=== PATIENT | female | born 1950 | race Caucasian/White ===

== ENCOUNTER 2023-01-12 14:41 | Outpatient (OUT) | payer MEDICARE, OTHER, SELFPAY ==
--- NOTE | 2023-01-12 | MM_ITS ---
Patient Name: LOBITO MERAZ MR#: [id number] : 1950 Exam Date: 01/12/2023 Ordering Doctor: Non-Staff Physician RADIOLOGY REPORT PROCEDURE: MM TOMOSYNTHESIS SCREENING BI COMPARISON: MG MAMM SCREEN 3D JENNA CAD, 12/11/2020. MG MAMM SCREEN 3D JENNA CAD, 01/06/2022. INDICATIONS: Screening for malignant neoplasm Calculator Name NCI Breast Cancer Risk Assessment Tool 5 Year Breast Cancer Risk 6.50% Lifetime Breast Cancer Risk 15.30% Personal Breast Cancer No Personal Ovarian Cancer No Treatments None Family Cancers Mother with breast cancer at age 40; Sister with breast cancer at age 59. LOCATION: [facility] BREAST COMPOSITION: Scattered areas fibroglandular density. FINDINGS: DIAGNOSTIC CATEGORY 2--BENIGN FINDING. NO CHANGE FROM COMPARISON. Scattered benign-appearing nodules are present. Scattered benign-appearing calcifications are present. Scattered benign-appearing lymph nodes are present. RIGHT BREAST: No significant suspicious finding. LEFT BREAST: No significant suspicious finding. RECOMMENDATIONS: ROUTINE MAMMOGRAM AND CLINICAL EVALUATION IN 12 MONTHS. PLEASE NOTE: A NORMAL MAMMOGRAM DOES NOT EXCLUDE THE POSSIBILITY OF BREAST CANCER. A CLINICALLY SUSPICIOUS PALPABLE LUMP SHOULD BE BIOPSIED. Dictated by: Gerry Lay MD on 01/13/2023 at 08:36 Approved by: Gerry Lay MD on 01/13/2023 at 08:38
--- NOTE | 2023-01-12 | XR_ITS ---
The [address] [address] Patient Name: LOBITO MERAZ MRN: [id number] date: 1950 Sex: F Assigned Patient Location: [facility] Current Patient Location: [facility] Accession/Order Number: [id number] Exam Date: 01/12/2023 15:09 Report Date: 01/12/2023 15:59 At the request of: NON-STAFF PHYSICIAN Procedure: XR DEXA axial skeleton EXAMINATION: XR DEXA axial skeleton, 01/12/2023 3:09 PM EST HISTORY: Screening COMPARISON: 2020, 2018, 2015, 2012. TECHNIQUE: Dual-energy X-ray absorptiometry (DEXA) bone density study performed for the axial skeleton. FINDINGS: Bone mineral density AP spine L2-L4 measures 1.511 g/sq cm. This is artifactually elevated secondary to proliferative osteophyte formation Lowest bone mineral density is in the left femoral neck measuring 0.867 g/sq cm. T score -1.2. WHO classification: Osteopenia XR/XR DEXA axial skeleton IMPRESSION: Osteopenia. Moderate fracture risk Electronically authenticated by: BENJY SOLIS Date: 01/12/2023 15:59
[2023-01-12 15:52] LABS: Calcium 9.2 mg/dL (8.5-10.1); Estimated GFR (African America >60 (>=60); Estimated GFR (Non-African Ame 59 (>=60)
== END 2023-01-12 14:42 | disposition home or self-care (01) ==
PROVIDERS: PCP Family Medicine
DX: M85.89 Other specified disorders of bone density and structure, multiple sites (principal); Z12.31 Encounter for screening mammogram for malignant neoplasm of breast; Z80.3 Family history of malignant neoplasm of breast; M85.80 Other specified disorders of bone density and structure, unspecified site
CPT/HCPCS: 36415; 77063; 77067; 77080; 82306; 82310; 82565

== ENCOUNTER 2023-02-09 12:10 | Outpatient (OUT) | payer MEDICARE, OTHER, SELFPAY ==
--- NOTE | 2023-02-09 12:25 | XR_ITS ---
The [place] [id number] Patient Name: LOBITO MERAZ MRN: [id number] date: 1950 Sex: F Assigned Patient Location: [facility] Current Patient Location: [facility] Accession/Order Number: [id number] Exam Date: 02/09/2023 12:20 Report Date: 02/09/2023 12:39 At the request of: KAYLEIGH HOLBROOK Procedure: XR chest 2V EXAM: XR chest 2V HISTORY: Cough for 2 months COMPARISON: None. TECHNIQUE: Upright PA and lateral chest x-ray FINDINGS: The heart is not enlarged and the vasculature is not distended. No acute infiltrate, effusion or pneumothorax is identified. Calcification of the costochondral cartilage is noted. Mild degenerative changes are seen in the spine. XR/XR chest 2V IMPRESSION: No acute infiltrate or evidence of cardiac decompensation. Direct comparison with a previous study would be helpful in confirming the chronicity of these findings. Electronically authenticated by: SUPA LEYVA Date: 02/09/2023 12:39
== END 2023-02-09 12:11 | disposition home or self-care (01) ==
LOC: RAD 12:10
PROVIDERS: PCP Family Medicine; Visit Provider Nurse Practitioner
DX: R05.9 Cough, unspecified (principal)
CPT/HCPCS: 71046

== ENCOUNTER 2023-04-20 08:53 | Outpatient (OUT) | payer MEDICARE, OTHER, SELFPAY ==
--- OUTSIDE RECORDS SUMMARY | 2023-04-20 08:58 | XMS_ITS | CCD ---
Author Name Unknown Address [address] [place] [address] Organization [facility] Care Team Providers Care Tour Leader Name Role Phone WEST, DR BENJY Yun Consulting Unavailable YOAV, DR HIGGINS Admitting Unavailable YOAV, DR HIGGINS Attending Unavailable BULL ., DR KATIUSKA Da Silva Primary Care Unavailable YOAV, DR HIGGINS Consulting Unavailable BULL ., DR KATIUSKA Da Silva Attending Unavailable BULL ., DR KATIUSKA Da Silva Admitting Unavailable BULL ., DR KATIUSKA Da Silva Primary Care Unavailable BULL ., DR KATIUSKA Da Silva Consulting Unavailable ARMEN YUEN Admitting Unavailable ARMEN YUEN Attending Unavailable BULL ., DR KATIUSKA Da Silva Primary Care Unavailable ARMEN YUEN Admitting Unavailable WILFRIDARMEN Attending Unavailable ZIEBER, DR EJ Davis Consulting Unavailable BULL ., DR KATIUSKA Da Silva Primary Care Unavailable ARMEN YUEN Consulting Unavailable Mitzi, [employer]IE[employer] Radha L Attending Unavailable Mitzi, [employer] CHIEF Radha L Attending Unavailable Mitzi, [employer]IEF Radha L Attending Unavailable Allergies Allergy Classification Reported Allergen(s) Allergy Type Date of Onset Reaction(s) Facility (3 sources) Meperidine; Translations: [Demerol] Drug Allergy 03-06-2016 [facility] Repository Problems Active Problems Problem Classification Problem Date Documented Da te Episodic/Chronic Other connective tissue disease (4 sources) Pain in left foot; Translations: [PAIN IN LEFT FOOT] Onset: 06-14-2022 Episodic Past or Other Problems Problem Classification Problem Date Documented Da te Episodic/Chronic Other screening for suspected conditions (not mental disorders or infectious disease) (4 sources) Encounter for screening mammogram for malignant neoplasm of breast; Translations: [ENC SCR MAMMO MALIG NEOPLASM BREAST] Onset: 01-06-2022 Episodic Residual codes; unclassified (1 source) Family history of malignant neoplasm of breast; Translations: [FAMILY HX MALIG NEOPLASM OF BREAST] Onset: 01-10-2022 Episodic Results Test Name Value Interpretation Reference Range Jose hogan Physician Referralon 023 Physician Referral [id number]# 1.00TIFF [facility] Physician Orderon 02-09-2023 Physician Order [id number] #1.00TIFF [facility] Ambulatory Visit Summaryon 1 04-11-2022 Ambulatory Visit Summary REYNA MERAZ :1950 Visit Date:02/08/2023 Ambulatory Visit Instructions Your Care Team Attending Physician - Radha Quinteros Primary Care Physician - Radha Quinteros This Is Your Medications List alendronate (Fosamax 70 mg Tab) Procedures Performed Appendectomy, Biopsy of breast, Carpal tunnel. Discharge Vitals Heart Rate (Peripheral) 87 Blood Pressure 142/80 Height 167 cm Height 66 in Weight 76.5 kg Weight 168.3 lb BMI 27.43 Medications What How Much When Why Instructions Unchanged alendronate (Fosamax 70 mg Tab) 1 Tablets By Mouth Every 7 days Osteoma Allergies Demerol (Rash) Problems Ongoing - Any problem that you are currently receiving treatment for. Congestion of nasal sinus Cough Osteoma Patient Survey You may receive a survey via text or e-mail asking about your office visit. Please share your experience with us by completing your survey. We appreciate your feedback and thank you for choosing us for your care. Normal [facility] Family Medicine Office/Clini c Noteon 02-08-2023 Family Medicine Office/Clinic Note HPI Staff Reyna is a 72 year old female presenting for acute visit Acute: cough _Respiratory C/O: Duration: _ Body aches: no Chest congestion: no Chills: no Cough: no Ear complaints: no Eye itching/watering: no Fever: no Headache: no Nasal congestion: no Nasal discharge: no Poor appetite: no Reduced activity: no Sinus pain/pressure: no Sneezing: no Sputum production: no Wheezing: no Ill contacts: no Remedies tried: _ _ _ questions/concerns: History of Present Illness pt presents today for continued cough. she was here the end of November and was given kenalog shot. pt states she felt better for a little bit. but is now back to coughing all the time Review of Systems ROS - Provider Constitutional: no fever, no chills, no sweats, no fatigue Respiratory: no shortness of breath, no cough, no orthopnea, no wheezing. Cardiovascular: no chest pain, no palpitations, no edema. Neurologic: no headache, no dizziness, no numbness, no weakness. Physical Exam Vitals & Measurements HR: 87(Peripheral) BP: 142/80 SpO2: 97% HT: 66 in HT: 167 cm WT: 76.5 kg WT: 168.3 lb BMI: 27.43 General: alert, no acute distress ENMT: oral mucosa moist, no pharyngeal erythema or exudate Cardiovascular: regular rate and rhythm, normal peripheral perfusion Respiratory: Lungs CTA, respirations non labored Extremities: no deformity, no trauma Neurological: oriented x 4, LOC appropriate for age, CN II-XII intact, motor strength equal & normal bilaterally, speech normal Assessment/Plan 1. Cough (R05.9: Cough, unspecified) pt presents today c/o cough since last visit in November. after kenalog injection she states she stopped coughing for a little bit. but is back to coughing all the time again. chest x ray order given for [facility]. medrol dose pack and inhaler sent to pharmacy. as well as cheratussin at bedtime because she can not sleep due to coughing. all questions answered. If cough isn't better in a few weeks and xray is negative may consider referral to Dr. Fitzpatrick. RTC as needed Ordered: fluticasone, = 2 puff(s), Inhalation, BID, # 12 gram, Refills(s) 1, Pharmacy: [facility]/pharmacy #[id number], 167, cm, 02/08/23 15:30:00 EST, Height/Length Dosing, 76.5, kg, 02/08/23 15:30:00 EST, Weight Dosing methylPREDNISolone, = 1 packet(s), Oral, As Directed, as directed on package labeling, X 6 day(s), # 21 tab(s), Refills(s) 0, Pharmacy: [facility]/pharmacy #[id number], 167, cm, 02/08/23 15:30:00 EST, Height/Length Dosing, 76.5, kg, 02/08/23 15:30:00 EST, Weight Dosing 2. Adult BMI 27.0-27.9 kg/sq m (Z68.27: Body mass index [BMI] 27.0-27.9, adult) BMI education complete Ordered: fluticasone, = 2 puff(s), Inhalation, BID, # 12 gram, Refills(s) 1, [id number] 167, cm, 02/08/23 15:30:00 EST, Height/Length Dosing, 76.5, kg, 02/08/23 15:30:00 EST, Weight Dosing methylPREDNISolone, = 1 packet(s), Oral, As Directed, as directed on package labeling, X 6 day(s), # 21 tab(s), Refills(s) 0, [id number], 167, cm, 02/08/23 15:30:00 EST, Height/Length Dosing, 76.5, kg, 02/08/23 15:30:00 EST, Weight Dosing Orders: codeine-guaifenesin, 5 mL, Oral, Bedtime for cough, 60 mL, Refill(s) 0[id number], cm, 02/08/23 15:30:00 EST, Height/Length Dosing, 76.5, kg, 02/08/23 15:30:00 EST, Weight Dosing Follow-up No qualifying data available Problem List/Past Medical History Ongoing Adult BMI 27.0-27.9 kg/sq m Congestion of nasal sinus Cough Osteoma Historical No qualifying data Procedure/Surgical History Appendectomy, Biopsy of breast, Carpal tunnel. Medications Cheratussin AC oral syrup, 5 mL, Oral, Bedtime, PRN Flovent HFA 110 Aerosol, 2 puff(s), Inhalation, BID, 1 refills Fosamax 70 mg Tab, 70 mg= 1 tab(s), Oral, q7day, Not taking Medrol 4 mg Tab, 1 packet(s), Oral, As Directed Allergies Demerol (Rash) Social History Tobacco Never (less than 100 in lifetime) Tobacco Use:. Never Smokeless Tobacco Use:. Household tobacco concerns: No., 02/08/2023 Family History Acute myocardial infarction: Father. Primary malignant neoplasm of female breast: Mother. Immunizations Vaccine Date Status Comments influenza virus vaccine, inactivated 01/07/2022 Recorded SARS-CoV-2 (COVID-19) mRNA BNT-162b2 vax 02/23/2021 Recorded 2022-05-16: TPV70 influenza virus vaccine, inactivated 01/18/2021 Recorded SARS-CoV-2 (COVID-19) mRNA BNT-162b2 vax 05/01/2020 Recorded SARS-CoV-2 (COVID-19) mRNA BNT-162b2 vax 04/10/2020 Recorded pneumococcal 23-valent vaccine 12/18/2019 Recorded influenza virus vaccine, inactivated 12/18/2019 Recorded influenza virus vaccine, inactivated 12/25/2018 Recorded influenza virus vaccine, inactivated 01/09/2018 Recorded influenza virus vaccine, inactivated 12/26/2016 Recorded influenza virus vaccine, inactivated 12/22/2015 Recorded influenza virus vaccine, inactivated 12/24/2014 Recorded influenza virus vaccine, inactivated 12/27/2013 Recorded influenza virus vaccine, inact (more content not included)... [facility] Comment on above: Result Comment: Elec tronically Signed By: Radha Quinteros\.br\Date and Time Signed: 02/08/23 16:34 EST Outside Mammographyon 2022 Outside Mammography [id number]# 1.00TIFF [facility] RAD - MISCon 01-17-2023 RAD - MISC [id number]# 1.00TIFF [facility] Family Medicine Office/Clini c Noteon 12-23-2022 Family Medicine Office/Clinic Note HPI Staff Reyna is a 72 year old female presenting for acute visit Questions/Concerns: Onset: 2.5 weeks Pt had been working outside a lot and cough started with clear productive cough, no other symptoms, has tested herself covid on 12/17/22 was negative. Has been taking Claritin, Tussin DM, Nasonex History of Present Illness pt presents today with cough and congestion. covid test negative Review of Systems PHQ Score Initial Depression Screen Score: 0 ROS - Provider Constitutional: no fever, no chills, no sweats, no fatigue Respiratory: no shortness of breath, yes cough, no orthopnea, no wheezing. Cardiovascular: no chest pain, no palpitations, no edema. Neurologic: no headache, no dizziness, no numbness, no weakness. Physical Exam Vitals & Measurements T: 37.1 ?C(Tympanic) HR: 72(Peripheral) RR: 18 BP: 136/78 SpO2: 98% HT: 66 in HT: 167.5 cm WT: 77.8 kg WT: 171.16 lb BMI: 27.73 General: alert, no acute distress ENMT: oral mucosa moist, no pharyngeal erythema or exudate Cardiovascular: regular rate and rhythm, normal peripheral perfusion Respiratory: Lungs CTA, respirations non labored Extremities: no deformity, no trauma Neurological: oriented x 4, LOC appropriate for age, CN II-XII intact, motor strength equal & normal bilaterally, speech normal Assessment/Plan 1. Cough (R05.9: Cough, unspecified) pt presents for cough for about 1.5 weeks. it is not improving. will send z chaparro and medrol dose pack. all questions answered. RTC as needed 2. Congestion of nasal sinus (R09.81: Nasal congestion) see above 3. BMI 27.0-27.9,adult (Z68.27: Body mass index [BMI] 27.0-27.9, adult) BMI eduction complete 4. Non-smoker (Z78.9: Other specified health status) continue not smoking Follow-up No qualifying data available Problem List/Past Medical History Ongoing Congestion of nasal sinus Cough Historical No qualifying data Procedure/Surgical History Appendectomy, Biopsy of breast, Carpal tunnel. Medications azithromycin 250 mg Tab, 1 packet(s), Oral, As Directed benzonatate 200 mg oral capsule, 200 mg= 1 cap(s), Oral, TID Allergies Demerol (Rash) Social History Tobacco Never (less than 100 in lifetime) Tobacco Use:. Never Smokeless Tobacco Use:. Household tobacco concerns: No., 12/19/2022 Family History Acute myocardial infarction: Father. Primary malignant neoplasm of female breast: Mother. Immunizations Vaccine Date Status Comments influenza virus vaccine, inactivated 01/07/2022 Recorded SARS-CoV-2 (COVID-19) mRNA BNT-162b2 vax 02/23/2021 Recorded 2022-05-16: TPV70 influenza virus vaccine, inactivated 01/18/2021 Recorded SARS-CoV-2 (COVID-19) mRNA BNT-162b2 vax 05/01/2020 Recorded SARS-CoV-2 (COVID-19) mRNA BNT-162b2 vax 04/10/2020 Recorded pneumococcal 23-valent vaccine 12/18/2019 Recorded influenza virus vaccine, inactivated 12/18/2019 Recorded influenza virus vaccine, inactivated 12/25/2018 Recorded influenza virus vaccine, inactivated 01/09/2018 Recorded influenza virus vaccine, inactivated 12/26/2016 Recorded influenza virus vaccine, inactivated 12/22/2015 Recorded influenza virus vaccine, inactivated 12/24/2014 Recorded influenza virus vaccine, inactivated 12/27/2013 Recorded influenza virus vaccine, inactivated 12/28/2012 Recorded [facility] Comment on above: Result Comment: Elec tronically Signed By: Radha Quinteros\.br\Date and Time Signed: 12/23/22 11:35 EDT [facility] 12-20-2022 Consent [id number] #1.00TIFF [facility] Ambulatory Visit Summaryon 1 Ambulatory Visit Summary REYNA MERAZ :1950 MRN:[id number] Visit Date:12/19/2022 Ambulatory Visit Instructions Your Diagnosis BMI 27.0-27.9,adult Non-smoker Your Care Team Attending Physician - Radha Quinteros Primary Care Physician - Radha Quinteros Procedures Performed Appendectomy, Biopsy of breast, Carpal tunnel. Discharge Vitals Temperature (Tympanic) 37.1 ?C Heart Rate (Peripheral) 72 Respiratory Rate 18 Blood Pressure 136/78 Height 167.5 cm Height 66 in Weight 77.8 kg Weight 171.16 lb BMI 27.73 Allergies Demerol (Rash) [facility] Consultation Noteon 07-07-19 Consultation Note [id number] #1.00CD:127 [facility] Physician Referralon 023 Physician Referral [id number]#1.00CD:127 [facility] Lab Reportson 05-17-2022 Lab Reports [id number]# 1.00CD:127 Normal [facility] Ambulatory Visit Summaryon 0 05-16-2022 Ambulatory Visit Summary REYNA MERAZ :1950 Visit Date:05/16/2022 Ambulatory Visit Instructions Your Diagnosis BMI 27.0-27.9,adult Infection of toe Your Care Team Attending Physician - Mitzi REYNOLDS, Radha Ochoa Primary Care Physician - SAIMA SPRING, KATIUSKA Da Silva This Is Your Medications List cephalexin (cephalexin 500 mg Cap) Procedures Performed Appendectomy, Biopsy of breast, Carpal tunnel. Discharge Vitals Heart Rate (Peripheral) 80 Respiratory Rate 16 Blood Pressure 148/82 Height 66 in Height 167.64 cm Weight 167.838 lb Weight 76.29 kg BMI 27.15 Medications What How Much When Why Instructions New cephalexin (cephalexin 500 mg Cap) 1 Capsules By Mouth Every 8 hours Infection of toe Pickup at [facility] Pharmacy Information [facility]: [address], [place] [id number] [phone] Allergies Demerol (Rash) Normal [facility] Family Medicine Office/Clini c Noteon 05-16-2022 Family Medicine Office/Clinic Note Chief Complaint ? infected toe, hurt it in [place] and maybe fractured it happened a month ago HPI Staff infected second toe left foot ? fractured it in [place] Any diagnosis: Any specialist: dermatology Last OV: [address]: Dr Bull any labs: [facility] April 2022 Colonoscopy: due Mammogram: 2021 UTD Pap: told too old ( Dr Peña) Flu/covd: UTD History of Present Illness pt presents today with redness and swelling of left 2nd toe. she stepped in a hole in [place] about a month ago and it has been red and swollen ever since. she has been taping the toe when she walks 3+ miles per day. Review of Systems PHQ Score Initial Depression Screen Score: 0 ROS - Provider Constitutional: no fever, no chills, no sweats, no fatigue Respiratory: no shortness of breath, no cough, no orthopnea, no wheezing. Cardiovascular: no chest pain, no palpitations, no edema. Neurologic: no headache, no dizziness, no numbness, no weakness. extremeties: 2nd toe on right foot red and swollen Physical Exam Vitals & Measurements HR: 80(Peripheral) RR: 16 BP: 148/82 SpO2: 96% HT: 66 in HT: 167.64 cm WT: 76.29 kg WT: 167.838 lb BMI: 27.15 General: alert, no acute distress ENMT: oral mucosa moist, no pharyngeal erythema or exudate Cardiovascular: regular rate and rhythm, normal peripheral perfusion Respiratory: Lungs CTA, respirations non labored Extremities: no deformity, no trauma 2nd toe right foot red and swollen Neurological: oriented x 4, LOC appropriate for age, CN II-XII intact, motor strength equal & normal bilaterally, speech normal Assessment/Plan 1. Infection of toe (L08.9: Local infection of the skin and subcutaneous tissue, unspecified) pt had injury to toe about 1 month ago while on vacation. she thought it was just a fracture and taped it to middle toe while walking. she walks 3 miles per day. the toe continues to be very red and swollen. but it not warm to touch. will order antibiotics. does not appear to be gout. if it does not improved may consider referral to [facility] Ordered: cephalexin, 500 mg = 1 cap(s), Oral, q8hr, # 30 cap(s), Refills(s) 0, Pharmacy: [facility], 167.6, cm, 05/16/22 10:47:00 EDT, Height/Length Dosing, 76.3, kg, 05/16/22 10:47:00 EDT, Weight Dosing 2. BMI 27.0-27.9,adult (Z68.27: Body mass index [BMI] 27.0-27.9, adult) bmi education complete Ordered: Body Mass Index (BMI) documented 3008F Current tobacco non-user 1036F Depression Screening Negative 3352F Influenza immunization administered or previously received 4274F Most recent diastolic blood pressure 80-89 mm Hg 3079F Most recent systolic blood pressure >= 140 mm Hg 3077F Patient screen for fall risk: no falls in last year or 1 fall with no injury in last year 1101F Follow-up No qualifying data available Problem List/Past Medical History Ongoing No qualifying data Historical No qualifying data Procedure/Surgical History Appendectomy, Biopsy of breast, Carpal tunnel. Medications cephalexin 500 mg Cap, 500 mg= 1 cap(s), Oral, q8hr Allergies Demerol (Rash) Social History Tobacco Never (less than 100 in lifetime) Tobacco Use:. Never Smokeless Tobacco Use:., 05/16/2022 Family History Acute myocardial infarction: Father. Primary malignant neoplasm of female breast: Mother. Immunizations Vaccine Date Status Comments influenza virus vaccine, inactivated 01/07/2022 Recorded SARS-CoV-2 (COVID-19) mRNA BNT-162b2 vax 02/23/2021 Recorded 2022-05-16: TPV70 influenza virus vaccine, inactivated 01/18/2021 Recorded SARS-CoV-2 (COVID-19) mRNA BNT-162b2 vax 05/01/2020 Recorded SARS-CoV-2 (COVID-19) mRNA BNT-162b2 vax 04/10/2020 Recorded pneumococcal 23-valent vaccine 12/18/2019 Recorded influenza virus vaccine, inactivated 12/18/2019 Recorded influenza virus vaccine, inactivated 12/25/2018 Recorded influenza virus vaccine, inactivated 01/09/2018 Recorded influenza virus vaccine, inactivated 12/26/2016 Recorded influenza virus vaccine, inactivated 12/22/2015 Recorded influenza virus vaccine, inactivated 12/24/2014 Recorded influenza virus vaccine, inactivated 12/27/2013 Recorded influenza virus vaccine, inactivated 12/28/2012 Recorded [facility] Comment on above: Result Comment: Elec tronically Signed By: Radha Quinteros\.br\Date and Time Signed: 05/16/22 12:51 EDT [facility] CBC AUTO DIFFon 05-03-2022 BASO # 0.0 103/ul Normal 0.0-0.1 [facility] Comment on above: Performed By: #### H FPFCBC #### [facility] [address] [place] [address] Dr. Jean-Claude Norris Basophils/100 WBC (Bld) 0.7 % Normal 0.2-2.0 [facility] Comment on above: Performed By: #### H FPFCBC #### [facility] [address] [place] [address] Dr. Jean-Claude Norris EO # 0.2 103/ul Normal 0.0-0.7 [facility] Comment on above: Performed By: #### H FPFCBC #### [facility] [address] [place] [address] Dr. JeanC-laude Norris Eosinophils/100 WBC (Bld) 3.7 % Normal 0.9-7.0 [facility] Comment on above: Performed By: #### H FPFCBC #### [facility] [address] [place] [address] Dr. Jean-Claude Norris Erythrocyte distribution width (RBC) [Ratio] 14.8 % Normal 11.0-15.0 [facility] Comment on above: Performed By: #### H FPFCBC #### [facility] [address] [place] [address] Dr. Jean-Claude Norris Hematocrit (Bld) [Volume fraction] 36.5 % Normal 36.0-48.0 [facility] Comment on above: Performed By: #### H FPFCBC #### [facility] [address] [place] [address] Dr. Jea-nClaude Norris Hemoglobin (Bld) [Mass/Vol] 11.6 g/dL Critically low 12.0-16.0 [facility] Comment on above: Performed By: #### H FPFCBC #### [facility] [address] [place] [address] Dr. Jean-Claude Norris IG # 0.01 10e3/ul Normal 0.00-0.03 [facility] Comment on above: Performed By: #### H FPFCBC #### [facility] [address] [place] [address] Dr. Jean-Claude Norris IG % 0.2 % Normal 0.0-0.5 [facility] Comment on above: Performed By: #### H FPFCBC #### [facility] [address] [place] [address] Dr. Jean-Claude Norris LYMPH # 0.8 103/ul Critically low 1.2-3.8 [facility] Comment on above: Performed By: #### H FPFCBC #### [facility] [address] [place] [address] Dr. Jean-Claude Norris Lymphocytes/100 WBC (Bld) 18.9 % Critically low 20.5-60.0 [facility] Comment on above: Performed By: #### H FPFCBC #### [facility] [address] [place] [address] Dr. Jean-Claude Norris MCH (RBC) [Entitic mass] 25.1 pg Critically low 26.7-34.0 [facility] Comment on above: Performed By: #### H FPFCBC #### [facility] [address] [place] [address] Dr. Jean-Claude Norris MCHC (RBC) [Mass/Vol] 31.8 g/dL Normal 29.9-35.2 [facility] Comment on above: Performed By: #### H FPFCBC #### [facility] [address] [place] [address] Dr. Jean-Claude Norris MCV (RBC) [Entitic vol] 78.8 fL Critically low 81.0-99.0 [facility] Comment on above: Performed By: #### H FPFCBC #### [facility] [address] [place] [address] Dr. Jean-Claude Norris MONO # 0.5 103/ul Normal 0.3-0.8 [facility] Comment on above: Performed By: #### H FPFCBC #### [facility] [address] [place] [address] Dr. Jean-Claude Norris Monocytes/100 WBC (Bld) 12.4 % Critically high 1.7-12.0 [facility] Comment on above: Performed By: #### H FPFCBC #### [facility] [address] [place] [address] Dr. Jean-Claude Norris NEUT # 2.7 103/ul Normal 1.4-6.5 [facility] Comment on above: Performed By: #### H FPFCBC #### [facility] [address] [place] [address] Dr. Jean-Claude Norris Neutrophils/100 WBC (Bld) 64.1 % Normal 43.0-75.0 [facility] Comment on above: Performed By: #### H FPFCBC #### [facility] [address] [address] [address] Jean-Claude Norris Platelet mean volume (Bld) [Entitic vol] 11.4 fL Normal 9.5-13.5 [facility] Comment on above: Performed By: #### H FPFCBC #### [facility] [address] [address] [address] Jean-Claude Norris PLT 209 103/ul Normal 150-450 [facility] Comment on above: Performed By: #### H FPFCBC #### [facility] [address] [address] [address] Jean-Claude Norris RBC 4.63 106/ul Normal 4.20-5.40 [facility] Comment on above: Performed By: #### H FPFCBC #### [facility] [address] [place] [address] Dr. Jean-Claude Norris WBC 4.3 103/ul Normal 4.0-11.0 [facility] Comment on above: Performed By: #### H FPFCBC #### [facility] Laboratory [address] [address] [address] Jean-Claude CAMACHO COUNT INCLUDES THE [facility] GLYCOHEMOGLOBIN A1Con 05-03-2022 Glucose [Mass/Vol] 117 mg/dL Normal [facility] Comment on above: Performed By: #### H FPFA1C #### [facility] [address] [place] [address] Dr. Jean-Claude Norris HbA1c (Bld) [Mass fraction] 5.7 % Normal 4.5-6.2 [facility] Comment on above: Performed By: #### H FPFA1C #### [facility] [address] [address] [address] Jean-Claude CAMACHOIR PROFILEon 023 Albumin [Mass/Vol] 3.9 g/dL Normal 3.4-5.0 [facility] Comment on above: Performed By: #### H FPF #### [facility] [address] [place] [address] Dr. Jean-Claude Norris Albumin/Globulin [Mass ratio] 1.3 {ratio} Normal [facility] Comment on above: Performed By: #### H FPF #### [facility] [address] [address] [address] Jean-Claude Norris ALP [Catalytic activity/Vol] 69 U/L Normal 46-116 [facility] Comment on above: Performed By: #### H FPF #### [facility] [address] [address] [address] Jean-Claude Norris ALT [Catalytic activity/Vol] 23 U/L Normal 14-59 [facility] Comment on above: Performed By: #### H FPF #### [facility] [address] [address] [address] Jean-Claude Norris AST [Catalytic activity/Vol] 19 U/L Normal 15-37 [facility] Comment on above: Performed By: #### H FPF #### [facility] [address] [place] [address] Dr. Jean-Claude Norris Bilirubin [Mass/Vol] 1.0 mg/dL Normal 0.2-1.0 [facility] Comment on above: Performed By: #### H FPF #### [facility] [address] [address] [address] Jean-Claude Norris Calcium [Mass/Vol] 9.3 mg/dL Normal 8.5-10.1 [facility] Comment on above: Performed By: #### H FPF #### [facility] [address] [address] [address] Jean-Claude Norris Chloride [Moles/Vol] 106 mmol/L Normal 98-107 [facility] Comment on above: Performed By: #### H FPF #### [facility] [address] [address] [address] Jean-Claude Norris CHOL-HDL RATIO NORM SEE BELOW Normal [facility] Comment on above: Result Comment: 3.3 - 4.4 LOW RISK 4.4 - 7.1 AVERAGE RISK 7.1 - 11.0 MODERATE RISK >11.0 HIGH RISK Performed By: #### H FPF #### [facility] [address] [place] [address] Dr. Jean-Claude Norris Cholesterol [Mass/Vol] 183 mg/dL Normal <=200 [facility] Comment on above: Performed By: #### H FPF #### [facility] [address] [address] [address] Jean-Claude Norris Cholesterol in HDL [Mass/Vol] 46 mg/dL Normal 40-60 [facility] Comment on above: Performed By: #### H FPF #### [facility] [address] [address] [address] Jean-Claude Norris Cholesterol in LDL [Mass/Vol] 107.2 mg/dL Normal [facility] Comment on above: Performed By: #### H FPF #### [facility] [address] [place] [address] Dr. Jean-Claude Norris Cholesterol.total/Cho lesterol in HDL [Mass ratio] 4.0 {ratio} Normal [facility] Comment on above: Performed By: #### H FPF #### [facility] [address] [place] [address] Dr. Jean-Claude Norris CO2 [Moles/Vol] 27.7 mmol/L Normal 21.0-32.0 [facility] Comment on above: Performed By: #### H FPF #### [facility] [address] [place] [address] Dr. Jean-Claude Norris Creatinine [Mass/Vol] 0.69 mg/dL Normal 0.55-1.02 [facility] Comment on above: Performed By: #### H FPF #### [facility] [address] [address] [address] Jean-Claude Norris Globulin (S) [Mass/Vol] 3.1 g/dL Normal [facility] Comment on above: Performed By: #### H FPF #### [facility] [address] [address] [address] Jean-Claude Norris Glucose [Mass/Vol] 125 mg/dL Critically high 74-106 [facility] Comment on above: Performed By: #### H FPF #### [facility] [address] [address] [address] Jean-Claude Norris HDL NORMAL > or = 60 mg/dl - LOW CARDIOVASCULAR RISK <40 mg/dl - HIGH CARDIOVASCULAR RISK Normal [facility] Comment on above: Performed By: #### H FPF #### [facility] [address] [address] [address] Jean-Claude Norris LDL CALC NORMAL SEE BELOW Normal [facility] Comment on above: Result Comment: <100 mg/dl OPTIMAL 100 - 129 mg/dl NEAR OR ABOVE OPTIMAL 130 - 159 mg/dl BORDERLINE HIGH 160 - 189 mg/dl HIGH >190 mg/dl VERY HIGH Performed By: #### H FPF #### [facility] [address] [address] [address] Jean-Claude Norris Potassium [Moles/Vol] 4.3 mmol/L Normal 3.5-5.1 [facility] Comment on above: Performed By: #### H FPF #### [facility] [address] [place] [address] Dr. Jean-Claude Norris Protein [Mass/Vol] 7.0 g/dL Normal 6.4-8.2 [facility] Comment on above: Performed By: #### H FPF #### [facility] [address] [place] [address] Dr. Jean-Claude Norris Sodium [Moles/Vol] 142 mmol/L Normal 136-145 [facility] Comment on above: Performed By: #### H FPF #### [facility] [address] [place] [address] Dr. Jean-Claude Norris Triglyceride [Mass/Vol] 149 mg/dL Normal <=150 [facility] Comment on above: Performed By: #### H FPF #### [facility] [address] [address] [address] Jean-Claude Norris TSH 2.552 uIU/mL Normal 0.358-3.740 [facility] Comment on above: Performed By: #### H FPF #### [facility] [address] [place] [address] Dr. Jean-Claude Norris Urea nitrogen [Mass/Vol] 15.0 mg/dL Normal 7.0-18.0 [facility] Comment on above: Performed By: #### H FPF #### [facility] [address] [address] [address] Jean-Claude Norris Urea nitrogen/Creatinine [Mass ratio] 21.7 mg/mg Normal [facility] Comment on above: Performed By: #### H FPF #### [facility] [address] [address] [address] Jean-Claude Norris VLDL CALC 29.8 mg/dL Normal [facility] Comment on above: Performed By: #### H FPF #### [facility] [address] [address] [address] Jean-Claude Norris MG MAMM SCREEN 3D JENNA CADon 01-06-2022 MG MAMM SCREEN 3D JENNA CAD Patient: REYNA MERAZ Exam Date: 01/06/2022 : 1950 Gender:F Ordering : DR GISELA CASON [facility] Admission #: [id number] Family : Order #: [id number] CLICK HERE TO VIEW EXAM RADIOLOGY REPORT PROCEDURE: MAMMOGRAM SCREENING 3D BILATERAL CAD COMPARISON: MG MAMM SCREEN JENNA W CAD, 09/09/2019. MG MAMM SCREEN 3D JENNA CAD, 12/11/2020. INDICATIONS: Screening mammography Calculator Name NCI Breast Cancer Risk Assessment Tool 5 Year Breast Cancer Risk 6.50% Lifetime Breast Cancer Risk 16.10% Personal Breast Cancer No Personal Ovarian Cancer No Treatments None Family Cancers Mother with breast cancer at age 40; Sister with breast cancer at age 59. LOCATION: [facility] BREAST COMPOSITION: Scattered areas fibroglandular density. FINDINGS: DIAGNOSTIC CATEGORY 1--NEGATIVE. NO CHANGE FROM COMPARISON ASSESSMENT. Scattered benign-appearing nodules are present. Scattered benign-appearing calcifications are present. Scattered benign-appearing lymph nodes are present. RIGHT BREAST: No significant suspicious finding. Linear scar marker upper inner quadrant anterior breast LEFT BREAST: No significant suspicious finding. RECOMMENDATIONS: ROUTINE MAMMOGRAM AND CLINICAL EVALUATION IN 12 MONTHS. PLEASE NOTE: A NORMAL MAMMOGRAM DOES NOT EXCLUDE THE POSSIBILITY OF BREAST CANCER. A CLINICALLY SUSPICIOUS PALPABLE LUMP SHOULD BE BIOPSIED. Dictated by: Benjy Solis MD on 01/06/2022 at 14:43 Approved by: Benjy Solis MD on 01/06/2022 at 14:45 Normal [facility] Encounters Encounter Date Encounter Type Care Provider Facility Start: 02-08-2023 End: 02-09-2023 ambulatory PORTABLE [employer] CHIEF Radha L Mitzi Facility:[facility] [place] Start: 12-19-2022 ambulatory PORTABLE [employer] CHIEF Radha L Mitzi Facil ity:[facility] [place] Start: 07-12-2022 ambulatory ARMEN YUEN Facilit y:[facility] Start: 06-14-2022 End: 06-15-2022 ambulatory ARMEN YUEN Facility:[facility] Start: 05-16-2022 End: 05-17-2022 ambulatory PORTABLE [employer] CHIEF Radha L Mitzi Facility:[facility] Start: 05-14-2022 ambulatory [employer] CHIEF Radha Mitzi Facilit y:[facility] Start: 05-03-2022 End: 05-04-[address] KATIUSKA BULL . Facility:[facility] Start: 01-06-2022 End: 01-07-[address] BENJY SOLIS Facility:[facility] Payers Date Payer Category Payer Medicare [id number] 1960 Self-pay [id number] 1960 Unknown [id number] 1960 Unknown [id number] 1950 Unknown [id number] 2.16.84 [id number] 1950 Unknown [id number] 2.16.84 [id number] 1950 Unknown [id number] 2.16.84 [id number] 1950 Unknown [id number] 2.16.8 [id number] 1950 Unknown [id number] 2.16.8 [id number] 1950 Unknown [id number] 2.16.8 [id number] 1950 Unknown [id number] 2.16.8 [id number] Unknown [id number] 2.16.84 [id number] Clinical Note 06-14-2022 Note Date & Type Note Facility 06-14-2022 Note PROCEDURE: XR FOOT L T MIN 3 VIEWS HISTORY: Pain in left foot ; left second toe redness and swelling since injury 2 months ago COMPARISON: None. FINDINGS: BONES:Nondisplaced and minimally angulated fracture through neck of second proximal phalanx. Joint space narrowing and small periarticular osteophytes involving the first metatarsophalangeal joint. SOFT TISSUES:No visible soft tissue swelling. EFFUSION:None visible. OTHER: Negative. IMPRESSION: 1. Subacute fracture of the second toe proximal phalanx. 2. Moderate degenerative changes of the first metatarsophalangeal joint. Electronically authenticated by: EJ DAVIS Date: 2022-06-14 15:56 [facility] Summary Purpose Family History No Family History Records FoundNo Family History Records Found Advance Directives No Advanced Directives Records FoundNo Advanced Directives Records Found Additional Source Comments INFORMATION SOURCE (unrecogn ized section and content) DATE CREATED AUTHOR 06/27/2022 [facility] DATE CREATED AUTHOR AUTHOR'S ORGANIZ ATION 02/13/2023 [facility] FOR RECORDS PERTAINING TO PATIENTS WHO ARE OR HAVE BEEN ENROLLED IN A CHEMICAL DEPENDENCY/SUBSTANCEABUSE PROGRAM, SOME INFORMATION MAY BE OMITTED. This clinical summary was aggregated from multiple sources. Caution should be exercised in using it in the provision of clinical care. This summary normalizes information from multiple sources, and as a consequence, information in this document may materially change the coding, format and clinical context of patient data. In addition, data may be omitted in some cases. CLINICAL DECISIONS SHOULD BE BASED ON THE PRIMARY CLINICAL RECORDS. The [facility]. provides no warranty or guarantee of the accuracy or completeness of information in this document.
--- NOTE | 2023-04-20 09:00 | RT_ITS ---
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 Findings were considered accurate and reproducible. No bronchodilator was administered due to normal spirometric values. Spirometry: -FEV1/FVC: Normal @ 78% -FEV1: Normal @ 118% -FVC: Normal @ 113% Lung volumes by plethysmography: -RV: Normal @ 112% -TLC: Normal @ 112% Diffusion capacity: -DLCO: Moderate reduction @ 59% when corrected for Hb 12.9g/dL Flow-volume loop: -Normal shape Impressions: -Normal spirometry and lung volumes with isolated moderate diffusion impairment. Differential includes interstitial lung disease and cardiopulmonary vascular disorders. Clinical correlation required. Electronically Signed On 04-25-2023 10:54:02 EST by Vitor Fitzpatrick
[2023-04-20 09:11] LABS: Hemoglobin 12.9 g/dL (12.0-16.0)
== END 2023-04-20 08:54 | disposition home or self-care (01) ==
LOC: CARD 08:54
PROVIDERS: PCP Family Medicine; Visit Provider Internal Medicine
DX: R05.3 Chronic cough (principal)
CPT/HCPCS: 36415; 85018; 94010; 94729

== ENCOUNTER 2023-04-27 08:59 | Outpatient (OUT) | payer MEDICARE, OTHER, SELFPAY ==
--- NOTE | 2023-04-27 09:07 | CT_ITS ---
[address] [address] Patient Name: LOBITO MERAZ MRN: [id number] date: 1950 Sex: F Assigned Patient Location: CT Current Patient Location: CT Accession/Order Number: [id number] Exam Date: 04/27/2023 09:10 Report Date: 04/27/2023 12:54 At the request of: MARÍA ELENA ARMENDARIZ Procedure: CT chest high res EXAMINATION: CT chest high res HISTORY: Chronic Chough R05.3, Abnormal Diffusion Capacity R94.2 COMPARISON: No relevant comparison available. TECHNIQUE: Axial images were obtained at 10 mm intervals during inspiration and expiration in the supine and prone positions. No IV contrast given. Dose reduction techniques were achieved by using automated exposure control and/or adjustment of mA and/or kV according to patient size and/or use of iterative reconstruction technique. FINDINGS: LUNGS: Spiculated semisolid nodule/density is noted in the left upper lobe measuring 1.6 x 1.8 cm, axial image 34. Additional punctate scattered nodules are noted, nonspecific the largest measuring 4 x 3 mm right upper lobe axial image 33. No centrilobular or paraseptal emphysema. No peripheral intralobular septal thickening or honeycombing. No bronchiectasis PLEURA: No mass, effusion, or pneumothorax. ELIAS: No mass or adenopathy. MEDIASTINUM: No mass or adenopathy. CHEST WALL: No mass or axillary adenopathy heterogeneous thyroid gland LIMITED ABDOMEN: Small hiatal hernia. 1.5 cm hypodensity partially visualized adjacent to the left aorta axial image 93 OTHER: Negative. CT/CT chest high res IMPRESSION: No evidence of interstitial lung disease 1.6 x 1.8 cm semisolid spiculated left upper lobe nodule. Consider PET scan to evaluate metabolic status Electronically authenticated by: BENJY SOLIS Date: 04/27/2023 12:54
--- OUTSIDE RECORDS SUMMARY | 2023-04-27 09:20 | XMS_ITS | CCD ---
Author Name Unknown Address [address] [place] [address] Organization [facility] Care Team Providers Care Engineering Consultant Name Role Phone WEST, DR BENJY Yun [...] Care Unavailable ARMEN YUEN Consulting Unavailable Mitzi, INDUSTRIAL MECHANIC Radha L Attending Unavailable Mitzi, INDUSTRIAL MECHANIC Radha L Attending Unavailable Mitzi, INDUSTRIAL MECHANIC Radha L Attending Unavailable Allergies Allergy Classification Reported Allergen(s) Allergy Type Date of Onset Reaction(s) Facility (3 sources) Meperidine; Translations: [Demerol] Drug Allergy 03-06-2016 [facility] Repository Problems Active Problems Problem Classification [...] Jose hogan Physician Referralon 023 Physician Referral [id number]# 1.00TIFF [facility] Physician Orderon 02-09-2023 Physician Order [id number] #1.00TIFF [facility] Ambulatory Visit Summaryon 1 04-11-2022 Ambulatory Visit [...] for choosing us for your care. Normal [facility] Family Medicine Office/Clini c Noteon 02-08-2023 Family [...] BID, # 12 gram, Refills(s) 1, Pharmacy: [facility]/pharmacy #[id number], 167, cm, 02/08/23 15:30:00 EST, Height/Length Dosing, 76.5, kg, 02/08/23 15:30:00 EST, Weight Dosing methylPREDNISolone, = 1 packet(s), Oral, As Directed, as directed on package labeling, X 6 day(s), # 21 tab(s), Refills(s) 0, Pharmacy: [facility]/pharmacy #[id number], 167, cm, 02/08/23 15:30:00 EST, Height/Length Dosing, 76.5, kg, 02/08/23 15:30:00 EST, Weight Dosing 2. Adult BMI 27.0-27.9 kg/sq m (Z68.27: Body mass index [BMI] 27.0-27.9, adult) BMI education complete Ordered: fluticasone, = 2 puff(s), Inhalation, BID, # 12 gram, Refills(s) 1, [id number], cm, 02/08/23 15:30:00 EST, Height/Length Dosing, 76.5, kg, 02/08/23 15:30:00 EST, Weight Dosing methylPREDNISolone, = 1 packet(s), Oral, As Directed, as directed on package labeling, X 6 day(s), # 21 tab(s), Refills(s) 0, [id number] 167, cm, 02/08/23 15:30:00 EST, Height/Length Dosing, 76.5, kg, 02/08/23 15:30:00 EST, Weight Dosing Orders: codeine-guaifenesin, 5 mL, Oral, Bedtime for cough, 60 mL, Refill(s) 0[id number], cm, 02/08/23 15:30:00 EST, Height/Length [...] virus vaccine, inact (more content not included)... [facility] Comment on above: Result Comment: Elec tronically Signed By: Radha Quinteros\.br\Date and Time Signed: 02/08/23 16:34 EST Outside Mammographyon 2022 Outside Mammography [id number]# 1.00TIFF [facility] RAD - MISCon 01-17-2023 RAD - MISC [id number]# 1.00TIFF [facility] Family Medicine Office/Clini c Noteon 12-23-2022 Family [...] Recorded influenza virus vaccine, inactivated 12/28/2012 Recorded [facility] Comment on above: Result Comment: Elec tronically Signed By: Radha Quinteros\.br\Date and Time Signed: 12/23/22 11:35 EDT Consenton 12-20-2022 Consent [id number] #1.00TIFF [facility] Ambulatory Visit Summaryon 1 Ambulatory Visit Summary [...] 171.16 lb BMI 27.73 Allergies Demerol (Rash) [facility] Consultation Noteon 07-07-19 Consultation Note [id number] #1.00CD:127 [facility] Physician Referralon 023 Physician Referral [id number]#1.00CD:127 [facility] Lab Reportson 05-17-2022 Lab Reports [id number]# 1.00CD:127 Normal [facility] Ambulatory Visit Summaryon 0 05-16-2022 Ambulatory Visit [...] Pharmacy Information [facility]: [address], [place] [id number] [phone] Allergies Demerol (Rash) Normal [facility] Family Medicine Office/Clini c Noteon 05-16-2022 Family [...] does not improved may consider referral to federal agent Ordered: cephalexin, 500 mg = 1 cap(s), [...] influenza virus vaccine, inactivated 12/28/2012 Recorded Normal [facility] Comment on above: Result Comment: Elec tronically Signed By: Radha Quinteros\.br\Date and Time Signed: 05/16/22 12:51 EDT [facility] CBC AUTO DIFFon 05-03-2022 BASO # 0.0 103/ul Normal 0.0-0.1 [facility] Comment on above: Performed By: #### H FPFCBC #### [facility] [address] [place] [address] Dr. Jean-Claude Norris Basophils/100 WBC (Bld) 0.7 % Normal 0.2-2.0 [facility] Comment on above: Performed By: #### H FPFCBC #### [facility] [address] [place] [address] Dr. Jean-Claude Norris EO # 0.2 103/ul Normal 0.0-0.7 [facility] Comment on above: Performed By: #### H FPFCBC #### [facility] [address] [place] [address] Dr. Jean-Claude Norris Eosinophils/100 WBC (Bld) 3.7 % Normal 0.9-7.0 [facility] Comment on above: Performed By: #### H FPFCBC #### [facility] [address] [place] [address] Dr. Jean-Claude Norris Erythrocyte distribution width (RBC) [Ratio] 14.8 % Normal 11.0-15.0 [facility] Comment on above: Performed By: #### H FPFCBC #### [facility] [address] [place] [address] Dr. Jean-Claude Norris Hematocrit (Bld) [Volume fraction] 36.5 % Normal 36.0-48.0 [facility] Comment on above: Performed By: #### H FPFCBC #### [facility] [address] [place] [address] Dr. Jean-Claude Norris Hemoglobin (Bld) [Mass/Vol] 11.6 g/dL Critically low 12.0-16.0 [facility] Comment on above: Performed By: #### H FPFCBC #### [facility] [address] [place] [address] Dr. Jean-Claude Norris IG # 0.01 10e3/ul Normal 0.00-0.03 [facility] Comment on above: Performed By: #### H FPFCBC #### [facility] [address] [place] [address] Dr. Jean-Claude Norris IG % 0.2 % Normal 0.0-0.5 [facility] Comment on above: Performed By: #### H FPFCBC #### [facility] [address] [place] [address] Dr. Jean-Claude Norris LYMPH # 0.8 103/ul Critically low 1.2-3.[address] [facility] Comment on above: Performed By: #### H FPFCBC #### [facility] [address] [place] [address] Dr. Jean-Claude Norris Lymphocytes/100 WBC (Bld) 18.9 % Critically low 20.5-60.0 [facility] Comment on above: Performed By: #### H FPFCBC #### [facility] [address] [place] [address] Dr. Jean-Claude Norris MCH (RBC) [Entitic mass] 25.1 pg Critically low 26.7-34.0 [facility] Comment on above: Performed By: #### H FPFCBC #### [facility] [address] [place] [address] Dr. Jean-Claude Norris MCHC (RBC) [Mass/Vol] 31.8 g/dL Normal 29.9-35.2 [facility] Comment on above: Performed By: #### H FPFCBC #### [facility] [address] [place] [address] Dr. Jean-Claude Norris MCV (RBC) [Entitic vol] 78.8 fL Critically low 81.0-99.0 [facility] Comment on above: Performed By: #### H FPFCBC #### [facility] [address] [place] [address] Dr. Jean-Claude Norris MONO # 0.5 103/ul Normal 0.3-0.8 [facility] Comment on above: Performed By: #### H FPFCBC #### [facility] [address] [place] [address] Dr. Jean-Claude Norris Monocytes/100 WBC (Bld) 12.4 % Critically high 1.7-12.0 [facility] Comment on above: Performed By: #### H FPFCBC #### [facility] [address] [place] [address] Dr. Jean-Claude Norris NEUT # 2.7 103/ul Normal 1.4-6.5 [facility] Comment on above: Performed By: #### H FPFCBC #### [facility] [address] [place] [address] Dr. Jean-Claude Norris Neutrophils/100 WBC (Bld) 64.1 % Normal 43.0-75.0 [facility] Comment on above: Performed By: #### H FPFCBC #### [facility] [address] [address] [address] Jean-Claude Norris Platelet mean volume (Bld) [Entitic vol] 11.4 fL Normal 9.5-13.5 [facility] Comment on above: Performed By: #### H FPFCBC #### [facility] [address] [address] [address] Jean-Claude Norris PLT 209 103/ul Normal 150-450 [facility] Comment on above: Performed By: #### H FPFCBC #### [facility] [address] [address] [address] Jean-Claude Norris RBC 4.63 106/ul Normal 4.20-5.40 [facility] Comment on above: Performed By: #### H FPFCBC #### [facility] [address] [place] [address] Dr. Jean-Claude Norris WBC 4.3 103/ul Normal 4.0-11.0 [facility] Comment on above: Performed By: #### H FPFCBC #### [facility] [address] [address] [address] Jean-Claude CAMACHO [facility] GLYCOHEMOGLOBIN A1Con 05-03-2022 Glucose [Mass/Vol] 117 mg/dL Normal [facility] Comment on above: Performed By: #### H FPFA1C #### [facility] [address] [place] [address] Dr. Jean-Claude Norris HbA1c (Bld) [Mass fraction] 5.7 % Normal 4.5-6.2 [facility] Comment on above: Performed By: #### H FPFA1C #### [facility] [address] [address] [address] Jean-Claude CAMACHOIR PROFILEon 023 Albumin [Mass/Vol] 3.9 g/dL Normal 3.4-5.0 [facility] Comment on above: Performed By: #### H FPF #### [facility] [address] [place] [address] Dr. Jean-Claude Norris Albumin/Globulin [Mass ratio] 1.3 {ratio} Normal [facility] Comment on above: Performed By: #### H FPF #### [facility] [address] [address] [address] Jean-Claude Norris ALP [Catalytic activity/Vol] 69 U/L Normal 46-116 [facility] Comment on above: Performed By: #### H FPF #### [facility] [address] [address] [address] Jean-Claude Norris ALT [Catalytic activity/Vol] 23 U/L Normal 14-59 [facility] Comment on above: Performed By: #### H FPF #### [facility] [address] [address] [address] Jean-Claude Norris AST [Catalytic activity/Vol] 19 U/L Normal 15-37 [facility] Comment on above: Performed By: #### H FPF #### [facility] [address] [place] [address] Dr. Jean-Claude Norris Bilirubin [Mass/Vol] 1.0 mg/dL Normal 0.2-1.0 [facility] Comment on above: Performed By: #### H FPF #### [facility] [address] [address] [address] Jean-Claude Norris Calcium [Mass/Vol] 9.3 mg/dL Normal 8.5-10.1 [facility] Comment on above: Performed By: #### H FPF #### [facility] [address] [address] [address] Jean-Claude Norris Chloride [Moles/Vol] 106 mmol/L Normal 98-107 [facility] Comment on above: Performed By: #### H FPF #### [facility] [address] [address] [address] Jean-Claude Norris CHOL-HDL RATIO NORM SEE BELOW Normal [facility] Comment on above: Result Comment: 3.3 - 4.4 LOW RISK 4.4 - 7.1 AVERAGE RISK 7.1 - 11.0 MODERATE RISK >11.0 HIGH RISK Performed By: #### H FPF #### [facility] [address] [place] [address] Dr. Jean-Claude Norris Cholesterol [Mass/Vol] 183 mg/dL Normal <=200 [facility] Comment on above: Performed By: #### H FPF #### [facility] [address] [address] [address] Jean-Claude Norris Cholesterol in HDL [Mass/Vol] 46 mg/dL Normal 40-60 [facility] Comment on above: Performed By: #### H FPF #### [facility] [address] [address] [address] eJan-Claude Norris Cholesterol in LDL [Mass/Vol] 107.2 mg/dL Normal [facility] Comment on above: Performed By: #### H FPF #### [facility] [address] [place] [address] Dr. Jean-Claude Norris Cholesterol.total/Cho lesterol in HDL [Mass ratio] 4.0 {ratio} Normal [facility] Comment on above: Performed By: #### H FPF #### [facility] [address] [place] [address] Dr. Jean-Claude Norris CO2 [Moles/Vol] 27.7 mmol/L Normal 21.0-32.0 [facility] Comment on above: Performed By: #### H FPF #### [facility] [address] [place] [address] Dr. Jean-Claude Norris Creatinine [Mass/Vol] 0.69 mg/dL Normal 0.55-1.02 [facility] Comment on above: Performed By: #### H FPF #### [facility] [address] [address] [address] Jean-Claude Norris Globulin (S) [Mass/Vol] 3.1 g/dL Normal [facility] Comment on above: Performed By: #### H FPF #### [facility] [address] [address] [address] Jean-Claude Norris Glucose [Mass/Vol] 125 mg/dL Critically high 74-106 [facility] Comment on above: Performed By: #### H FPF #### [facility] [address] [address] [address] Jean-Claude Norris HDL NORMAL > or = 60 mg/dl - LOW CARDIOVASCULAR RISK <40 mg/dl - HIGH CARDIOVASCULAR RISK Normal [facility] Comment on above: Performed By: #### H FPF #### [facility] [address] [address] [address] Jean-Claude Norris LDL CALC NORMAL SEE BELOW Normal [facility] Comment on above: Result Comment: <100 mg/dl OPTIMAL 100 - 129 mg/dl NEAR OR ABOVE OPTIMAL 130 - 159 mg/dl BORDERLINE HIGH 160 - 189 mg/dl HIGH >190 mg/dl VERY HIGH Performed By: #### H FPF #### [facility] [address] [address] [address] Jean-Claude Norris Potassium [Moles/Vol] 4.3 mmol/L Normal 3.5-5.1 [facility] Comment on above: Performed By: #### H FPF #### [facility] [address] [place] [address] Dr. Jean-Claude Norris Protein [Mass/Vol] 7.0 g/dL Normal 6.4-8.2 [facility] Comment on above: Performed By: #### H FPF #### [facility] [address] [place] [address] Dr. Jean-Claude Norris Sodium [Moles/Vol] 142 mmol/L Normal 136-145 [facility] Comment on above: Performed By: #### H FPF #### [facility] [address] [place] [address] Dr. Jean-Claude Norris Triglyceride [Mass/Vol] 149 mg/dL Normal <=150 [facility] Comment on above: Performed By: #### H FPF #### [facility] [address] [address] [address] Jean-Claude Norris TSH 2.552 uIU/mL Normal 0.358-3.740 [facility] Comment on above: Performed By: #### H FPF #### [facility] [address] [place] [address] Dr. Jean-Claude Norris Urea nitrogen [Mass/Vol] 15.0 mg/dL Normal 7.0-18.0 [facility] Comment on above: Performed By: #### H FPF #### [facility] [address] [address] [address] Jean-Claude Norris Urea nitrogen/Creatinine [Mass ratio] 21.7 mg/mg Normal [facility] Comment on above: Performed By: #### H FPF #### [facility] [address] [address] [address] Jean-Claude Norris VLDL CALC 29.8 mg/dL Normal [facility] Comment on above: Performed By: #### H FPF #### [facility] [address] [address] [address] Jean-Claude Norris MG MAMM SCREEN 3D JENNA CADon 01-06-2022 MG MAMM SCREEN 3D JENNA CAD Patient: REYNA MERAZ Exam Date: 01/06/2022 : 1950 Gender:F Ordering : DR GISELA CASON [facility] Admission #: [id number] Family : Order #: [id number] CLICK HERE TO VIEW EXAM RADIOLOGY REPORT PROCEDURE: MAMMOGRAM SCREENING 3D BILATERAL CAD COMPARISON: MG MAMM SCREEN EJNNA W CAD, 09/09/2019. MG MAMM SCREEN 3D JENNA CAD, 12/11/2020. INDICATIONS: Screening mammography Calculator Name NCI Breast Cancer Risk Assessment Tool 5 Year Breast Cancer Risk 6.50% Lifetime Breast Cancer Risk 16.10% Personal Breast Cancer No Personal Ovarian Cancer No Treatments None Family Cancers Mother with breast cancer at age 40; Sister with breast cancer at age 59. LOCATION: [facility] BREAST COMPOSITION: Scattered areas fibroglandular density. [...] Solis MD on 01/06/2022 at 14:45 Normal [facility] Encounters Encounter Date Encounter Type Care Provider Facility Start: 02-08-2023 End: 02-09-2023 ambulatory INDUSTRIAL MECHANIC Radha L Mitzi Facility:[facility] [place] [facility] Start: 12-19-2022 ambulatory INDUSTRIAL MECHANIC Radha L Mitzi Facil ity:[facility] Start: 07-12-2022 ambulatory ARMEN YUEN Facilit y:[facility] Start: 06-14-2022 End: 06-15-2022 ambulatory ARMEN YUEN Facility:[facility] Start: 05-16-2022 End: 05-17-2022 ambulatory INDUSTRIAL MECHANIC Radha L Mitzi Facility:[facility] Start: 05-14-2022 ambulatory INDUSTRIAL MECHANIC Radha Mitzi Facilit y:[facility] Start: 05-03-2022 End: 05-04-[address] KATIUSKA BULL . Facility:[facility] Start: 01-06-2022 End: 01-07-[address] BENJY SOLIS Facility:[facility] Payers Date Payer Category Payer Medicare [id number] 1960 Self-pay [id number] 1960 Unknown [id number] 1960 Unknown [id number] 1950 Unknown [id number] 2.16.84 [id number] 1950 Unknown [id number] 2.16.84 [id number] 1950 Unknown [id number] 2.16.84 [id number] 1950 Unknown [id number] 2.16.8 [id number] 1950 Unknown [id number] 2.16.8 [id number] 1950 Unknown [id number] 2.16.8 [id number] 1950 Unknown [id number] 2.16.8 [id number] Unknown [id number] 2.16.84 [id number] Clinical Note 06-14-2022 Note Date & Type [...] authenticated by: EJ DAVIS Date: 2022-06-14 15:56 [facility] Summary Purpose Family History No Family History Records FoundNo Family History Records Found Advance Directives No Advanced Directives Records FoundNo Advanced Directives Records Found Additional Source Comments INFORMATION SOURCE (unrecogn ized section and content) DATE CREATED AUTHOR 06/27/2022 [facility] DATE CREATED AUTHOR AUTHOR'S ORGANIZ ATION 02/13/2023 [facility] FOR RECORDS PERTAINING TO PATIENTS WHO ARE [...] BE BASED ON THE PRIMARY CLINICAL RECORDS. [employer] [facility]. provides no warranty or guarantee of the accuracy or completeness of information in this document.
== END 2023-04-27 09:00 | disposition home or self-care (01) ==
LOC: CT 08:59
PROVIDERS: PCP Family Medicine; Visit Provider Internal Medicine
DX: R06.3 Periodic breathing (principal); R94.2 Abnormal results of pulmonary function studies; R91.1 Solitary pulmonary nodule
CPT/HCPCS: 71250

== ENCOUNTER 2023-05-03 15:31 | Outpatient (OUT) | payer MEDICARE, OTHER, SELFPAY ==
[2023-05-03 16:42] LABS: C Reactive Protein <0.50 mg/dL (<=0.50)
[2023-05-03 17:25] LABS: Erythrocyte Sedimentation Rate 4 mm/hr (<=30)
[2023-05-05 06:09] LABS: Rheumatoid Factor (RF) 12.8 IU/mL (<14.0)
[2023-05-05 13:11] LABS: ANA Direct Negative (Negative); Anti-CCP Ab, IgG/IgA 3 units (0-19); Antiscleroderma-70 Antibodies <0.2 AI (0.0-0.9)
[2023-05-05 15:08] LABS: Angiotensin-Converting Enzyme 97 U/L (14-82)
[2023-05-05 21:09] LABS: Anti-MPO Antibodies <0.2 units (0.0-0.9); Anti-PR3 Antibodies <0.2 units (0.0-0.9); Cytoplasmic (C-ANCA) <1:20 titer (Neg:<1:20); Perinuclear (P-ANCA) <1:20 titer (Neg:<1:20)
[2023-05-06 07:09] LABS: QuantiFERON-TB Gold Plus Negative (Negative)
[2023-05-09 16:14] LABS: Aspergillus flavus Negative (Neg:<1:1); Aspergillus fumigatus Negative (Neg:<1:1); Aspergillus niger Negative (Neg:<1:1); Blastomyces Abs, Qn, DID Negative (Neg:<1:1)
[2023-05-11 16:10] LABS: Histoplasma Gal'mannan Ag Ur Negative (<0.5 ng/mL)
== END 2023-05-03 15:32 | disposition home or self-care (01) ==
LOC: LAB 15:33
PROVIDERS: PCP Family Medicine; Visit Provider Internal Medicine
DX: R91.1 Solitary pulmonary nodule (principal)
CPT/HCPCS: 36415; 82164; 83516; 85652; 86037; 86038; 86140; 86200; 86235; 86431; 86480; 86606; 86612; 86698; 87385

== ENCOUNTER 2023-05-08 14:41 | Outpatient (OUT) | payer MEDICARE, OTHER, SELFPAY ==
--- OUTSIDE RECORDS SUMMARY | 2023-05-08 15:02 | XMS_ITS | CCD ---
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 Farmer Name Role Phone WEST, DR BENJY Yun Consulting Unavailable YOAV, DR HIGGINS Admitting Unavailable YOAV, DR HIGGINS Attending Unavailable BULL ., DR KATIUSKA Da Silva Primary Care Unavailable YOAV, DR HIGGINS Consulting Unavailable BULL ., DR KATIUSKA Da Silva Attending Unavailable BULL ., DR KATIUSAK Da Silva Admitting Unavailable BULL ., DR KATIUSKA Da Silva Primary Care Unavailable BULL ., DR KATIUSKA Da Silva Consulting Unavailable ARMEN YUEN Admitting Unavailable ARMEN YUEN Attending Unavailable BULL ., DR KATIUSKA Da Silva Primary Care Unavailable ARMEN YUEN Admitting Unavailable WILFRIDARMEN Attending Unavailable ZIEBER, DR EJ Davis Consulting Unavailable BULL ., DR KATIUSKA Da Silva Primary Care Unavailable AMREN YUEN Consulting Unavailable Mitzi, REFRIGERATOR ASSEMBLER Radha L Attending Unavailable Mitzi, REFRIGERATOR ASSEMBLER Radha L Attending Unavailable Mitzi, REFRIGERATOR ASSEMBLER Radha L Attending Unavailable Allergies Allergy Classification Reported Allergen(s) Allergy Type Date of Onset Reaction(s) Facility (3 sources) Meperidine; Translations: [Demerol] Drug Allergy 03-06-2016 [facility] Repository Problems Active Problems Problem Classification Problem [...] Jose hogan Physician Referralon 023 Physician Referral [id number]# 1.00TIFF [facility] Physician Orderon 02-09-2023 Physician Order [id number] #1.00TIFF [facility] Ambulatory Visit Summaryon 1 04-11-2022 Ambulatory Visit [...] for choosing us for your care. Normal [facility] Family Medicine Office/Clini c Noteon 02-08-2023 [...] BID, # 12 gram, Refills(s) 1, Pharmacy: [facility]/pharmacy #[id number], 167, cm, 02/08/23 15:30:00 EST, Height/Length Dosing, 76.5, kg, 02/08/23 15:30:00 EST, Weight Dosing methylPREDNISolone, = 1 packet(s), Oral, As Directed, as directed on package labeling, X 6 day(s), # 21 tab(s), Refills(s) 0, Pharmacy: [facility]/pharmacy #[id number], 167, cm, 02/08/23 15:30:00 EST, Height/Length Dosing, 76.5, kg, 02/08/23 15:30:00 EST, Weight Dosing 2. Adult BMI 27.0-27.9 kg/sq m (Z68.27: Body mass index [BMI] 27.0-27.9, adult) BMI education complete Ordered: fluticasone, = 2 puff(s), Inhalation, BID, # 12 gram, Refills(s) 1, [id number], cm, 02/08/23 15:30:00 EST, Height/Length Dosing, 76.5, kg, 02/08/23 15:30:00 EST, Weight Dosing methylPREDNISolone, = 1 packet(s), Oral, As Directed, as directed on package labeling, X 6 day(s), # 21 tab(s), Refills(s) 0, [id number], 167, cm, 02/08/23 15:30:00 EST, Height/Length Dosing, 76.5, kg, 02/08/23 15:30:00 EST, Weight Dosing Orders: codeine-guaifenesin, 5 mL, Oral, Bedtime for cough, 60 mL, Refill(s) 0[id number], cm, 02/08/23 15:30:00 EST, [...] virus vaccine, inact (more content not included)... [facility] Comment on above: Result Comment: Elec tronically Signed By: Radha Quinteros\.br\Date and Time Signed: 02/08/23 16:34 EST Outside Mammographyon 2022 Outside Mammography [id number]# 1.00TIFF [facility] RAD - MISCon 01-17-2023 RAD - MISC [id number]# 1.00TIFF [facility] Family Medicine Office/Clini c Noteon 12-23-2022 Family [...] Recorded influenza virus vaccine, inactivated 12/28/2012 Recorded [facility] Comment on above: Result Comment: Elec tronically Signed By: Radha Quinteros\.br\Date and Time Signed: 12/23/22 11:35 EDT [place] 12-20-2022 Consent [id number] #1.00TIFF [facility] Ambulatory Visit Summaryon 1 Ambulatory Visit Summary [...] 171.16 lb BMI 27.73 Allergies Demerol (Rash) [facility] Consultation Noteon 07-07-19 Consultation Note [id number] #1.00CD:127 [facility] Physician Referralon 023 Physician Referral [id number]#1.00CD:127 [facility] Lab Reportson 05-17-2022 Lab Reports [id number]# 1.00CD:127 Normal [facility] Ambulatory Visit Summaryon 0 05-16-2022 Ambulatory [...] Pharmacy [facility]: [address], [place] [id number] [phone] Allergies Demerol (Rash) Normal [facility] Family Medicine Office/Clini c Noteon 05-16-2022 [...] does not improved may consider referral to sales enablement specialist Ordered: cephalexin, 500 mg = 1 cap(s), [...] influenza virus vaccine, inactivated 12/28/2012 Recorded Normal [facility] Comment on above: Result Comment: Elec tronically Signed By: Radha Quinteros\.br\Date and Time Signed: 05/16/22 12:51 EDT [facility] CBC AUTO DIFFon 05-03-2022 BASO # 0.0 103/ul Normal 0.0-0.1 [facility] Comment on above: Performed By: #### H FPFCBC #### [facility] [address] [place] [address] Dr. Jean-Claude Norris Basophils/100 WBC (Bld) 0.7 % Normal 0.2-2.0 [facility] Comment on above: Performed By: #### H FPFCBC #### [facility] [address] [place] [address] Dr. Jean-Claude Norris EO # 0.2 103/ul Normal 0.0-0.7 [facility] Comment on above: Performed By: #### H FPFCBC #### [facility] [address] [place] [address] Dr. Jean-Claude Norris Eosinophils/100 WBC (Bld) 3.7 % Normal 0.9-7.0 [facility] Comment on above: Performed By: #### H FPFCBC #### [facility] [address] [place] [address] Dr. Jean-Claude Norris Erythrocyte distribution width (RBC) [Ratio] 14.8 % Normal 11.0-15.0 [facility] Comment on above: Performed By: #### H FPFCBC #### [facility] [address] [place] [address] Dr. Jean-Claude Norris Hematocrit (Bld) [Volume fraction] 36.5 % Normal 36.0-48.0 [facility] Comment on above: Performed By: #### H FPFCBC #### [facility] [address] [place] [address] Dr. Jean-Claude Norris Hemoglobin (Bld) [Mass/Vol] 11.6 g/dL Critically low 12.0-16.0 [facility] Comment on above: Performed By: #### H FPFCBC #### [facility] [address] [place] [address] Dr. Jean-Claude Norris IG # 0.01 10e3/ul Normal 0.00-0.03 [facility] Comment on above: Performed By: #### H FPFCBC #### [facility] [address] [place] [address] Dr. Jean-Claude Norris IG % 0.2 % Normal 0.0-0.5 [facility] Comment on above: Performed By: #### H FPFCBC #### [facility] [address] [place] [address] Dr. Jean-Claude Norris LYMPH # 0.8 103/ul Critically low 1.2-3.8 [facility] Comment on above: Performed By: #### H FPFCBC #### [facility] [address] [place] [address] Dr. Jean-Claude Norris Lymphocytes/100 WBC (Bld) 18.9 % Critically low 20.5-60.0 [facility] Comment on above: Performed By: #### H FPFCBC #### [facility] [address] [place] [address] Dr. Jean-Claude Norris MCH (RBC) [Entitic mass] 25.1 pg Critically low 26.7-34.0 [facility] Comment on above: Performed By: #### H FPFCBC #### [facility] [address] [place] [address] Dr. Jean-Claude Norris MCHC (RBC) [Mass/Vol] 31.8 g/dL Normal 29.9-35.2 [facility] Comment on above: Performed By: #### H FPFCBC #### [facility] [address] [place] [address] Dr. Jean-Claude Norris MCV (RBC) [Entitic vol] 78.8 fL Critically low 81.0-99.0 [facility] Comment on above: Performed By: #### H FPFCBC #### [facility] [address] [place] [address] Dr. Jean-Claude Norris MONO # 0.5 103/ul Normal 0.3-0.8 [facility] Comment on above: Performed By: #### H FPFCBC #### [facility] [address] [place] [address] Dr. Jean-Claude Norris Monocytes/100 WBC (Bld) 12.4 % Critically high 1.7-12.0 [facility] Comment on above: Performed By: #### H FPFCBC #### [facility] [address] [place] [address] Dr. Jean-Claude Norris NEUT # 2.7 103/ul Normal 1.4-6.5 [facility] Comment on above: Performed By: #### H FPFCBC #### [facility] [address] [place] [address] Dr. Jean-Claude Norris Neutrophils/100 WBC (Bld) 64.1 % Normal 43.0-75.0 [facility] Comment on above: Performed By: #### H FPFCBC #### [facility] [address] [address] [address] Jean-Claude Norris Platelet mean volume (Bld) [Entitic vol] 11.4 fL Normal 9.5-13.5 [facility] Comment on above: Performed By: #### H FPFCBC #### [facility] [address] [address] [address] Jean-Claude Norris PLT 209 103/ul Normal 150-450 [facility] Comment on above: Performed By: #### H FPFCBC #### [facility] [address] [address] [address] Jean-Claude Norris RBC 4.63 106/ul Normal 4.20-5.40 [facility] Comment on above: Performed By: #### H FPFCBC #### [facility] [address] [place] [address] Dr. Jean-Claude Norris WBC 4.3 103/ul Normal 4.0-11.0 [facility] Comment on above: Performed By: #### H FPFCBC #### [facility] [address] [address] [address] Jean-Claude CAMACHO [facility] GLYCOHEMOGLOBIN A1Con 05-03-2022 Glucose [Mass/Vol] 117 mg/dL Normal [facility] Comment on above: Performed By: #### H FPFA1C #### [facility] [address] [place] [address] Dr. Jean-Claude Norris HbA1c (Bld) [Mass fraction] 5.7 % Normal 4.5-6.2 [facility] Comment on above: Performed By: #### H FPFA1C #### [facility] [address] [address] [address] Jean-Claude CAMACHOIR PROFILEon 023 Albumin [Mass/Vol] 3.9 g/dL Normal 3.4-5.0 [facility] Comment on above: Performed By: #### H FPF #### [facility] [address] [place] [address] Dr. Jean-Claude Norris Albumin/Globulin [Mass ratio] 1.3 {ratio} Normal [facility] Comment on above: Performed By: #### H FPF #### [facility] [address] [address] [address] Jean-Claude Norris ALP [Catalytic activity/Vol] 69 U/L Normal 46-116 [facility] Comment on above: Performed By: #### H FPF #### [facility] [address] [address] [address] Jean-Claude Norris ALT [Catalytic activity/Vol] 23 U/L Normal 14-59 [facility] Comment on above: Performed By: #### H FPF #### [facility] [address] [address] [address] Jean-Claude Norris AST [Catalytic activity/Vol] 19 U/L Normal 15-37 [facility] Comment on above: Performed By: #### H FPF #### [facility] [address] [place] [address] Dr. Jean-Claude Norris Bilirubin [Mass/Vol] 1.0 mg/dL Normal 0.2-1.0 [facility] Comment on above: Performed By: #### H FPF #### [facility] [address] [address] [address] Jean-Claude Norris Calcium [Mass/Vol] 9.3 mg/dL Normal 8.5-10.1 [facility] Comment on above: Performed By: #### H FPF #### [facility] [address] [address] [address] Jean-Claude Norris Chloride [Moles/Vol] 106 mmol/L Normal 98-107 [facility] Comment on above: Performed By: #### H FPF #### [facility] [address] [address] [address] Jean-Claude Norris CHOL-HDL RATIO NORM SEE BELOW Normal [facility] Comment on above: Result Comment: 3.3 - 4.4 LOW RISK 4.4 - 7.1 AVERAGE RISK 7.1 - 11.0 MODERATE RISK >11.0 HIGH RISK Performed By: #### H FPF #### [facility] [address] [place] [address] Dr. Jean-Claude Norris Cholesterol [Mass/Vol] 183 mg/dL Normal <=200 [facility] Comment on above: Performed By: #### H FPF #### [facility] [address] [address] [address] Jean-Claude Norris Cholesterol in HDL [Mass/Vol] 46 mg/dL Normal 40-60 [facility] Comment on above: Performed By: #### H FPF #### [facility] [address] [address] [address] Jean-Claude Norris Cholesterol in LDL [Mass/Vol] 107.2 mg/dL Normal [facility] Comment on above: Performed By: #### H FPF #### [facility] [address] [place] [address] Dr. Jean-Claude Norris Cholesterol.total/Cho lesterol in HDL [Mass ratio] 4.0 {ratio} Normal [facility] Comment on above: Performed By: #### H FPF #### [facility] [address] [place] [address] Dr. Jean-Claude Norris CO2 [Moles/Vol] 27.7 mmol/L Normal 21.0-32.0 [facility] Comment on above: Performed By: #### H FPF #### [facility] [address] [place] [address] Dr. Jean-Claude Norris Creatinine [Mass/Vol] 0.69 mg/dL Normal 0.55-1.02 [facility] Comment on above: Performed By: #### H FPF #### [facility] [address] [address] [address] Jean-Claude Norris Globulin (S) [Mass/Vol] 3.1 g/dL Normal [facility] Comment on above: Performed By: #### H FPF #### [facility] [address] [address] [address] Jean-Claude Norris Glucose [Mass/Vol] 125 mg/dL Critically high 74-106 [facility] Comment on above: Performed By: #### H FPF #### [facility] [address] [address] [address] Jean-Claude Norris HDL NORMAL > or = 60 mg/dl - LOW CARDIOVASCULAR RISK <40 mg/dl - HIGH CARDIOVASCULAR RISK Normal [facility] Comment on above: Performed By: #### H FPF #### [facility] [address] [address] [address] Jean-Claude Norris LDL CALC NORMAL SEE BELOW Normal [facility] Comment on above: Result Comment: <100 mg/dl OPTIMAL 100 - 129 mg/dl NEAR OR ABOVE OPTIMAL 130 - 159 mg/dl BORDERLINE HIGH 160 - 189 mg/dl HIGH >190 mg/dl VERY HIGH Performed By: #### H FPF #### [facility] [address] [address] [address] Jean-Claude Norris Potassium [Moles/Vol] 4.3 mmol/L Normal 3.5-5.1 [facility] Comment on above: Performed By: #### H FPF #### [facility] [address] [place] [address] Dr. Jean-Claude Norris Protein [Mass/Vol] 7.0 g/dL Normal 6.4-8.2 [facility] Comment on above: Performed By: #### H FPF #### [facility] [address] [place] [address] Dr. Jean-Claude Norris Sodium [Moles/Vol] 142 mmol/L Normal 136-145 [facility] Comment on above: Performed By: #### H FPF #### [facility] [address] [place] [address] Dr. Jean-Claude Norris Triglyceride [Mass/Vol] 149 mg/dL Normal <=150 [facility] Comment on above: Performed By: #### H FPF #### [facility] [address] [address] [address] Jean-Claude Norris TSH 2.552 uIU/mL Normal 0.358-3.740 [facility] Comment on above: Performed By: #### H FPF #### [facility] [address] [place] [address] Dr. Jean-Claude Norris Urea nitrogen [Mass/Vol] 15.0 mg/dL Normal 7.0-18.0 [facility] Comment on above: Performed By: #### H FPF #### [facility] [address] [address] [address] Jean-Claude Norris Urea nitrogen/Creatinine [Mass ratio] 21.7 mg/mg Normal [facility] Comment on above: Performed By: #### H FPF #### [facility] [address] [address] [address] Jean-Claude Norris VLDL CALC 29.8 mg/dL Normal [facility] Comment on above: Performed By: #### H FPF #### [facility] [address] [address] [address] Jean-Claude Norris MG MAMM SCREEN 3D JENNA CADon 01-06-2022 MG MAMM SCREEN 3D JENNA CAD Patient: REYNA MERAZ Exam Date: 01/06/2022 : 1950 Gender:F Ordering : DR GISELA CASON [facility] Admission #: [id number] Family : Order #: [id number] CLICK HERE TO VIEW EXAM RADIOLOGY REPORT [...] breast cancer at age 58. LOCATION: [facility] BREAST COMPOSITION: Scattered areas fibroglandular density. FINDINGS: [...] Solis MD on 01/06/2022 at 14:45 Normal [facility] Encounters Encounter Date Encounter Type Care Provider Facility Start: 02-08-2023 End: 02-09-2023 ambulatory REFRIGERATOR ASSEMBLER Radha L Mitzi Facility:[facility] Start: 12-19-2022 ambulatory REFRIGERATOR ASSEMBLER Radha L Mitzi Facil ity:[facility] [place] Start: 07-12-2022 ambulatory ARMEN YUEN Facilit y:[facility] Start: 06-14-2022 End: 06-15-2022 ambulatory ARMEN YUEN Facility:[facility] Start: 05-16-2022 End: 05-17-2022 ambulatory REFRIGERATOR ASSEMBLER Radha L Mitzi Facility:[facility] Start: 05-14-2022 ambulatory REFRIGERATOR ASSEMBLER Radha Mitzi Facilit y:[facility] Start: 05-03-2022 End: 05-04-[address] KATIUSKA BULL . Facility:[facility] Start: 01-06-2022 End: 01-07-[address] BENJY SOLIS Facility:[facility] Payers Date Payer Category Payer Medicare [id number] 1960 Self-pay [id number] 1960 Unknown [id number] 1960 Unknown [id number] 1950 Unknown [id number] 2.16.84 [id number] 1950 Unknown [id number] 2.16.84 [id number] 1950 Unknown [id number] 2.16.84 [id number] 1950 Unknown [id number] 2.16.8 [id number] 1950 Unknown [id number] 2.16.8 [id number] 1950 Unknown [id number] 2.16.8 [id number] 1950 Unknown [id number] 2.16.8 [id number] Unknown [id number] 2.16.84 [id number] Clinical Note 06-14-2022 Note Date & Type [...] authenticated by: EJ DAVIS Date: 2022-06-14 15:56 [facility] Summary Purpose Family History No Family History Records FoundNo Family History Records Found Advance Directives No Advanced Directives Records FoundNo Advanced Directives Records Found Additional Source Comments INFORMATION SOURCE (unrecogn ized section and content) DATE CREATED AUTHOR 06/27/2022 [facility] DATE CREATED AUTHOR AUTHOR'S ORGANIZ ATION 02/13/2023 [facility] FOR RECORDS PERTAINING TO PATIENTS WHO [...] BE BASED ON THE PRIMARY CLINICAL RECORDS. [employer] [facility]. provides no warranty or guarantee of the accuracy or completeness of information in this document.
--- NOTE | 2023-05-08 15:58 | PE_ITS ---
The [address] [address] Patient Name: LOBITO MERAZ MRN: [id number] date: 1950 Sex: F Assigned Patient Location: PETCT Current Patient Location: PETCT Accession/Order Number: [id number] Exam Date: 05/08/2023 14:56 Report Date: 05/08/2023 21:53 At the request of: MARÍA ELENA ARMENDARIZ Procedure: PET skull to mid thigh PET/CT: HISTORY: Solitary pulmonary nodule. COMPARISON: High-resolution chest CT 04/27/2023. CT abdomen and pelvis 09/12/2016. TECHNIQUE: The patient was injected with 14.8 mCi of F-18 fluorodeoxyglucose (FDG), and an emission scan was performed from the base of the skull to the mid thigh. Noncontrast CT was performed for attenuation correction and anatomic localization. The blood glucose level was 78 mg/dl. The uptake time was 54 minutes. FINDINGS: HEAD AND NECK: There is a focus of activity in the left thyroid lobe on image 57 with SUV max 3.6 with a probable nodule in this region measuring 12 mm. There is also a right thyroid nodule measuring 14 mm which is non-FDG avid. CHEST: The SUV max of the mediastinum = 2.6 using the patient's body weight as the normalization method. There are a few small hypermetabolic bilateral hilar lymph nodes including on the left, image 88, SUV max 4.3, not clearly visualized on noncontrast CT. The previously noted left upper lobe nodular density shows only minimal activity with an SUV max of 1.5. This appears mostly groundglass in nature. ABDOMEN AND PELVIS: There is a physiologic distribution of activity within the liver, spleen, adrenal glands, urinary tract and bowel, with no hypermetabolic foci. MUSCULOSKELETAL SYSTEM: There is a physiologic distribution of activity within the bone marrow, with no hypermetabolic foci. ADDITIONAL CT FINDINGS: There is diffuse atherosclerotic calcification of the aorta. There is a 1.4 cm cystic lesion in the left periaortic region of the retroperitoneum which is indeterminate but non-FDG avid and stable since the study from 09/12/2016. There is a small hiatal hernia. There are multiple diverticula in the colon with no acute diverticulitis. There is a calcified uterine fibroid in the fundus measuring 2.5 cm. There are moderate to severe multilevel degenerative changes of the spine. PET/PET skull to mid thigh IMPRESSION: 1. The previously noted subsolid opacity in the left upper lobe shows only minimal FDG uptake; however, PET is relatively insensitive for these types of lesions and an adenocarcinoma spectrum lesion cannot be excluded. Recommend follow-up CT in 3 to 6 months and if persistent, recommend follow CT every 2 years for 5 years per Fleischner Society guidelines. 2. Small hypermetabolic bilateral hilar lymph nodes which are likely reactive in nature but recommend attention on follow-up chest CT, preferably with IV contrast. 3. Hypermetabolic left thyroid nodule which indicates an approximately 20%-30% risk of malignancy. There is also a non-FDG avid right thyroid nodule. Recommend ultrasound. 4. Additional CT findings as described above. Fleischner Society guidelines for follow-up and management of solitary part solid pulmonary nodules incidentally discovered in patients 35 years old or older: Nodule size < 6 mm: No routine follow-up. Nodule size > 6 mm: CT at 3-6 months to confirm persistence. If unchanged and solid component remains < 6 mm, annual CT should be performed for 5 years. Comments: In practice, part solid nodules cannot be defined as such until > 6 mm. Nodules less than 6 mm do not usually require follow-up. Persistent part solid nodules with solid components > 6 mm should be considered highly suspicious. Dimensions are an average of the long and short axes, rounded to the nearest mm. Radiology 2017. Feb 23:581132. DOI: 10.1148/[id number]. Electronically authenticated by: EJ SRIVASTAVA Date: 05/08/2023 21:53
== END 2023-05-08 14:42 | disposition home or self-care (01) ==
LOC: PETCT 14:42
PROVIDERS: PCP Family Medicine; Visit Provider Internal Medicine
DX: R91.1 Solitary pulmonary nodule (principal)
CPT/HCPCS: 78815; A9552

== ENCOUNTER 2023-05-25 10:36 | Outpatient (OUT) | payer MEDICARE, OTHER, SELFPAY ==
--- NOTE | 2023-05-25 10:41 | US_ITS ---
[address] [address] Patient Name: LOBITO MERAZ MRN: [id number] date: 1950 Sex: F Assigned Patient Location: US Current Patient Location: US Accession/Order Number: [id number] Exam Date: 05/25/2023 10:42 Report Date: 05/25/2023 12:14 At the request of: MARÍA ELENA ARMENDARIZ Procedure: US thyroid EXAMINATION: US thyroid HISTORY: Multiple Thyroid Nodules C04.2 COMPARISON: No relevant comparison available. TECHNIQUE: Sonographic images of the thyroid gland were obtained. FINDINGS: The right thyroid lobe measures 3.4 x 2.3 x 1.7 cm. Lobular contour with heterogeneous echotexture with multiple nodules. The thyroid isthmus measures 4 mm, heterogeneous. The left thyroid lobe measures 4.7 x 1.8 x 2.1 cm. Lobular contour with heterogeneous echotexture with multiple nodules. The 2 most suspicious nodules: Nodule 1: Right thyroid lobe. 1.1 x 1.5 x 1.2 cm. Solid, hypoechoic, tall, smooth margins, no calcifications. TR 5 Nodule 2: Left lower lobe. 2.1 x 1.5 x 1.9 cm. Primarily solid, hypoechoic, wide, smooth margins, punctate calcifications. TR 5 US/US thyroid IMPRESSION: Bilateral TR5 nodules. Consider fine-needle aspiration TI-RADS: The [employer] TI-RADS committee's white paper recommendations for thyroid lesions classified as TR5 (highly suspicious) are listed below: > 0.5 cm. Annual ultrasound follow-up for up to 5 years. > 1.0 cm. FNA. J. Am Scar Radiol 2017;14:587-595. Electronically authenticated by: BENJY SOLIS Date: 05/25/2023 12:14
== END 2023-05-25 10:37 | disposition home or self-care (01) ==
LOC: US 10:37
PROVIDERS: PCP Family Medicine; Visit Provider Internal Medicine
DX: E04.2 Nontoxic multinodular goiter (principal)
CPT/HCPCS: 76536

== ENCOUNTER 2023-06-08 10:19 | Day surgery (SDC) | payer MEDICARE, OTHER, SELFPAY ==
[2023-06-08] MEDS: LIDOCAINE HCL 10 ML, SODIUM BICARBONATE 1 MEQ INJ (10:20)
--- NOTE | 2023-06-08 10:23 | US_ITS ---
[address] [address] Patient Name: LOBITO MERAZ MRN: [id number] date: 1950 Sex: F Assigned Patient Location: US Current Patient Location: US Accession/Order Number: [id number] Exam Date: 06/08/2023 10:24 Report Date: 06/08/2023 12:18 At the request of: JENNIFER QUINTERO Procedure: US biopsy thyroid EXAMINATION: US biopsy thyroid, US biopsy FNA add lesion HISTORY: thyroid nodule COMPARISON: Ultrasound thyroid 05/25/2023 TECHNIQUE: After obtaining informed consent, ultrasound-guided fine needle aspiration was performed in the usual sterile manner. FINDINGS: IMAGING: Ultrasound. BIOPSY NEEDLE: 25-gauge; 3 separate passes within each nodule. LOCATION: Right lobe 1.5 cm heterogeneous nodule. Left lobe 2.0 cm heterogeneous nodule. SPECIMEN TYPE: Cellular tissue. LOCAL ANESTHETIC: Buffered Xylocaine. COMPLICATIONS: None. LABORATORY: Prepared slide smears and washings for cell block evaluation. OTHER: Negative. PATHOLOGY: Pending. An addendum will be added when results are available. US/US biopsy thyroid IMPRESSION: 1. Uneventful ultrasound guided fine needle aspiration (FNA). 2. Pathology results are pending. Electronically authenticated by: EJ DAVIS Date: 06/08/2023 12:18
--- OUTSIDE RECORDS SUMMARY | 2023-06-08 10:38 | XMS_ITS | CCD ---
Author Organization [facility] Care Team Providers Care Tobacco Classer Name Role Phone WEST, DR BENJY Yun Consulting Unavailable YOAV, DR HIGGINS Admitting Unavailable YOAV, DR HIGGINS Attending Unavailable LANDAVERDE ., DR KATIUSKA Da Silva Primary Care Unavailable YOAV, DR HIGGINS Consulting Unavailable LANDAVERDE ., DR KATIUSKA Da Silva Attending Unavailable LANDAVERDE ., DR KATIUSKA Da Silva Admitting Unavailable LANDAVERDE ., DR KATIUSKA Da Silva Primary Care Unavailable LANDAVERDE ., DR KATIUSKA Da Silva Consulting Unavailable ARMEN YUEN Admitting Unavailable ARMEN YUEN Attending Unavailable LANDAVERDE ., DR KATIUSKA Da Silva Primary Care Unavailable ARMEN YUEN Admitting Unavailable ARMEN YUEN Attending Unavailable ZIEBJUAN PABLO, DR EJ Davis Consulting Unavailable LANADVERDE ., DR KATIUSKA Da Silva Primary Care Unavailable ARMEN YUEN Consulting Unavailable JENNIFER QUINTERO Attending Unavailable MitziRadha Attending Unavailable MitziRadha Attending Unavailable MitziRadha almonte Attending Unavailable Allergies Allergy Classification Reported Allergen(s) Allergy Type Date of Onset Reaction(s) Facility (3 sources) Meperidine; Translations: [Demerol] Drug Allergy 03-06-2016 [facility] Repository Problems Active Problems Problem Classification [...] Results Test Name Value Interpretation Reference Range Facility Consultation Noteon 05-30-19 Consultation Note [id number]#1.00T IFF Normal [facility] Lab Reportson 05-23-2023 Lab Reports [id number]#1.00T IFF Normal [facility] Consultation Noteon 05-18-19 Consultation Note [id number]#1.00T IFF Normal [facility] Consultation Noteon 05-17-19 Consultation Note [id number]#1.00T IFF Normal [facility] Consultation Noteon 05-10-19 Consultation Note [id number]#1.00T IFF Normal [facility] Consultation Note [id number]#1.00T IFF Normal [facility] RAD - CT Reporton 05-10-2023 RAD - CT Report [id number]#1.00 TIFF Normal [facility] RAD - Pet Scan Reporton 04-27 RAD - Pet Scan Report [id number]#1.00T IFF Normal [facility] RAD - Pet Scan Report [id number]#1.00T IFF Normal [facility] Consultation Noteon 04-26-19 Consultation Note [id number]#1.00T IFF Normal [facility] Family Medicine Office/Clini c Noteon 03-28-2023 Family Medicine Office/Clinic Note HPI Staff Reyna is a 72 year old female presenting for acute visit Respiratory C/O: SHERRI 02/08/23 cough given fluticasone and methylprednisolone , 12/23/22 cough given z-chaparro and medrol dose pack Cough: patient states continues to have ongoing persistent productive cough with clear sputum. Pt states some days the cough is hardly there other days she feels like its a very deep harsh cough. During the day has been taking TUssin-DM and states sometimes it works and sometimes it makes it feel worse. cough at night is having some intermittent shortness of breath. 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 History of Present Illness pt presents today wit continued cough Review of Systems ROS - Provider Constitutional: no fever, no chills, no sweats, no fatigue Respiratory: no shortness of breath, no cough, no orthopnea, no wheezing. Cardiovascular: no chest pain, no palpitations, no edema. Neurologic: no headache, no dizziness, no numbness, no weakness. Physical Exam General: alert, no acute distress ENMT: oral mucosa moist, no pharyngeal erythema or exudate Cardiovascular: regular rate and rhythm, normal peripheral perfusion Respiratory: Lungs CTA, respirations non labored Extremities: no deformity, no trauma Neurological: oriented x 4, LOC appropriate for age, CN II-XII intact, motor strength equal & normal bilaterally, speech normal Assessment/Plan 1. Chronic cough, (R05.3: Chronic cough)Chronic cough pt presents today for continued cough. has had this cough since November. she has had kenalog injection, medrol dose pack, z pakc, tessalon pearls, cherratussin, I also ordered a steroid inhaler but she could not afford it. she is going on a vacation first week of March and she is terrified to get on the plane with a cough. today she does have some sinus congestion and feeling pressure in her ears. small amount of clear fluid is noted JENNA TM. lungs are clear in office today. will send another referral for Dr. Fitzpatrick. will also send albuterol inhaler for her to have if she has a coughing attack on the plane. she has some tessalon pearls she can use as well. RTC 4 weeks. Ordered: amoxicillin-clavulanate , = 1 tab(s), Oral, q12hr, X 7 day(s), # 14 tab(s), Refills(s) 0, Pharmacy: [facility]/pharmacy #[id number], 167, cm, 02/08/23 15:30:00 EST, Height/Length Dosing, 76.5, kg, 02/08/23 15:30:00 EST, Weight Dosing 2. Sinusitis (J32.9: Chronic sinusitis, unspecified) sill order augmentin Ordered: amoxicillin-clavulanate , = 1 tab(s), Oral, q12hr, X 7 day(s), # 14 tab(s), Refills(s) 0, [id number], 167, cm, 02/08/23 15:30:00 EST, Height/Length Dosing, 76.5, kg, 02/08/23 15:30:00 EST, Weight Dosing 3. Acid reflux (K21.9: Gastro-esophageal reflux disease without esophagitis) pt used to take Prilosec but stopped a few years ago. will start omeprazole today. 4. Adult BMI 27.0-27.9 kg/sq m (Z68.27: Body mass index [BMI] 27.0-27.9, adult) BMI education complete Ordered: amoxicillin-clavulanate , = 1 tab(s), Oral, q12hr, X 7 day(s), # 14 tab(s), Refills(s) 0, [id number], 167, cm, 02/08/23 15:30:00 EST, Height/Length Dosing, 76.5, kg, 02/08/23 15:30:00 EST, Weight Dosing 5. Non-smoker (Z78.9: Other specified health status) continue not smoking Ordered: amoxicillin-clavulanate , = 1 tab(s), Oral, q12hr, X 7 day(s), # 14 tab(s), Refills(s) 0, [id number], 167, cm, 02/08/23 15:30:00 EST, Height/Length Dosing, 76.5, kg, 02/08/23 15:30:00 EST, Weight Dosing Follow-up No qualifying data available Problem List/Past Medical History Ongoing Acid reflux Adult BMI 27.0-27.9 kg/sq m Chronic cough Congestion of nasal sinus Cough Osteoma Sinusitis Historical No qualifying data Procedure/Surgical History Appendectomy, Biopsy of breast, Carpal tunnel. Medications Albuterol (Eqv-ProAir HFA) 90 mcg/inh inhalation aerosol, 2 puff(s), Inhalation, q6hr codeine-guaifenesin 10 mg-100 mg/5 mL oral syrup, 5 mL, Oral, Once methylPREDNISolone 4 mg tab dosepak, 1 packet(s), Oral, Once omeprazole 40 mg Cap-DR, 40 mg= 1 cap(s), Oral, Daily, 1 refills Allergies Demerol (Rash) Social History Tobacco Never [...] pneumococcal 23-valent vaccine 12/18/2019 Recorded influenza virus vacc (more content not included)... [facility] Comment on above: Result Comment: Elec tronically Signed By: Radha Quinteros\.br\Date and Time Signed: 03/28/23 12:44 EST Physician Referralon 024 Physician Referral [id number]#1.00TI FF [facility] Ambulatory Visit Summaryon 0 03-20-2023 Ambulatory Visit Summary REYNA MERAZ :1950 Visit Date:03/20/2023 Ambulatory Visit Instructions Your Diagnosis Cough Adult BMI 27.0-27.9 kg/sq m Non-smoker Chronic cough Your Care Team Attending Physician - Radha Quinteros Primary Care Physician - Radha Quinteros This Is Your Medications List codeine-guaifenesin (codeine-guaifenesin 10 mg-100 mg/5 mL oral syrup) Procedures Performed Appendectomy, Biopsy of breast, Carpal tunnel. What to do next Someone Will Contact You Regarding These Appointments [facility] [place] Ref[place], Patient choice/referral by family/friend, Pulmonology, Dr. Amari Azul, 03/20/23 14:18:00 EST, Chronic cough Medications What How Much When Instructions Unchanged codeine-guaifenesin (codeine-guaifenesin 10 mg-100 mg/ 5 mL oral syrup) 5 Milliliter By Mouth Once TAKE 5ML BY MOUTH ONCE EVERYDAY AT BEDTIME NEEDED FOR COUGH Allergies Demerol (Rash) Problems Ongoing - Any problem that you are currently receiving treatment for. Adult BMI 27.0-27.9 kg/sq m Congestion of nasal sinus Cough Osteoma Patient Survey You may receive a survey via text or e-mail asking about your office visit. Please share your experience with us by completing your survey. We appreciate your feedback and thank you for choosing us for your care. [facility] Physician Referralon 023 Physician Referral [id number]#1.00TI FF [facility] Physician Orderon 02-09-2023 Physician Order [id number]#1.00T IFF [facility] Ambulatory Visit Summaryon 1 04-11-2022 Ambulatory Visit [...] you for choosing us for your care. Thad Cronin [facility] Medicine Office/Clini c Noteon 02-08-2023 Family Medicine [...] BID, # 12 gram, Refills(s) 1, [id number], cm, 02/08/23 15:30:00 EST, Height/Length Dosing, 76.5, kg, 02/08/23 15:30:00 EST, Weight Dosing methylPREDNISolone, = 1 packet(s), Oral, As Directed, as directed on package labeling, X 6 day(s), # 21 tab(s), Refills(s) 0, [id number], 167, cm, 02/08/23 15:30:00 EST, Height/Length Dosing, 76.5, kg, 02/08/23 15:30:00 EST, Weight Dosing 2. Adult BMI 27.0-27.9 kg/sq m (Z68.27: Body mass index [BMI] 27.0-27.9, adult) BMI education complete Ordered: fluticasone, = 2 puff(s), Inhalation, BID, # 12 gram, Refills(s) 1, [id number], 167, cm, 02/08/23 15:30:00 EST, Height/Length Dosing, 76.5, kg, 02/08/23 15:30:00 EST, Weight Dosing methylPREDNISolone, = 1 packet(s), Oral, As Directed, as directed on package labeling, X 6 day(s), # 21 tab(s), Refills(s) 0, [id number], 167, cm, 02/08/23 15:30:00 EST, Height/Length Dosing, 76.5, kg, 02/08/23 15:30:00 EST, Weight Dosing Orders: codeine-guaifenesin, 5 mL, Oral, Bedtime for cough, 60 mL, Refill(s) 0, [facility]/pharmacy #[id number], 167, cm, 02/08/23 15:30:00 EST, Height/Length Dosing, 76.5, kg, 12/13/23 15:30:00 EST, Weight Dosing Follow-up No qualifying [...] virus vaccine, inact (more content not included)... [facility] Comment on above: Result Comment: Elec tronically Signed By: Radha Quinteros\.br\Date and Time Signed: 02/08/23 16:34 EST Outside Mammographyon 2022 Outside Mammography [id number]#1.00TI FF Normal [facility] RAD - MISCon 01-17-2023 RAD - MIS [id number]#1.00TI FF Normal [facility] Family Medicine Office/Clini c Noteon 12-23-2022 [...] influenza virus vaccine, inactivated 12/28/2012 Recorded Normal [facility] Comment on above: Result Comment: Elec tronically Signed By: Radha Quinteros\.br\Date and Time Signed: 12/23/22 11:35 EDT [place] 12-20-2022 Consent [id number]#1.00T IFF Normal [facility] Ambulatory Visit Summaryon 1 Ambulatory Visit Summary MARIYA REYNA :1950 Visit Date:12/19/2022 Ambulatory Visit Instructions Your Diagnosis [...] 171.16 lb BMI 27.73 Allergies Demerol (Rash) Normal [facility] Consultation Noteon 07-07-19 23 Consultation Note [id number]#1.00C D:127 Normal [facility] Physician Referralon 023 Physician Referral [id number]#1.00 CD:127 Normal [facility] CBC AUTO DIFFon 05-03-2022 BASO # 0.0 103/ul Normal 0.0-0.1 [facility] Comment on above: Performed By: #### H FPFCBC #### [facility] [address] [address] [address] Jean-Claude Norris Basophils/100 WBC (Bld) 0.7 % Normal 0.2-2.0 [facility] Comment on above: Performed By: #### H FPFCBC #### [facility] [address] [address] [address] Jean-Claude Norris EO # 0.2 103/ul Normal 0.0-0.7 [facility] Comment on above: Performed By: #### H FPFCBC #### [facility] [address] [address] [address] Jean-Claude Norris Eosinophils/100 WBC (Bld) 3.7 % Normal 0.9-7.0 [facility] Comment on above: Performed By: #### H FPFCBC #### [facility] [address] [address] [address] Jean-Claude Norris Erythrocyte distribution width (RBC) [Ratio] 14.8 % Normal 11.0-15.0 [facility] Comment on above: Performed By: #### H FPFCBC #### [facility] [address] [place] [address] Dr. Jean-Claude Nroris Hematocrit (Bld) [Volume fraction] 36.5 % Normal 36.0-48.0 [facility] Comment on above: Performed By: #### H FPFCBC #### [facility] [address] [place] [address] Dr. Jean-Claude Norris Hemoglobin (Bld) [Mass/Vol] 11.6 g/dL Critically low 12.0-16.0 [facility] Comment on above: Performed By: #### H FPFCBC #### [facility] [address] [place] [address] Dr. Jean-Claude Norris IG # 0.01 10e3/ul Normal 0.00-0.03 [facility] Comment on above: Performed By: #### H FPFCBC #### [facility] [address] [place] [address] Dr. Jean-Claude Norris IG % 0.2 % Normal 0.0-0.5 [facility] Comment on above: Performed By: #### H FPFCBC #### [facility] [address] [place] [address] Dr. Jean-Claude Norris LYMPH # 0.8 103/ul Critically low 1.2-3.8 [facility] Comment on above: Performed By: #### H FPFCBC #### [facility] [address] [place] [address] Dr. Jean-Claude Norris Lymphocytes/100 WBC (Bld) 18.9 % Critically low 20.5-60.0 [facility] Comment on above: Performed By: #### H FPFCBC #### [facility] [address] [place] [address] Dr. Jean-Claude Norris MCH (RBC) [Entitic mass] 25.1 pg Critically low 26.7-34.0 [facility] Comment on above: Performed By: #### H FPFCBC #### [facility] [address] [place] [address] Dr. Jean-Claude Norris MCHC (RBC) [Mass/Vol] 31.8 g/dL Normal 29.9-35.2 [facility] Comment on above: Performed By: #### H FPFCBC #### [facility] [address] [address] [address] Jean-Claude Norris MCV (RBC) [Entitic vol] 78.8 fL Critically low 81.0-99.0 [facility] Comment on above: Performed By: #### H FPFCBC #### [facility] [address] [place] [address] Dr. Jean-Claude Norris MONO # 0.5 103/ul Normal 0.3-0.8 [facility] Comment on above: Performed By: #### H FPFCBC #### [facility] [address] [place] [address] Dr. Jean-Claude Norris Monocytes/100 WBC (Bld) 12.4 % Critically high 1.7-12.0 [facility] Comment on above: Performed By: #### H FPFCBC #### [facility] [address] [place] [address] Dr. Jean-Claude Norris NEUT # 2.7 103/ul Normal 1.4-6.5 [facility] Comment on above: Performed By: #### H FPFCBC #### [facility] [address] [place] [address] Dr. Jean-Claude Norris Neutrophils/100 WBC (Bld) 64.1 % Normal 43.0-75.0 [facility] Comment on above: Performed By: #### H FPFCBC #### [facility] [address] [place] [address] Dr. Jean-Claude Norris Platelet mean volume (Bld) [Entitic vol] 11.4 fL Normal 9.5-13.5 [facility] Comment on above: Performed By: #### H FPFCBC #### [facility] [address] [place] [address] Dr. Jean-Claude Norris PLT 209 103/ul Normal 150-450 [facility] Comment on above: Performed By: #### H FPFCBC #### [facility] [address] [address] [address] Jean-Claude Norris RBC 4.63 106/ul Normal 4.20-5.40 [facility] Comment on above: Performed By: #### H FPFCBC #### [facility] [address] [place] [address] Dr. Jean-Claude Norris WBC 4.3 103/ul Normal 4.0-11.0 [facility] Comment on above: Performed By: #### H FPFCBC #### [facility] [address] [address] [address] Jean-Claude Norris [facility] GLYCOHEMOGLOBIN A1Con 05-03-2022 Glucose [Mass/Vol] 117 mg/dL Normal [facility] Comment on above: Performed By: #### H FPFA1C #### [facility] [address] [place] [address] Dr. Jean-Claude Norris HbA1c (Bld) [Mass fraction] 5.7 % Normal 4.5-6.2 [facility] Comment on above: Performed By: #### H FPFA1C #### [facility] [address] [place] [address] Dr. Jean-Claude Norris [facility] Albumin [Mass/Vol] 3.9 g/dL Normal 3.4-5.0 [facility] Comment on above: Performed By: #### H FPF #### [facility] [address] [place] [address] Dr. Jean-Claude Norris Albumin/Globulin [Mass ratio] 1.3 {ratio} Normal [facility] Comment on above: Performed By: #### H FPF #### [facility] [address] [place] [address] Dr. Jean-Claude Norris ALP [Catalytic activity/Vol] 69 U/L Normal 46-116 [facility] Comment on above: Performed By: #### H FPF #### [facility] [address] [place] [address] Dr. Jean-Claude Norris ALT [Catalytic activity/Vol] 23 U/L Normal 14-59 [facility] Comment on above: Performed By: #### H FPF #### [facility] [address] [address] [address] Jean-Claude Norris AST [Catalytic activity/Vol] 19 U/L Normal 15-37 [facility] Comment on above: Performed By: #### H FPF #### [facility] [address] [address] [address] Jean-Claude Norris Bilirubin [Mass/Vol] 1.0 mg/dL Normal 0.2-1.0 [facility] Comment on above: Performed By: #### H FPF #### [facility] [address] [address] [address] Jean-Claude Norris Calcium [Mass/Vol] 9.3 mg/dL Normal 8.5-10.1 [facility] Comment on above: Performed By: #### H FPF #### [facility] [address] [place] [address] Dr. Jean-Claude Norris Chloride [Moles/Vol] 106 mmol/L Normal 98-107 [facility] Comment on above: Performed By: #### H FPF #### [facility] [address] [place] [address] Dr. Jean-Claude Norris CHOL-HDL RATIO NORM SEE BELOW Normal [facility] Comment on above: Result Comment: 3.3 - 4.4 LOW RISK 4.4 - 7.1 AVERAGE RISK 7.1 - 11.0 MODERATE RISK >11.0 HIGH RISK Performed By: #### H FPF #### [facility] [address] [address] [address] Jean-Claude Norris Cholesterol [Mass/Vol] 183 mg/dL Normal <=200 [facility] Comment on above: Performed By: #### H FPF #### [facility] [address] [address] [address] Jean-Claude Norris Cholesterol in HDL [Mass/Vol] 46 mg/dL Normal 40-60 [facility] Comment on above: Performed By: #### H FPF #### [facility] [address] [address] [address] Jean-Claude Norris Cholesterol in LDL [Mass/Vol] 107.2 mg/dL Normal [facility] Comment on above: Performed By: #### H FPF #### [facility] [address] [address] [address] Jean-Claude Norris Cholesterol.total/Ch olesterol in HDL [Mass ratio] 4.0 {ratio} Normal [facility] Comment on above: Performed By: #### H FPF #### [facility] [address] [address] [address] Jean-Claude Norris CO2 [Moles/Vol] 27.7 mmol/L Normal 21.0-32.0 [facility] Comment on above: Performed By: #### H FPF #### [facility] [address] [address] [address] Jean-Claude Norris Creatinine [Mass/Vol] 0.69 mg/dL Normal 0.55-1.02 [facility] Comment on above: Performed By: #### H FPF #### [facility] [address] [address] [address] Jean-Claude Norris Globulin (S) [Mass/Vol] 3.1 g/dL Normal [facility] Comment on above: Performed By: #### H FPF #### [facility] [address] [address] [address] Jean-Claude Norris Glucose [Mass/Vol] 125 mg/dL Critically high 74-106 [facility] Comment on above: Performed By: #### H FPF #### [facility] [address] [address] [address] Jean-Claude Norris HDL NORMAL > or = 60 mg/dl - LO W CARDIOVASCULAR RISK <40 mg/dl - HIGH CARDIOVASCULAR RISK Normal [facility] Comment on above: Performed By: #### H FPF #### [facility] [address] [address] [address] Jean-Claude Norris LDL CALC NORMAL SEE BELOW Normal [facility] Comment on above: Result Comment: <100 mg/dl OPTIMAL 100 - 129 mg/dl NEAR OR ABOVE OPTIMAL 130 - 159 mg/dl BORDERLINE HIGH 160 - 189 mg/dl HIGH >190 mg/dl VERY HIGH Performed By: #### H FPF #### [facility] [address] [address] [address] Jean-Claude Norris Potassium [Moles/Vol] 4.3 mmol/L Normal 3.5-5.1 [facility] Comment on above: Performed By: #### H FPF #### [facility] [address] [place] [address] Dr. Jean-Claude Norris Protein [Mass/Vol] 7.0 g/dL Normal 6.4-8.2 [facility] Comment on above: Performed By: #### H FPF #### [facility] [address] [address] [address] Jean-Claude Norris Sodium [Moles/Vol] 142 mmol/L Normal 136-145 [facility] Comment on above: Performed By: #### H FPF #### [facility] [address] [place] [address] Dr. Jean-Claude Norris Triglyceride [Mass/Vol] 149 mg/dL Normal <=150 [facility] Comment on above: Performed By: #### H FPF #### [facility] [address] [place] [address] Dr. Jean-Claude Norris TSH 2.552 uIU/mL Normal 0.358-3.740 [facility] Comment on above: Performed By: #### H FPF #### [facility] [address] [place] [address] Dr. Jean-Claude Norris Urea nitrogen [Mass/Vol] 15.0 mg/dL Normal 7.0-18.0 [facility] Comment on above: Performed By: #### H FPF #### [facility] [address] [place] [address] Dr. Jean-Claude Norris Urea nitrogen/Creatinine [Mass ratio] 21.7 mg/mg Normal [facility] Comment on above: Performed By: #### H FPF #### [facility] [address] [address] [address] Jean-Claude Norris VLDL CALC 29.8 mg/dL Normal [facility] Comment on above: Performed By: #### H FPF #### [facility] [address] [place] [address] Dr. Jean-Claude Norris MG MAMM SCREEN 3D JENNA CADon 01-06-2022 MG MAMM SCREEN 3D JENNA CAD Patient: REYNA MERAZ Exam Date: 01/06/2022 : 1950 Gender:F Ordering : DR GISELA CASON [facility] Admission #: [id number] Family : Order #: [id number] CLICK HERE TO VIEW EXAM RADIOLOGY REPORT [...] breast cancer at age 58. LOCATION: [facility] BREAST COMPOSITION: Scattered areas fibroglandular density. [...] Solis MD on 01/06/2022 at 14:45 Normal [facility] Encounters Encounter Date Encounter Type Care Provider Facility Start: 05-30-2023 End: 05-30-2023 ambulatory JENNIFER Serafin INGRID Not Available Start: 03-20-2023 End: 03-21-2023 ambulatory [facility] Start: 02-08-2023 End: 02-09-2023 ambulatory Radha L Mitzi Facility:[facility] Aide ken Start: 12-19-2022 ambulatory [facility] Start: 07-12-2022 ambulatory ARMEN YUEN Facilit y:[facility] Start: 06-14-2022 End: 06-15-2022 ambulatory ARMEN YUEN Facility:[facility] Start: 05-03-2022 End: 05-04-[address] KATIUSKA LANDAVERDE . Facility:[facility] Start: 01-06-2022 End: 01-07-[address] BENJY SOLIS Facility:[facility] Payers Date Payer Category Payer Medicare [id number] 1960 Self-pay [id number] 1960 Unknown [id number] 1960 Unknown [id number] 1950 Unknown [id number] 2.16.84 [id number] 1950 Unknown [id number] 2.16.84 [id number] 1950 Unknown [id number] 2.16.84 [id number] 1950 Unknown [id number] 2.16.84 [id number] 1950 Unknown [id number] 2.16.8 [id number] 1950 Unknown [id number] 2.16.8 [id number] 1950 Unknown [id number] 2.16.8 [id number] Unknown [id number] 2.16.84 [id number] Clinical Note 06-14-2022 Note Date & Type [...] authenticated by: EJ DAVIS Date: 2022-06-14 15:56 [facility] Summary Purpose Family History No Family History Records FoundNo Family History Records FoundNo Family History Records Found Advance Directives No Advanced Directives Records FoundNo Advanced Directives Records FoundNo Advanced Directives Records Found Additional Source Comments INFORMATION SOURCE (unrecogn ized section and content) DATE CREATED AUTHOR 06/27/2022 [facility] DATE CREATED AUTHOR AUTHOR'S ORGANIZ ATION 05/31/2023 [facility] EPIC DATE CREATED AUTHOR AUTHOR'S ORGANIZ ATION 05/31/2023 [facility] FOR RECORDS PERTAINING [...] BE BASED ON THE PRIMARY CLINICAL RECORDS. [facility] [employer]. provides no warranty or guarantee of the accuracy or completeness of information in this document.
[2023-06-08 10:40] VITALS: BP 162/81; PULSE 70; O2SAT 100
--- NOTE | 2023-06-08 11:16 | US_ITS ---
[address] [address] Patient Name: LOBITO MERAZ MRN: [id number] date: 1950 Sex: F Assigned Patient Location: US Current Patient Location: US Accession/Order Number: [id number] Exam Date: 06/08/2023 10:24 Report Date: 06/08/2023 12:18 At the request of: JENNIFER QUINTERO Procedure: US biopsy FNA add lesion EXAMINATION: US biopsy thyroid, US biopsy FNA add lesion HISTORY: thyroid nodule COMPARISON: Ultrasound thyroid 05/25/2023 TECHNIQUE: After obtaining informed consent, ultrasound-guided fine needle aspiration was performed in the usual sterile manner. FINDINGS: IMAGING: Ultrasound. BIOPSY NEEDLE: 25-gauge; 3 separate passes within each nodule. LOCATION: Right lobe 1.5 cm heterogeneous nodule. Left lobe 2.0 cm heterogeneous nodule. SPECIMEN TYPE: Cellular tissue. LOCAL ANESTHETIC: Buffered Xylocaine. COMPLICATIONS: None. LABORATORY: Prepared slide smears and washings for cell block evaluation. OTHER: Negative. PATHOLOGY: Pending. An addendum will be added when results are available. US/US biopsy FNA add lesion IMPRESSION: 1. Uneventful ultrasound guided fine needle aspiration (FNA). 2. Pathology results are pending. Electronically authenticated by: EJ DAVIS Date: 06/08/2023 12:18
--- NOTE | 2023-06-08 13:00 | SUR.PREOP ---
06/01/23 Pt instrcuted on procedrue, date, time, and prep.
== END 2023-06-08 11:50 | disposition home or self-care (01) ==
LOC: US 10:19
PROVIDERS: Radiology Diagnostic Radiology; PCP Family Medicine; Visit Provider Otolaryngology
DX: E04.2 Nontoxic multinodular goiter (principal)
CPT/HCPCS: 10005; 10006; 88173; 99999

== ENCOUNTER 2023-08-08 08:57 | Outpatient (OUT) | payer MEDICARE, OTHER, SELFPAY ==
--- NOTE | 2023-08-08 09:05 | CT_ITS ---
[address] [address] Patient Name: LOBITO MERAZ MRN: [id number] date: 1950 Sex: F Assigned Patient Location: LAB Current Patient Location: LAB Accession/Order Number: [id number] Exam Date: 08/08/2023 09:55 Report Date: 08/08/2023 12:08 At the request of: MARÍA ELENA ARMENDARIZ Procedure: CT chest w con EXAMINATION: CT chest w con HISTORY: Solitary Pulmonary Nodule R91.1, Hilar Lymphadenopathy R59.0 COMPARISON: 04/27/2023 TECHNIQUE: Multi-planar CT images were created with IV contrast. Axial, Coronal, and Sagittal images. Dose reduction techniques were achieved by using automated exposure control and/or adjustment of mA and/or kV according to patient size and/or use of iterative reconstruction technique. FINDINGS: LUNGS: Again demonstrated is a semisolid and solid spiculated left upper lobe opacity measuring 1.8 x 1.4 cm on axial image #41, grossly stable from the prior exam accounting for differences in slice selection. Additional subcentimeter pulmonary nodules are noted, stable. PLEURA: No mass, effusion, or pneumothorax. VASCULATURE: Normal postcontrast opacification. No filling defect to suggest a pulmonary embolus ELIAS: No mass or adenopathy. MEDIASTINUM: No mass or adenopathy. CARDIAC: No enlargement or effusion Coronary arteries: Absent calcifications AORTA: No aneurysm or dissection. CHEST WALL: Left thyroid nodule BONES: No bone lesion or fracture. Mild to moderate degenerative spondylosis LIMITED ABDOMEN: No suspicious findings. Limited images of the upper abdomen. OTHER: Negative. CT/CT chest w con IMPRESSION: Stable 1.8 cm solid and semisolid left upper lobe nodule. This remains indeterminate. Malignancy is not excluded Electronically authenticated by: BENJY SOLIS Date: 08/08/2023 12:08
[2023-08-08 09:16] LABS: Estimated GFR (African America >60 (>=60); Estimated GFR (Non-African Ame >60 (>=60)
--- OUTSIDE RECORDS SUMMARY | 2023-08-08 09:17 | XMS_ITS | CCD ---
Author Organization [facility] Care Team Providers Care Deck Builder Name Role Phone WEST, DR BENJY Yun [...] ARMEN YUEN Attending Unavailable ZIEBJUAN PABLO, DR LOPEZ Davis Consulting Unavailable LANDAVERDE ., DR KATIUSKA Da Silva Primary Care Unavailable ARMEN UYEN Consulting Unavailable MD Lopez Wilson Attending Provider Lopez Wilson Attending Unavailable Lopez Wilson Admitting Unavailable Mitzi, RODOLFO Ochoa Attending Unavailable Mitzi, FARM TRACTOR OPERATOR Radha Ochoa Attending Unavailable Mitzi, FARM TRACTOR OPERATOR Radha Ochoa Attending Unavailable JENNIFER QUINTERO Attending Unavailable JENNIFER QUINTERO Attending Unavailable JENN GERMAIN Referring Unavailable Allergies Allergy Classification Reported Allergen(s) Allergy Type Date of Onset Reaction(s) Facility (3 sources) Meperidine; Translations: [Demerol] Drug Allergy 03-06-2016 [facility] Repository (1 source) Meperidine Drug Allergy 03-16-2020 [facility] Repository Problems Active Problems Problem [...] Test Name Value Interpretation Reference Range Facility RAD - Ultrasound Reporton RAD - Ultrasound Report [id number]#1.00T IFF Normal [facility] Walter 06-08-2023 L Specimen: [id number] Received: 06/12/23 Status: HÉCTOR Hernandez Num: [id number] Spec Type: Cytology Subm Dr: Lopez Wilson MD Tissues: A FNA SLIDES NOPATH (LEFT THYROID NODULE SUPERIOR) B FNA SLIDES NOPATH (RIGHT THYROID NODULE INFERIO) Procedures: Cyto Int and Re/2, PAPSTN/12 Age/ Patient Sex Location Account Attending Physician Reyna Benavides 72/F [facility] [id number] Lopez Wilson MD SPEC NUM: [id number] RECD: 06/12/23 STATUS: HÉCTOR HERNANDEZ NUM: [id number] MJ: 06/08/[address]: Lopez Wilson MD ENTERED: 06/12/231 [facility] DR: Abdiaziz Azul HILARY H MD SPEC TYPE: Cytology DEPT: ZOIE NDKIRSTEN ENTERED BY: [id number] RECV BY: [id number] ORDERED: Cyto Int and Re/2, PAPSTN/12 ORDERED: Cyto Int and Re/2, PAPSTN/12 Pathological Diagnosis A, left thyroid nodule superior, FNA cytology: -Appropriate for assessment -The [place] system is category 2: Benign -Fibrin trapping of small dense groups are present in at least 1 aspirate smear -A few small dense follicular groups are also present in the ThinPrep smear -The follicular cells are mostly small benign looking -2 small loose clusters of small lymphocytes are also noted in ThinPrep smear covering occasional follicular cells B right thyroid nodule inferior, FNA cytology: -Appropriate for assessment -The [place] system is category 2: Benign -A few adequate number of small follicular groups are present in the ThinPrep smear and 2 other aspirate smears -The follicular cells are all small and bland looking Specimen: [id number] Received: 06/12/23 Status: HÉCTOR Hernandez Num: [id number] Spec Type: Cytology Subm Dr: Lopez Wilson MD Tissues: A FNA SLIDES NOPATH (LEFT THYROID NODULE SUPERIOR) B FNA SLIDES NOPATH (RIGHT THYROID NODULE INFERIO) Procedures: Cyto Int and Re/2, PAPSTN/12 Patient: Reyna Benavides [id number] (Continued) Specimen: [id number] Received: 06/12/23 (Continued) Signed (signature on file) Katya Norris MD 06/13/23 1716 Specimen: [id number] Received: 06/12/23 Status: HÉCTOR Hernandez Num: [id number] Spec Type: Cytology Subm Dr: Lopez Wilson MD Tissues: A FNA SLIDES NOPATH (LEFT THYROID NODULE SUPERIOR) B FNA SLIDES NOPATH (RIGHT THYROID NODULE INFERIO) Procedures: Cyto Int and Re/2, PAPSTN/12 Patient: MakaylaReyna K [id number] (Continued) Specimen: [id number] Received: 06/12/23 (Continued) Clinical Information Thyroid nodules History of basal cell carcinoma (skin of the face) Gross Description A. Received in Cytolyt labeled with the patient's name, date of and left thyroid nodule superior per requisition is 30 ml pink slightly cloudy fixed fluid. 1 Thin Prep slides are prepared. 4 alcohol fixed smears for pap are additionally received. (CC/nh) B. Received in Cytolyt labeled with the patient's name, date of and right thyroid nodule inferior per requisition is 30 ml very pale pink clear fixed fluid. 1 Thin Prep slides are prepared. 4 alcohol fixed smears for pap are additionally received. (CC/nh) CPT Codes 73318 x 2 Specimen: [id number] Received: 06/12/23-1249 Status: HÉCTOR Hernandez Num: [id number] Spec Type: Cytology Subm Dr: Lopez Wilson MD Tissues: A FNA SLIDES NOPATH (LEFT THYROID NODULE SUPERIOR) B FNA SLIDES NOPATH (RIGHT THYROID NODULE INFERIO) Procedures: Cyto Int and Re/2, PAPSTN/12 Patient: Reyna Benavides [id number] (Continued) Signed (signature on file) Katya Norris MD 06/13/23 1992 Normal [facility] RAD - Ultrasound Reporton RAD - Ultrasound Report [id number]#1.00T IFF Normal [facility] RAD - Ultrasound Report [id number]#1.00T IFF Normal [facility] Consultation Noteon 05-30-19 Consultation Note [id number]#1.00T IFF Normal [facility] Lab Reportson 05-23-2023 Lab Reports [id number]#1.00T IFF Normal [facility] Consultation Noteon 05-18-19 Consultation Note [id number]#1.00T IFF Normal [facility] Consultation Noteon 05-17-19 Consultation Note [id number]#1.00T IFF Normal [facility] Consultation Noteon 05-10-19 Consultation Note [id number]#1.00T IFF Normal [facility] Consultation Note [id number]#1.00T IFF Normal [facility] RAD - CT Reporton 05-10-2023 RAD - CT Report [id number]#1.00 TIFF Normal [facility] RAD - Pet Scan Reporton 04-27 RAD - Pet Scan Report [id number]#1.00T IFF Normal [facility] RAD - Pet Scan Report [id number]#1.00T IFF Normal [facility] Consultation Noteon 04-26-19 Consultation Note [id number]#1.00T IFF Normal [facility] Family Medicine Office/Clini c Noteon 03-28-2023 Family [...] intermittent shortness of breath. 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 Sinusitis (J32.9: Chronic sinusitis, unspecified) sill order augmentin Ordered: amoxicillin-clavulanate , = 1 tab(s), Oral, q12hr, X 7 day(s), # 14 tab(s), Refills(s) 0, Pharmacy: [facility]/pharmacy #[id number], 167, cm, 02/08/23 [...] day(s), # 14 tab(s), Refills(s) 0, Pharmacy: [facility]/pharmacy #[id number], 167, cm, 02/08/23 15:30:00 EST, Height/Length Dosing, 76.5, kg, 02/08/23 15:30:00 EST, Weight Dosing 5. Non-smoker (Z78.9: Other specified health status) continue not smoking Ordered: amoxicillin-clavulanate , = 1 tab(s), Oral, q12hr, X 7 day(s), # 14 tab(s), Refills(s) 0, Pharmacy: [facility]/pharmacy #[id number], 167, cm, 02/08/23 [...] influenza virus vacc (more content not included)... Normal [facility] Comment on above: Result Comment: Elec tronically Signed By: Radha Quinteros\.br\Date and Time Signed: 03/28/23 12:44 EST Physician Referralon 024 Physician Referral [id number]#1.00TI FF [facility] Ambulatory Visit Summaryon 0 03-20-2023 Ambulatory Visit Summary REYNA BENAVIDES :1950 Visit Date:03/20/2023 Ambulatory Visit Instructions Your Diagnosis Cough Adult BMI 27.0-27.9 kg/sq m Non-smoker Chronic cough Your Care Team Attending Physician - Radha Quinteros Primary Care Physician - Radha Quinteros This Is Your Medications List codeine-guaifenesin (codeine-guaifenesin 10 mg-100 mg/5 mL oral syrup) Procedures Performed Appendectomy, Biopsy of breast, Carpal tunnel. What to do next Someone Will Contact You Regarding These Appointments [facility] External Ambulatory Referral, Patient choice/referral by family/friend, [...] you for choosing us for your care. [facility] Physician Referralon 023 Physician Referral [id number]#1.00TI FF [facility] Physician Orderon 02-09-2023 Physician Order [id number]#1.00T IFF [facility] Ambulatory Visit Summaryon 04-11-2022 Ambulatory Visit Summary REYNA BENAVIDES :1950 Visit Date:02/08/2023 Ambulatory Visit Instructions Your [...] for choosing us for your care. Normal [place] [facility] Family Medicine Office/Clini c Noteon 02-08-2023 Family [...] BID, # 12 gram, Refills(s) 1, Pharmacy: [facility] #[id number], 167, cm, 02/08/23 15:30:00 EST, Height/Length Dosing, 76.5, kg, 02/08/23 15:30:00 EST, Weight Dosing methylPREDNISolone, = 1 packet(s), Oral, As Directed, as directed on package labeling, X 6 day(s), # 21 tab(s), Refills(s) 0, [id number] 167, cm, 02/08/23 15:30:00 EST, Height/Length Dosing, 76.5, kg, 02/08/23 15:30:00 EST, Weight Dosing 2. Adult BMI 27.0-27.9 kg/sq m (Z68.27: Body mass index [BMI] 27.0-27.9, adult) BMI education complete Ordered: fluticasone, = 2 puff(s), Inhalation, BID, # 12 gram, Refills(s) 1, [id number], 167, cm, 02/08/23 15:30:00 EST, Height/Length Dosing, 76.5, kg, 02/08/23 15:30:00 EST, Weight Dosing methylPREDNISolone, = 1 packet(s), Oral, As Directed, as directed on package labeling, X 6 day(s), # 21 tab(s), Refills(s) 0, [id number], 167, cm, 02/08/23 15:30:00 EST, Height/Length Dosing, 76.5, kg, 02/08/23 15:30:00 EST, Weight Dosing Orders: codeine-guaifenesin, 5 mL, Oral, Bedtime for cough, 60 mL, Refill(s) 0, [facility]/pharmacy #[id number], 167, cm, 02/08/23 [...] vaccine, inact (more content not included)... Normal [facility] Comment on above: Result Comment: Elec tronically Signed By: Radha Quinteros\.galilea\Date and Time Signed: 02/08/23 16:34 EST Outside Mammographyon 2022 Outside Mammography [id number]#1.00TI FF Normal [facility] RAD - MISCon 01-17-2023 RAD - MISC [id number]#1.00TI FF Normal [facility] Family Medicine Office/Clini c Noteon 12-23-2022 [...] influenza virus vaccine, inactivated 12/28/2012 Recorded Normal [facility] Comment on above: Result Comment: Elec tronically Signed By: Mitzi REYNOLDS, Radha Ochoa\.br\Date and Time Signed: 12/23/22 11:35 EDT [place] 12-20-2022 Consent [id number]#1.00T IFF Normal [facility] Ambulatory Visit Summaryon 1 Ambulatory Visit Summary REYNA BENAVIDES :1950 Visit Date:12/19/2022 Ambulatory Visit Instructions Your [...] lb BMI 27.73 Allergies Demerol (Rash) Normal [facility] CBC AUTO DIFFon 05-03-2022 BASO # 0.0 103/ul Normal 0.0-0.1 [facility] Comment on above: Performed By: #### H FPFCBC #### [facility] [address] [address] [address] Jean-Claude Norris Basophils/100 WBC (Bld) 0.7 % Normal 0.2-2.0 [facility] Comment on above: Performed By: #### H FPFCBC #### [facility] [address] [address] [address] Jean-Claude Norris EO # 0.2 103/ul Normal 0.0-0.7 [facility] Comment on above: Performed By: #### H FPFCBC #### [facility] [address] [address] [address] Jean-Claude Norris Eosinophils/100 WBC (Bld) 3.7 % Normal 0.9-7.0 [facility] Comment on above: Performed By: #### H FPFCBC #### [facility] [address] [address] [address] Jean-Claude Norris Erythrocyte distribution width (RBC) [Ratio] 14.8 % Normal 11.0-15.0 [facility] Comment on above: Performed By: #### H FPFCBC #### [facility] [address] [place] [address] Dr. Jean-Claude Norris Hematocrit (Bld) [Volume fraction] 36.5 % Normal 36.0-48.0 [facility] Comment on above: Performed By: #### H FPFCBC #### [facility] [address] [place] [address] Dr. Jean-Claude Norris Hemoglobin (Bld) [Mass/Vol] 11.6 g/dL Critically low 12.0-16.0 [facility] Comment on above: Performed By: #### H FPFCBC #### [facility] [address] [place] [address] Dr. Jean-Claude Norris IG # 0.01 10e3/ul Normal 0.00-0.03 [facility] Comment on above: Performed By: #### H FPFCBC #### [facility] [address] [place] [address] Dr. Jean-Claude Norris IG % 0.2 % Normal 0.0-0.5 [facility] Comment on above: Performed By: #### H FPFCBC #### [facility] [address] [place] [address] Dr. Jean-Claude Norris LYMPH # 0.8 103/ul Critically low 1.2-3.8 [facility] Comment on above: Performed By: #### H FPFCBC #### [facility] [address] [place] [address] Dr. Jean-Claude Norris Lymphocytes/100 WBC (Bld) 18.9 % Critically low 20.5-60.0 [facility] Comment on above: Performed By: #### H FPFCBC #### [facility] [address] [place] [address] Dr. Jean-Claude Norris MCH (RBC) [Entitic mass] 25.1 pg Critically low 26.7-34.0 [facility] Comment on above: Performed By: #### H FPFCBC #### [facility] [address] [place] [address] Dr. Jean-Claude Norris MCHC (RBC) [Mass/Vol] 31.8 g/dL Normal 29.9-35.2 [facility] Comment on above: Performed By: #### H FPFCBC #### [facility] [address] [place] [address] Dr. Jean-Claude Norris MCV (RBC) [Entitic vol] 78.8 fL Critically low 81.0-99.0 [facility] Comment on above: Performed By: #### H FPFCBC #### [facility] [address] [place] [address] Dr. Jean-Claude Norris MONO # 0.5 103/ul Normal 0.3-0.8 [facility] Comment on above: Performed By: #### H FPFCBC #### [facility] [address] [place] [address] Dr. Jean-Claude Norris Monocytes/100 WBC (Bld) 12.4 % Critically high 1.7-12.0 [facility] Comment on above: Performed By: #### H FPFCBC #### [facility] [address] [place] [address] Dr. Jean-Claude Norris NEUT # 2.7 103/ul Normal 1.4-6.5 [facility] Comment on above: Performed By: #### H FPFCBC #### [facility] [address] [place] [address] Dr. Jean-Claude Norris Neutrophils/100 WBC (Bld) 64.1 % Normal 43.0-75.0 [facility] Comment on above: Performed By: #### H FPFCBC #### [facility] [address] [place] [address] Dr. Jean-Claude Norris Platelet mean volume (Bld) [Entitic vol] 11.4 fL Normal 9.5-13.5 [facility] Comment on above: Performed By: #### H FPFCBC #### [facility] [address] [place] [address] Dr. Jean-Claude Norris PLT 209 103/ul Normal 150-450 [facility] Comment on above: Performed By: #### H FPFCBC #### [facility] [address] [place] [address] Dr. Jean-Claude Norris RBC 4.63 106/ul Normal 4.20-5.40 [facility] Comment on above: Performed By: #### H FPFCBC #### [facility] [address] [place] [address] Dr. Jean-Claude Norris WBC 4.3 103/ul Normal 4.0-11.0 [facility] Comment on above: Performed By: #### H FPFCBC #### [facility] [address] [place] [address] Dr. Jean-Claude Norris [facility] GLYCOHEMOGLOBIN A1Con 05-03-2022 Glucose [Mass/Vol] 117 mg/dL Normal [facility] Comment on above: Performed By: #### H FPFA1C #### [facility] [address] [place] [address] Dr. Jean-Claude Norris HbA1c (Bld) [Mass fraction] 5.7 % Normal 4.5-6.2 [facility] Comment on above: Performed By: #### H FPFA1C #### [facility] [address] [place] [address] Dr. Jean-Claude Norris [facility] Albumin [Mass/Vol] 3.9 g/dL Normal 3.4-5.0 [facility] Comment on above: Performed By: #### H FPF #### [facility] [address] [place] [address] Dr. Jean-Claude Norris Albumin/Globulin [Mass ratio] 1.3 {ratio} Normal [facility] Comment on above: Performed By: #### H FPF #### [facility] [address] [place] [address] Dr. Jean-Claude Norris ALP [Catalytic activity/Vol] 69 U/L Normal 46-116 [facility] Comment on above: Performed By: #### H FPF #### [facility] [address] [place] [address] Dr. Jean-Claude Norris ALT [Catalytic activity/Vol] 23 U/L Normal 14-59 [facility] Comment on above: Performed By: #### H FPF #### [facility] [address] [address] [address] Jean-Claude Norris AST [Catalytic activity/Vol] 19 U/L Normal 15-37 [facility] Comment on above: Performed By: #### H FPF #### [facility] [address] [address] [address] Jean-Claude Norris Bilirubin [Mass/Vol] 1.0 mg/dL Normal 0.2-1.0 [facility] Comment on above: Performed By: #### H FPF #### [facility] [address] [place] [address] Dr. Jean-Claude Norris Calcium [Mass/Vol] 9.3 mg/dL Normal 8.5-10.1 [facility] Comment on above: Performed By: #### H FPF #### [facility] [address] [place] [address] Dr. Jean-Claude Norris Chloride [Moles/Vol] 106 mmol/L Normal 98-107 [facility] Comment on above: Performed By: #### H FPF #### [facility] [address] [place] [address] Dr. Jean-Claude Norris CHOL-HDL RATIO NORM SEE BELOW Normal [facility] Comment on above: Result Comment: 3.3 - 4.4 LOW RISK 4.4 - 7.1 AVERAGE RISK 7.1 - 11.0 MODERATE RISK >11.0 HIGH RISK Performed By: #### H FPF #### [facility] [address] [place] [address] Dr. Jean-Claude Norris Cholesterol [Mass/Vol] 183 mg/dL Normal <=200 [facility] Comment on above: Performed By: #### H FPF #### [facility] [address] [address] [address] Jean-Claude Norris Cholesterol in HDL [Mass/Vol] 46 mg/dL Normal 40-60 [facility] Comment on above: Performed By: #### H FPF #### [facility] [address] [address] [address] Jean-Claude Norris Cholesterol in LDL [Mass/Vol] 107.2 mg/dL Normal [facility] Comment on above: Performed By: #### H FPF #### [facility] [address] [address] [address] Jean-Claude Norris Cholesterol.total/Ch olesterol in HDL [Mass ratio] 4.0 {ratio} Normal [facility] Comment on above: Performed By: #### H FPF #### [facility] [address] [address] [address] Jean-Claude Norris CO2 [Moles/Vol] 27.7 mmol/L Normal 21.0-32.0 [facility] Comment on above: Performed By: #### H FPF #### [facility] [address] [address] [address] Jean-Claude Norris Creatinine [Mass/Vol] 0.69 mg/dL Normal 0.55-1.02 [facility] Comment on above: Performed By: #### H FPF #### [facility] [address] [address] [address] Jean-Claude Norris Globulin (S) [Mass/Vol] 3.1 g/dL Normal [facility] Comment on above: Performed By: #### H FPF #### [facility] [address] [address] [address] Jean-Claude Norris Glucose [Mass/Vol] 125 mg/dL Critically high 74-106 T [facility] Comment on above: Performed By: #### H FPF #### [facility] [address] [address] [address] Jean-Claude Norris HDL NORMAL > or = 60 mg/dl - LO W CARDIOVASCULAR RISK <40 mg/dl - HIGH CARDIOVASCULAR RISK Normal [facility] Comment on above: Performed By: #### H FPF #### [facility] [address] [address] [address] Jean-Claude Norris LDL CALC NORMAL SEE BELOW Normal [facility] Comment on above: Result Comment: <100 mg/dl OPTIMAL 100 - 129 mg/dl NEAR OR ABOVE OPTIMAL 130 - 159 mg/dl BORDERLINE HIGH 160 - 189 mg/dl HIGH >190 mg/dl VERY HIGH Performed By: #### H FPF #### [facility] [address] [address] [address] Jean-Claude Norris Potassium [Moles/Vol] 4.3 mmol/L Normal 3.5-5.1 [facility] Comment on above: Performed By: #### H FPF #### [facility] [address] [address] [address] Jean-Claude Norris Protein [Mass/Vol] 7.0 g/dL Normal 6.4-8.2 [facility] Comment on above: Performed By: #### H FPF #### [facility] [address] [address] [address] Jean-Claude Norris Sodium [Moles/Vol] 142 mmol/L Normal 136-145 [facility] Comment on above: Performed By: #### H FPF #### [facility] [address] [place] [address] Dr. Jean-Claude Norris Triglyceride [Mass/Vol] 149 mg/dL Normal <=150 [facility] Comment on above: Performed By: #### H FPF #### [facility] [address] [address] [address] Jean-Claude Norris TSH 2.552 uIU/mL Normal 0.358-3.740 [facility] Comment on above: Performed By: #### H FPF #### [facility] [address] [place] [address] Dr. Jean-Claude Norris Urea nitrogen [Mass/Vol] 15.0 mg/dL Normal 7.0-18.0 [facility] Comment on above: Performed By: #### H FPF #### [facility] [address] [place] [address] Dr. Jean-Claude Norris Urea nitrogen/Creatinine [Mass ratio] 21.7 mg/mg Normal [facility] Comment on above: Performed By: #### H FPF #### [facility] [address] [address] [address] Jean-Claude Norris VLDL CALC 29.8 mg/dL Normal [facility] Comment on above: Performed By: #### H FPF #### [facility] [address] [place] [address] Dr. Jean-Claude Norris MG MAMM SCREEN 3D JENNA CADon 01-06-2022 MG MAMM SCREEN 3D JENNA CAD Patient: REYNA BENAVIDES Exam Date: 01/06/2022 : 1950 Gender:F Ordering : DR GISELA CASON [facility] Admission #: [id number] Family : Order #: [id number] CLICK HERE TO VIEW EXAM RADIOLOGY REPORT [...] breast cancer at age 58. LOCATION: [facility] BREAST COMPOSITION: Scattered areas fibroglandular density. FINDINGS: [...] MD on 01/06/2022 at 14:45 Normal [facility] Encounters Encounter Date Encounter Type Care Provider Facility Start: 06-28-2023 End: 06-28-2023 ambulatory JENNIFER Serafin INGRID Not Available Start: 06-08-2023 End: 06-08-2023 ambulatory Lopez Wilson Facility:[facility] Start: 06-08-2023 End: 06-08-2023 ambulatory MD Lopez Wilson Work Phone: [facility] Work Phone: Start: 06-08-2023 End: 06-08-2023 Departed Referred MD Lopez Wilson Work Phone: [facility] Start: 05-30-2023 End: 05-30-2023 ambulatory JENNIFER QUINTERO Not Available Start: 03-20-2023 End: 03-21-2023 ambulatory FARM TRACTOR OPERATOR Radha L Mitzi Facility:[facility] Aide ken Start: 02-08-2023 End: 02-09-2023 ambulatory FARM TRACTOR OPERATOR Radha L Mitzi Facility:[facility] Aide ken Start: 12-19-2022 ambulatory FARM TRACTOR OPERATOR Radha L Mitzi Facil ity:[facility] [place] Start: 07-12-2022 ambulatory ARMEN EVERETTEN Facilit y:[facility] Start: 06-14-2022 End: 06-15-2022 ambulatory ARMEN YUEN Facility:[facility] Start: 05-03-2022 End: 05-04-[address] KATIUSKA LANDAVERDE . Facility:[facility] Start: 01-06-2022 End: 01-07-[address] BENJY SOLIS Facility:[facility] Payers Date Payer Category Payer Self-pay 1960 Medicare [id number] 1960 Self-pay [id number] Unknown [id number] 1959 Unknown [id number] 1950 Unknown [id number] 2.16.84 [id number] 1950 Unknown [id number] 2.16.84 [id number] 1949 Unknown [id number] .16.84 [id number] 1949 Unknown [id number] 2.16.8 [id number] 1949 Unknown [id number] 2.16.8 [id number] 1949 Unknown [id number] 2.16.8 40.1.560662.3.579.2.727 1949 Unknown [id number] 2.16.84 0.1.808085.3.579.2.1259 1949 Unknown [id number] 2.16.84 [id number] Unknown [id number] 2.16.84 [id number] Social History Date Type Detail Facility Tobacco smoking stat [facility] Unknown if ever smoked [facility] Work Phone: Start: 1950 Sex Assigned At Female [facility] Clinical Note 06-14-2022 Note Date & Type [...] the first metatarsophalangeal joint. Electronically authenticated by: LOPEZ WILSON Date: 2022-06-14 15:56 [facility] Evaluation note Note Date & Type Note Facility Evaluation note No assessment information availa ble [facility] Work Phone: Summary Purpose Family History No Family History Records Found Relationship Condition Age at Onset Recorded Date/T martha father Unknown Not Specified Unknown Malignant neoplasm of breast Unknown Malignant neoplasm Unknown Advance Directives No Advanced Directives Records FoundNo Advanced Directives Records FoundNo Advanced Directives Records FoundNo Advanced Directives Records Found Additional Source Comments INFORMATION SOURCE (unrecogn ized section and content) DATE CREATED AUTHOR 06/27/[address] [facility] p[facility] DATE CREATED AUTHOR AUTHOR'S ORGANIZ ATION 06/15/2023 [facility] DATE CREATED AUTHOR AUTHOR'S ORGANIZ ATION 06/26/2023 [facility] DATE CREATED AUTHOR AUTHOR'S ORGANIZ ATION 06/29/2023 [facility] [employer] Care Teams (unrecognized sec tion and content) Team Status: Inactive Member Role Status Dates Lopez Wilson MD Attending Provider Active Start: June 08, 2023 End: June 08, 2023 Goals (unrecognized section and content) Goals may be documented in a n alternate section FOR RECORDS PERTAINING TO PATIENTS WHO ARE [...] BE BASED ON THE PRIMARY CLINICAL RECORDS. [facility] [facility]. provides no warranty or guarantee of the accuracy or completeness of information in this document.
== END 2023-08-08 08:58 | disposition home or self-care (01) ==
LOC: LAB 08:57
PROVIDERS: PCP Family Medicine; Visit Provider Internal Medicine
DX: R91.1 Solitary pulmonary nodule (principal); R59.0 Localized enlarged lymph nodes
CPT/HCPCS: 36415; 71260; 82565; Q9967

== ENCOUNTER 2023-12-18 09:56 | Outpatient (OUT) | payer MEDICARE, OTHER, SELFPAY ==
--- NOTE | 2023-12-18 09:58 | US_ITS ---
The [address] [address] Patient Name: LOBITO MERAZ MRN: [id number] date: 1950 Sex: F Assigned Patient Location: US Current Patient Location: Accession/Order Number: [id number] Exam Date: 12/18/2023 10:00 Report Date: 12/19/2023 10:40 At the request of: JENNIFER QUINTERO Procedure: US thyroid EXAMINATION: US thyroid HISTORY: Multiple thyroid nodules COMPARISON: No relevant comparison available. TECHNIQUE: Sonographic images of the thyroid gland were obtained. FINDINGS: The right thyroid lobe is normal in size and contour, heterogeneous in echotexture measuring 3.6 x 1.8 x 2.3 cm. 2 focal nodules The thyroid isthmus measures 2.3 mm, heterogeneous. No focal nodule. Left thyroid lobe measures 4.4 x 2.5 x 2.0 cm. Heterogeneous echotexture with 4 focal nodules The 2 most suspicious nodules: Nodule 1. Right thyroid lobe. 1.3 x 0.9 x 1.3 cm. Solid, hyperechoic, tall, smooth margins, no calcifications. TR 4 Nodule 2: Left thyroid lobe. 2.4 x 1.8 x 1.4 cm. Mixed solid and cystic, hypoechoic, wide, smooth margins, punctate calcifications. TR 4 US/US thyroid IMPRESSION: Bilateral thyroid nodules. The left thyroid 2.4 cm nodule is slightly increased compared to the prior exam TI-RADS: The [employer] TI-RADS committee's white paper recommendations for thyroid lesions classified as TR4 (moderately suspicious) are listed below: > 1.0 cm. Follow-up ultrasound in 1, 2, 3, and 5 years. > 1.5 cm. FNA. J. Am Scar Radiol 2017;14:587-595. Electronically authenticated by: BENJY SOLIS Date: 12/19/2023 10:40
--- OUTSIDE RECORDS SUMMARY | 2023-12-18 10:17 | XMS_ITS | CCD ---
Author Organization [facility] Care Team Providers Care Larry Operator Name Role Phone WEST, DR BENJY Yun [...] DR KATIUSKA Da Silva Primary Care Unavailable KATIUSKA YUENBERLY Consulting Unavailable MD Lopez Wilson Attending Provider [phone] Lopez Wilson Attending Unavailable Lopez Wilson Admitting Unavailable JENNIFER QUINTERO Attending Unavailable JENNIFER QUINTERO Attending Unavailable JENN GERMAIN Referring Unavailable Mitzi, RODOLFO Ochoa Attending Unavailable Mitzi, RODOLFO Garcia L Attending Unavailable Mitzi, EMPLOYEE DEVELOPMENT MANAGERZaira Lyondi L Attending Unavailable Mitzi, EMPLOYEE DEVELOPMENT MANAGER Radha L Attending Unavailable Allergies Allergy Classification Reported Allergen(s) Allergy Type Date of Onset Reaction(s) Facility (3 sources) Meperidine; Translations: [Demerol] Drug Allergy 03-06-2016 [facility] Repository (1 source) Meperidine Drug Allergy 03-16-2020 [facility] Repository Problems Active Problems Problem Classification [...] Value Interpretation Reference Range Facility Consultation Noteon 08-17-19 Consultation Note [id number]#1.00T IFF Normal [facility] [place] 08-15-2023 Consent [id number]#1.00T IFF Normal [facility] Nurse Consultation Noteon Nurse Consultation Note Reason for Visit Here for kenalog injection Medications Albuterol (Eqv-ProAir HFA) 90 mcg/inh inhalation aerosol, 2 puff(s), Inhalation, q6hr codeine-guaifenesin 10 mg-100 mg/5 mL oral syrup, 5 mL, Oral, Once methylPREDNISolone 4 mg tab dosepak, 1 packet(s), Oral, Once omeprazole 40 mg Cap-DR, 40 mg= 1 cap(s), Oral, Daily, 1 refills Allergies Demerol (Rash) Immunizations Vaccine Date Status Comments influenza virus [...] influenza virus vaccine, inactivated 12/28/2012 Recorded Normal [facility] RAD - CT Reporton 08-09-2023 RAD - CT Report [id number]#1.00T IFF Normal [facility] RAD - Ultrasound Reporton RAD - Ultrasound Report [id number]#1.00T IFF Normal [facility] Walter 06-08-2023 L Specimen: [id number] Received: 06/12/23 Status: SOUT Req Num: [id number] Spec Type: Cytology Subm Dr: Lopez Wilson MD Tissues: A FNA SLIDES NOPATH (LEFT THYROID NODULE SUPERIOR) B FNA SLIDES NOPATH (RIGHT THYROID NODULE INFERIO) Procedures: Cyto Int and Re/2, PAPSTN/12 Age/ Patient Sex Location Account Attending Physician Reyna Benavides 72/F [place]E[facility] [id number] Lopez Wilson MD SPEC NUM: [id number] RECD: 06/12/23 STATUS: SOUJana REQ NUM: [id number] MJ: 06/08/[address]: Lopez Wilson MD ENTERED: 06/12/23-[address] [facility] [address]: Abdiaziz Azul HILARY H MD SPEC TYPE: Cytology DEPT: ZOIE IDKIRSTEN ENTERED BY: [id number] RECV BY: [id number] ORDERED: Cyto Int and Re/2, PAPSTN/12 ORDERED: Cyto Int and Re/2, PAPSTN/12 Pathological Diagnosis A, left thyroid nodule superior, FNA cytology: -Appropriate for assessment -The [place] system is category 2: Benign -Fibrin trapping [...] inferior, FNA cytology: -Appropriate for assessment -The [place] system is category 2: Benign -A few adequate number of small follicular groups are present in the ThinPrep smear and 2 other aspirate smears -The follicular cells are all small and bland looking Specimen: [id number] Received: 06/12/23 Status: HÉCTOR Hernandez Num: [id number] Spec Type: Cytology Subm Dr: Lopez Wilson MD Tissues: A FNA SLIDES NOPATH (LEFT THYROID NODULE SUPERIOR) B FNA SLIDES NOPATH (RIGHT THYROID NODULE INFERIO) Procedures: Cyto Int and Re/2, PAPSTN/12 Patient: Reyna Benavides [id number] (Continued) Specimen: [id number] Received: 06/12/23 (Continued) Signed (signature on file) Katya Norris MD 06/13/23 1716 Specimen: [id number] Received: 06/12/23 Status: HÉCTOR Hernandez Num: [id number] Spec Type: Cytology Subm Dr: Lopez Wilson MD Tissues: A FNA SLIDES NOPATH (LEFT THYROID NODULE SUPERIOR) B FNA SLIDES NOPATH (RIGHT THYROID NODULE INFERIO) Procedures: Cyto Int and Re/2, PAPSTN/12 Patient: Reyna Benavides [id number] (Continued) Specimen: [id number] Received: 06/12/23 (Continued) Clinical Information Thyroid nodules [...] pap are additionally received. (CC/nh) CPT Codes 02345 x 2 Specimen: [id number] Received: 06/12/23 Status: HÉCTOR Mary Num: [id number] Spec Type: Cytology Subm Dr: Lopez Wilson MD Tissues: A FNA SLIDES NOPATH (LEFT THYROID NODULE SUPERIOR) B FNA SLIDES NOPATH (RIGHT THYROID NODULE INFERIO) Procedures: Cyto Int and Re/2, PAPSTN/12 Patient: Reyna Benavides [id number] (Continued) Signed (signature on file) Katya Norris MD 06/13/23 7587 Normal [facility] RAD - Ultrasound Reporton RAD - Ultrasound Report [id number]#1.00T IFF Normal [facility] RAD - Ultrasound Report [id number]#1.00T IFF Normal [facility] Consultation Noteon 05-30-19 Consultation Note [id number]#1.00T IFF Normal [facility] Lab Reportson 05-23-2023 Lab Reports [id number]#1.00T IFF Normal [facility] Consultation Noteon 05-18-19 Consultation Note [id number]#1.00T IFF Normal [facility] Consultation Noteon 05-17-19 Consultation Note [id number]#1.00T IFF Normal [facility] Consultation Noteon 05-10-19 Consultation Note [id number]#1.00T IFF Normal [facility] Consultation Note [id number]#1.00T IFF Normal [facility] RAD - CT Reporton 05-10-2023 RAD - CT Report [id number] [facility] [id number]#1.00 TIFF Normal [facility] RAD - Pet Scan Reporton 04-27 RAD - Pet Scan Report [id number]#1.00T IFF Normal [facility] RAD - Pet Scan Report [id number]#1.00T IFF Normal [facility] Consultation Noteon 04-26-19 Consultation Note [id number]#1.00T IFF Normal [facility] Family Medicine Office/Clini c Noteon 03-28-2023 [...] shortness of breath. Pt states did picker the flovent INH due to cost of [...] kenalog injection, medrol dose pack, z pakc, tessumi soto, zayda, I also ordered a steroid [...] day(s), # 14 tab(s), Refills(s) 0, Pharmacy: [facility]/pharmacy #[id number], 167, cm, 02/08/23 15:30:00 EST, Height/Length Dosing, 76.5, kg, 02/08/23 15:30:00 EST, Weight Dosing 2. Sinusitis (J32.9: Chronic sinusitis, unspecified) sill order augmentin Ordered: amoxicillin-clavulanate , = 1 tab(s), Oral, q12hr, X 7 day(s), # 14 tab(s), Refills(s) 0, Pharmacy: [facility]/pharmacy #[id number], 167, cm, 02/08/23 15:30:00 EST, [...] day(s), # 14 tab(s), Refills(s) 0, Pharmacy: [facility]/pharmacy #[id number], 167, cm, 02/08/23 15:30:00 EST, Height/Length Dosing, 76.5, kg, 02/08/23 15:30:00 EST, Weight Dosing 5. Non-smoker (Z78.9: Other specified health status) continue not smoking Ordered: amoxicillin-clavulanate , = 1 tab(s), Oral, q12hr, X 7 day(s), # 14 tab(s), Refills(s) 0, Pharmacy: [facility]/pharmacy #[id number], 167, cm, 02/08/23 15:30:00 EST, [...] virus vacc (more content not included)... Normal [facility] Comment on above: Result Comment: Elec tronically Signed By: Radha Quinteros\.galilea\Date and Time Signed: 03/28/23 12:44 EST Physician Referralon 024 Physician Referral [id number]#1.00TI FF [facility] Ambulatory Visit Summaryon 0 03-20-2023 Ambulatory Visit [...] Someone Will Contact You Regarding These Appointments [facility] [place] Ref[place], Patient choice/referral by family/friend, [...] you for choosing us for your care. [facility] Physician Referralon 023 Physician Referral [id number]#1.00TI FF [facility] Physician Orderon 02-09-2023 Physician Order [id number]#1.00T IFF [facility] Ambulatory Visit Summaryon 1 04-11-2022 Ambulatory Visit Summary REYNA BENAVIDES :1950 [...] choosing us for your care. Normal [facility] Family Medicine Office/Clini c Noteon 02-08-2023 [...] BID, # 12 gram, Refills(s) 1, [id number], cm, 02/08/23 15:30:00 EST, Height/Length Dosing, 76.5, kg, 02/08/23 15:30:00 EST, Weight Dosing methylPREDNISolone, = 1 packet(s), Oral, As Directed, as directed on package labeling, X 6 day(s), # 21 tab(s), Refills(s) 0, [id number] 167, cm, 02/08/23 15:30:00 EST, Height/Length Dosing, 76.5, kg, 02/08/23 15:30:00 EST, Weight Dosing 2. Adult BMI 27.0-27.9 kg/sq m (Z68.27: Body mass index [BMI] 27.0-27.9, adult) BMI education complete Ordered: fluticasone, = 2 puff(s), Inhalation, BID, # 12 gram, Refills(s) 1, [id number] 167, cm, 02/08/23 15:30:00 EST, Height/Length Dosing, 76.5, kg, 02/08/23 15:30:00 EST, Weight Dosing methylPREDNISolone, = 1 packet(s), Oral, As Directed, as directed on package labeling, X 6 day(s), # 21 tab(s), Refills(s) 0, Pharmacy: [facility]/pharmacy #[id number], 167, cm, 02/08/23 15:30:00 EST, Height/Length Dosing, 76.5, kg, 12/13/23 15:30:00 EST, Weight Dosing Orders: codeine-guaifenesin, 5 mL, Oral, Bedtime for cough, 60 mL, Refill(s) 0, [facility]/pharmacy #[id number], 167, cm, 02/08/23 15:30:00 EST, [...] vaccine, inact (more content not included)... Normal [facility] Comment on above: Result Comment: Elec tronically Signed By: Radha Quinteros\.galilea\Date and Time Signed: 02/08/23 16:34 EST Outside Mammographyon 2022 Outside Mammography [id number]#1.00TI FF Normal [facility] RAD - MISCon 01-17-2023 RAD - MISC [id number] [id number]#1.00TI FF Normal [facility] Family Medicine Office/Clini c Noteon 12-23-2022 [...] virus vaccine, inactivated 12/28/2012 Recorded Normal [facility] Comment on above: Result Comment: Elec tronically Signed By: Mitzi REYNOLDS, Radha Ochoa\.br\Date and Time Signed: 12/23/22 11:35 EDT [place] 12-20-2022 Consent [id number]#1.00T IFF Normal [facility] Ambulatory Visit Summaryon 1 Ambulatory Visit [...] lb BMI 27.73 Allergies Demerol (Rash) Normal [facility] CBC AUTO DIFFon 05-03-2022 BASO # 0.0 103/ul Normal 0.0-0.1 [facility] Comment on above: Performed By: #### H FPFCBC #### [facility] [address] [address] [address] Jean-Claude Norris Basophils/100 WBC (Bld) 0.7 % Normal 0.2-2.0 [facility] Comment on above: Performed By: #### H FPFCBC #### [facility] [address] [address] [address] Jean-Claude Norris EO # 0.2 103/ul Normal 0.0-0.7 [facility] Comment on above: Performed By: #### H FPFCBC #### [facility] [address] [address] [address] Jean-Claude Norris Eosinophils/100 WBC (Bld) 3.7 % Normal 0.9-7.0 [facility] Comment on above: Performed By: #### H FPFCBC #### [facility] [address] [address] [address] Jean-Claude Norris Erythrocyte distribution width (RBC) [Ratio] 14.8 % Normal 11.0-15.0 [facility] Comment on above: Performed By: #### H FPFCBC #### [facility] [address] [address] [address] Jean-Claude Norris Hematocrit (Bld) [Volume fraction] 36.5 % Normal 36.0-48.0 [facility] Comment on above: Performed By: #### H FPFCBC #### [facility] [address] [address] [address] Jean-Claude Norris Hemoglobin (Bld) [Mass/Vol] 11.6 g/dL Critically low 12.0-16.0 [facility] Comment on above: Performed By: #### H FPFCBC #### [facility] [address] [place] [address] Dr. Jean-Claude Norris IG # 0.01 10e3/ul Normal 0.00-0.03 [facility] Comment on above: Performed By: #### H FPFCBC #### [facility] [address] [place] [address] Dr. Jean-Claude Norris IG % 0.2 % Normal 0.0-0.5 [facility] Comment on above: Performed By: #### H FPFCBC #### [facility] [address] [address] [address] Jean-Claude Norris LYMPH # 0.8 103/ul Critically low 1.2-3.8 [facility] Comment on above: Performed By: #### H FPFCBC #### [facility] [address] [place] [address] Dr. Jean-Claude Norris Lymphocytes/100 WBC (Bld) 18.9 % Critically low 20.5-60.0 [facility] Comment on above: Performed By: #### H FPFCBC #### [facility] [address] [place] [address] Dr. Jean-Claude Norris MCH (RBC) [Entitic mass] 25.1 pg Critically low 26.7-34.0 [facility] Comment on above: Performed By: #### H FPFCBC #### [facility] [address] [place] [address] Dr. Jean-Claude Norris MCHC (RBC) [Mass/Vol] 31.8 g/dL Normal 29.9-35.2 [facility] Comment on above: Performed By: #### H FPFCBC #### [facility] [address] [place] [address] Dr. Jean-Claude Norris MCV (RBC) [Entitic vol] 78.8 fL Critically low 81.0-99.0 [facility] Comment on above: Performed By: #### H FPFCBC #### [facility] [address] [place] [address] Dr. Jean-Claude Norris MONO # 0.5 103/ul Normal 0.3-0.8 [facility] Comment on above: Performed By: #### H FPFCBC #### [facility] [address] [place] [address] Dr. Jean-Claude Norris Monocytes/100 WBC (Bld) 12.4 % Critically high 1.7-12.0 [facility] Comment on above: Performed By: #### H FPFCBC #### [facility] [address] [place] [address] Dr. Jean-Claude Norris NEUT # 2.7 103/ul Normal 1.4-6.5 [facility] Comment on above: Performed By: #### H FPFCBC #### [facility] [address] [place] [address] Dr. Jean-Claude Norris Neutrophils/100 WBC (Bld) 64.1 % Normal 43.0-75.0 [facility] Comment on above: Performed By: #### H FPFCBC #### [facility] [address] [place] [address] Dr. Jean-Claude Norris Platelet mean volume (Bld) [Entitic vol] 11.4 fL Normal 9.5-13.5 [facility] Comment on above: Performed By: #### H FPFCBC #### [facility] [address] [place] [address] Dr. Jean-Claude Nroris PLT 209 103/ul Normal 150-450 [facility] Comment on above: Performed By: #### H FPFCBC #### [facility] [address] [place] [address] Dr. Jean-Claude Norris RBC 4.63 106/ul Normal 4.20-5.40 [facility] Comment on above: Performed By: #### H FPFCBC #### [facility] [address] [place] [address] Dr. Jean-Claude Norris WBC 4.3 103/ul Normal 4.0-11.0 [facility] Comment on above: Performed By: #### H FPFCBC #### [facility] [address] [place] [address] Dr. Jean-Claude Norris [facility] GLYCOHEMOGLOBIN A1Con 05-03-2022 Glucose [Mass/Vol] 117 mg/dL Normal [facility] Comment on above: Performed By: #### H FPFA1C #### [facility] [address] [place] [address] Dr. Jean-Claude Norris HbA1c (Bld) [Mass fraction] 5.7 % Normal 4.5-6.2 [facility] Comment on above: Performed By: #### H FPFA1C #### [facility] [address] [place] [address] Dr. Jean-Claude Norris [facility] Albumin [Mass/Vol] 3.9 g/dL Normal 3.4-5.0 [facility] Comment on above: Performed By: #### H FPF #### [facility] [address] [place] [address] Dr. Jean-Claude Norris Albumin/Globulin [Mass ratio] 1.3 {ratio} Normal [facility] Comment on above: Performed By: #### H FPF #### [facility] [address] [place] [address] Dr. Jean-Claude Norris ALP [Catalytic activity/Vol] 69 U/L Normal 46-116 [facility] Comment on above: Performed By: #### H FPF #### [facility] [address] [place] [address] Dr. Jean-Claude Norris ALT [Catalytic activity/Vol] 23 U/L Normal 14-59 [facility] Comment on above: Performed By: #### H FPF #### [facility] [address] [address] [address] Jean-Claude Norris AST [Catalytic activity/Vol] 19 U/L Normal 15-37 [facility] Comment on above: Performed By: #### H FPF #### [facility] [address] [address] [address] Jean-Claude Norris Bilirubin [Mass/Vol] 1.0 mg/dL Normal 0.2-1.0 [facility] Comment on above: Performed By: #### H FPF #### [facility] [address] [address] [address] Jean-Claude Norris Calcium [Mass/Vol] 9.3 mg/dL Normal 8.5-10.1 [facility] Comment on above: Performed By: #### H FPF #### [facility] [address] [place] [address] Dr. Jean-Claude Norris Chloride [Moles/Vol] 106 mmol/L Normal 98-107 [facility] Comment on above: Performed By: #### H FPF #### [facility] [address] [place] [address] Dr. Jean-Claude Norris CHOL-HDL RATIO NORM SEE BELOW Normal [facility] Comment on above: Result Comment: 3.3 - 4.4 LOW RISK 4.4 - 7.1 AVERAGE RISK 7.1 - 11.0 MODERATE RISK >11.0 HIGH RISK Performed By: #### H FPF #### [facility] [address] [place] [address] Dr. Jean-Claude Norris Cholesterol [Mass/Vol] 183 mg/dL Normal <=200 [facility] Comment on above: Performed By: #### H FPF #### [facility] [address] [place] [address] Dr. Jean-Claude Norris Cholesterol in HDL [Mass/Vol] 46 mg/dL Normal 40-60 [facility] Comment on above: Performed By: #### H FPF #### [facility] [address] [address] [address] Jean-Claude Norris Cholesterol in LDL [Mass/Vol] 107.2 mg/dL Normal [facility] Comment on above: Performed By: #### H FPF #### [facility] [address] [address] [address] Jean-Claude Norris Cholesterol.total/Ch olesterol in HDL [Mass ratio] 4.0 {ratio} Normal [facility] Comment on above: Performed By: #### H FPF #### [facility] [address] [address] [address] Jean-Claude Norris CO2 [Moles/Vol] 27.7 mmol/L Normal 21.0-32.0 [facility] Comment on above: Performed By: #### H FPF #### [facility] [address] [address] [address] Jean-Claude Norris Creatinine [Mass/Vol] 0.69 mg/dL Normal 0.55-1.02 [facility] Comment on above: Performed By: #### H FPF #### [facility] [address] [place] [address] Dr. Jean-Claude Norris Globulin (S) [Mass/Vol] 3.1 g/dL Normal [facility] Comment on above: Performed By: #### H FPF #### [facility] [address] [address] [address] Jean-Claude Norris Glucose [Mass/Vol] 125 mg/dL Critically high 74-106 [facility] Comment on above: Performed By: #### H FPF #### [facility] [address] [place] [address] Dr. Jean-Claude Norris HDL NORMAL > or = 60 mg/dl - LO W CARDIOVASCULAR RISK <40 mg/dl - HIGH CARDIOVASCULAR RISK Normal [facility] Comment on above: Performed By: #### H FPF #### [facility] [address] [address] [address] Jean-Claude Norris LDL CALC NORMAL SEE BELOW Normal [facility] Comment on above: Result Comment: <100 mg/dl OPTIMAL 100 - 129 mg/dl NEAR OR ABOVE OPTIMAL 130 - 159 mg/dl BORDERLINE HIGH 160 - 189 mg/dl HIGH >190 mg/dl VERY HIGH Performed By: #### H FPF #### [facility] [address] [place] [address] Dr. Jean-Claude Norris Potassium [Moles/Vol] 4.3 mmol/L Normal 3.5-5.1 [facility] Comment on above: Performed By: #### H FPF #### [facility] [address] [address] [address] Jean-Claude Norris Protein [Mass/Vol] 7.0 g/dL Normal 6.4-8.2 [facility] Comment on above: Performed By: #### H FPF #### [facility] [address] [address] [address] Jean-Claude Norris Sodium [Moles/Vol] 142 mmol/L Normal 136-145 [facility] Comment on above: Performed By: #### H FPF #### [facility] [address] [address] [address] Jean-Claude Norris Triglyceride [Mass/Vol] 149 mg/dL Normal <=150 [facility] Comment on above: Performed By: #### H FPF #### [facility] [address] [address] [address] Jean-Claude Norris TSH 2.552 uIU/mL Normal 0.358-3.740 [facility] Comment on above: Performed By: #### H FPF #### [facility] [address] [address] [address] Jean-Claude Norris Urea nitrogen [Mass/Vol] 15.0 mg/dL Normal 7.0-18.0 [facility] Comment on above: Performed By: #### H FPF #### [facility] [address] [address] [address] Jean-Claude Norris Urea nitrogen/Creatinine [Mass ratio] 21.7 mg/mg Normal [facility] Comment on above: Performed By: #### H FPF #### [facility] [address] [place] [address] Dr. Jean-Claude Norris VLDL CALC 29.8 mg/dL Normal [facility] Comment on above: Performed By: #### H FPF #### [facility] [address] [address] [address] Jean-Claude Norris MG MAMM SCREEN 3D JENNA CADon 01-06-2022 MG MAMM SCREEN 3D JENNA CAD Patient: REYNA BENAVIDES Exam Date: 01/06/2022 : 1950 Gender:F Ordering : DR GISELA CASON [facility] Admission #: [id number] Family : Order #: [id number] CLICK HERE TO VIEW EXAM RADIOLOGY REPORT [...] breast cancer at age 58. LOCATION: [facility] BREAST COMPOSITION: Scattered areas fibroglandular density. [...] MD on 01/06/2022 at 14:45 Normal [facility] Encounters Encounter Date Encounter Type Care Provider Facility Start: 08-15-2023 End: 08-15-2023 ambulatory EMPLOYEE DEVELOPMENT MANAGER Radha Cartagena Facility:[facility] trujilloe Start: 06-28-2023 End: 06-28-2023 ambulatory JENNIFER QUINTERO Not Available Start: 06-08-2023 End: 06-08-2023 ambulatory Lopez Wilson Facility:[facility] Start: 06-08-2023 End: 06-08-2023 ambulatory MD Lopez Wilson Work Phone: [facility] Work Phone: Start: 06-08-2023 End: 06-08-2023 Departed Referred MD Lopez Wilson Work Phone: [facility] Start: 05-30-2023 End: 05-30-2023 ambulatory JENNIFER QUINTERO Not Available Start: 03-20-2023 End: 03-20-2023 ambulatory EMPLOYEE DEVELOPMENT MANAGER Radha L Mitzi Facility:[facility] Start: 02-08-2023 End: 02-08-2023 ambulatory EMPLOYEE DEVELOPMENT MANAGER Radha L Mitzi Facility:[facility] Start: 12-19-2022 ambulatory EMPLOYEE DEVELOPMENT MANAGER Radha L Mitzi Facil ity:[facility] Start: 07-12-2022 ambulatory ARMEN YUEN Facilit y:[facility] Start: 06-14-2022 End: 06-15-2022 ambulatory ARMEN YUEN Facility:[facility] Start: 05-03-2022 End: 05-04-[address] KATIUSKA LANDAVERDE . Facility:[facility] Start: 01-06-2022 End: 01-07-[address] BENJY SOLIS Facility:[facility] Payers Date Payer Category Payer Self-pay 1960 Medicare [id number] 1960 Self-pay [id number] Unknown [id number] 1960 Unknown [id number] 1950 Unknown [id number] 1950 Unknown [id number] 1950 Unknown [id number] 1950 Unknown [id number] .16.84 [id number] 1950 Unknown [id number] .16.84 [id number] 1950 Unknown [id number] 2.16.8 [id number] 1950 Unknown [id number] 2.16.8 [id number] 1950 Unknown [id number] 2.16.8 [id number] 1950 Unknown [id number] 2.16.8 [id number] Unknown [id number] 2.16.84 [id number] Social History Date Type [facility]ail [facility] Work Phone: Start: 1950 Sex Assigned At Female F [facility] Clinical Note 06-14-2022 Note Date & Type [...] by: LOPEZ WILSON Date: 2022-06-14 15:56 [facility] Evaluation note Note Date & Type Note Facility Evaluation note No assessment information availa ble [facility] Work Phone: Summary Purpose Family History [...] and content) DATE CREATED AUTHOR 06/27/2022 [facility] DATE CREATED AUTHOR AUTHOR'S ORGANIZ ATION 06/15/2023 [facility] DATE CREATED AUTHOR AUTHOR'S ORGANIZ ATION 06/29/2023 [facility] EPIC DATE CREATED AUTHOR AUTHOR'S SUZAN ATION 08/18/2023 Mehrdad Lee [facility] Care Teams (unrecognized sec tion and content) [...] BE BASED ON THE PRIMARY CLINICAL RECORDS. [facility]. provides no warranty or guarantee of the accuracy or completeness of information in this document.
== END 2023-12-18 09:57 | disposition home or self-care (01) ==
LOC: US 09:56
PROVIDERS: PCP Family Medicine; Visit Provider Otolaryngology
DX: E04.2 Nontoxic multinodular goiter (principal)
CPT/HCPCS: 76536

== ENCOUNTER 2024-02-15 14:32 | Outpatient (OUT) | payer MEDICARE, OTHER, SELFPAY ==
--- NOTE | 2024-02-15 14:37 | MM_ITS ---
Patient Name: LOBITO MERAZ MR#: [id number] : 1950 Exam Date: 02/15/2024 Ordering Doctor: Kaleigh Vieyra RADIOLOGY REPORT PROCEDURE: MM TOMOSYNTHESIS SCREENING BI COMPARISON: MM TOMOSYNTHESIS SCREENING BI, 01/12/2023. MG MAMM SCREEN 3D JENNA CAD, 01/06/2022. INDICATIONS: Screening Calculator Name NCI Breast Cancer Risk Assessment Tool 5 Year Breast Cancer Risk 6.60% Lifetime Breast Cancer Risk 14.50% Personal Breast Cancer No Personal Ovarian Cancer No Treatments None Family Cancers Mother with breast cancer at age 40; Sister with breast cancer at age 59. LOCATION: [facility] BREAST COMPOSITION: There are scattered areas of fibroglandular density. FINDINGS: DIAGNOSTIC CATEGORY 1--NEGATIVE. NO CHANGE FROM COMPARISON ASSESSMENT. Scattered benign-appearing nodules are present. Scattered benign-appearing calcifications are present. Scattered benign-appearing lymph nodes are present. RIGHT BREAST: No significant suspicious finding. LEFT BREAST: No significant suspicious finding. RECOMMENDATIONS: ROUTINE MAMMOGRAM AND CLINICAL EVALUATION IN 12 MONTHS. PLEASE NOTE: A NORMAL MAMMOGRAM DOES NOT EXCLUDE THE POSSIBILITY OF BREAST CANCER. A CLINICALLY SUSPICIOUS PALPABLE LUMP SHOULD BE BIOPSIED. Dictated by: Gerry Lay MD on 02/15/2024 at 15:38 Approved by: Gerry Lay MD on 02/15/2024 at 15:39
--- OUTSIDE RECORDS SUMMARY | 2024-02-15 14:56 | XMS_ITS | CCD ---
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 Name Role Phone WEST, DR BENJY [...] YUEN Admitting Unavailable ARMEN YUEN Attending Unavailable ZIRO, DR LOPEZ Davis Consulting Unavailable LANDAVERDE ., DR KATIUSKA Da Silva Primary Care Unavailable ARMEN YUEN Consulting Unavailable MD Lopez Wilson Attending Provider [phone] Lopez Wilson Attending Unavailable Lopez Wilson Admitting Unavailable Mitzi, RODOLFO Radha L Attending Unavailable Mitzi, SALES AND LEASING CONSULTANT Radha L Attending Unavailable Mitzi, SALES AND LEASING CONSULTANT Radha L Attending Unavailable Mitzi, SALES AND LEASING CONSULTANT Radha Ochoa Attending Unavailable Jenn Germain MD Primary Care Provider STEFFANIE QUINTERO Attending Unavailable STEFFANIE QUINTERO Attending Unavailable JENN GERMAIN Referring Unavailable STEFFANIE QUINTERO Attending Unavailable Allergies Allergy Classification Reported Allergen(s) Allergy Type Date of Onset Reaction(s) Facility (3 sources) Meperidine; Translations: [Demerol] Drug Allergy 03-06-[address] [facility] Repository (1 source) Meperidine Drug Allergy 03-16-2020 [facility] Repository (3 sources) Meperidine Drug Allergy 05-18-2023 Rash [facility] Work Phone: Medications Current Medications Medication Drug Class(es) Dates Sig (Normalized) Sig (Original) [id number] 200 actuat albuterol 0.09 mg/actuat metered dose inhaler (3 sources) beta2-Adrenergic Agonist take 2 puff(s) by inhalation every six hours for wheezing albuterol HFA 90 mcg/act inhaler Inhale 2 puffs every 6 (six) hours if needed for wheezing Active cholecalciferol 0.05 mg oral tablet (3 sources) Vitamin D take 1 tablet by mouth once daily cholecalciferol (Vitamin D-3) 50 MCG (1999 UT) tablet Take 1 tablet by mouth 1 (one) time each day at the same time Active melatonin 3 mg oral capsule (3 sources) take 2 capsules by mouth at bedtime Melatonin 3 MG capsule Take 6 mg by mouth at bedtime Active Multiple Vitamins-Minerals (multivitamin with minerals) tablet (3 sources) take 1 tablet by mouth once daily Multiple Vitamins-Minerals (multivitamin with minerals) tablet Take 1 tablet by mouth Daily Active Multiple Vitamins-Minerals (PRESERVISION AREDS 2 PO) (3 sources) Multiple Vitamins-Minerals (PRESERVISION AREDS 2 PO) Take by mouth Active omeprazole 20 mg delayed release oral tablet (3 sources) Proton Pump Inhibitor omeprazole OTC (PriLOSEC OTC) 20 MG EC tablet Take 40 mg by mouth in the morning. Take before meals. Active vitamin k 0.1 mg oral tablet (3 sources) take 10 mg by mouth once daily phytonadione (Vitamin K) 100 MCG tablet Take 10 mg by mouth Daily Active Problems Active Problems Problem Classification Problem Date Documented Date Episodic/Chronic Esophageal disorders (3 sources) Gastroesophageal reflux disease; Translations: [Gastro-esophageal reflux disease without esophagitis] Onset: 05-18-2023 05-18-2023 Chronic Nonmalignant breast conditions (3 sources) Fibrocystic disease of breast; Translations: [Diffuse cystic mastopathy of unspecified breast] Onset: 05-18-2023 05-18-2023 Chronic Other connective tissue disease (4 sources) Pain in left foot; Translations: [PAIN IN LEFT FOOT] Onset: 06-14-2022 Episodic Thyroid disorders (8 sources) Multinodular goiter; Translations: [Nontoxic multinodular goiter] Onset: 05-18-2023 05-18-2023 Chronic Past or Other Problems Problem Classification Problem Date Documented Date Episodic/Chronic Lymphadenitis (3 sources) Hilar lymphadenopathy ; Translations: [Localized enlarged lymph nodes] Onset: 05-18-2023 05-18-2023 Episodic Other bone disease and musculoskeletal deformities (3 sources) Osteopenia; Translations: [Other specified disorders of bone density and structure, unspecified site] Onset: 05-18-2023 05-18-2023 Episodic Other lower respiratory disease (3 sources) Nodule of lung; Translations: [Solitary pulmonary nodule] Onset: 05-18-2023 05-18-2023 Episodic Other screening for suspected conditions (not mental [...] Range Facility Consultation Noteon 08-17-19 Consultation Note [id number]#1.00T IFF Normal [facility] [place] 08-15-2023 Consent [id number]#1.00T IFF Normal [facility] Nurse Consultation Noteon Nurse Consultation Note Reason [...] influenza virus vaccine, inactivated 12/28/2012 Recorded Normal [facility] RAD - CT Reporton 08-09-2023 RAD - CT Report [id number]#1.00T IFF Normal [facility] RAD - Ultrasound Reporton RAD - Ultrasound Report [id number]#1.00T IFF Normal [facility] Walter 06-08-2023 L Specimen: [id number] Received: 06/12/23 Status: SOUT Req Num: [id number] Spec Type: Cytology Subm Dr: Lopez Wilson MD Tissues: A FNA SLIDES NOPATH (LEFT THYROID NODULE SUPERIOR) B FNA SLIDES NOPATH (RIGHT THYROID NODULE INFERIO) Procedures: Cyto Int and Re/2, PAPSTN/12 Age/ Patient Sex Location Account Attending Physician Reyna Benavides 72/F LABEL [id number] Lopez Wilson MD SPEC NUM: [id number] RECD: 06/12/23 STATUS: SOUT REQ NUM: [id number] MJ: 06/08/23-[address]: Lopez Wilson MD ENTERED: 06/12/23-[address]: Abdiaziz Azul HILARY H MD SPEC TYPE: Cytology DEPT: [facility] ENTERED BY: [id number] RECV BY: [id number] ORDERED: Cyto Int and Re/2, PAPSTN/12 ORDERED: Cyto Int and Re/2, PAPSTN/12 Pathological Diagnosis A, left thyroid nodule superior, FNA cytology: -Appropriate for assessment -The [place] system is category 2: Benign -Fibrin trapping [...] inferior, FNA cytology: -Appropriate for assessment -The [place] system is category 2: Benign -A few adequate number of small follicular groups are present in the ThinPrep smear and 2 other aspirate smears -The follicular cells are all small and bland looking Specimen: [id number] Received: 06/12/23 Status: HÉCTOR Hernandez Num: [id number] Spec Type: Cytology Subm Dr: Lopez Wilson MD Tissues: A FNA SLIDES NOPATH (LEFT THYROID NODULE SUPERIOR) B FNA SLIDES NOPATH (RIGHT THYROID NODULE INFERIO) Procedures: Cyto Int and Re/2, PAPSTN/12 Patient: Reyna Benavides [id number] (Continued) Specimen: [id number] Received: 06/12/23 (Continued) Signed (signature on file) Katya Norris MD 06/13/23 1716 Specimen: [id number] Received: 06/12/23 Status: NNEKAJana Hernandez Num: [id number] Spec Type: Cytology Subm Dr: Lopez Wilson MD Tissues: A FNA SLIDES NOPATH (LEFT THYROID NODULE SUPERIOR) B FNA SLIDES NOPATH (RIGHT THYROID NODULE INFERIO) Procedures: Cyto Int and Re/2, PAPSTN/12 Patient: Reyna Benavides [id number] (Continued) Specimen: [id number] Received: 06/12/23 (Continued) Clinical Information Thyroid nodules History of basal cell carcinoma (skin of the face) Gross Description A. Received in Cytolyt labeled with the patient's name, date of and left thyroid nodule superior per requisition is 30 ml pink slightly cloudy fixed fluid. 1 Thin Prep slides are prepared. 4 alcohol fixed smears for pap are additionally received. (CC/ct) B. Received in Cytolyt labeled with the patient's name, date of and right thyroid nodule inferior per requisition is 30 ml very pale pink clear fixed fluid. 1 Thin Prep slides are prepared. 4 alcohol fixed smears for pap are additionally received. (CC/ct) CPT Codes 60185 x 2 Specimen: [id number] Received: 06/12/23 Status: HÉCTOR Hernandez Num: [id number] Spec Type: Cytology Subm Dr: Lopez Wilson MD Tissues: A FNA SLIDES NOPATH (LEFT THYROID NODULE SUPERIOR) B FNA SLIDES NOPATH (RIGHT THYROID NODULE INFERIO) Procedures: Cyto Int and Re/2, PAPSTN/12 Patient: Reyna Benavides [id number] (Continued) Signed (signature on file) Katya Norris MD 06/13/23 1716 Normal [facility] RAD - Ultrasound Reporton RAD - Ultrasound Report [id number]#1.00T IFF Normal [facility] RAD - Ultrasound Report [id number]#1.00T IFF Normal [facility] Consultation Noteon 05-30-19 Consultation Note [id number]#1.00T IFF Normal [facility] Lab Reportson 05-23-2023 Lab Reports [id number]#1.00T IFF Normal [facility] Consultation Noteon 05-18-19 Consultation Note [id number]#1.00T IFF Normal [facility] Consultation Noteon 05-17-19 Consultation Note [id number]#1.00T IFF Normal [facility] Consultation Noteon 05-10-19 Consultation Note [id number]#1.00T IFF Normal [facility] Consultation Note [id number]#1.00T IFF Normal [facility] RAD - CT Reporton 05-10-2023 RAD - CT Report [id number]#1.00 TIFF Normal [facility] RAD - Pet Scan Reporton 04-27 RAD - Pet Scan Report [id number]#1.00T IFF Normal [facility] RAD - Pet Scan Report [id number]#1.00T IFF Normal [facility] Consultation Noteon 04-26-19 Consultation Note [id number]#1.00T IFF Normal [facility] Family Medicine Office/Clini c Noteon 03-28-2023 Family [...] intermittent shortness of breath. 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 Sinusitis (J32.9: Chronic sinusitis, unspecified) sill order augmentin Ordered: amoxicillin-clavulanate , = 1 tab(s), Oral, q12hr, X 7 day(s), # 14 tab(s), Refills(s) 0, Pharmacy: [id number], 167, cm, 02/08/23 15:30:00 EST, Height/Length [...] day(s), # 14 tab(s), Refills(s) 0, Pharmacy: [facility] #[id number], 167, cm, 02/08/23 15:30:00 EST, Height/Length Dosing, 76.5, kg, 02/08/23 15:30:00 EST, Weight Dosing 5. Non-smoker (Z78.9: Other specified health status) continue not smoking Ordered: amoxicillin-clavulanate , = 1 tab(s), Oral, q12hr, X 7 day(s), # 14 tab(s), Refills(s) 0, Pharmacy: [facility]/pharmacy #[id number], 167, cm, 02/08/23 15:30:00 EST, [...] virus vacc (more content not included)... Normal [facility] Comment on above: Result Comment: Elec tronically Signed By: Radha Quinteros\.br\Date and Time Signed: 03/28/23 12:44 EST Physician Referralon 024 Physician Referral [id number]#1.00TI FF [facility] Ambulatory Visit Summaryon 0 03-20-2023 Ambulatory Visit [...] Someone Will Contact You Regarding These Appointments [facility] External Ambulatory Referral, Patient choice/referral by family/friend, [...] you for choosing us for your care. [facility] Physician Referralon 023 Physician Referral [id number]#1.00TI FF [facility] Physician Orderon 02-09-2023 Physician Order [id number]#1.00T IFF [facility] Ambulatory Visit Summaryon 1 04-11-2022 Ambulatory Visit [...] you for choosing us for your care. [facility] Family Medicine Office/Clini c Noteon 02-08-2023 Family [...] BID, # 12 gram, Refills(s) 1, Pharmacy: [facility]/pharmacy #[id number], 167, cm, 02/08/23 15:30:00 EST, Height/Length Dosing, 76.5, kg, 02/08/23 15:30:00 EST, Weight Dosing methylPREDNISolone, = 1 packet(s), Oral, As Directed, as directed on package labeling, X 6 day(s), # 21 tab(s), Refills(s) 0, Pharmacy: [facility]/pharmacy #[id number], 167, cm, 02/08/23 15:30:00 EST, Height/Length Dosing, 76.5, kg, 02/08/23 15:30:00 EST, Weight Dosing 2. Adult BMI 27.0-27.9 kg/sq m (Z68.27: Body mass index [BMI] 27.0-27.9, adult) BMI education complete Ordered: fluticasone, = 2 puff(s), Inhalation, BID, # 12 gram, Refills(s) 1, Pharmacy: [facility]/pharmacy #[id number], 167, cm, 02/08/23 15:30:00 EST, Height/Length Dosing, 76.5, kg, 02/08/23 15:30:00 EST, Weight Dosing methylPREDNISolone, = 1 packet(s), Oral, As Directed, as directed on package labeling, X 6 day(s), # 21 tab(s), Refills(s) 0, [id number], 167, cm, 02/08/23 15:30:00 EST, Height/Length Dosing, 76.5, kg, 02/08/23 15:30:00 EST, Weight Dosing Orders: codeine-guaifenesin, 5 mL, Oral, Bedtime for cough, 60 mL, Refill(s) 0, [id number], cm, 02/08/23 15:30:00 EST, [...] vaccine, inact (more content not included)... Normal [facility] Comment on above: Result Comment: Elec tronically Signed By: Mitzi REYNOLDS, Radha Ochoa\.br\Date and Time Signed: 02/08/23 16:34 EST Outside Mammographyon 2022 Outside Mammography [id number]#1.00TI FF [facility] RAD - MISCon 01-17-2023 RAD - MISC [id number]#1.00TI FF [facility] Family Medicine Office/Clini c Noteon 12-23-2022 Family [...] influenza virus vaccine, inactivated 12/28/2012 Recorded Normal [facility] Comment on above: Result Comment: Elec tronically Signed By: Radha Quinteros\.br\Date and Time Signed: 12/23/22 11:35 EDT [place] 12-20-2022 Consent [id number]#1.00T IFF Normal [facility] Ambulatory Visit Summaryon 1 Ambulatory Visit Summary [...] lb BMI 27.73 Allergies Demerol (Rash) Normal [facility] CBC AUTO DIFFon 05-03-2022 BASO # 0.0 103/ul Normal 0.0-0.1 [facility] Comment on above: Performed By: #### H FPFCBC #### [facility] [address] [place] [address] Dr. Jean-Claude Norris Basophils/100 WBC (Bld) 0.7 % Normal 0.2-2.0 [facility] Comment on above: Performed By: #### H FPFCBC #### [facility] [address] [address] [address] Jean-Claude Norris EO # 0.2 103/ul Normal 0.0-0.7 [facility] Comment on above: Performed By: #### H FPFCBC #### [facility] [address] [place] [address] Dr. Jean-Claude Norris Eosinophils/100 WBC (Bld) 3.7 % Normal 0.9-7.0 [facility] Comment on above: Performed By: #### H FPFCBC #### [facility] [address] [place] [address] Dr. Jean-Claude Norris Erythrocyte distribution width (RBC) [Ratio] 14.8 % Normal 11.0-15.0 [facility] Comment on above: Performed By: #### H FPFCBC #### [facility] [address] [place] [address] Dr. Jean-Claude Norris Hematocrit (Bld) [Volume fraction] 36.5 % Normal 36.0-48.0 [facility] Comment on above: Performed By: #### H FPFCBC #### [facility] [address] [place] [address] Dr. Jean-Claude Norris Hemoglobin (Bld) [Mass/Vol] 11.6 g/dL Critically low 12.0-16.0 [facility] Comment on above: Performed By: #### H FPFCBC #### [facility] [address] [place] [address] Dr. Jean-Claude Norris IG # 0.01 10e3/ul Normal 0.00-0.03 [facility] Comment on above: Performed By: #### H FPFCBC #### [facility] [address] [place] [address] Dr. Jean-Claude Norris IG % 0.2 % Normal 0.0-0.5 [facility] Comment on above: Performed By: #### H FPFCBC #### [facility] [address] [place] [address] Dr. Jean-Claude Norris LYMPH # 0.8 103/ul Critically low 1.2-3.8 [facility] Comment on above: Performed By: #### H FPFCBC #### [facility] [address] [place] [address] Dr. Jean-Claude Norris Lymphocytes/100 WBC (Bld) 18.9 % Critically low 20.5-60.0 [facility] Comment on above: Performed By: #### H FPFCBC #### [facility] [address] [place] [address] Dr. Jean-Claude Norris MCH (RBC) [Entitic mass] 25.1 pg Critically low 26.7-34.0 [facility] Comment on above: Performed By: #### H FPFCBC #### [facility] [address] [place] [address] Dr. Jean-Claude Norris MCHC (RBC) [Mass/Vol] 31.8 g/dL Normal 29.9-35.2 [facility] Comment on above: Performed By: #### H FPFCBC #### [facility] [address] [place] [address] Dr. Jean-Claude Norris MCV (RBC) [Entitic vol] 78.8 fL Critically low 81.0-99.0 [facility] Comment on above: Performed By: #### H FPFCBC #### [facility] [address] [place] [address] Dr. Jean-Claude Norris MONO # 0.5 103/ul Normal 0.3-0.8 [facility] Comment on above: Performed By: #### H FPFCBC #### [facility] [address] [place] [address] Dr. Jean-Claude Norris Monocytes/100 WBC (Bld) 12.4 % Critically high 1.7-12.0 [facility] Comment on above: Performed By: #### H FPFCBC #### [facility] [address] [place] [address] Dr. Jean-Claude Norris NEUT # 2.7 103/ul Normal 1.4-6.5 [facility] Comment on above: Performed By: #### H FPFCBC #### [facility] [address] [place] [address] Dr. Jean-Claude Norris Neutrophils/100 WBC (Bld) 64.1 % Normal 43.0-75.0 [facility] Comment on above: Performed By: #### H FPFCBC #### [facility] [address] [place] [address] Dr. Jean-Claude Norris Platelet mean volume (Bld) [Entitic vol] 11.4 fL Normal 9.5-13.5 [facility] Comment on above: Performed By: #### H FPFCBC #### [facility] [address] [address] [address] Jean-Claude Norris PLT 209 103/ul Normal 150-450 [facility] Comment on above: Performed By: #### H FPFCBC #### [facility] [address] [address] [address] Jean-Claude Norris RBC 4.63 106/ul Normal 4.20-5.40 [facility] Comment on above: Performed By: #### H FPFCBC #### [facility] [address] [address] [address] Jean-Claude Norris WBC 4.3 103/ul Normal 4.0-11.0 [facility] Comment on above: Performed By: #### H FPFCBC #### [facility] [address] [place] [address] Dr. Jean-Claude Norris [facility] GLYCOHEMOGLOBIN A1Con 05-03-2022 Glucose [Mass/Vol] 117 mg/dL Normal [facility] Comment on above: Performed By: #### H FPFA1C #### [facility] [address] [place] [address] Dr. Jean-Claude Norris HbA1c (Bld) [Mass fraction] 5.7 % Normal 4.5-6.2 [facility] Comment on above: Performed By: #### H FPFA1C #### [facility] [address] [place] [address] Dr. Jean-Claude Norris [facility] Albumin [Mass/Vol] 3.9 g/dL Normal 3.4-5.0 [facility] Comment on above: Performed By: #### H FPF #### [facility] [address] [place] [address] Dr. Jean-Claude Norris Albumin/Globulin [Mass ratio] 1.3 {ratio} Normal [facility] Comment on above: Performed By: #### H FPF #### [facility] [address] [place] [address] Dr. Jean-Claude Norris ALP [Catalytic activity/Vol] 69 U/L Normal 46-116 [facility] Comment on above: Performed By: #### H FPF #### [facility] [address] [place] [address] Dr. Jean-Claude Norris ALT [Catalytic activity/Vol] 23 U/L Normal 14-59 [facility] Comment on above: Performed By: #### H FPF #### [facility] [address] [place] [address] Dr. Jean-Claude Norris AST [Catalytic activity/Vol] 19 U/L Normal 15-37 [facility] Comment on above: Performed By: #### H FPF #### [facility] [address] [place] [address] Dr. Jean-Claude Norris Bilirubin [Mass/Vol] 1.0 mg/dL Normal 0.2-1.0 [facility] Comment on above: Performed By: #### H FPF #### [facility] [address] [place] [address] Dr. Jean-Claude Norris Calcium [Mass/Vol] 9.3 mg/dL Normal 8.5-10.1 [facility] Comment on above: Performed By: #### H FPF #### [facility] [address] [place] [address] Dr. Jean-Claude Norris Chloride [Moles/Vol] 106 mmol/L Normal 98-107 [facility] Comment on above: Performed By: #### H FPF #### [facility] [address] [place] [address] Dr. Jean-Claude Norris CHOL-HDL RATIO NORM SEE BELOW Normal [facility] Comment on above: Result Comment: 3.3 - 4.4 LOW RISK 4.4 - 7.1 AVERAGE RISK 7.1 - 11.0 MODERATE RISK >11.0 HIGH RISK Performed By: #### H FPF #### [facility] [address] [place] [address] Dr. Jean-Claude Norris Cholesterol [Mass/Vol] 183 mg/dL Normal <=200 [facility] Comment on above: Performed By: #### H FPF #### [facility] [address] [address] [address] Jean-Claude Norris Cholesterol in HDL [Mass/Vol] 46 mg/dL Normal 40-60 [facility] Comment on above: Performed By: #### H FPF #### [facility] [address] [address] [address] Jean-Claude Norris Cholesterol in LDL [Mass/Vol] 107.2 mg/dL Normal [facility] Comment on above: Performed By: #### H FPF #### [facility] [address] [address] [address] Jean-Claude Norris Cholesterol.total/Ch olesterol in HDL [Mass ratio] 4.0 {ratio} Normal [facility] Comment on above: Performed By: #### H FPF #### [facility] [address] [place] [address] Dr. Jean-Claude Norris CO2 [Moles/Vol] 27.7 mmol/L Normal 21.0-32.0 [facility] Comment on above: Performed By: #### H FPF #### [facility] [address] [place] [address] Dr. Jean-Claude Norris Creatinine [Mass/Vol] 0.69 mg/dL Normal 0.55-1.02 [facility] Comment on above: Performed By: #### H FPF #### [facility] [address] [place] [address] Dr. Jean-Claude Norris Globulin (S) [Mass/Vol] 3.1 g/dL Normal [facility] Comment on above: Performed By: #### H FPF #### [facility] [address] [place] [address] Dr. Jean-Claude Norris Glucose [Mass/Vol] 125 mg/dL Critically high 74-106 [facility] Comment on above: Performed By: #### H FPF #### [facility] [address] [address] [address] Jean-Claude Norris HDL NORMAL > or = 60 mg/dl - LO W CARDIOVASCULAR RISK <40 mg/dl - HIGH CARDIOVASCULAR RISK Normal [facility] Comment on above: Performed By: #### H FPF #### [facility] [address] [address] [address] Jean-Claude Norris LDL CALC NORMAL SEE BELOW Normal [facility] Comment on above: Result Comment: <100 mg/dl OPTIMAL 100 - 129 mg/dl NEAR OR ABOVE OPTIMAL 130 - 159 mg/dl BORDERLINE HIGH 160 - 189 mg/dl HIGH >190 mg/dl VERY HIGH Performed By: #### H FPF #### [facility] [address] [address] [address] Jean-Claude Norris Potassium [Moles/Vol] 4.3 mmol/L Normal 3.5-5.1 [facility] Comment on above: Performed By: #### H FPF #### [facility] [address] [address] [address] Jean-Claude Norris Protein [Mass/Vol] 7.0 g/dL Normal 6.4-8.2 [facility] Comment on above: Performed By: #### H FPF #### [facility] [address] [address] [address] Jean-Claude Norris Sodium [Moles/Vol] 142 mmol/L Normal 136-145 [facility] Comment on above: Performed By: #### H FPF #### [facility] [address] [address] [address] Jean-Claude Norris Triglyceride [Mass/Vol] 149 mg/dL Normal <=150 [facility] Comment on above: Performed By: #### H FPF #### [facility] [address] [address] [address] Jean-Claude Norris TSH 2.552 uIU/mL Normal 0.358-3.740 [facility] Comment on above: Performed By: #### H FPF #### [facility] [address] [address] [address] Jean-Claude Norris Urea nitrogen [Mass/Vol] 15.0 mg/dL Normal 7.0-18.0 [facility] Comment on above: Performed By: #### H FPF #### [facility] [address] [address] [address] Jean-Claude Norris Urea nitrogen/Creatinine [Mass ratio] 21.7 mg/mg Normal [facility] Comment on above: Performed By: #### H FPF #### [facility] [address] [place], [place] [address] Dr. Jean-Claude Norris VLDL CALC 29.8 mg/dL Normal [facility] Comment on above: Performed By: #### H FPF #### [facility] [address] [place], [place] [address] Dr. Jean-Claude Norris MG MAMM SCREEN 3D JENNA CADon 01-06-2022 MG MAMM SCREEN 3D JENNA CAD Patient: REYNA BENAVIDES Exam Date: 01/06/2022 : 1950 Gender:F Ordering : DR GISELA CASON ON LICENSE OF [facility] Admission #: [id number] Family : Order #: [id number] CLICK HERE TO VIEW EXAM RADIOLOGY REPORT [...] breast cancer at age 58. LOCATION: [facility] BREAST COMPOSITION: Scattered areas fibroglandular density. [...] Solis MD on 01/06/2022 at 14:45 Normal [facility] Vital Signs Date Time Vital Sign Value Performing Clinician Faci lity 12-20-2023 12:57-0400 Body height 165.1 cm Steffanie Quintero MD Work Phone: [facility] 12-20-2023 12:57-0400 Body mass index (BMI) [Ratio] 28.96 kg/m2 Steffanie Quintero MD Work Phone: [facility] 12-20-2023 12:57-0400 Body weight 78.93 kg Steffanie Quintero MD Work Phone: [facility] 12-20-2023 12:57-0400 Diastolic blood pressure 70 mm[Hg] Steffanie Quintero MD Work Phone: [facility] 12-20-2023 12:57-0400 Systolic blood pressure 132 mm[Hg] Steffanie Quintero MD Work Phone: [facility] Encounters Encounter Date Encounter Type Care Provider Facility Start: 12-20-2023 End: 12-20-2023 Bamboo flowsheet Steffanie Quintero MD Work Phone: [facility] Start: 12-20-2023 End: 12-20-2023 Bamboo flowsheet Steffanie Quintero MD Work Phone: [facility] Start: 12-20-2023 End: 12-20-2023 Office outpatient visit 15 minutes Steffanie Quintero MD Work Phone: [facility] Comment on above: Nontoxic multinodula r goiter (CMS/HCC) (Primary Dx) Start: 12-20-2023 End: 12-20-2023 ambulatory STEFFANIE H TIMMIS Not Available Start: 08-15-2023 End: 08-15-2023 ambulatory SALES AND LEASING CONSULTANT Radha Cartagena Facility:[facility] Start: 06-28-2023 End: 06-28-2023 ambulatory STEFFANIE H TIMMIS Not Available Start: 06-08-2023 End: 06-08-2023 ambulatory Lopez Wilson Facility:[facility] Start: 06-08-2023 End: 06-08-2023 ambulatory MD Lopez Wilson Work Phone: [facility] Work Phone: Start: 06-08-2023 End: 06-08-2023 Departed Referred MD Lopez Wilson Work Phone: [facility] Start: 05-30-2023 End: 05-30-2023 ambulatory STEFFANIE QUINTERO Not Available Start: 03-20-2023 End: 03-20-2023 ambulatory SALES AND LEASING CONSULTANT Radha L Mitzi Facility:[facility] Start: 02-08-2023 End: 02-08-2023 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 Facility:[facility] Start: 01-06-2022 End: 01-07-[address] BENJY SOLIS Facility:[facility] Procedures Date Procedure Procedure Detail Performing Clinician Start: 09-09-2019 Mammography Steffanie banegas MD Work Phone: Plan of Treatment Date Care Activity Detail Author Start: 12-20-2023 End: 12-20-2023 Patient encounter procedure 12/20/2023 1:00 PM EDT Office Visit [facility] [address] [facility] [address] [place] [id number] Steffanie Quintero MD [address] [facility] [address] [place] [address] Arrived [facility] Comment on above: Arrived Start: 10-29-2023 Influenza vaccination Influenza Vacc ine (#1) [facility] Start: 12-17-2020 Pneumococcal Vaccine : 65+ Years (2 of 2 - PCV) Pneumococcal Vaccine: 65+ Years (2 of 2 - PCV) [facility] Start: 09-08-2020 Screening for malign ant neoplasm of breast Mammogram [facility] Start: 1950 Screening for malign ant neoplasm of colon [facility] Immunizations Immunization Date Immunization Notes Care Provider Fa cility 02-03-2023 influenza virus vacc ine, unspecified formulation Steffanie Quintero MD Work Phone: [facility] Payers Date Payer Category Payer Self-pay 2022 Private Health Insurance [facility] [place] [phone] [id number] 2014 Medicare MEDICARE [id number] 1959 Medicare [id number] 1959 Self-pay [id number] 1959 Unknown [id number] 1959 Unknown [id number] 1950 Unknown [id number] .593 1950 Unknown [id number] .593 1950 Unknown [id number] [id number] .593 1950 Unknown [id number] .727 1950 Unknown [id number] [id number] .727 1950 Unknown [id number] [id number] .727 1950 Unknown [id number] [id number] .727 1950 Unknown [id number] [id number] .1259 1950 Unknown [id number] [id number] .1259 1950 Unknown [id number] [id number] .1259 Unknown [id number] .593 Social History Date Type Detail Facility Tobacco smoking stat [facility] Unknown if ever smoked [facility] Work Phone: Start: 1950 Sex Assigned At Female F [facility] Start: 05-18-2023 Tobacco smoking stat [facility] Never smoked tobacco [facility] Start: 05-18-2023 Tobacco use and exposure Smokeless tobacco non-user [facility] Start: 06-28-2023 End: 12-20-2023 Alcoholic beverage intake Current drinker of alcohol (finding) [facility] Start: 06-28-2023 End: 12-20-2023 History of Social function [facility] Start: 06-28-2023 End: 12-20-2023 Tobacco use panel [facility] Start: 1950 Sex assigned at Not on file [facility] History of Present illness Narrative 12-20-2023 Steffanie Quintero MD - 12/20/2023 1:00 PM EDT Note Date & Type Note Facility 12-20-2023 History of Presen t illness Narrative Subjective Patient ID: Reyna Benavides is a 73 y.o. female who presents for Thyroid Nodule (5 month check Ultrasound [facility] 12/18/23) Dominant LT nodule [id number] compared to [id number] in April. Nodule was [place] 2 on FNAS Family History Problem Relation Name Age of Onset Cancer Mother Audrey breast Heart failure Father Alexandre Active Ambulatory Problems Diagnosis Date Noted GERD (gastroesophageal reflux disease) 05/18/2023 Osteopenia 05/18/2023 Fibrocystic breast disease 05/18/2023 Pulmonary nodule 05/18/2023 Multiple thyroid nodules (CMS/HCC) 05/18/2023 Hilar lymphadenopathy 05/18/2023 Nontoxic multinodular goiter (CMS/HCC) 05/30/2023 Resolved Ambulatory Problems Diagnosis Date Noted No Resolved Ambulatory Problems No Additional Past Medical History Past Surgical History: Procedure Laterality Date APPENDECTOMY BREAST BIOPSY CARPAL TUNNEL RELEASE FNA W IMAGING GUIDANCE 06/08/2023 thyroid FNA Allergies Allergen Reactions Meperidine Rash Other Reaction(s): Unknown Current Outpatient Medications on File Prior to Visit Medication Sig Dispense Refill albuterol HFA 90 mcg/act inhaler Inhale 2 puffs every 6 (six) hours if needed for wheezing cholecalciferol (Vitamin D-3) 50 MCG (1999 UT) tablet Take 1 tablet by mouth 1 (one) time each day at the same time Melatonin 3 MG capsule Take 6 mg by mouth at bedtime Multiple Vitamins-Minerals (multivitamin with minerals) tablet Take 1 tablet by mouth Daily Multiple Vitamins-Minerals (PRESERVISION AREDS 2 PO) Take by mouth omeprazole OTC (PriLOSEC OTC) 20 MG EC tablet Take 40 mg by mouth in the morning. Take before meals. phytonadione (Vitamin K) 100 MCG tablet Take 10 mg by mouth Daily No current facility-administered medications on file prior to visit. Objective Last Recorded Vitals Vitals: 12/20/23 1257 BP: 132/70 ENT Physical Exam Constitutional Appearance: patient appears well-developed, well-nourished and well-groomed, Communication/Voice: communication appropriate for developmental age; vocal quality normal; Assessment/Plan Diagnoses and all orders for this visit: Nontoxic multinodular goiter (CMS/HCC) Possible slight nodule growth. Repeat US in 3 mo documented in this encounter [facility] Clinical Note 06-14-2022 Note Date & [...] authenticated by: LOPEZ WILSON Date: 2022-06-14 15:56 [facility] Evaluation note Note Date & Type Note Facility Evaluation note No assessment information availa [facility] Work Phone: Evaluation note Note Date & Type Note Facility Evaluation note Diagnosis Nontoxic multinodular goiter (CMS/HCC)- Primary Nontoxic multinodular goiter documented in this encounter [facility] Summary Purpose Family History No Family History [...] and content) DATE CREATED AUTHOR 06/27/2022 [facility] DATE CREATED AUTHOR AUTHOR'S ORGANIZ ATION 06/15/2023 [facility] DATE CREATED AUTHOR AUTHOR'S ORGANIZ ATION 08/18/2023 [facility] DATE CREATED AUTHOR AUTHOR'S ORGANIZ ATION 12/22/2023 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 [email or web address] provides no warranty or guarantee of the accuracy or completeness of information in this document.
== END 2024-02-15 14:33 | disposition home or self-care (01) ==
LOC: MAMMO 14:33
PROVIDERS: PCP Family Medicine; Visit Provider Nurse Practitioner Adult Health
DX: Z12.31 Encounter for screening mammogram for malignant neoplasm of breast (principal); Z80.3 Family history of malignant neoplasm of breast
CPT/HCPCS: 77063; 77067

== ENCOUNTER 2024-03-12 10:25 | Outpatient (OUT) | payer MEDICARE, OTHER, SELFPAY ==
--- NOTE | 2024-03-12 10:27 | US_ITS ---
[address] [address] Patient Name: LOBITO MERAZ MRN: [id number] date: 1950 Sex: F Assigned Patient Location: US Current Patient Location: Accession/Order Number: [id number] Exam Date: 03/12/2024 10:30 Report Date: 03/13/2024 04:49 At the request of: JENNIFER QUINTERO Procedure: US thyroid EXAMINATION: US thyroid HISTORY: Nontoxic Multinodular Goiter COMPARISON: Ultrasound thyroid 12/18/2023 FINDINGS: RIGHT LOBE: Heterogeneous echotexture. Contains a 12 mm TR 3 nodule within inferior pole. Lobe size: 3.9 x 2.0 x 2.4 cm LEFT LOBE: Heterogeneous echotexture. Contains an 18 mm TR 3 nodule within superior pole, and 8mm TR 3 nodule within mid body, and a 12 mm TR nodule within the inferior pole. Lobe size: 4.7 x 2.3 x 2.1 cm ISTHMUS: Normal size and echotexture. Thickness: 2 mm US/US thyroid IMPRESSION: 1. Heterogeneous thyroid gland containing TR 3 nodules bilaterally, largest is 18 mm. Grossly stable allowing for differences in technique. Consider follow-up ultrasound evaluation in one-3 years. TR3 (mildly suspicious): > 1.5 cm, follow-up ultrasound in 1, 3, and 5 years. > 2.5 cm, fine needle aspiration. Electronically authenticated by: EJ DAVIS Date: 03/13/2024 04:49
--- OUTSIDE RECORDS SUMMARY | 2024-03-12 10:34 | XMS_ITS | CCD ---
Author Organization [facility] Care Team Providers Care Sports Teacher Name Role Phone WEST, DR BENJY Yun [...] Consulting Unavailable MD Lopez Wilson Attending Provider [phone] Lopez Wilson Attending Unavailable Lopez Wilson Admitting Unavailable Mitzi, RODOLFO Radha L Attending Unavailable Mitzi, PAINT SPRAY INSPECTOR Radha L Attending Unavailable Mitzi, PAINT SPRAY INSPECTOR Radha L Attending Unavailable Mitzi, PAINT SPRAY INSPECTOR Radha Ochoa Attending Unavailable Jenn Germain MD Primary Care Provider STEFFANIE QUINTERO Attending Unavailable STEFFANIE QUINTERO Attending Unavailable JENN GERMAIN Referring Unavailable STEFFANIE QUINTERO Attending Unavailable Allergies Allergy Classification Reported Allergen(s) Allergy Type Date of Onset Reaction(s) Facility (3 sources) Meperidine; Translations: [Demerol] Drug Allergy 03-06-2016 [facility] Repository (1 source) Meperidine Drug Allergy 03-16-2020 [facility] Repository (3 sources) Meperidine Drug Allergy 05-18-2023 Rash [facility] Work Phone: Medications Current Medications Medication Drug Class(es) Dates Sig (Normalized) Sig (Original) [id number] 200 actuat albuterol 0.09 mg/actuat metered dose [...] Range Facility Consultation Noteon 08-17-19 Consultation Note [id number]#1.00T IFF Normal [facility] [place] 08-15-2023 Consent [id number]#1.00T IFF Normal [facility] Nurse Consultation Noteon Nurse Consultation Note [...] 12/28/2012 Recorded Normal [facility] RAD - CT Reporton 08-09-2023 RAD - CT Report [id number]#1.00T IFF Normal [facility] RAD - Ultrasound Reporton RAD - Ultrasound Report [id number]#1.00T IFF Normal [facility] Walter 06-08-2023 L Specimen: [id number] Received: 06/12/23 Status: SOUT Req Num: [id number] Spec Type: Cytology Subm Dr: Lopez Wilson MD Tissues: A FNA SLIDES NOPATH (LEFT THYROID NODULE SUPERIOR) B FNA SLIDES NOPATH (RIGHT THYROID NODULE INFERIO) Procedures: Cyto Int and Re/2, PAPSTN/12 Age/ Patient Sex Location Account Attending Physician Reyna Benavides 72/F LABEL [id number] Lopez Wilson MD SPEC NUM: [id number] RECD: 06/12/23 STATUS: SOUT REQ NUM: [id number] MJ: 06/08/23-[address]: Lopez Wilson MD ENTERED: 06/12/23-[address]: Abdiaziz Azul HILARY H MD SPEC TYPE: Cytology DEPT: ZOIE VAKIRSTEN ENTERED BY: [id number] RECV BY: [id number] ORDERED: Cyto Int and Re/2, PAPSTN/12 ORDERED: Cyto Int and Re/2, PAPSTN/12 Pathological Diagnosis A, left thyroid nodule superior, FNA cytology: -Appropriate for assessment -The [place] system is category 2: Benign -Fibrin trapping [...] inferior, FNA cytology: -Appropriate for assessment -The [place] system is category 2: Benign -A few adequate number of small follicular groups are present in the ThinPrep smear and 2 other aspirate smears -The follicular cells are all small and bland looking Specimen: [id number] Received: 06/12/23 Status: HÉCTOR Hernandez Num: [id number] Spec Type: Cytology Subm Dr: Lopez Wilson MD Tissues: A FNA SLIDES NOPATH (LEFT THYROID NODULE SUPERIOR) B FNA SLIDES NOPATH (RIGHT THYROID NODULE INFERIO) Procedures: Cyto Int and Re/2, PAPSTN/12 Patient: Reyna Benavides [id number] (Continued) Specimen: [id number] Received: 06/12/23 (Continued) Signed (signature on file) Katya Norris MD 06/13/23 1716 Specimen: [id number] Received: 06/12/23 Status: NNEKAJana Hernandez Num: [id number] Spec Type: Cytology Subm Dr: Lopez Wilson MD Tissues: A FNA SLIDES NOPATH (LEFT THYROID NODULE SUPERIOR) B FNA SLIDES NOPATH (RIGHT THYROID NODULE INFERIO) Procedures: Cyto Int and Re/2, PAPSTN/12 Patient: Reyna Benavides [id number] (Continued) Specimen: [id number] Received: 06/12/23 (Continued) Clinical Information Thyroid nodules History of basal cell carcinoma (skin of the face) Gross Description A. Received in Cytolyt labeled with the patient's name, date of and left thyroid nodule superior per requisition is 30 ml pink slightly cloudy fixed fluid. 1 Thin Prep slides are prepared. 4 alcohol fixed smears for pap are additionally received. (CC/ky) B. Received in Cytolyt labeled with the patient's name, date of and right thyroid nodule inferior per requisition is 30 ml very pale pink clear fixed fluid. 1 Thin Prep slides are prepared. 4 alcohol fixed smears for pap are additionally received. (CC/ky) CPT Codes 55304 x 2 Specimen: [id number] Received: 06/12/23 Status: HÉCTOR Hernandez Num: [id number] Spec Type: Cytology Subm Dr: Lopez Wilson MD Tissues: A FNA SLIDES NOPATH (LEFT THYROID NODULE SUPERIOR) B FNA SLIDES NOPATH (RIGHT THYROID NODULE INFERIO) Procedures: Cyto Int and Re/2, PAPSTN/12 Patient: Reyna Benavides [id number] (Continued) Signed (signature on file) Katya Norris MD 06/13/23 1716 Normal [facility] RAD - Ultrasound Reporton RAD - Ultrasound Report [id number]#1.00T IFF Normal [facility] RAD - Ultrasound Report [id number]#1.00T IFF Normal [facility] Consultation Noteon 05-30-19 Consultation Note [id number]#1.00T IFF Normal [facility] Lab Reportson 05-23-2023 Lab Reports [id number]#1.00T IFF Normal [facility] Consultation Noteon 05-18-19 Consultation Note [id number]#1.00T IFF Normal [facility] Consultation Noteon 05-17-19 Consultation Note [id number]#1.00T IFF Normal [facility] Consultation Noteon 05-10-19 Consultation Note [id number]#1.00T IFF Normal [facility] Consultation Note [id number]#1.00T IFF Normal [facility] RAD - CT Reporton 05-10-2023 RAD - CT Report [id number]#1.00 TIFF Normal [facility] RAD - Pet Scan Reporton 04-27 RAD - Pet Scan Report [id number]#1.00T IFF Normal [facility] RAD - Pet Scan Report [id number]#1.00T IFF Normal [facility] Consultation Noteon 04-26-19 Consultation Note [id number]#1.00T IFF Normal [facility] Family Medicine Office/Clini c Noteon 03-28-2023 [...] shortness of breath. 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 Sinusitis (J32.9: Chronic sinusitis, unspecified) sill order augmentin Ordered: amoxicillin-clavulanate , = 1 tab(s), Oral, q12hr, X 7 day(s), # 14 tab(s), Refills(s) 0, Pharmacy: [id number], 167, cm, 02/08/23 15:30:00 EST, Height/Length [...] day(s), # 14 tab(s), Refills(s) 0, Pharmacy: [id number], 167, cm, 02/08/23 15:30:00 EST, Height/Length [...] virus vacc (more content not included)... Normal [facility] Comment on above: Result Comment: Elec tronically Signed By: Radha Quinteros\.br\Date and Time Signed: 03/28/23 12:44 EST Physician Referralon 024 Physician Referral [id number]#1.00TI FF [facility] Ambulatory Visit Summaryon 0 03-20-2023 Ambulatory [...] Someone Will Contact You Regarding These Appointments [facility] External Ambulatory Referral, Patient choice/referral [...] you for choosing us for your care. [facility] Physician Referralon 023 Physician Referral [id number]#1.00TI FF [facility] Physician Orderon 02-09-2023 Physician Order [id number]#1.00T IFF [facility] Ambulatory Visit Summaryon 1 04-11-2022 Ambulatory [...] you for choosing us for your care. [facility] Family Medicine Office/Clini c Noteon 02-08-2023 [...] BID, # 12 gram, Refills(s) 1, Pharmacy: [facility]/pharmacy #[id number], 167, cm, 02/08/23 15:30:00 EST, Height/Length Dosing, 76.5, kg, 02/08/23 15:30:00 EST, Weight Dosing methylPREDNISolone, = 1 packet(s), Oral, As Directed, as directed on package labeling, X 6 day(s), # 21 tab(s), Refills(s) 0, Pharmacy: [facility]/pharmacy #[id number], 167, cm, 02/08/23 15:30:00 EST, Height/Length Dosing, 76.5, kg, 02/08/23 15:30:00 EST, Weight Dosing 2. Adult BMI 27.0-27.9 kg/sq m (Z68.27: Body mass index [BMI] 27.0-27.9, adult) BMI education complete Ordered: fluticasone, = 2 puff(s), Inhalation, BID, # 12 gram, Refills(s) 1, Pharmacy: [facility]/pharmacy #[id number], 167, cm, 02/08/23 15:30:00 EST, Height/Length Dosing, 76.5, kg, 02/08/23 15:30:00 EST, Weight Dosing methylPREDNISolone, = 1 packet(s), Oral, As Directed, as directed on package labeling, X 6 day(s), # 21 tab(s), Refills(s) 0, [id number], 167, cm, 02/08/23 15:30:00 EST, Height/Length Dosing, 76.5, kg, 02/08/23 15:30:00 EST, Weight Dosing Orders: codeine-guaifenesin, 5 mL, Oral, Bedtime for cough, 60 mL, Refill(s) 0, [id number] 167, cm, 02/08/23 [...] vaccine, inact (more content not included)... Normal [facility] Comment on above: Result Comment: Elec tronically Signed By: Mitzi REYNOLDS, Radha Ochoa\.br\Date and Time Signed: 02/08/23 16:34 EST Outside Mammographyon 2022 Outside Mammography [id number]#1.00TI FF [facility] RAD - MISCon 01-17-2023 RAD - MISC [id number]#1.00TI FF [facility] Family Medicine Office/Clini c Noteon 12-23-2022 [...] Signed: 12/23/22 11:35 EDT [place] 12-20-2022 Consent [id number]#1.00T IFF Normal [facility] Ambulatory Visit Summaryon 1 Ambulatory Visit [...] lb BMI 27.73 Allergies Demerol (Rash) Normal [facility] CBC AUTO DIFFon 05-03-2022 BASO # 0.0 103/ul Normal 0.0-0.1 [facility] Comment on above: Performed By: #### H FPFCBC #### [facility] [address] [place] [address] Dr. Jean-Claude Norris Basophils/100 WBC (Bld) 0.7 % Normal 0.2-2.0 [facility] Comment on above: Performed By: #### H FPFCBC #### [facility] [address] [address] [address] Jean-Claude Norris EO # 0.2 103/ul Normal 0.0-0.7 [facility] Comment on above: Performed By: #### H FPFCBC #### [facility] [address] [place] [address] Dr. Jean-Claude Norris Eosinophils/100 WBC (Bld) 3.7 % Normal 0.9-7.0 [facility] Comment on above: Performed By: #### H FPFCBC #### [facility] [address] [place] [address] Dr. Jean-Claude Norris Erythrocyte distribution width (RBC) [Ratio] 14.8 % Normal 11.0-15.0 [facility] Comment on above: Performed By: #### H FPFCBC #### [facility] [address] [place] [address] Dr. Jean-Claude Norris Hematocrit (Bld) [Volume fraction] 36.5 % Normal 36.0-48.0 [facility] Comment on above: Performed By: #### H FPFCBC #### [facility] [address] [place] [address] Dr. Jean-Claude Norris Hemoglobin (Bld) [Mass/Vol] 11.6 g/dL Critically low 12.0-16.0 [facility] Comment on above: Performed By: #### H FPFCBC #### [facility] [address] [place] [address] Dr. Jean-Claude Norris IG # 0.01 10e3/ul Normal 0.00-0.03 [facility] Comment on above: Performed By: #### H FPFCBC #### [facility] [address] [place] [address] Dr. Jean-Claude Norris IG % 0.2 % Normal 0.0-0.5 [facility] Comment on above: Performed By: #### H FPFCBC #### [facility] [address] [place] [address] Dr. Jean-Claude Norris LYMPH # 0.8 103/ul Critically low 1.2-3.8 [facility] Comment on above: Performed By: #### H FPFCBC #### [facility] [address] [place] [address] Dr. Jean-Claude Norris Lymphocytes/100 WBC (Bld) 18.9 % Critically low 20.5-60.0 [facility] Comment on above: Performed By: #### H FPFCBC #### [facility] [address] [place] [address] Dr. Jean-Claude Norris MCH (RBC) [Entitic mass] 25.1 pg Critically low 26.7-34.0 [facility] Comment on above: Performed By: #### H FPFCBC #### [facility] [address] [place] [address] Dr. Jean-Claude Norris MCHC (RBC) [Mass/Vol] 31.8 g/dL Normal 29.9-35.2 [facility] Comment on above: Performed By: #### H FPFCBC #### [facility] [address] [place] [address] Dr. Jean-Claude Norris MCV (RBC) [Entitic vol] 78.8 fL Critically low 81.0-99.0 [facility] Comment on above: Performed By: #### H FPFCBC #### [facility] [address] [place] [address] Dr. Jean-Claude Norris MONO # 0.5 103/ul Normal 0.3-0.8 [facility] Comment on above: Performed By: #### H FPFCBC #### [facility] [address] [place] [address] Dr. Jean-Claude Norris Monocytes/100 WBC (Bld) 12.4 % Critically high 1.7-12.0 [facility] Comment on above: Performed By: #### H FPFCBC #### [facility] [address] [place] [address] Dr. Jean-Claude Norris NEUT # 2.7 103/ul Normal 1.4-6.5 [facility] Comment on above: Performed By: #### H FPFCBC #### [facility] [address] [place] [address] Dr. Jean-Claude Norris Neutrophils/100 WBC (Bld) 64.1 % Normal 43.0-75.0 [facility] Comment on above: Performed By: #### H FPFCBC #### [facility] [address] [place] [address] Dr. Jean-Claude Norris Platelet mean volume (Bld) [Entitic vol] 11.4 fL Normal 9.5-13.5 [facility] Comment on above: Performed By: #### H FPFCBC #### [facility] [address] [address] [address] Jean-Claude Norris PLT 209 103/ul Normal 150-450 [facility] Comment on above: Performed By: #### H FPFCBC #### [facility] [address] [address] [address] Jean-Claude Norris RBC 4.63 106/ul Normal 4.20-5.40 [facility] Comment on above: Performed By: #### H FPFCBC #### [facility] [address] [address] [address] Jean-Claude Norris WBC 4.3 103/ul Normal 4.0-11.0 [facility] Comment on above: Performed By: #### H FPFCBC #### [facility] [address] [place] [address] Dr. Jean-Claude Norris [facility] GLYCOHEMOGLOBIN A1Con 05-03-2022 Glucose [Mass/Vol] 117 mg/dL Normal [facility] Comment on above: Performed By: #### H FPFA1C #### [facility] [address] [place] [address] Dr. Jean-Claude Norris HbA1c (Bld) [Mass fraction] 5.7 % Normal 4.5-6.2 [facility] Comment on above: Performed By: #### H FPFA1C #### [facility] [address] [place] [address] Dr. Jean-Claude Norris [facility] Albumin [Mass/Vol] 3.9 g/dL Normal 3.4-5.0 [facility] Comment on above: Performed By: #### H FPF #### [facility] [address] [place] [address] Dr. Jean-Claude Norris Albumin/Globulin [Mass ratio] 1.3 {ratio} Normal [facility] Comment on above: Performed By: #### H FPF #### [facility] [address] [place] [address] Dr. Jean-Claude Norris ALP [Catalytic activity/Vol] 69 U/L Normal 46-116 [facility] Comment on above: Performed By: #### H FPF #### [facility] [address] [place] [address] Dr. Jean-Claude Norris ALT [Catalytic activity/Vol] 23 U/L Normal 14-59 [facility] Comment on above: Performed By: #### H FPF #### [facility] [address] [place] [address] Dr. Jean-Claude Norris AST [Catalytic activity/Vol] 19 U/L Normal 15-37 [facility] Comment on above: Performed By: #### H FPF #### [facility] [address] [place] [address] Dr. Jean-Claude Norris Bilirubin [Mass/Vol] 1.0 mg/dL Normal 0.2-1.0 [facility] Comment on above: Performed By: #### H FPF #### [facility] [address] [place] [address] Dr. Jean-Claude Norris Calcium [Mass/Vol] 9.3 mg/dL Normal 8.5-10.1 [facility] Comment on above: Performed By: #### H FPF #### [facility] [address] [place] [address] Dr. Jean-Claude Norris Chloride [Moles/Vol] 106 mmol/L Normal 98-107 [facility] Comment on above: Performed By: #### H FPF #### [facility] [address] [place] [address] Dr. Jean-Claude Norris CHOL-HDL RATIO NORM SEE BELOW Normal [facility] Comment on above: Result Comment: 3.3 - 4.4 LOW RISK 4.4 - 7.1 AVERAGE RISK 7.1 - 11.0 MODERATE RISK >11.0 HIGH RISK Performed By: #### H FPF #### [facility] [address] [place] [address] Dr. Jean-Claude Norris Cholesterol [Mass/Vol] 183 mg/dL Normal <=200 [facility] Comment on above: Performed By: #### H FPF #### [facility] [address] [address] [address] Jean-Claude Norris Cholesterol in HDL [Mass/Vol] 46 mg/dL Normal 40-60 [facility] Comment on above: Performed By: #### H FPF #### [facility] [address] [address] [address] Jean-Claude Norris Cholesterol in LDL [Mass/Vol] 107.2 mg/dL Normal [facility] Comment on above: Performed By: #### H FPF #### [facility] [address] [address] [address] Jean-Claude Norris Cholesterol.total/Ch olesterol in HDL [Mass ratio] 4.0 {ratio} Normal [facility] Comment on above: Performed By: #### H FPF #### [facility] [address] [place] [address] Dr. Jean-Claude Norris CO2 [Moles/Vol] 27.7 mmol/L Normal 21.0-32.0 [facility] Comment on above: Performed By: #### H FPF #### [facility] [address] [place] [address] Dr. Jean-Claude Norris Creatinine [Mass/Vol] 0.69 mg/dL Normal 0.55-1.02 [facility] Comment on above: Performed By: #### H FPF #### [facility] [address] [place] [address] Dr. Jean-Claude Norris Globulin (S) [Mass/Vol] 3.1 g/dL Normal [facility] Comment on above: Performed By: #### H FPF #### [facility] [address] [place] [address] Dr. Jean-Claude Norris Glucose [Mass/Vol] 125 mg/dL Critically high 74-106 [facility] Comment on above: Performed By: #### H FPF #### [facility] [address] [address] [address] Jean-Claude Norris HDL NORMAL > or = 60 mg/dl - LO W CARDIOVASCULAR RISK <40 mg/dl - HIGH CARDIOVASCULAR RISK Normal [facility] Comment on above: Performed By: #### H FPF #### [facility] [address] [address] [address] Jean-Claude Norris LDL CALC NORMAL SEE BELOW Normal [facility] Comment on above: Result Comment: <100 mg/dl OPTIMAL 100 - 129 mg/dl NEAR OR ABOVE OPTIMAL 130 - 159 mg/dl BORDERLINE HIGH 160 - 189 mg/dl HIGH >190 mg/dl VERY HIGH Performed By: #### H FPF #### [facility] [address] [address] [address] Jean-Claude Norris Potassium [Moles/Vol] 4.3 mmol/L Normal 3.5-5.1 [facility] Comment on above: Performed By: #### H FPF #### [facility] [address] [address] [address] Jean-Claude Norris Protein [Mass/Vol] 7.0 g/dL Normal 6.4-8.2 [facility] Comment on above: Performed By: #### H FPF #### [facility] [address] [address] [address] Jean-Claude Norris Sodium [Moles/Vol] 142 mmol/L Normal 136-145 [facility] Comment on above: Performed By: #### H FPF #### [facility] [address] [address] [address] Jean-Claude Norris Triglyceride [Mass/Vol] 149 mg/dL Normal <=150 [facility] Comment on above: Performed By: #### H FPF #### [facility] [address] [address] [address] Jean-Claude Norris TSH 2.552 uIU/mL Normal 0.358-3.740 [facility] Comment on above: Performed By: #### H FPF #### [facility] [address] [address] [address] Jean-Claude Norris Urea nitrogen [Mass/Vol] 15.0 mg/dL Normal 7.0-18.0 [facility] Comment on above: Performed By: #### H FPF #### [facility] [address] [address] [address] Jean-Claude Norris Urea nitrogen/Creatinine [Mass ratio] 21.7 mg/mg Normal [facility] Comment on above: Performed By: #### H FPF #### [facility] [address] [place], [place] [address] Dr. Jean-Claude Norris VLDL CALC 29.8 mg/dL Normal [facility] Comment on above: Performed By: #### H FPF #### [facility] [address] [place], [place] [address] Dr. Jean-Claude Norris MG MAMM SCREEN 3D JENNA CADon 01-06-2022 MG MAMM SCREEN 3D JENNA CAD Patient: REYNA BENAVIDES Exam Date: 01/06/2022 : 1950 Gender:F Ordering : DR GISELA CASON [facility] Admission #: [id number] Family : Order #: [id number] CLICK HERE TO VIEW EXAM RADIOLOGY REPORT [...] breast cancer at age 58. LOCATION: [facility] BREAST COMPOSITION: Scattered areas fibroglandular [...] PALPABLE LUMP SHOULD BE BIOPSIED. Dictated by: Benyj Solis MD on 01/06/2022 at 14:43 Approved by: Benjy Solis MD on 01/06/2022 at 14:45 Normal [facility] Vital Signs Date Time Vital Sign Value Performing Clinician Faci lity 12-20-2023 12:57-0400 Body height 165.1 cm Steffanie Quintero MD Work Phone: [facility] 12-20-2023 12:57-0400 Body mass index (BMI) [Ratio] 28.96 kg/m2 Steffanie Quintero MD Work Phone: [facility] 12-20-2023 12:57-0400 Body weight 78.93 kg Steffanie Quintero MD Work Phone: [facility] 12-20-2023 12:57-0400 Diastolic blood pressure 70 mm[Hg] Steffanie Quintero MD Work Phone: [facility] 12-20-2023 12:57-0400 Systolic blood pressure 132 [...] Not Available Start: 08-15-2023 End: 08-15-2023 ambulatory PAINT SPRAY INSPECTOR Radha Cartagena Facility:[facility] Start: 06-28-2023 End: 06-28-2023 ambulatory STEFFANIE H TIMMIS Not Available Start: 06-08-2023 End: 06-08-2023 ambulatory Lopez Wilson Facility:[facility] Start: 06-08-2023 End: 06-08-2023 ambulatory MD Lopez Wilson Work Phone: [facility] Work Phone: Start: 06-08-2023 End: 06-08-2023 Departed Referred MD Lopez Wilson Work Phone: [facility] Start: 05-30-2023 End: 05-30-2023 ambulatory STEFFANIE QUINTERO Not Available Start: 03-20-2023 End: 03-20-2023 ambulatory PAINT [employer]AY INSPECTOR Radha L Mitzi Facility:[facility] [place] Start: 02-08-2023 End: 02-08-2023 ambulatory PAINT SPRAY INSPECTOR Radha L Mitzi Facility:[facility] [place] Start: 12-19-2022 ambulatory PAINT SPRAY INSPECTOR Radha L Mitzi Facil ity:[facility] [place] Start: [...] Visit [facility] [address] [facility] [address] [place] [id number] Steffanie Quintero MD [address] [facility] [address] [place] [address] Arrived [facility] Comment on above: [...] Category Payer Self-pay [address] [facility] [place] [address] [id number] 2014 Medicare MEDICARE [id number] 1959 Medicare [id number] 1959 Self-pay [id number] 1959 Unknown [id number] 1959 Unknown [id number] 1949 Unknown [id number] 2.840.1.488081.3.579.2 .593 1949 Unknown [id number] 2.840.1.860178.3.579.2 .593 1949 Unknown [id number] 2.16.840.1.620105.3.579.2 .593 1949 Unknown [id number] 2.16.840.1.350896.3.579.2 .727 1949 Unknown [id number] 2.16.840.1.058051.3.579.2 .727 1949 Unknown [id number] 2.16.840.1.229148.3.579.2 .727 1949 Unknown [id number] 2.16.840.1.229417.3.579.2 .727 1949 Unknown [id number] 2.16.840.1.200899.3.579.2 .1259 1949 Unknown [id number] 2.16.840.1.600318.3.579.2 .1259 1950 Unknown [id number] 2.16.840.1.771086.3.579.2 .1259 Unknown [id number] 2.16.840.1.761231.3.579.2 .593 Social History Date Type Detail Facility Tobacco smoking stat [facility] Unknown if ever smoked [facility] Work Phone: Start: 1950 Sex Assigned At Female F [facility] Start: 05-18-2023 Tobacco smoking stat [facility] Never smoked tobacco [facility] Start: [...] for Thyroid Nodule (5 month check Ultrasound [facility] 12/18/23) Dominant LT nodule [id number] compared to [id number] in April. Nodule was [place] 2 on FNAS Family History Problem Relation [...] in 3 mo documented in this encounter [facility] Clinical Note 06-14-2022 Note Date & [...] authenticated by: LOPEZ WILSON Date: 2022-06-14 15:56 [facility] Evaluation note Note Date & Type Note Facility Evaluation note No assessment information availa [facility] Work Phone: Evaluation note Note [...] and content) DATE CREATED AUTHOR 06/27/2022 [facility] DATE CREATED AUTHOR AUTHOR'S ORGANIZ ATION 06/15/2023 [facility] DATE CREATED AUTHOR AUTHOR'S ORGANIZ ATION 08/18/2023 [facility] DATE CREATED AUTHOR AUTHOR'S ORGANIZ ATION 12/22/2023 [facility] [employer] Care Teams (unrecognized sec tion and content) Team Status: Inactive Member Role Status Dates Lopez Wilson MD Attending Provider Active Start: June 08, 2023 End: June 08, 2023 Sports Teacher Relationship Specialty Start Date End Date Jenn Germain MD [address] [place] [address] PCP - General Family Medicine 12/14/23 Sports Teacher Relationship Specialty Start Date End Date Jenn Germain MD [address] [place] [address] PCP - General Family Medicine 12/14/23 Goals [...] BE BASED ON THE PRIMARY CLINICAL RECORDS. [employer] provides no warranty or guarantee of the accuracy or completeness of information in this document.
== END 2024-03-12 10:26 | disposition home or self-care (01) ==
LOC: US 10:25
PROVIDERS: PCP Family Medicine; Visit Provider Otolaryngology
DX: E04.2 Nontoxic multinodular goiter (principal)
CPT/HCPCS: 76536

== ENCOUNTER 2024-08-12 09:51 | Outpatient (OUT) | payer MEDICARE, OTHER, SELFPAY ==
--- NOTE | 2024-08-12 09:52 | CT_ITS ---
The [address] [address] Patient Name: LOBITO MERAZ MRN: [id number] date: 1950 Sex: F Assigned Patient Location: CT Current Patient Location: CT Accession/Order Number: [id number] Exam Date: 08/12/2024 10:33 Report Date: 08/12/2024 10:54 At the request of: MARÍA ELENA ARMENDARIZ DO Procedure: CT chest wo con CT CHEST WITHOUT CONTRAST COMPARISON: 08/08/2023 CLINICAL DATA: Follow-up left upper lobe nodule. Spiral images were obtained through the chest without contrast. Images were reviewed using both narrow and wide window settings. This CT exam was performed using one or more following dose reduction techniques: Automated exposure control, adjustment of the mA and/or kV according to patient size, or use of iterative reconstruction technique. The heart is normal size. No pericardial effusion is present. There is minimal coronary artery calcification. There is no aortic aneurysm. Mild plaque is present at the aortic arch, descending aorta and proximal great vessels. Small nonpathologic lymph nodes are seen. There is a tiny hiatal hernia. Bilateral hyper and hypodense thyroid nodularity is seen. Endplate spurring is present at the spine. Scarring is visualized at the lung apices. There is no developing consolidation, pleural effusion or pneumothorax. Small stable subcentimeter nodules are seen bilaterally. There is also redemonstration of an irregular groundglass opacity at the left upper lobe measuring approximately 2 cm in size. This has not significantly changed. Limited imaging through the upper abdomen shows additional atherosclerotic disease. A similar fluid attenuation nodular density is seen in the left periaortic region superior to the renal artery. This is present back to 2017 suggesting a benign etiology. CT/CT chest wo con IMPRESSION: STABLE IRREGULAR LEFT UPPER LOBE GROUNDGLASS OPACITY. STABLE SUBCENTIMETER PULMONARY NODULES. BILATERAL THYROID NODULARITY. NO ACUTE FINDINGS. Impression dictated by: Rachele Moore M.D. 08/12/2024 10:54 AM Dictation Location: [place] [address] Electronically authenticated by: [id number] Y Date: 08/12/2024 10:54
--- OUTSIDE RECORDS SUMMARY | 2024-08-12 10:13 | XMS_ITS | CCD ---
Author Organization [facility] Care Team Providers Care Tree Killer Name Role Phone WEST, DR BENJY Yun Consulting Unavailable YOAV, DR HIGGINS Admitting Unavailable YOAV, DR HIGGINS Attending Unavailable LANDAVERDE ., DR KATIUSKA Da Silva Primary Care Unavailable YOAV, DR HIGGINS Consulting Unavailable LANDAVERDE ., DR KATIUSKA Da Sliva Attending Unavailable LANDAVERDE ., DR KATIUSKA Da Silva Admitting Unavailable LANDAVERDE ., DR KATIUSKA Da Silav Primary Care Unavailable LANDAVERDE ., DR KATIUSKA Da Silva Consulting Unavailable ARMEN YUEN Admitting Unavailable ARMEN YUEN Attending Unavailable LANDAVERDE ., DR KATIUSKA Da Silva Primary Care Unavailable ARMEN YUEN Admitting Unavailable ARMEN YUEN Attending Unavailable SUSAN, DR LOPEZ Davis Consulting Unavailable LANDAVERDE ., DR KATIUSKA Da Silva Primary Care Unavailable ARMEN YUEN Consulting Unavailable MD Lopez Wilson Attending Provider Lopez Wilson Attending Unavailable Lopez Wilson Admitting Unavailable Jenn Germain MD Primary Care Provider [phone] LUCIS, STEFFANIE H Attending Unavailable PLESHEEBA PENALOZA Attending Unavailab le TIMMIS, STEFFANIE H Referring Unavailable TIMMISSTEFFANIE Attending Unavailable TIMMISSTEFFANIE Attending Unavailable JENN GERMAIN Referring Unavailable PLESHEEBA PENALOZA Attending Unavailab le TIMMIS, STEFFANIE Betancourt Referring Unavailable PLEASNICKSHEEBA Attending Unavailab le TIMMIS, STEFFANIE H Referring Unavailable TIMMIS, STEFFANIE H Attending Unavailable MitziRadha Attending Unavailable MitziRadha Attending Unavailable MitziRadha Attending Unavailable MitziRadha almonte Admitting Unavailable MitziRadha almonte Primary Care Physician [phone] Radha Cartagena Attending Unavailable MitziRadha Admitting Unavailable Radha Cartagena Attending Unavailable Radha Cartagena Attending Unavailable Allergies Allergy Classification Reported Allergen(s) Allergy Type Date of Onset Reaction(s) Facility (4 sources) Meperidine; Translations: [Demerol] Drug All[facility] ([facility] source) Meperidine Drug Allergy 1 [facility] Repository (13 sources) Meperidine; Translations: [meperidine] Drug Allergy 4 Rash, Eruption of skin (disorder) [facility] Work Phone: Medications Current Medications Medication Drug Class(es) Dates Sig (Normalized) Sig (Original) [id number] actuat albuterol 0.09 mg/actuat metered dose inhaler (12 sources) beta2-Adrenergic Agonist take 2 puff(s) by inhalation every six hours for wheezing albuterol HFA 90 mcg/act inhaler Inhale 2 puffs every 6 (six) hours if needed for wheezing Active cholecalciferol 0.05 mg oral tablet (12 sources) Vitamin D take 1 tablet by mouth once daily cholecalciferol (Vitamin D-3) 50 MCG (1999 UT) tablet Take 1 tablet by mouth 1 (one) time each day at the same time Active melatonin 3 mg oral capsule (12 sources) take 2 capsules by mouth at bedtime Melatonin 3 MG capsule Take 6 mg by mouth at bedtime Active Multiple Vitamins-Minerals (multivitamin with minerals) tablet (12 sources) take 1 tablet by mouth once daily Multiple Vitamins-Minerals (multivitamin with minerals) tablet Take 1 tablet by mouth Daily Active Multiple Vitamins-Minerals (PRESERVISION AREDS 2 PO) (12 sources) Multiple Vitamins-Minerals (PRESERVISION AREDS 2 PO) Take by mouth Active omeprazole 20 mg delayed release oral tablet (12 sources) Proton Pump Inhibitor omeprazole OTC (PriLOSEC OTC) 20 MG EC tablet Take 40 mg by mouth in the morning. Take before meals. Active vitamin k 0.1 mg oral tablet (12 sources) take 10 mg by mouth once daily phytonadione (Vitamin K) 100 MCG tablet Take 10 mg by mouth Daily Active Problems Active Problems Problem Classification Problem Date Documented Date Episodic/Chronic Conditions associated with dizziness or vertigo (16 sources) Benign paroxysmal positional vertigo; Translations: [Benign paroxysmal vertigo, unspecified ear] Onset: 03-21-2024 03-21-2024 Episodic Esophageal disorders (13 sources) Gastroesophageal reflux disease; Translations: [Gastro-esophageal reflux disease without esophagitis] Onset: 05-18-2023 05-18-2023 Chronic Nonmalignant breast conditions (12 sources) Fibrocystic disease of breast; Translations: [Diffuse cystic mastopathy of unspecified breast] Onset: 05-18-2023 05-18-2023 Chronic Other and unspecified benign neoplasm (9 sources) Benign neoplasm of bone; 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, unspecified] Onset: 03-20-2024 03-20-2024 Episodic Other connective tissue disease (4 sources) Pain in left foot; Translations: [PAIN IN LEFT FOOT] Onset: 06-14-2022 Episodic Other lower respiratory disease (9 sources) Chronic cough; Translations: [Chronic cough] Onset: 03-20-2024 03-20-2024 Episodic Other lower respiratory disease (1 source) Cough 12-23-2022 Episodic Other nervous system disorders (8 sources) Impairment of balance; Translations: [Other abnormalities of gait and mobility] Onset: 03-21-2024 03-21-2024 Episodic Other nutritional; endocrine; and metabolic disorders (9 sources) Overweight in adulthood with body mass index of 25 or more but less than 30; Translations: [Body mass index (BMI) 27.0-27.9, adult] Onset: 03-20-2024 03-20-2024 Episodic Other upper respiratory disease (9 sources) Congestion of nasal sinus; Translations: [Nasal congestion] Onset: 03-20-2024 03-20-2024 Episodic Other upper respiratory infections (1 source) Sinusitis 03-20-2023 Chronic Thyroid disorders (20 sources) Multinodular goiter; Translations: [Nontoxic multinodular goiter] Onset: 05-18-2023 05-18-2023 Chronic Unclassified (3 sources) Patient encounter status 05-13-2024 Past or Other Problems Problem Classification Problem Date Documented Date Episodic/Chronic Lymphadenitis (12 sources) Hilar lymphadenopathy ; Translations: [Localized enlarged lymph nodes] Onset: 05-18-2023 05-18-2023 Episodic Other bone disease and musculoskeletal deformities (12 sources) Osteopenia; Translations: [Other specified disorders of bone density and structure, unspecified site] Onset: 05-18-2023 05-18-2023 Episodic Other lower respiratory disease (12 sources) Nodule of lung; Translations: [Solitary pulmonary [...] Test Name Value Interpretation Reference Range Facility Ambulatory Visit Summaryon 0 05-29-2024 Ambulatory Visit Summary Ambulatory Visit Summary REYNA BENAVIDES :1950 Visit Date:05/29/2024 Ambulatory Visit Instructions Your Diagnosis Seasonal allergies Acid reflux Adult BMI 27.0-27.9 kg/sq m Non-smoker Your Care Team Attending Physician - Radha Quinteros Primary Care Physician - Radha Quinteros This Is Your Medications List omeprazole (omeprazole 40 mg Chapin) Procedures Performed Appendectomy, Biopsy of breast, Carpal tunnel. Discharge Vitals Heart Rate (Peripheral) 68 Respiratory Rate 18 Blood Pressure 128/74 Height 167.0 cm Height 66 in Weight 75.50 kg Weight 166.449 lb BMI 27.07 Medications What How Much When Instructions Unchanged omeprazole (omeprazole 40 mg Dayne-) See instructions TAKE 1 CAPSULE BY MOUTH EVERY DAY Medications and Immunizations Administered Given triamcinolone acetonide 40 mg/mL Inj Susp, 40 mg, IntraMuscular. For: Seasonal allergies, Acid reflux Allergies Demerol (Rash) Problems Ongoing - Any problem that you are currently receiving treatment for. Acid reflux Adult BMI 27.0-27.9 kg/sq m Chronic cough Congestion of nasal sinus Cough Osteoma Screening for hyperlipidemia Screening for thyroid disorder Seasonal allergies Sinusitis Wellness examination Patient Survey You may receive a survey via text or e-mail asking about your office visit. Please share your experience with us by completing your survey. We appreciate your feedback and thank you for choosing us for your care. [facility] Family Medicine Office/Clini c Noteon 05-29-2024 Family Medicine Office/Clinic Note Family Medicine Office/Clinic Note HPI Staff Please speak with patient about scheduling an AWV. Reyna is a 73 year old female presenting for medication check Gerd: pt taking omeprazole daliy Pt would like to get a kenalog shot today for her allergies annual lab work on April no refill needed History of Present Illness pt presents today for annual follow up. would like kenalog injection Review of Systems PHQ Score Initial Depression Screen Score: 0 SCORE Physical Exam Vitals & Measurements HR: 68(Peripheral) RR: 18 BP: 128/74 SpO2: 98% HT: 66 in HT: 167.0 cm WT: 75.50 kg WT: 166.449 lb BMI: 27.07 General: alert, no acute distress ENMT: oral mucosa moist, no pharyngeal erythema or exudate Cardiovascular: regular rate and rhythm, normal peripheral perfusion Respiratory: Lungs CTA, respirations non labored Extremities: no deformity, no trauma Neurological: oriented x 4, LOC appropriate for age, CN II-XII intact, motor strength equal & normal bilaterally, speech normal Assessment/Plan 1. Seasonal allergies (J30.2: Other seasonal allergic rhinitis) pt presents today for annual visit. is c/o worsening seasonal allergies. will give Kenalog in office today. reviewed recent labs. pt is thinking about coming in for well woman exam in January. otherwise she will return in 1 year Ordered: triamcinolone, 40 mg = 1 mL, Injection, IntraARTICULAR, Once, Stop date 05/29/24 11:42:00 EDT, Routine, Start date 05/29/24 11:42:00 EDT, 05/29/24 11:42:00 EDT triamcinolone, 40 mg = 1 mL, Injection, IntraMuscular, Once, Stop date 05/29/24 11:28:00 EDT, Routine, Start date 05/29/24 11:28:00 EDT, 05/29/24 11:28:00 EDT 2. Acid reflux (K21.9: Gastro-esophageal reflux disease without esophagitis) just sent refills for omeprazole the other day. she will call when she needs refills Ordered: triamcinolone, 40 mg = 1 mL, Injection, IntraMuscular, Once, Stop date 05/29/24 11:28:00 EDT, Routine, Start date 05/29/24 11:28:00 EDT, 05/29/24 11:28:00 EDT 3. Adult BMI 27.0-27.9 kg/sq m (Z68.27: Body mass index [BMI] 27.0-27.9, adult) BMI education given Ordered: albuterol, 2 puff(s), Inhalation, q6hr, 8.5 gm, [id number], cm, 02/08/23 15:30:00 EST, Height/Length Dosing, 76.5, kg, 02/08/23 15:30:00 EST, Weight Dosing 4. Non-smoker (Z78.9: Other specified health status) continue not smoking Ordered: albuterol, 2 puff(s), Inhalation, q6hr, 8.5 gm, Refill(s) 0, [facility]/pharmacy #[id number], 167, cm, 02/08/23 15:30:00 EST, Height/Length Dosing, 76.5, kg, 02/08/23 15:30:00 EST, Weight Dosing Orders: methylPREDNISolone, = 1 packet(s), Oral, Once, as directed on package labeling, # 21 tab(s), Refills(s) 0, [id number] 167, cm, 02/08/23 15:30:00 EST, Height/Length Dosing, 76.5, kg, 02/08/23 15:30:00 EST, Weight Dosing omeprazole, See Instructions, TAKE 1 CAPSULE BY MOUTH EVERY DAY, # 90 cap(s), Refills(s) 1, Pharmacy: [id number], 167, cm, 02/08/23 15:30:00 EST, Height/Length Dosing, 76.5, kg, 02/08/23 15:30:00 EST, Weight Dosing Follow-up No qualifying data available Problem List/Past Medical History Ongoing Acid reflux Adult BMI 27.0-27.9 kg/sq m Chronic cough Congestion of nasal sinus Cough Osteoma Screening for hyperlipidemia Screening for thyroid disorder Seasonal allergies Sinusitis Wellness examination Historical No qualifying data Procedure/Surgical History Appendectomy, Biopsy of breast, Carpal tunnel. Medications omeprazole 40 mg Cap-DR, See Instructions Allergies Demerol (Rash) Social History Alcohol Never., 05/28/2024 Substance Abuse Never., 05/28/2024 Tobacco Never (less than 100 in lifetime) Tobacco Use:., 05/28/2024 Family History Acute myocardial infarction: Father. Primary [...] virus vaccine, inactivated 12/28/2012 Recorded Normal [facility] Comment on above: Result Comment: Elec tronically Signed By: Radha Quinteros\.br\Date and Time Signed: 05/29/24 11:45 EDT Reminderson 05-23-2024 Reminders Reminders -- From: Radha Quinteros To: [facility] - Clinical; Sent: 05/23/2024 08:59:46 EDT Show up: 05/23/2024 08:51:00 EDT Subject: Ambulatory Reminder Due Date/Time: 05/24/2024 08:50:00 EDT looks like she has anemia. I will send in iron supplement prescription to pharmacy. Unless she just wants to get them OTC. Is she having any symptoms? fatigue dizziness, or craving ice? is she having any dark, tarry stools? Results: Date Result Name Ind Value Ref Range 05/22/2024 8:48 WBC 4.1 E9/L (4.0 - 11.0) 05/22/2024 8:48 RBC 4.7 E12/L (4.3 - 5.9) 05/22/2024 8:48 HGB (L) 11.4 gm/dL (12.0 - 16.0) 05/22/2024 8:48 Hct 35.5 % (34.0 - 46.0) 05/22/2024 8:48 MCV (L) 75.0 fL (80.0 - 100.0) 05/22/2024 8:48 MCH (L) 24.2 pg (27.0 - 34.0) 05/22/2024 8:48 MCHC 32.3 gm/dL (31.4 - 36.0) 05/22/2024 8:48 RDW (H) 17.4 % (10.9 - 14.2) 05/22/2024 8:48 Platelet 226.0 E9/L (150.0 - 500.0) 05/22/2024 8:48 MPV 9.6 fL (6.4 - 10.8) 05/22/2024 8:48 Neutro Auto 64.0 % (36.0 - 75.0) 05/22/2024 8:48 Lymph Auto 19.1 % (14.0 - 50.0) 05/22/2024 8:48 [place] Auto 12.3 % (4.0 - 14.0) 05/22/2024 8:48 Eos Auto 3.9 % (0.0 - 8.0) 05/22/2024 8:48 Basophil Auto 0.7 % (0.0 - 2.0) 05/22/2024 8:48 Neutro Absolute 2.6 E9/L (2.0 - 7.5) 05/22/2024 8:48 Lymph Absolute (L) 0.8 E9/L (1.0 - 4.0) 05/22/2024 8:48 [place] Absolute 0.5 E9/L (0.2 - 1.0) 05/22/2024 8:48 Eos Absolute 0.2 E9/L (0.0 - 0.5) 05/22/2024 8:48 Basophil Absolute 0.0 E9/L (0.0 - 0.2) 05/22/2024 8:48 RBC Morph SEE MORPHOLOGY 05/22/2024 8:48 Anisocytosis PRESENT 05/22/2024 8:48 Microcyte PRESENT 05/22/2024 8:48 Hypochromasia PRESENT 05/22/2024 8:48 Glucose Lvl 105 mg/dL (55 - 199) 05/22/2024 8:48 BUN 12 mg/dL (5 - 21) 05/22/2024 8:48 Creatinine 0.7 mg/dL (0.5 - 1.3) 05/22/2024 8:48 eGFR 90 mL/min/1.73 m2 (>=59 - ) 05/22/2024 8:48 BUN/Creat Ratio 17 (10 - 20) 05/22/2024 8:48 Sodium Lvl 138 mmol/L (135 - 145) 05/22/2024 8:48 Potassium Lvl 4.4 mmol/L (3.5 - 5.3) 05/22/2024 8:48 Chloride 105 mmol/L (101 - 111) 05/22/2024 8:48 CO2 29 mmol/L (21 - 31) 05/22/2024 8:48 AGAP 8 mEq/L (6 - 16) 05/22/2024 8:48 Calcium Lvl 9.3 mg/dL (8.9 - 11.1) 05/22/2024 8:48 Alk Phos 60 Int._Unit/L (21 - 98) 05/22/2024 8:48 ALT 11 Int._Unit/L (6 - 46) 05/22/2024 8:48 AST 16 Int._Unit/L (5 - 43) 05/22/2024 8:48 Total Protein 6.3 gm/dL (6.0 - 7.8) 05/22/2024 8:48 Albumin Lvl 4.1 gm/dL (3.3 - 5.0) 05/22/2024 8:48 Globulin 2.2 gm/dL (1.4 - 4.0) 05/22/2024 8:48 A/G Ratio 1.9 (1.1 - 2.2) 05/22/2024 8:48 Bili Total 0.9 mg/dL (0.0 - 1.1) 05/22/2024 8:48 Chol 164 mg/dL (120 - 200) 05/22/2024 8:48 Trig (H) 163 mg/dL ( - <=149) 05/22/2024 8:48 HDL 44 mg/dL 05/22/2024 8:48 LDL Direct 113 mg/dL ( - <=129) 05/22/2024 8:48 VLDL 33 mg/dL (7 - 40) 05/22/2024 8:48 TSH 2.44 mcIU/mL (0.34 - 5.60) -- From: Megha Napoles M.A. (B - Clinical) To: Radha Quinteros; Sent: 05/23/2024 09:55:46 EDT Show up: 05/23/2024 09:51:00 EDT Subject: RE: Ambulatory Reminder understands, and she does already take OTC iron, but she only takes this right before she gives blood, so she will start taking this every day.... she does not have any sx that you mentioned Normal [facility] CBC w/ Auto Diffon Anisocytosis Ql (Bld) PRESENT Invalid Interpretation Code [facility] Comment on above: Performed By: #### 2 [id number] #### [facility] [address] [place] [address] Basophils/100 WBC (Bld) 0.7 % Normal 0.0-2.0 [facility] Comment on above: Performed By: #### 2 [id number] #### [facility] [address] [place] [address] Basophils/Leukocytes Auto (Bld) [Pure # fraction] 0.0 E9/L Normal 0.0-0.2 [facility] Comment on above: Performed By: #### 2 [id number] #### [facility] [address] [place] [address] Eosinophils (Bld) [#/Vol] 0.2 E9/L Normal 0.0-0.5 [facility] Comment on above: Performed By: #### 2 [id number] #### [facility] [address] [place] [address] Eosinophils/100 WBC (Bld) 3.9 % Normal 0.0-8.0 [facility] Comment on above: Performed By: #### 2 [id number] #### [facility] [address] [place] [address] Erythrocyte distribution width (RBC) [Ratio] 17.4 % High 10.9-14.2 [facility] Comment on above: Performed By: #### 2 [id number] #### [facility] [address] [place] [address] Hematocrit (Bld) [Volume fraction] 35.5 % Normal 34.0-46.0 [facility] Comment on above: Performed By: #### 2 [id number] #### [facility] [address] [place] [address] Hemoglobin (Bld) [Mass/Vol] 11.4 g/dL Low 12.0-16.0 [facility] Comment on above: Performed By: #### 2 [id number] #### [facility] [address] [place] [address] Hypochromia Auto Ql (Bld) PRESENT Invalid Interpretation Code [facility] Comment on above: Performed By: #### 2 [id number] #### [facility] [address] [place] [address] Lymphocytes (Bld) [#/Vol] 0.8 E9/L Low 1.0-4.0 [facility] Comment on above: Performed By: #### 2 [id number] #### [facility] [address] [place] [address] Lymphocytes/100 WBC (Bld) 19.1 % Normal 14.0-50.0 [facility] Comment on above: Performed By: #### 2 [id number] #### [facility] [address] [place] [address] MCH (RBC) [Entitic mass] 24.2 pg Low 27.0-34.0 [facility] Comment on above: Performed By: #### 2 [id number] #### [facility] [address] [place] [address] MCHC (RBC) [Mass/Vol] 32.3 g/dL Normal 31.4-36.0 [facility] Comment on above: Performed By: #### 2 [id number] #### [facility] [address] [place] [address] MCV (RBC) [Entitic vol] 75.0 fL Low 80.0-100.0 [facility] Comment on above: Performed By: #### 2 [id number] #### [facility] [address] [place] [address] Microcytes Ql (Bld) PRESENT Invalid Interpretation Code [facility] Comment on above: Performed By: #### 2 [id number] #### [facility] [address] [place] [address] Monocytes (Bld) [#/Vol] 0.5 E9/L Normal 0.2-1.0 [facility] Comment on above: Performed By: #### 2 [id number] #### [facility] [address] [place] [address] Neutrophils (Bld) [#/Vol] 2.6 E9/L Normal 2.0-7.5 [facility] Comment on above: Performed By: #### 2 [id number] #### [facility] [address] [place] [address] Neutrophils/100 WBC (Bld) 64.0 % Normal 36.0-75.0 [facility] Comment on above: Performed By: #### 2 [id number] #### [facility] [address] [place] [address] Platelet mean volume (Bld) [Entitic vol] 9.6 fL Normal 6.4-10.8 [facility] Comment on above: Performed By: #### 2 [id number] #### [facility] [address] [place] [address] Platelets (Bld) [#/Vol] 226.0 E9/L Normal 150.0-500.0 [facility] Comment on above: Performed By: #### 2 [id number] #### [facility] [address] [place] [address] RBC (Bld) [#/Vol] 4.7 E12/L Normal 4.3-5.9 [facility] Comment on above: Performed By: #### 2 [id number] #### [facility] [address] [place] [address] RBC size Nom (Bld) SEE MORPHOLOGY Invalid Interpretation Code [facility] Comment on above: Performed By: #### 2 [id number] #### [facility] [address] [place] [address] WBC corrected for nucl RBC Auto (Bld) [#/Vol] 4.1 E9/L Normal 4.0-11.0 [facility] Comment on above: Performed By: #### 2 [id number] #### [facility] [address] [place] [address] CHEMISTRYOrdered By: SYSTEM SYSTEM on 05-22-2024 Albumin [Mass/Vol] 4.1 g/dL Normal 3.3 - 5.0 gm/dL [facility] Albumin/Globulin [Mass ratio] 1.9 {ratio} Normal 1.1 - 2.2 [facility] ALP [Catalytic activity/Vol] 60 [iU]/d Normal 21 - 98 Int._Unit/L [facility] ALT No additional P-5'-P [Catalytic activity/Vol] 11 [iU]/d Normal 6 - 46 Int._Unit/L [facility] Anion gap [Moles/Vol] 8 mmol/L Normal 6 - 16 mEq/L R [facility] AST [Catalytic activity/Vol] 16 [iU]/d Normal 5 - 43 Int._Unit/L [facility] Bilirubin [Mass/Vol] 0.9 mg/dL Normal 0.0 - 1 .1 mg/dL [facility] Calcium [Mass/Vol] 9.3 mg/dL Normal 8.9 - 11. 1 mg/dL [facility] Chloride [Moles/Vol] 105 mmol/L Normal 101 - 1 11 mmol/L [facility] Cholesterol [Mass/Vol] 164 mg/dL Normal 120 - 200 mg/dL [facility] Cholesterol in HDL [Mass/Vol] 44 mg/dL Invalid Interpretation Code [facility] Comment on above: Result Comment: '>= 60 LOW RISK' '<= 40 HIGH RISK' Cholesterol in LDL [Mass/Vol] 113 mg/dL Normal <=129mg/dL [facility] Cholesterol in VLDL [Mass/Vol] 33 mg/dL Normal 7 - 40 mg/dL [facility] CO2 [Moles/Vol] 29 mmol/L Normal 21 - 31 mmol/L [facility] Creatinine [Mass/Vol] 0.7 mg/dL Normal 0.5 - 1.3 mg/dL [facility] eGFR 90 mL/min/1.73 m2 Normal >=59mL/min /1. 73 m2 [facility] Globulin (S) [Mass/Vol] 2.2 g/dL Normal 1.4 - 4.0 gm/dL [facility] Glucose [Mass/Vol] 105 mg/dL Normal 55 - 199 mg/dL [facility] Potassium [Moles/Vol] 4.4 mmol/L Normal 3.5 - 5.3 mmol/L [facility] Protein [Mass/Vol] 6.3 g/dL Normal 6.0 - 7.8 gm/dL [facility] Sodium [Moles/Vol] 138 mmol/L Normal 135 - 145 mmol/L [facility] Triglyceride [Mass/Vol] 163 mg/dL High <=149mg/dL [facility] TSH Qn 2.44 m[IU]/L Normal 0.34 - 5.60 mcIU/mL [facility] Urea nitrogen [Mass/Vol] 12 mg/dL Normal 5 - 21 mg/dL [facility] Urea nitrogen/Creatinine [Mass ratio] 17 mg/mg Normal 10 - 20 [facility] CMPon 05-22-2024 Albumin [Mass/Vol] 4.1 g/dL Normal 3.3-5.0 [facility] Comment on above: Performed By: #### 2 [id number] #### [facility] [address] [place] [address] Albumin/Globulin (S) [Mass conc ratio] 1.9 Normal 1.1-2.2 [facility] Comment on above: Performed By: #### 2 [id number] #### [facility] [address] [place] [address] ALP [Catalytic activity/Vol] 60 Int._Unit/L Normal 21-98 [facility] Comment on above: Performed By: #### 2 [id number] #### [facility] [address] [place] [address] ALT No additional P-5'-P [Catalytic activity/Vol] 11 Int._Unit/L Normal 6-46 [facility] Comment on above: Performed By: #### 2 [id number] #### [facility] [address] [place] [address] Anion gap [Moles/Vol] 8 mmol/L Normal 6-16 [facility] Comment on above: Performed By: #### 2 [id number] #### [facility] [address] [place] [address] AST [Catalytic activity/Vol] 16 Int._Unit/L Normal 5-43 [facility] Comment on above: Performed By: #### 2 [id number] #### [facility] [address] [place] [address] Bilirubin [Mass/Vol] 0.9 mg/dL Normal 0.0-1.1 [facility] Comment on above: Performed By: #### 2 [id number] #### [facility] [address] [place] [address] Calcium [Mass/Vol] 9.3 mg/dL Normal 8.9-11.1 [facility] Comment on above: Performed By: #### 2 [id number] #### [facility] [address] [place] [address] Chloride [Moles/Vol] 105 mmol/L Normal 101-111 [facility] Comment on above: Performed By: #### 2 [id number] #### [facility] [address] [place] [address] CO2 [Moles/Vol] 29 mmol/L Normal 21-31 [facility] Comment on above: Performed By: #### 2 [id number] #### [facility] [address] [place] [address] Creatinine [Mass/Vol] 0.7 mg/dL Normal 0.5-1.3 [facility] Comment on above: Performed By: #### 2 [id number] #### [facility] [address] [place] [address] Globulin (S) [Mass/Vol] 2.2 g/dL Normal 1.4-4.0 [facility] Comment on above: Performed By: #### 2 [id number] #### [facility] [address] [place] [address] Glucose [Mass/Vol] 105 mg/dL Normal 55-199 [facility] Comment on above: Performed By: #### 2 [id number] #### [facility] [address] [place] [address] Potassium [Moles/Vol] 4.4 mmol/L Normal 3.5-5.3 [facility] Comment on above: Performed By: #### 2 [id number] #### [facility] [address] [place] [address] Protein [Mass/Vol] 6.3 g/dL Normal 6.0-7.8 [facility] Comment on above: Performed By: #### 2 [id number] #### [facility] [address] [place] [address] Sodium [Moles/Vol] 138 mmol/L Normal 135-145 [facility] Comment on above: Performed By: #### 2 [id number] #### [facility] [address] [place] [address] Urea nitrogen [Mass/Vol] 12 mg/dL Normal 5-21 [facility] Comment on above: Performed By: #### 2 [id number] #### [facility] [facility] [address] [place] [address] Urea nitrogen/Creatinine [Mass ratio] 17 No Units Normal 10-20 [facility] Comment on above: Performed By: #### 2 [id number] #### [facility] [address] [place] [address] HEMATOLOGYOrdered By: SYSTEM SYSTEM on 05-22-2024 Anisocytosis Ql (Bld) PRESENT *NA* (05/22/24 8:48 AM) Invalid Interpretation Code Remisol Heme Basophils/100 WBC (Bld) 0.7 % Normal 0.0 - 2.0 % [facility]e Basophils/Leukocytes Auto (Bld) [Pure # fraction] 0.0 E9/L Normal 0.0 - 0.2 E9/L [facility] Eosinophils (Bld) [#/Vol] 0.2 E9/L Normal 0.0 - 0.5 E9/L [facility] Eosinophils/100 WBC (Bld) 3.9 % Normal 0.0 - 8.0 % [facility] Erythrocyte distribution width (RBC) [Ratio] 17.4 % High 10.9 - 14.2 % [facility] Hematocrit (Bld) [Volume fraction] 35.5 % Normal 34.0 - 46.0 % [facility] Hemoglobin (Bld) [Mass/Vol] 11.4 g/dL Low 12.0 - 16.0 gm/dL [facility] Hypochromia Auto Ql (Bld) PRESENT *NA* (05/22/24 8:48 AM) Invalid Interpretation Code Remisol Heme Lymphocytes (Bld) [#/Vol] 0.8 E9/L Low 1.0 - 4.0 E9/L [facility]e Lymphocytes/100 WBC (Bld) 19.1 % Normal 14.0 - 50.0 % [facility]e MCH (RBC) [Entitic mass] 24.2 pg Low 27.0 - 34.0 pg Rem[facility] Heme MCHC (RBC) [Mass/Vol] 32.3 g/dL Normal 31.4 - 36.0 gm/dL [facility] MCV (RBC) [Entitic vol] 75.0 fL Low 80.0 - 100.0 fL [facility] Microcytes Ql (Bld) PRESENT *NA* (05/22/24 8:48 AM) Invalid Interpretation Code Remisol Heme Monocytes (Bld) [#/Vol] 0.5 E9/L Normal 0.2 - 1.0 E9/L [facility] Monocytes/100 WBC (Bld) 12.3 % Normal 4.0 - 14.0 % [facility]e Neutrophils (Bld) [#/Vol] 2.6 E9/L Normal 2.0 - 7.5 E9/L [facility] Neutrophils/100 WBC (Bld) 64.0 % Normal 36.0 - 75.0 % [facility] Platelet mean volume (Bld) [Entitic vol] 9.6 fL Normal 6.4 - 10.8 fL [facility] Platelets (Bld) [#/Vol] 226.0 E9/L Normal 150.0 - 500.0 E9/L [facility] RBC (Bld) [#/Vol] 4.7 E12/L Normal 4.3 - 5.9 E12/L [facility] RBC size Nom (Bld) SEE MORPHOLOGY *NA* (05/22/24 8:48 AM) Invalid Interpretation Code [facility] Heme WBC corrected for nucl RBC Auto (Bld) [#/Vol] 4.1 E9/L Normal 4.0 - 11.0 E9/L [facility] Lipid Panelon 05-22-2024 Cholesterol [Mass/Vol] 164 mg/dL Normal 120-200 [facility] Comment on above: Performed By: #### 2 [id number] #### [facility] [address] [place] [address] Cholesterol in HDL [Mass/Vol] 44 mg/dL Invalid Interpretation Code [facility] Comment on above: Result Comment: '>= 60 LOW RISK' '<= 40 HIGH RISK' Performed By: #### 2 [id number] #### [facility] [address] [place] [address] Cholesterol in LDL [Mass/Vol] 113 mg/dL Normal <=129 [facility] Comment on above: Performed By: #### 2 [id number] #### [facility] [address] [place] [address] Cholesterol in VLDL [Mass/Vol] 33 mg/dL Normal 7-40 [facility] Comment on above: Performed By: #### 2 [id number] #### [facility] [address] [place] [address] Triglyceride [Mass/Vol] 163 mg/dL High <=149 [facility] Comment on above: Performed By: #### 2 [id number] #### [facility] [address] [place] [address] TSHon 05-22-2024 TSH Qn 2.44 m[IU]/L Normal 0.34-5.60 [facility] Comment on above: Performed By: #### 2 [id number] #### [facility] [address] [place] [address] eGFRon 05-22-2024 eGFR 90 mL/min/1.73 m2 Normal >=59 [facility] Comment on above: Performed By: #### 1 [id number] #### [facility] [address] [place] [address] Consultation Noteon 08-17-19 24 Consultation Note [id number] 28#1.00TIFF Normal [facility] 08-15-2023 Consent [id number] F3#1.00TIFF Normal [facility] Nurse Consultation Noteon Nurse Consultation Note Reason [...] influenza virus vaccine, inactivated 12/28/2012 Recorded Normal [facility] RAD - CT Reporton 08-09-2023 RAD - CT Report [id number] CB#1.00TIFF Normal [facility] RAD - Ultrasound Reporton RAD - Ultrasound Report [id number] 65#1.00TIFF Normal [facility] Walter 06-08-2023 L Specimen: [id number] Received: 06/12/23 Status: HÉCTOR Hernandez Num: [id number] Spec Type: Cytology Subm Dr: Lopez Wilson MD Tissues: A FNA SLIDES NOPATH (LEFT THYROID NODULE SUPERIOR) B FNA SLIDES NOPATH (RIGHT THYROID NODULE INFERIO) Procedures: Cyto Int and Re/2, PAPSTN/12 Age/ Patient Sex Location Account Attending Physician Reyna Benavides 72/F LABE[facility] [id number] Lopez Wilson MD SPEC NUM: [id number] RECD: 06/12/23 STATUS: HÉCTOR HERNANDEZ NUM: [id number] MJ: 06/08/23-[address]: Lopez Wilson MD ENTERED: 06/12/23-[address]: Abdiaziz Azul HILARY H MD SPEC TYPE: Cytology DEPT: ZOIE PAK ENTERED BY: [id number] RECV BY: [id number] ORDERED: Cyto Int and Re/2, PAPSTN/12 ORDERED: Cyto Int and Re/2, PAPSTN/12 Pathological Diagnosis A, left thyroid nodule superior, FNA cytology: -Appropriate for assessment -The [place] system is category 2: Benign -Fibrin trapping [...] inferior, FNA cytology: -Appropriate for assessment -The [place] system is category 2: Benign -A few adequate number of small follicular groups are present in the ThinPrep smear and 2 other aspirate smears -The follicular cells are all small and bland looking Specimen: [id number] Received: 06/12/23 Status: HÉCTOR Hernandez Num: [id number] Spec Type: Cytology Subm Dr: Lopez Wilson MD Tissues: A FNA SLIDES NOPATH (LEFT THYROID NODULE SUPERIOR) B FNA SLIDES NOPATH (RIGHT THYROID NODULE INFERIO) Procedures: Cyto Int and Re/2, PAPSTN/12 Patient: Reyna Benavides Tere [id number] (Continued) Specimen: [id number] Received: 06/12/23 (Continued) Signed (signatur e on file) Katya Norris MD 06/13/23 1716 Specimen: [id number] Received: 06/12/23 Status: HÉCTOR Hernandez Num: [id number] Spec Type: Cytology Subm Dr: Lopez Wilson MD Tissues: A FNA SLIDES NOPATH (LEFT THYROID NODULE SUPERIOR) B FNA SLIDES NOPATH (RIGHT THYROID NODULE INFERIO) Procedures: Cyto Int and Re/2, PAPSTN/12 Patient: Reyna Benavides [id number] (Continued) Specimen: [id number] Received: 06/12/23 (Continued) Clinical Information Thyroid nodules History of basal cell carcinoma (skin of the face) Gross Description A. Received in Cytolyt labeled with the patient's name, date of and left thyroid nodule superior per requisition is 30 ml pink slightly cloudy fixed fluid. 1 Thin Prep slides are prepared. 4 alcohol fixed smears for pap are additionally received. (CC/de) B. Received in Cytolyt labeled with the patient's name, date of and right thyroid nodule inferior per requisition is 30 ml very pale pink clear fixed fluid. 1 Thin Prep slides are prepared. 4 alcohol fixed smears for pap are additionally received. (CC/de) CPT Codes 89066 x 2 Specimen: [id number] Received: 06/12/23 Status: HÉCTOR Hernandez Num: [id number] Spec Type: Cytology Subm Dr: Lopez Wilson MD Tissues: A FNA SLIDES NOPATH (LEFT THYROID NODULE SUPERIOR) B FNA SLIDES NOPATH (RIGHT THYROID NODULE INFERIO) Procedures: Cyto Int and Re/2, PAPSTN/12 Patient: Reyna Benavides [id number] (Continued) Signed (signatur e on file) Katya Norris MD 06/13/23 1716 Normal [facility] RAD - Ultrasound Reporton RAD - Ultrasound Report [id number] 1A#1.00TIFF Normal [facility] RAD - Ultrasound Report [id number] EC#1.00TIFF Normal [facility] Consultation Noteon 05-30-19 Consultation Note [id number] 1E#1.00TIFF Normal [facility] CBC AUTO DIFFon 05-03-2022 BASO # 0.0 103/ul Normal 0.0-0.1 [facility] Comment on above: Performed By: #### H FPFCBC #### [facility] [address] [address] [address] Jean-Claude Norris Basophils/100 WBC (Bld) 0.7 % Normal 0.2-2.0 [facility] Comment on above: Performed By: #### H FPFCBC #### [facility] [address] [address] [address] Jean-Claude Norris EO # 0.2 103/ul Normal 0.0-0.7 [facility] Comment on above: Performed By: #### H FPFCBC #### [facility] [address] [address] [address] Jean-Claude Norris Eosinophils/100 WBC (Bld) 3.7 % Normal 0.9-7.0 [facility] Comment on above: Performed By: #### H FPFCBC #### [facility] [address] [place] [address] Dr. Jean-Claude Norris Erythrocyte distribution width (RBC) [Ratio] 14.8 % Normal 11.0-15.0 [facility] Comment on above: Performed By: #### H FPFCBC #### [facility] [address] [address] [address] Jean-Claude Norris Hematocrit (Bld) [Volume fraction] 36.5 % Normal 36.0-48.0 [facility] Comment on above: Performed By: #### H FPFCBC #### [facility] [address] [address] [address] Jean-Claude Norris Hemoglobin (Bld) [Mass/Vol] 11.6 g/dL Critically low 12.0-16.0 [facility] Comment on above: Performed By: #### H FPFCBC #### [facility] [address] [address] [address] Jean-Claude Norris IG # 0.01 10e3/ul Normal 0.00-0.03 [facility] Comment on above: Performed By: #### H FPFCBC #### [facility] [address] [place] [address] Dr. Jean-Claude Norris IG % 0.2 % Normal 0.0-0.5 [facility] Comment on above: Performed By: #### H FPFCBC #### [facility] [address] [address] [address] Jean-Claude Norris LYMPH # 0.8 103/ul Critically low 1.2-3.8 [facility] Comment on above: Performed By: #### H FPFCBC #### [facility] [address] [address] [address] Jean-Claude Norris Lymphocytes/100 WBC (Bld) 18.9 % Critically low 20.5-60.0 [facility] Comment on above: Performed By: #### H FPFCBC #### [facility] [address] [place] [address] Dr. Jean-Claude Norris MCH (RBC) [Entitic mass] 25.1 pg Critically low 26.7-34.0 [facility] Comment on above: Performed By: #### H FPFCBC #### [facility] [address] [place] [address] Dr. Jean-Claude Norris MCHC (RBC) [Mass/Vol] 31.8 g/dL Normal 29.9-35.2 [facility] Comment on above: Performed By: #### H FPFCBC #### [facility] [address] [place] [address] Dr. Jean-Claude Norris MCV (RBC) [Entitic vol] 78.8 fL Critically low 81.0-99.0 [facility] Comment on above: Performed By: #### H FPFCBC #### [facility] [address] [place] [address] Dr. Jean-Claude Norris MONO # 0.5 103/ul Normal 0.3-0.8 [facility] Comment on above: Performed By: #### H FPFCBC #### [facility] [address] [place] [address] Dr. Jean-Claude Norris Monocytes/100 WBC (Bld) 12.4 % Critically high 1.7-12.0 [facility] Comment on above: Performed By: #### H FPFCBC #### [facility] [address] [place] [address] Dr. Jean-Claude Norris NEUT # 2.7 103/ul Normal 1.4-6.5 [facility] Comment on above: Performed By: #### H FPFCBC #### [facility] [address] [place] [address] Dr. Jean-Claude Norris Neutrophils/100 WBC (Bld) 64.1 % Normal 43.0-75.0 [facility] Comment on above: Performed By: #### H FPFCBC #### [facility] [address] [place] [address] Dr. Jea-nClaude Norris Platelet mean volume (Bld) [Entitic vol] 11.4 fL Normal 9.5-13.5 [facility] Comment on above: Performed By: #### H FPFCBC #### [facility] [address] [place] [address] Dr. Jean-Claude Norris PLT 209 103/ul Normal 150-450 [facility] Comment on above: Performed By: #### H FPFCBC #### [facility] [address] [place] [address] Dr. Jean-Claude Norris RBC 4.63 106/ul Normal 4.20-5.40 [facility] Comment on above: Performed By: #### H FPFCBC #### [facility] [address] [place] [address] Dr. Jean-Claude Norris WBC 4.3 103/ul Normal 4.0-11.0 [facility] Comment on above: Performed By: #### H FPFCBC #### [facility] [address] [place] [address] Dr. Jean-Claude Norris [facility] GLYCOHEMOGLOBIN A1Con 05-03-2022 Glucose [Mass/Vol] 117 mg/dL Normal [facility] Comment on above: Performed By: #### H FPFA1C #### [facility] [address] [place] [address] Dr. Jean-Claude Norris HbA1c (Bld) [Mass fraction] 5.7 % Normal 4.5-6.2 [facility] Comment on above: Performed By: #### H FPFA1C #### [facility] [address] [place] [address] Dr. [facility] Albumin [Mass/Vol] 3.9 g/dL Normal 3.4-5.0 [facility] Comment on above: Performed By: #### H FPF #### [facility] [address] [place] [address] Dr. Jean-Claude Norris Albumin/Globulin [Mass ratio] 1.3 {ratio} Normal [facility] Comment on above: Performed By: #### H FPF #### [facility] [address] [place] [address] Dr. Jean-Claude Norris ALP [Catalytic activity/Vol] 69 U/L Normal 46-116 [facility] Comment on above: Performed By: #### H FPF #### [facility] [address] [place] [address] Dr. Jean-Claude Norris ALT [Catalytic activity/Vol] 23 U/L Normal 14-59 [facility] Comment on above: Performed By: #### H FPF #### [facility] [address] [place] [address] Dr. Jean-Claude Norris AST [Catalytic activity/Vol] 19 U/L Normal 15-37 [facility] Comment on above: Performed By: #### H FPF #### [facility] [address] [address] [address] Jean-Claude Norris Bilirubin [Mass/Vol] 1.0 mg/dL Normal 0.2-1.0 [facility] Comment on above: Performed By: #### H FPF #### [facility] [address] [address] [address] Jean-Claude Norris Calcium [Mass/Vol] 9.3 mg/dL Normal 8.5-10.1 [facility] Comment on above: Performed By: #### H FPF #### [facility] [address] [place] [address] Dr. Jean-Claude Norris Chloride [Moles/Vol] 106 mmol/L Normal 98-107 [facility] Comment on above: Performed By: #### H FPF #### [facility] [address] [place] [address] Dr. Jean-Claude Norris CHOL-HDL RATIO NORM SEE BELOW Normal [facility] Comment on above: Result Comment: 3.3 - 4.4 LOW RISK 4.4 - 7.1 AVERAGE RISK 7.1 - 11.0 MODERATE RISK >11.0 HIGH RISK Performed By: #### H FPF #### [facility] [address] [address] [address] Jean-Claude Norris Cholesterol [Mass/Vol] 183 mg/dL Normal <=200 [facility] Comment on above: Performed By: #### H FPF #### [facility] [address] [address] [address] Jean-Claude Norris Cholesterol in HDL [Mass/Vol] 46 mg/dL Normal 40-60 [facility] Comment on above: Performed By: #### H FPF #### [facility] [address] [address] [address] Jean-Claude Norris Cholesterol in LDL [Mass/Vol] 107.2 mg/dL Normal [facility] Comment on above: Performed By: #### H FPF #### [facility] [address] [address] [address] Jean-Claude Norris Cholesterol.total/Chol esterol in HDL [Mass ratio] 4.0 {ratio} Normal [facility] Comment on above: Performed By: #### H FPF #### [facility] [address] [address] [address] Jean-Claude Norris CO2 [Moles/Vol] 27.7 mmol/L Normal 21.0-32.0 [facility] Comment on above: Performed By: #### H FPF #### [facility] [address] [address] [address] Jean-Claude Norris Creatinine [Mass/Vol] 0.69 mg/dL Normal 0.55-1.02 [facility] Comment on above: Performed By: #### H FPF #### [facility] [address] [place] [address] Dr. Jean-Claude Norris Globulin (S) [Mass/Vol] 3.1 g/dL Normal [facility] Comment on above: Performed By: #### H FPF #### [facility] [address] [address] [address] Jean-Claude Norris Glucose [Mass/Vol] 125 mg/dL Critically high 74-106 T [facility] Comment on above: Performed By: #### H FPF #### [facility] [address] [address] [address] Jean-Claude Norris HDL NORMAL > or = 60 mg/dl - LOW CARDIOVASCULAR RISK <40 mg/dl - HIGH CARDIOVASCULAR RISK Normal [facility] Comment on above: Performed By: #### H FPF #### [facility] [address] [address] [address] Jean-Claude Norris LDL CALC NORMAL SEE BELOW Normal [facility] Comment on above: Result Comment: <100 mg/dl OPTIMAL 100 - 129 mg/dl NEAR OR ABOVE OPTIMAL 130 - 159 mg/dl BORDERLINE HIGH 160 - 189 mg/dl HIGH >190 mg/dl VERY HIGH Performed By: #### H FPF #### [facility] [address] [address] [address] Jean-Claude Norris Potassium [Moles/Vol] 4.3 mmol/L Normal 3.5-5.1 [facility] Comment on above: Performed By: #### H FPF #### [facility] [address] [address] [address] Jean-Claude Norris Protein [Mass/Vol] 7.0 g/dL Normal 6.4-8.2 [facility] Comment on above: Performed By: #### H FPF #### [facility] [address] [address] [address] Jean-Claude Norris Sodium [Moles/Vol] 142 mmol/L Normal 136-145 [facility] Comment on above: Performed By: #### H FPF #### [facility] [address] [place] [address] Dr. Jean-Claude Norris Triglyceride [Mass/Vol] 149 mg/dL Normal <=150 [facility] Comment on above: Performed By: #### H FPF #### [facility] [address] [address] [address] Jean-Claude Norris TSH 2.552 uIU/mL Normal 0.358-3.740 [facility] Comment on above: Performed By: #### H FPF #### [facility] [address] [place] [address] Dr. Jean-Claude Norris Urea nitrogen [Mass/Vol] 15.0 mg/dL Normal 7.0-18.0 [facility] Comment on above: Performed By: #### H FPF #### [facility] [address] [address] [address] Jean-Claude Norris Urea nitrogen/Creatinine [Mass ratio] 21.7 mg/mg Normal [facility] Comment on above: Performed By: #### H FPF #### [facility] [address] [address] [address] Jean-Claude Norris VLDL CALC 29.8 mg/dL Normal [facility] Comment on above: Performed By: #### H FPF #### [facility] [address] [place] [address] Dr. Jean-Claude Norris MG MAMM SCREEN 3D JENNA CADon 01-06-2022 MG MAMM SCREEN 3D JENNA CAD Patient: REYNA BENAVIDES Exam Date: 01/06/2022 : 1950 Gender:F Ordering : DR GISELA CASON [facility] Admission #: [id number] Family : Order #: [id number] CLICK HERE TO VIEW EXAM RADIOLOGY REPORT [...] breast cancer at age 58. LOCATION: [facility] BREAST COMPOSITION: Scattered areas fibroglandular density. [...] MD on 01/06/2022 at 14:45 Normal [facility] Vital Signs Date Time Vital Sign Value Performing Clinician Faci lity 03-20-2024 11:18-0500 Body height 165.1 cm Steffanie Mai MD Work Phone: [facility] 03-20-2024 11:18-0500 Body mass index (BMI) [Ratio] 27.62 kg/m2 Steffanie Mai MD Work Phone: [facility] 03-20-2024 11:18-0500 Body weight 75.3 kg Steffanie Mai MD Work Phone: [facility] 03-20-2024 11:18-0500 Diastolic blood pressure 75 mm[Hg] Steffanie Mai MD Work Phone: [facility] 03-20-2024 11:18-0500 Heart rate 69 /min Steffanie Mai MD Work Phone: [facility] 03-20-2024 11:18-0500 Systolic blood pressure 154 mm[Hg] Steffanie Mai MD Work Phone: [facility] 12-20-2023 12:57-0400 Body height 165.1 cm Steffanie Mai MD Work Phone: [facility] 12-20-2023 12:57-0400 Body mass index (BMI) [Ratio] 28.96 kg/m2 Steffanie Mai MD Work Phone: [facility] 12-20-2023 12:57-0400 Body weight 78.93 kg Steffanie Mai MD Work Phone: [facility] 12-20-2023 12:57-0400 Diastolic blood pressure 70 mm[Hg] Steffanie Mai MD Work Phone: [facility] 12-20-2023 12:57-0400 Systolic blood pressure 132 mm[Hg] Steffanie Mai MD Work Phone: [facility] Healthcare Encounters Encounter Date Encounter Type Care Provider Facility Start: 10-07-2024 ambulatory Radha L Mitzi Facility: [facility] [place] Start: 05-29-2024 End: 05-29-2024 ambulatory Radha L Mitzi Facility:[facility] [place] Start: 05-22-2024 End: 05-23-2024 Lab Drop off Radha L Mitzi [facility] Start: 05-22-2024 End: 05-23-2024 ambulatory Radha L Mitzi Facility:[facility] [place] Start: 03-27-2024 End: 03-27-2024 Bamboo flowsheet Sheeba Cehn PT Work Phone: [facility] Start: 03-27-2024 End: 03-27-2024 Bamboo flowsheet Sheeba Chen PT Work Phone: [facility] Start: 03-27-2024 End: 03-27-2024 ambulatory SHEEBA A LAURA Not Available Comment on above: 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 (Primary Dx); Dizziness; Imbalance Start: 03-25-2024 End: 03-25-2024 ambulatory Sheeba A Pleasnick PT Work Phone: [facility] Comment on above: 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 (Primary Dx); Dizziness; Imbalance Start: 03-25-2024 End: 03-25-2024 Bamboo flowsheet Sheeba A Pleasnick PT Work Phone: [facility] Start: 03-25-2024 End: 03-25-2024 Bamboo flowsheet Sheeba A Pleasnick PT Work Phone: [facility] Start: 03-21-2024 End: 03-21-2024 Bamboo flowsheet Sheeba A Pleasnick PT Work Phone: [facility] Start: 03-21-2024 End: 03-21-2024 Bamboo flowsheet Sheeba A Pleasnick PT Work Phone: [facility] Start: 03-21-2024 End: 03-21-2024 ambulatory Sheeba A Pleasnick PT Work Phone: [facility] Comment on above: Dizziness (Primary D x); Benign paroxysmal positional vertigo, unspecified laterality; Imbalance Start: 03-20-2024 End: 03-20-2024 Bamboo flowsheet Steffanie Mai MD Work Phone: [facility] Start: 03-20-2024 End: 03-20-2024 Bamboo flowsheet tSeffanie Mai MD Work Phone: [facility] Start: 03-20-2024 End: 03-20-2024 Office outpatient visit 15 minutes Steffanie Mai MD Work Phone: [facility] Comment on above: Multiple thyroid nod ules (CMS/HCC) (Primary Dx) Start: 03-20-2024 End: 03-20-2024 ambulatory STEFFANIE H TIMMIS Not Available Start: 12-20-2023 End: 12-20-2023 Bamboo flowsheet Steffanie Mai MD Work Phone: [facility] Start: 12-20-2023 End: 12-20-2023 Bamboo flowsheet Steffanie Mai MD Work Phone: [facility] Start: 12-20-2023 End: 12-20-2023 Office outpatient visit 15 minutes Steffanie Mai MD Work Phone: [facility] Comment on above: Nontoxic multinodula r goiter (CMS/HCC) (Primary Dx) Start: 12-20-2023 End: 12-20-2023 ambulatory STEFFANIE H TIMMIS Not Available Start: 08-15-2023 End: 08-15-2023 ambulatory [facility] Start: 06-28-2023 End: 06-28-2023 ambulatory STEFFANIE H TIMMIS Not Available Start: 06-08-2023 End: 06-08-2023 ambulatory Lopez Wilson Facility:[facility] Start: 06-08-2023 End: 06-08-2023 ambulatory MD Lopez Wilson Work Phone: [facility] Work Phone: Start: 06-08-2023 End: 06-08-2023 Departed Referred MD Lopez Wilson Work Phone: [facility] [place] Start: 05-30-2023 End: 05-30-2023 ambulatory STEFFANIE H TIMMIS Not Available Start: 07-12-2022 ambulatory ARMEN YUEN Facilit y:[facility] Start: 06-14-2022 End: 06-15-2022 ambulatory ARMEN YUEN Facility:[facility] Start: 05-03-2022 End: 05-04-[address] KATIUSKA LANDAVERDE . Facility:[facility] Start: 01-06-2022 End: 01-07-[address] BENJY SOLIS Facility:[facility] Procedures Date Procedure Procedure Detail Performing Clinician Start: 09-09-2019 Mammography Steffanie banegas MD Work Phone: Appendectomy Radha Cartagena Biopsy of breast Radha Cartagena Comment on above: right breast Carpal tunnel syndro me (disorder) Radha Cartagena Comment on above: bilateral Plan of Treatment Date Care Activity Detail Author Start: 09-18-2024 End: 09-18-2024 Patient encounter procedure 09/18/2024 11:10 AM EDT Office Visit [facility] [address] [place] [id number] Steffanie Mai MD [address] [place] [address] [facility] Start: 03-27-2024 End: 03-27-2024 ambulatory 03/27/2024 11:30 AM EST Treatment [facility] [address] [place] [address] Sheeba Chen, PT [address] [facility] [place] [address] Arrived [facility] Comment on above: Arrived Start: 03-25-2024 End: 03-25-2024 ambulatory 03/25/2024 2:00 PM EST Treatment [facility] [address] [facility] [place] [address] Sheeba Chen, PT [address] [facility] [place] [address] [facility] Start: 03-21-2024 End: 03-21-2024 ambulatory 03/21/2024 12:00 PM EST Evaluation [facility] [address] [place] [address] Sheeba Chen, PT [address] [facility] [place] [address] Benign paroxysmal positional vertigo, unspecified laterality [facility] Comment on above: Benign paroxysmal po sitional vertigo, unspecified laterality Start: 03-20-2024 End: 03-20-2024 Patient encounter procedure 03/20/2024 11:20 AM EST Office Visit [facility] [address] [place] [address] Steffanie Mai MD [address] [place] [address] Arrived [facility] Comment on above: Arrived Start: 12-20-2023 End: 12-20-2023 Patient encounter procedure 12/20/2023 1:00 PM EDT Office Visit [facility] [address] [place] [address] Steffanie Mai MD [address] [place] [address] Arrived [facility] Comment on above: Arrived Start: 10-29-2023 Influenza vaccination Influenza Vacc ine (#1) [facility] Start: 12-17-2020 Pneumococcal Vaccine : 65+ Years (2 of 2 - PCV) Pneumococcal Vaccine: 65+ Years (2 of 2 - PCV) [facility] Start: 09-08-2020 Screening for malign ant neoplasm of breast Mammogram [facility] Start: 1950 Screening for malign ant neoplasm of colon [facility] Immunizations Immunization Date Immunization Notes Care Provider Fa [facility] 02-03-2023 influenza virus vacc ine, unspecified formulation Steffanie Mai MD Work Phone: [facility] 01-07-2022 influenza virus vacc ine, unspecified formulation Radha Mitzi [facility] 02-23-2021 SARS-CoV-2 (COVID-19 ) mRNA BNT-162b2 vax Radha Mitzi [facility] Comment on above: Result Comment: 2022: [id number] 01-18-2021 influenza virus vacc ine, unspecified formulation Radha Mitzi [facility] 05-01-2020 SARS-CoV-2 (COVID-19 ) mRNA BNT-162b2 vax Radha Mitzi [facility] 04-10-2020 SARS-CoV-2 (COVID-19 ) mRNA BNT-162b2 vax Radha Mitzi [facility] 12-18-2019 influenza virus vacc ine, unspecified formulation Radha Mitzi [facility] 12-18-2019 pneumococcal polysaccharide vaccine, 23 valent Radha Mitzi [facility] 12-25-2018 influenza virus vacc ine, unspecified formulation Radha Mitzi [facility] 01-09-2018 influenza virus vacc ine, unspecified formulation Radha Mitzi [facility] 12-26-2016 influenza virus vacc ine, unspecified formulation Radha Mitzi [facility] 12-22-2015 influenza virus vacc ine, unspecified formulation Radha Mitzi [facility] 12-24-2014 influenza virus vacc ine, unspecified formulation Radha Mitzi [facility] 12-27-2013 influenza virus vacc ine, unspecified formulation Radha Mitzi [facility] 12-28-2012 influenza virus vacc ine, unspecified formulation Radha Mitzi [facility] Payers Date Payer Category Payer Self-pay 2022 Private Health Insurance [facility] [id number] 2022 Unknown [id number] 2014 Medicare [id number] 1959 Medicare [id number] 1959 Self-pay [id number] 1959 Unknown [id number] 1959 Unknown [id number] 1949 Unknown [id number] 2.16.840.1.625228.3.579.2 .593 1949 Unknown [id number] .[id number] .593 1949 Unknown [id number] .840.1.203922.3.579.2 .593 1949 Unknown [id number] .840.1.477410.3.579.2 .1259 1949 Unknown [id number] 2.16.840.1.611231.3.579.2 .1259 1949 Unknown [id number] 2.16.840.1.478619.3.579.2 .1259 1949 Unknown [id number] 2.16840.1.261677.3.579.2 .1259 1949 Unknown [id number] 2.16.840.1.305766.3.579.2 .1259 1949 Unknown [id number] 2.16.840.1.938346.3.579.2 .1259 1949 Unknown [id number] 2.16.840.1.214364.3.579.2 .1259 1949 Unknown [id number] 2.16.840.1.255992.3.579.2 .727 1949 Unknown [id number] 2.16.840.1.042105.3.579.2 .727 1949 Unknown [id number] 2.16.840.1.296030.3.579.2 .727 1949 Unknown [id number] 2.16.840.1.138906.3.579.2 .727 1949 Unknown [id number] 2.16.840.1.690496.3.579.2 .727 Unknown [id number] 2.16.840.1.594375.3.579.2 .593 Social History Date Type Detail Facility Tobacco smoking stat [facility] Unknown if ever smoked [facility] Work Phone: Start: 1950 Sex Assigned At Female F [facility] Start: 02-08-2023 End: 05-18-2023 Tobacco smoking status FLIS Never smoked tobacco [facility] Start: 05-18-2023 Tobacco use and exposure Smoke less tobacco non-user [facility] Start: 06-28-2023 End: 03-20-2024 Alcoholic beverage intake Current drinker of alcohol (finding) [facility] Start: 06-28-2023 End: 03-20-2024 History of Social function [facility] Start: 06-28-2023 End: 03-20-2024 Tobacco use panel [facility] Start: 1950 Sex assigned at Not on file [facility] Tobacco smoking status Never [facility] [place] Sexual Orientation [facility] Start: 12-13-2012 Sex Female (finding) [facility] Clinical Notes 06-14-2022 to 05-22-2024 Sheeba Chen, PT - 03/27/2024 11:30 AM Lupe Chen, PT - 03/25/2024 2:00 PM Lupe Chen, PT - 03/21/2024 12:00 PM Soila Mai MD - 03/20/2024 11:20 AM EST Note Date & Type Note Facility 05-22-2024 Note Nurse Consultation N ote Reason for Visit Pt presents today for lab draw. Assessment/Plan 1. Wellness examination (Z00.00: Encounter for general adult medical examination without abnormal findings) 2. Screening for hyperlipidemia (Z13.220: Encounter for screening for lipoid disorders) 3. Screening for thyroid disorder (Z13.29: Encounter for screening for other suspected endocrine disorder) Medications Albuterol (Eqv-ProAir HFA) 90 mcg/inh inhalation aerosol, 2 puff(s), Inhalation, q6hr codeine-guaifenesin 10 mg-100 mg/5 mL oral syrup, 5 mL, Oral, Once methylPREDNISolone 4 mg tab dosepak, 1 packet(s), Oral, Once omeprazole 40 mg Cap-DR, See Instructions Allergies Demerol (Rash) Immunizations Vaccine Date Status [...] Recorded influenza virus vaccine, inactivated 12/28/2012 Recorded [facility] 03-27-2024 History of Present illness Narrative Images from the original note were not included. Physical Therapy Physical Therapy Treatment Visit Time In: 11:30 am Time Out: 12:10 pm Supervised Time: 40 Total Time: 40 Visit number: 3 Precautions: none Subjective Chief Complaint: H81.11 (ICD-10-CM) - Benign paroxysmal positional vertigo, right 2. [place] pretty good since she was here last. Had a small sensation when laying down that night but not since. Ear feel better. Had a CALVERT that came on the next day that lasted all day back of head. INTERVENTIONS: X30 minutes of manual therapy X10 minutes of canalith repositioning Assessment/Plan Tested all canals at least 3 attempts each with no positives. She leaves in 2 days for cruise to [place]. I advised her I would leave her chart open for 30 days and she should call upon her return if she feels she needs to come back. No restrictions on travel except avoid water in ears with underwater swimming if possible. documented in this encounter [facility] 03-25-2024 History of Present illness Narrative Physical Therapy Physical Therapy Treatment Visit Time In: 2:10 pm Time Out: 2:50 pm Supervised Time: 40 Total Time: 40 Visit number: 2 Precautions: none Subjective Chief Complaint: H81.10 (ICD-10-CM) - Benign paroxysmal positional vertigo, unspecified laterality 2. Is noticing dizziness/spinning when lying down on R side. No meds. Intermittent sensations. Ears feel plugged. [place] good the day of PT but started next day. INTERVENTIONS: X30 minutes of manual therapy X10 minutes of canalith repositioning Assessment/Plan Adore Hallpike + R with latent effect ~10 secs before onset of sxs. Performed Stella x 2 as second attempt had a small flicker of nystagmus on 3rd repetition. Held positions longer than average due to latent effect. Held approx 2.5 minutes each position. Instructed pt in 24 hour precautions of positioning without head extension. Reported spinning sensation with head down position while sitting after ~1-2 minutes, resolved quickly. She voiced verbal understanding. Will see in 2 days for recheck. Pt leaves on cruise to [place] this Monday. documented in this encounter [facility] 03-21-2024 History of Present illness Narrative Time In: 12:10 pm Time Out: 1:05 pm Supervised Time: 55 Total Time: 55 Evaluation Time: 15 Self alf management: 10 Canalith repositionin Manual therapy: 15 Visit Number: 1 Chief Complaint: H81.10 (ICD-10-CM) - Benign paroxysmal positional vertigo, unspecified laterality Precautions: none Subjective Mechanism of injury: Has had vertigo off and on. 2020 last episode. Takes Meclizine, varying times where it lasts. Monday night rolled over and spinning sensation. Head feels fuzzy, full. Moves suddenly and it brings it on. Took Meclizine this morning at 6:30 am. Walks every morning for an hour [facility]. Both ears feel marco antonio fuzzy. Had treatment in 2020 went away completely. This episode is not as severe. Leaving for [facility] Mar 31 for 1 week. Flying there. Sees Dr Mai for thyroid nodules that he's keeping an eye on. She mentioned her vertigo while she was there and he referred her here to PT. R cataract removal. No ear problems. No neck or head injuries in past. Chronic cough and spot on lung. Objective Cervical AROM: flexion: - extension: + L side bend: - R side bend: - L rotation: + R rotation: - Special Tests: Negative L Adore Hallpike, + R. Treated with Stella x 1. Retested and negative the second attempt. Very mild response and difficult to observe probably from recent Meclizine. Instructed in 24 hour extension precautions and how to position self until tomorrow. Employment: retired PT Assessment: Therapy Diagnosis: R posterior canal BPPV, treated with Stella x 1. Functional Limitations: DHI: 22/100 [employer] Goals: 1.I HEP 2.Active cervical rotation to L and extension without dizziness reproduction 3.Restore intersegmental mobility throughout cervical and thoracic spines without pain 4.No vertigo c/os x at least 2 weeks 5.Negative BPPV testing all canals B Rehab Potential: Excellent Plan: PT 1-5 visits x 2-4 weeks Treatment: Today's session consists of IE, canalith repositioning for +R BPPV posterior canal. Education in the dx, px, POC, goals, expected treatment procedures, outcomes, timeframe for completion discussed. Ergonomic and postural correction education given to pt for driving positions and home tasks. I hereby deem this POC medically necessary. Please sign below and fax back to the number below. Physician Signature: Date: documented in this encounter [facility] 03-20-2024 History of Present illness Narrative Subjective Patient ID: Reyna Benavides is a 73 y.o. female who presents for Thyroid Nodule (3 month ultrasound 03/13/24 [facility]) US shows a dominant 18mm left nodule compared to 24mm in Nov and 21mm last April. FNA path [place] 2 Family History Problem Relation Name Age of Onset Cancer Mother Audrey breast Heart failure Father Alexandre Active Ambulatory Problems Diagnosis Date Noted GERD (gastroesophageal reflux disease) 05/18/2023 Osteopenia 05/18/2023 Fibrocystic breast disease 05/18/2023 Pulmonary nodule 05/18/2023 Multiple thyroid nodules (CMS/HCC) 05/18/2023 Hilar lymphadenopathy 05/18/2023 Nontoxic multinodular goiter (CMS/HCC) 05/30/2023 Adult BMI 27.0-27.9 kg/sq m 03/20/2024 Chronic cough 03/20/2024 Congestion of nasal sinus 03/20/2024 Osteoma 03/20/2024 Resolved Ambulatory Problems Diagnosis Date Noted No Resolved Ambulatory Problems Past Medical History: Diagnosis Date Disease of thyroid gland (CMS/HCC) Past Surgical History: Procedure Laterality Date APPENDECTOMY [...] to visit. Objective Last Recorded Vitals Vitals: 03/20/24 1118 BP: 154/75 Pulse: 69 ENT Physical Exam Constitutional Appearance: patient appears well-developed, well-nourished and well-groomed, Communication/Voice: communication appropriate for developmental age; vocal quality normal; Assessment/Plan Diagnoses and all orders for this visit: Multiple thyroid nodules (CMS/HCC) Reassuring US. Repeat in 6 mo documented in this encounter [facility] 12-20-2023 History of Present illness Narrative Subjective Patient ID: Reyna Benavides is a 73 y.o. female who presents for Thyroid Nodule (5 month check Ultrasound [facility] 12/18/23) Dominant LT nodule [id number] compared to [id number] in April. Nodule was [place] 2 on FNAS Family History Problem Relation [...] in 3 mo documented in this encounter [facility] 06-14-2022 Note PROCEDURE: XR FOOT L T [...] by: LOPEZ WILSON Date: 2022-06-14 15:56 [facility] Evaluation + Plan note No data available for this section [facility] Evaluation note No assessment inform ation available [facility] Work Phone: Evaluation note Diagnosis Nontoxic multinodular goiter (CMS/HCC)- Primary Nontoxic multinodular goiter documented in this encounter [facility] Healthcare[facility]* Diagnosis Multiple thyroid nodules (CMS/HCC)- Primary Nontoxic multinodular goiter documented in this encounter [facility] note* Diagnosis Dizziness- Primary Dizziness and giddiness Benign paroxysmal positional vertigo, unspecified laterality Imbalance Abnormality of gait documented in this encounter [facility] Healthcare[facility] note* Diagnosis Benign paroxysmal positional vertigo of right ear- Primary Dizziness Dizziness and giddiness Imbalance Abnormality of gait documented in this encounter [facility] Healthcare[facility]ospital Discharge instructions No data available for this section [facility] Progress note No data available for this section [facility] Reason for visit Narrative* Rehabilitation - Outpatient (Routine) - Authorized Specialty Diagnoses / Procedures Referred By Contac t Referred To Contact Physical Therapy Diagnoses Benign paroxysmal positional vertigo, unspecified laterality Procedures LA OFFICE/OUTPATIENT NEW HIGH MDM 60 MINUTES Steffanie Mai MD [address] [facility] [address] [place] [address] Phone: tel: fax: Benjy Rodriguez, PT [address] [place] [address] Phone: tel: fax: Referral ID Status Reason Start Date Expiration Date Visits Requested Visits Authorized [id number] Authorized Consult and Treat 03/20/2024 09/16/2024 30 30 [facility] Healthcare Summary Purpose Family History No Family [...] and content) DATE CREATED AUTHOR 06/27/2022 [facility] DATE CREATED AUTHOR AUTHOR'S ORGANIZ ATION 06/15/2023 [facility] DATE CREATED AUTHOR AUTHOR'S ORGANIZ ATION 03/29/2024 [facility] EPIC DATE CREATED AUTHOR AUTHOR'S ORGANIZ ATION 05/23/2024 [facility] DATE CREATED AUTHOR AUTHOR'S ORGANIZ ATION 05/24/2024 [facility] DATE CREATED AUTHOR AUTHOR'S ORGANIZ ATION 07/03/2024 [facility] Care Teams (unrecognized sec tion and content) Team Status: Inactive Member Role Status Dates Lopez Wilson MD Attending Provider Active Start: June 08, 2023 End: June 08, 2023 Tree Killer Relationship Specialty Start Date End Date Jenn Germain MD [address] [place] [address] PCP - General Family Medicine 12/14/23 Tree Killer Relationship Specialty Start Date End Date Jenn Germain MD [address] [place] [address] PCP - General Family Medicine 12/14/23 Tree Killer Relationship Specialty Start Date End Date Jenn Germain MD [address] [place] [address] PCP - General Family Medicine 12/14/23 Tree Killer Relationship Specialty Start Date End Date Jenn Germain MD [address] [place] [address] PCP - General Family Medicine 12/14/23 Tree Killer Relationship Specialty Start Date End Date Jenn Germain MD [address] [place] [address] PCP - General Family Medicine 12/14/23 Tree Killer Relationship Specialty Start Date End Date Jenn Germain MD [address] [place] [address] PCP - General Family Medicine 12/14/23 Tree Killer Relationship Specialty Start Date End Date Jenn Germain MD [address] [place] [address] PCP - General Family Medicine 12/14/23 Goals (unrecognized section and content) Goals may be documented in a n alternate section No data available for this section Reason for Visit (unrecogniz ed section and content) Reason Comments Thyroid Nodule 5 month check Ultras ound [facility] 12/18/23 Reason Comments Thyroid Nodule 3 month ultrasound [facility] FOR RECORDS PERTAINING TO PATIENTS WHO ARE [...] BE BASED ON THE PRIMARY CLINICAL RECORDS. [employer]. provides no warranty or guarantee of the accuracy or completeness of information in this document.
== END 2024-08-12 09:52 | disposition home or self-care (01) ==
LOC: CT 09:51
PROVIDERS: PCP Family Medicine; Visit Provider Internal Medicine
DX: R91.1 Solitary pulmonary nodule (principal); E04.2 Nontoxic multinodular goiter
CPT/HCPCS: 71250

== ENCOUNTER 2024-09-09 09:25 | Outpatient (OUT) | payer MEDICARE, OTHER, SELFPAY ==
--- NOTE | 2024-09-09 09:28 | US_ITS ---
The [address] [address] Patient Name: LOBITO MERAZ MRN: [id number] date: 1950 Sex: F Assigned Patient Location: US Current Patient Location: Accession/Order Number: [id number] Exam Date: 09/09/2024 10:47 Report Date: 09/09/2024 11:04 At the request of: JENNIFER QUINTERO MD Procedure: US thyroid THYROID ULTRASOUND CLINICAL DATA: Follow-up thyroid nodules COMPARISON: 03/12/2024 and 05/25/2023 The right thyroid lobe measures 3.6 x 1.9 x 2.5 cm. The left lobe measures 5.3 x 2.0 x 2.2 cm. The isthmus measures 2 - 3 mm. The thyroid lobes are diffusely heterogeneous. At the inferior pole on the right there is a solid hyperechoic nodule with hypoechoic rim measuring 1.3 x 1.2 x 1.2 cm which is not significantly changed (TI-RADS 3). At the superior pole, there is a small colloid cyst measuring 5 mm. On the left, there is a mixed echogenicity nodule with cystic and solid components and multiple hyperechoic foci measuring 18 x 16 x 17 mm (TI-RADS 3). This is not significantly changed in size or appearance. It was measured differently on the comparison. At the mid pole, there is a hyperechoic nodule measuring 6 mm in size that is similar. At the inferior pole there is a deep hypoechoic nodule measuring 12 x 12 x 12 mm, also similar. No new nodularity is seen. US/US thyroid IMPRESSION: SIMILAR BILATERAL THYROID NODULARITY. THE DOMINANT NODULES ON EACH SIDE HAVE BEEN PREVIOUSLY BIOPSIED AND REPORTED BENIGN. FOLLOW-UP IN 2 YEARS (3 YEARS FROM THE INITIAL IMAGING) IS SUGGESTED. Impression dictated by: Rachele Mooer M.D. 09/09/2024 11:04 AM Dictation Location: [place] [address] Electronically authenticated by: [id number] Y Date: 09/09/2024 11:04
--- OUTSIDE RECORDS SUMMARY | 2024-09-09 09:41 | XMS_ITS | CCD ---
Author Organization [facility] Care Team Providers Care Procurement Accountant Name Role Phone WEST, DR BENJY Yun [...] Unavailable Jenn Germain MD Primary Care Provider [phone] LUCIS, STEFFANIE H Attending Unavailable PLESHEEBA PENALOZA [...] Admitting Unavailable MitziRadha almonte Primary Care Physician [phone] Radha Cartagena Attending Unavailable MitziRadha Admitting Unavailable Radha Cartagena Attending Unavailable Radha Cartagena Attending Unavailable Allergies Allergy Classification Reported Allergen(s) Allergy Type Date of Onset Reaction(s) Facility (4 sources) Meperidine; Translations: [Demerol] Drug Allergy 7 [facility] Repository (1 source) Meperidine Drug Allergy 1 [facility] Repository (13 sources) Meperidine; Translations: [meperidine] Drug Allergy 4 Rash, Eruption of skin (disorder) [facility] Work Phone: Medications Current Medications Medication Drug Class(es) Dates Sig (Normalized) Sig (Original) [id number] 200 actuat albuterol 0.09 mg/actuat metered dose [...] you for choosing us for your care. [facility] Family Medicine Office/Clini c Noteon 05-29-2024 Family [...] puff(s), Inhalation, q6hr, 8.5 gm, [facility](s) [id number], cm, 02/08/23 15:30:00 EST, Height/Length Dosing, 76.5, kg, 02/08/23 15:30:00 EST, Weight Dosing 4. Non-smoker (Z78.9: Other specified health status) continue not smoking Ordered: albuterol, 2 puff(s), Inhalation, q6hr, 8.5 gm, Refill(s) 0, [facility]/pharmacy #[id number], 167, cm, 02/08/23 15:30:00 EST, Height/Length Dosing, 76.5, kg, 02/08/23 15:30:00 EST, Weight Dosing Orders: methylPREDNISolone, = 1 packet(s), Oral, Once, as directed on package labeling, # 21 tab(s), Refills(s) 0, [id number], 167, cm, 02/08/23 15:30:00 EST, Height/Length Dosing, 76.5, kg, 02/08/23 15:30:00 EST, Weight Dosing omeprazole, See Instructions, TAKE 1 CAPSULE BY MOUTH EVERY DAY, # 90 cap(s), Refills(s) 1, Pharmacy: [facility] STORE [id number], 167, cm, 02/08/23 15:30:00 EST, Height/Length Dosing, [...] virus vaccine, inactivated 12/28/2012 Recorded Normal [facility] Comment on above: Result Comment: [...] 19.1 % (14.0 - 50.0) 05/22/2024 8:48 [place] Auto 12.3 % (4.0 - 14.0) 05/22/2024 8:48 Eos Auto 3.9 % (0.0 - 8.0) 05/22/2024 8:48 Basophil Auto 0.7 % (0.0 - 2.0) 05/22/2024 8:48 Neutro Absolute 2.6 E9/L (2.0 - 7.5) 05/22/2024 8:48 Lymph Absolute (L) 0.8 E9/L (1.0 - 4.0) 05/22/2024 8:48 [place]aver Absolute 0.5 E9/L (0.2 - 1.0) 05/22/2024 [...] have any sx that you mentioned Normal [facility] CBC w/ Auto Diffon Anisocytosis Ql (Bld) PRESENT Invalid Interpretation Code [facility] Comment on above: Performed By: #### 2 [id number] #### [facility] [address] [place] [address] Basophils/100 WBC (Bld) 0.7 % Normal 0.0-2.0 [facility] Comment on above: Performed By: #### 2 [id number] #### [facility] [address] [place] [address] Basophils/Leukocytes Auto (Bld) [Pure # fraction] 0.0 E9/L Normal 0.0-0.2 [facility] Comment on above: Performed By: #### 2 [id number] #### [facility] [address] [place] [address] Eosinophils (Bld) [#/Vol] 0.2 E9/L Normal 0.0-0.5 [facility] Comment on above: Performed By: #### 2 [id number] #### [facility] [address] [place] [address] Eosinophils/100 WBC (Bld) 3.9 % Normal 0.0-8.0 [facility] Comment on above: Performed By: #### 2 849887 #### [facility] [address] [place] [address] Erythrocyte distribution width (RBC) [Ratio] 17.4 % High 10.9-14.2 [facility] Comment on above: Performed By: #### 2 [id number] #### [facility] [address] [place] [address] Hematocrit (Bld) [Volume fraction] 35.5 % Normal 34.0-46.0 [facility] Comment on above: Performed By: #### 2 152726 #### [facility] [address] [place] [address] Hemoglobin (Bld) [Mass/Vol] 11.4 g/dL Low 12.0-16.0 [facility] Comment on above: Performed By: #### 2 [id number] #### [facility] [address] [place] [address] Hypochromia Auto Ql (Bld) PRESENT Invalid Interpretation Code [facility] Comment on above: Performed By: #### 2 [id number] #### [facility] [address] [place] [address] Lymphocytes (Bld) [#/Vol] 0.8 E9/L Low 1.0-4.0 [facility] Comment on above: Performed By: #### 2 [id number] #### [facility] [address] [place] [address] Lymphocytes/100 WBC (Bld) 19.1 % Normal 14.0-50.0 [facility] Comment on above: Performed By: #### 2 253775 #### [facility] [address] [place] [address] MCH (RBC) [Entitic mass] 24.2 pg Low 27.0-34.0 [facility] Comment on above: Performed By: #### 2 894345 #### [facility] [address] [place] [address] MCHC (RBC) [Mass/Vol] 32.3 g/dL Normal 31.4-36.0 [facility] Comment on above: Performed By: #### 2 126705 #### [facility] [address] [place] [address] MCV (RBC) [Entitic vol] 75.0 fL Low 80.0-100.0 [facility] Comment on above: Performed By: #### 2 [id number] #### [facility] [address] [place] [address] Microcytes Ql (Bld) PRESENT Invalid Interpretation Code [facility] Comment on above: Performed By: #### 2 [id number] #### [facility] [address] [place] [address] Monocytes (Bld) [#/Vol] 0.5 E9/L Normal 0.2-1.0 [facility] Comment on above: Performed By: #### 2 437141 #### [facility] [address] [place] [address] Neutrophils (Bld) [#/Vol] 2.6 E9/L Normal 2.0-7.5 [facility] Comment on above: Performed By: #### 2 360604 #### [facility] [address] [place] [address] Neutrophils/100 WBC (Bld) 64.0 % Normal 36.0-75.0 [facility] Comment on above: Performed By: #### 2 884313 #### [facility] [address] [place] [address] Platelet mean volume (Bld) [Entitic vol] 9.6 fL Normal 6.4-10.8 [facility] Comment on above: Performed By: #### 2 840550 #### [facility] [address] [place] [address] Platelets (Bld) [#/Vol] 226.0 E9/L Normal 150.0-500.0 [facility] Comment on above: Performed By: #### 2 345462 #### [facility] [address] [place] [address] RBC (Bld) [#/Vol] 4.7 E12/L Normal 4.3-5.9 [facility] Comment on above: Performed By: #### 2 776594 #### [facility] [address] [place] [address] RBC size Nom (Bld) SEE MORPHOLOGY Invalid Interpretation Code [facility] Comment on above: Performed By: #### 2 [id number] #### [facility] [address] [place] [address] WBC corrected for nucl RBC Auto (Bld) [#/Vol] 4.1 E9/L Normal 4.0-11.0 [facility] Comment on above: Performed By: #### 2 216300 #### [facility] [address] [place] [address] CHEMISTRYOrdered By: SYSTEM SYSTEM on 05-22-2024 Albumin [...] 05-22-2024 Albumin [Mass/Vol] 4.1 g/dL Normal 3.3-5.0 [facility] Comment on above: Performed By: #### 2 691604 #### [facility] [address] [place] [address] Albumin/Globulin (S) [Mass conc ratio] 1.9 Normal 1.1-2.2 [facility] Comment on above: Performed By: #### 2 120988 #### [facility] [address] [place] [address] ALP [Catalytic activity/Vol] 60 Int._Unit/L Normal 21-98 [facility] Comment on above: Performed By: #### 2 537041 #### [facility] [address] [place] [address] ALT No additional P-5'-P [Catalytic activity/Vol] 11 Int._Unit/L Normal 6-46 [facility] Comment on above: Performed By: #### 2 476904 #### [facility] [address] [place] [address] Anion gap [Moles/Vol] 8 mmol/L Normal 6-16 [facility] Comment on above: Performed By: #### 2 075574 #### [facility] [address] [place] [address] AST [Catalytic activity/Vol] 16 Int._Unit/L Normal 5-43 [facility] Comment on above: Performed By: #### 2 586558 #### [facility] [address] [place] [address] Bilirubin [Mass/Vol] 0.9 mg/dL Normal 0.0-1.1 [facility] Comment on above: Performed By: #### 2 846245 #### [facility] [address] [place] [address] Calcium [Mass/Vol] 9.3 mg/dL Normal 8.9-11.1 [facility] Comment on above: Performed By: #### 2 095694 #### [facility] [address] [place] [address] Chloride [Moles/Vol] 105 mmol/L Normal 101-111 [facility] Comment on above: Performed By: #### 2 430343 #### [facility] [address] [place] [address] CO2 [Moles/Vol] 29 mmol/L Normal 21-31 [facility] Comment on above: Performed By: #### 2 406247 #### [facility] [address] [place] [address] Creatinine [Mass/Vol] 0.7 mg/dL Normal 0.5-1.3 [facility] Comment on above: Performed By: #### 2 044519 #### [facility] [address] [place] [address] Globulin (S) [Mass/Vol] 2.2 g/dL Normal 1.4-4.0 [facility] Comment on above: Performed By: #### 2 869479 #### [facility] [address] [place] [address] Glucose [Mass/Vol] 105 mg/dL Normal 55-199 [facility] Comment on above: Performed By: #### 2 157791 #### [facility] [address] [place] [address] Potassium [Moles/Vol] 4.4 mmol/L Normal 3.5-5.3 [facility] Comment on above: Performed By: #### 2 071237 #### [facility] [address] [place] [address] Protein [Mass/Vol] 6.3 g/dL Normal 6.0-7.8 [facility] Comment on above: Performed By: #### 2 808752 #### [facility] [address] [place] [address] Sodium [Moles/Vol] 138 mmol/L Normal 135-145 [facility] Comment on above: Performed By: #### 2 660101 #### [facility] [address] [place] [address] Urea nitrogen [Mass/Vol] 12 mg/dL Normal 5-21 [facility] Comment on above: Performed By: #### 2 831330 #### [facility] [address] [place] [address] Urea nitrogen/Creatinine [Mass ratio] 17 No Units Normal 10-20 [facility] Comment on above: Performed By: #### 2 [id number] #### [facility] [address] [place] [address] HEMATOLOGYOrdered By: SYSTEM SYSTEM on 05-22-2024 Anisocytosis [...] 05-22-2024 Cholesterol [Mass/Vol] 164 mg/dL Normal 120-200 [facility] Comment on above: Performed By: #### 2 413131 #### [facility] [address] [place] [address] Cholesterol in HDL [Mass/Vol] 44 mg/dL Invalid Interpretation Code [facility] Comment on above: Result Comment: '>= 60 LOW RISK' '<= 40 HIGH RISK' Performed By: #### 2 272751 #### [facility] [address] [place] [address] Cholesterol in LDL [Mass/Vol] 113 mg/dL Normal <=129 [facility] Comment on above: Performed By: #### 2 352400 #### [facility] [address] [place] [address] Cholesterol in VLDL [Mass/Vol] 33 mg/dL Normal 7-40 [facility] Comment on above: Performed By: #### 2 525280 #### [facility] [address] [place] [address] Triglyceride [Mass/Vol] 163 mg/dL High <=149 [facility] Comment on above: Performed By: #### 2 014940 #### [facility] [address] [place] [address] TSHon 05-22-2024 TSH Qn 2.44 m[IU]/L Normal 0.34-5.60 [facility] Comment on above: Performed By: #### 2 426129 #### [facility] [address] [place] [address] eGFRon 05-22-2024 eGFR 90 mL/min/1.73 m2 Normal >=59 [facility] Comment on above: Performed By: #### 1 [id number] #### [facility] [address] [place] [address] Consultation Noteon 08-17-19 24 Consultation Note [id number] 28#1.00TIFF Normal [facility] Consenton 08-15-2023 Consent [id number] F3#1.00TIFF Normal [facility] Nurse Consultation Noteon Nurse Consultation Note [...] influenza virus vaccine, inactivated 12/28/2012 Recorded Normal [facility] RAD - CT Reporton 08-09-2023 RAD - CT Report [id number] CB#1.00TIFF Normal [facility] RAD - Ultrasound Reporton RAD - Ultrasound Report [id number] 65#1.00TIFF Normal [facility] Walter 06-08-2023 L Specimen: [id number] Received: 06/12/23 Status: HÉCTOR Hernandez Num: [id number] Spec Type: Cytology Subm Dr: Lopez Wilson MD Tissues: A FNA SLIDES NOPATH (LEFT THYROID NODULE SUPERIOR) B FNA SLIDES NOPATH (RIGHT THYROID NODULE INFERIO) Procedures: Cyto Int and Re/2, PAPSTN/12 Age/ Patient Sex Location Account Attending Physician Reyna Benavides 72/F [facility] [id number] Lopez Wilson MD SPEC NUM: [id number] RECD: 06/12/23 STATUS: HÉCTOR HERNANDEZ NUM: [id number] MJ: 06/08/23-[address]: Lopez Wilson MD ENTERED: 06/12/23-[address]: Abdiaziz Azul HILARY H MD SPEC TYPE: Cytology DEPT: ZOIE PAK ENTERED BY: [id number] RECV BY: [id number] ORDERED: Cyto Int and Re/2, PAPSTN/12 ORDERED: Cyto Int and Re/2, PAPSTN/12 Pathological Diagnosis A, left thyroid nodule superior, FNA cytology: -Appropriate for assessment -The Conway system is category 2: Benign -Fibrin trapping [...] inferior, FNA cytology: -Appropriate for assessment -The [place] system is category 2: Benign -A few adequate number of small follicular groups are present in the ThinPrep smear and 2 other aspirate smears -The follicular cells are all small and bland looking Specimen: [id number] Received: 06/12/23 Status: HÉCTOR Hernandez Num: [id number] Spec Type: Cytology Subm Dr: Lopez Wilson MD Tissues: A FNA SLIDES NOPATH (LEFT THYROID NODULE SUPERIOR) B FNA SLIDES NOPATH (RIGHT THYROID NODULE INFERIO) Procedures: Cyto Int and Re/2, PAPSTN/12 Patient: Reyna Benavides Tere [id number] (Continued) Specimen: [id number] Received: 06/12/23 (Continued) Signed (signatur e on file) Katya Norris MD 06/13/23 1716 Specimen: [id number] Received: 06/12/23 Status: HÉCTOR Hernandez Num: [id number] Spec Type: Cytology Subm Dr: Lopez Wilson MD Tissues: A FNA SLIDES NOPATH (LEFT THYROID NODULE SUPERIOR) B FNA SLIDES NOPATH (RIGHT THYROID NODULE INFERIO) Procedures: Cyto Int and Re/2, PAPSTN/12 Patient: Reyna Benavides [id number] (Continued) Specimen: [id number] Received: 06/12/23 (Continued) Clinical Information Thyroid nodules History of basal cell carcinoma (skin of the face) Gross Description A. Received in Cytolyt labeled with the patient's name, date of and left thyroid nodule superior per requisition is 30 ml pink slightly cloudy fixed fluid. 1 Thin Prep slides are prepared. 4 alcohol fixed smears for pap are additionally received. (CC/nj) B. Received in Cytolyt labeled with the patient's name, date of and right thyroid nodule inferior per requisition is 30 ml very pale pink clear fixed fluid. 1 Thin Prep slides are prepared. 4 alcohol fixed smears for pap are additionally received. (CC/nj) CPT Codes 23592 x 2 Specimen: [id number] Received: 06/12/23 Status: HÉCTOR Hernandez Num: [id number] Spec Type: Cytology Subm Dr: Lopez Wilson MD Tissues: A FNA SLIDES NOPATH (LEFT THYROID NODULE SUPERIOR) B FNA SLIDES NOPATH (RIGHT THYROID NODULE INFERIO) Procedures: Cyto Int and Re/2, PAPSTN/12 Patient: Reyna Benavides [id number] (Continued) Signed (signatur e on file) Katya Norris MD 06/13/23 1716 Normal [facility] RAD - Ultrasound Reporton RAD - Ultrasound Report [id number] 1A#1.00TIFF Normal [facility] RAD - Ultrasound Report [id number] EC#1.00TIFF Normal [facility] Consultation Noteon 05-30-19 Consultation Note [id number] 1E#1.00TIFF Normal [facility] CBC AUTO DIFFon 05-03-2022 BASO # 0.0 103/ul Normal 0.0-0.1 [facility] Comment on above: Performed By: #### H FPFCBC #### [facility] [address] [address] [address] Jean-Claude Norris Basophils/100 WBC (Bld) 0.7 % Normal 0.2-2.0 [facility] Comment on above: Performed By: #### H FPFCBC #### [facility] [address] [address] [address] Jean-Claude Norris EO # 0.2 103/ul Normal 0.0-0.7 [facility] Comment on above: Performed By: #### H FPFCBC #### [facility] [address] [address] [address] Jean-Claude Norris Eosinophils/100 WBC (Bld) 3.7 % Normal 0.9-7.0 [facility] Comment on above: Performed By: #### H FPFCBC #### [facility] [address] [place] [address] Dr. Jean-Claude Norris Erythrocyte distribution width (RBC) [Ratio] 14.8 % Normal 11.0-15.0 [facility] Comment on above: Performed By: #### H FPFCBC #### [facility] [address] [address] [address] Jean-Claude Nroris Hematocrit (Bld) [Volume fraction] 36.5 % Normal 36.0-48.0 [facility] Comment on above: Performed By: #### H FPFCBC #### [facility] [address] [address] [address] Jean-Claude Norris Hemoglobin (Bld) [Mass/Vol] 11.6 g/dL Critically low 12.0-16.0 [facility] Comment on above: Performed By: #### H FPFCBC #### [facility] [address] [address] [address] Jean-Claude Norris IG # 0.01 10e3/ul Normal 0.00-0.03 [facility] Comment on above: Performed By: #### H FPFCBC #### [facility] [address] [place] [address] Dr. Jean-Claude Norris IG % 0.2 % Normal 0.0-0.5 [facility] Comment on above: Performed By: #### H FPFCBC #### [facility] [address] [address] [address] Jean-Claude Norris LYMPH # 0.8 103/ul Critically low 1.2-3.8 [facility] Comment on above: Performed By: #### H FPFCBC #### [facility] [address] [address] [address] Jean-Claude Norris Lymphocytes/100 WBC (Bld) 18.9 % Critically low 20.5-60.0 [facility] Comment on above: Performed By: #### H FPFCBC #### [facility] [address] [place] [address] Dr. Jean-Claude Norris MCH (RBC) [Entitic mass] 25.1 pg Critically low 26.7-34.0 [facility] Comment on above: Performed By: #### H FPFCBC #### [facility] [address] [place] [address] Dr. Jean-Claude Norris MCHC (RBC) [Mass/Vol] 31.8 g/dL Normal 29.9-35.2 [facility] Comment on above: Performed By: #### H FPFCBC #### [facility] [address] [place] [address] Dr. Jean-Claude Norris MCV (RBC) [Entitic vol] 78.8 fL Critically low 81.0-99.0 [facility] Comment on above: Performed By: #### H FPFCBC #### [facility] [address] [place] [address] Dr. Jean-Claude Norris MONO # 0.5 103/ul Normal 0.3-0.8 [facility] Comment on above: Performed By: #### H FPFCBC #### [facility] [address] [place] [address] Dr. Jean-Claude Norris Monocytes/100 WBC (Bld) 12.4 % Critically high 1.7-12.0 [facility] Comment on above: Performed By: #### H FPFCBC #### [facility] [address] [place] [address] Dr. Jean-Claude Norris NEUT # 2.7 103/ul Normal 1.4-6.5 [facility] Comment on above: Performed By: #### H FPFCBC #### [facility] [address] [place] [address] Dr. Jean-Claude Norris Neutrophils/100 WBC (Bld) 64.1 % Normal 43.0-75.0 [facility] Comment on above: Performed By: #### H FPFCBC #### [facility] [address] [place] [address] Dr. Jean-Claude Norris Platelet mean volume (Bld) [Entitic vol] 11.4 fL Normal 9.5-13.5 [facility] Comment on above: Performed By: #### H FPFCBC #### [facility] [address] [place] [address] Dr. Jean-Claude Norris PLT 209 103/ul Normal 150-450 [facility] Comment on above: Performed By: #### H FPFCBC #### [facility] [address] [place] [address] Dr. Jean-Claude Norris RBC 4.63 106/ul Normal 4.20-5.40 [facility] Comment on above: Performed By: #### H FPFCBC #### [facility] [address] [place] [address] Dr. Jean-Claude Norris WBC 4.3 103/ul Normal 4.0-11.0 [facility] Comment on above: Performed By: #### H FPFCBC #### [facility] [address] [place] [address] Dr. Jean-Claude Norris [facility] GLYCOHEMOGLOBIN A1Con 05-03-2022 Glucose [Mass/Vol] 117 mg/dL Normal [facility] Comment on above: Performed By: #### H FPFA1C #### [facility] [address] [place] [address] Dr. Jean-Claude Norris HbA1c (Bld) [Mass fraction] 5.7 % Normal 4.5-6.2 [facility] Comment on above: Performed By: #### H FPFA1C #### [facility] [address] [place] [address] Dr. [facility]ude [facility] Albumin [Mass/Vol] 3.9 g/dL Normal 3.4-5.0 [facility] Comment on above: Performed By: #### H FPF #### [facility] [address] [place] [address] Dr. Jean-Claude Norris Albumin/Globulin [Mass ratio] 1.3 {ratio} Normal [facility] Comment on above: Performed By: #### H FPF #### [facility] [address] [place] [address] Dr. Jean-Claude Norris ALP [Catalytic activity/Vol] 69 U/L Normal 46-116 [facility] Comment on above: Performed By: #### H FPF #### [facility] [address] [place] [address] Dr. Jean-Claude Norris ALT [Catalytic activity/Vol] 23 U/L Normal 14-59 [facility] Comment on above: Performed By: #### H FPF #### [facility] [address] [place] [address] Dr. Jean-Claude Norris AST [Catalytic activity/Vol] 19 U/L Normal 15-37 [facility] Comment on above: Performed By: #### H FPF #### [facility] [address] [address] [address] Jean-Claude Norris Bilirubin [Mass/Vol] 1.0 mg/dL Normal 0.2-1.0 [facility] Comment on above: Performed By: #### H FPF #### [facility] [address] [address] [address] Jean-Claude Norris Calcium [Mass/Vol] 9.3 mg/dL Normal 8.5-10.1 [facility] Comment on above: Performed By: #### H FPF #### [facility] [address] [place] [address] Dr. Jean-Claude Norris Chloride [Moles/Vol] 106 mmol/L Normal 98-107 [facility] Comment on above: Performed By: #### H FPF #### [facility] [address] [place] [address] Dr. Jean-Claude Norris CHOL-HDL RATIO NORM SEE BELOW Normal [facility] Comment on above: Result Comment: 3.3 - 4.4 LOW RISK 4.4 - 7.1 AVERAGE RISK 7.1 - 11.0 MODERATE RISK >11.0 HIGH RISK Performed By: #### H FPF #### [facility] [address] [address] [address] Jean-Claude Norris Cholesterol [Mass/Vol] 183 mg/dL Normal <=200 [facility] Comment on above: Performed By: #### H FPF #### [facility] [address] [address] [address] Jean-Claude Norris Cholesterol in HDL [Mass/Vol] 46 mg/dL Normal 40-60 [facility] Comment on above: Performed By: #### H FPF #### [facility] [address] [address] [address] Jean-Claude Norris Cholesterol in LDL [Mass/Vol] 107.2 mg/dL Normal [facility] Comment on above: Performed By: #### H FPF #### [facility] [address] [address] [address] Jean-Claude Norris Cholesterol.total/Chol esterol in HDL [Mass ratio] 4.0 {ratio} Normal [facility] Comment on above: Performed By: #### H FPF #### [facility] [address] [address] [address] Jean-Claude Norris CO2 [Moles/Vol] 27.7 mmol/L Normal 21.0-32.0 [facility] Comment on above: Performed By: #### H FPF #### [facility] [address] [address] [address] Jean-Claude Norris Creatinine [Mass/Vol] 0.69 mg/dL Normal 0.55-1.02 [facility] Comment on above: Performed By: #### H FPF #### [facility] [address] [place] [address] Dr. Jean-Claude Norris Globulin (S) [Mass/Vol] 3.1 g/dL Normal [facility] Comment on above: Performed By: #### H FPF #### [facility] [address] [address] [address] Jean-Claude Norris Glucose [Mass/Vol] 125 mg/dL Critically high 74-106 [facility] Comment on above: Performed By: #### H FPF #### [facility] [address] [address] [address] Jean-Claude Norris HDL NORMAL > or = 60 mg/dl - LOW CARDIOVASCULAR RISK <40 mg/dl - HIGH CARDIOVASCULAR RISK Normal [facility] Comment on above: Performed By: #### H FPF #### [facility] [address] [address] [address] Jean-Claude Norris LDL CALC NORMAL SEE BELOW Normal [facility] Comment on above: Result Comment: <100 mg/dl OPTIMAL 100 - 129 mg/dl NEAR OR ABOVE OPTIMAL 130 - 159 mg/dl BORDERLINE HIGH 160 - 189 mg/dl HIGH >190 mg/dl VERY HIGH Performed By: #### H FPF #### [facility] [address] [address] [address] Jean-Claude Norris Potassium [Moles/Vol] 4.3 mmol/L Normal 3.5-5.1 [facility] Comment on above: Performed By: #### H FPF #### [facility] [address] [address] [address] Jean-Claude Norris Protein [Mass/Vol] 7.0 g/dL Normal 6.4-8.2 [facility] Comment on above: Performed By: #### H FPF #### [facility] [address] [address] [address] Jean-Claude Norris Sodium [Moles/Vol] 142 mmol/L Normal 136-145 [facility] Comment on above: Performed By: #### H FPF #### [facility] [address] [place] [address] Dr. Jean-Claude Norris Triglyceride [Mass/Vol] 149 mg/dL Normal <=150 [facility] Comment on above: Performed By: #### H FPF #### [facility] [address] [address] [address] Jean-Claude Norris TSH 2.552 uIU/mL Normal 0.358-3.[address] [facility] Comment on above: Performed By: #### H FPF #### [facility] [address] [place] [address] Dr. Jean-Claude Norris Urea nitrogen [Mass/Vol] 15.0 mg/dL Normal 7.0-18.0 [facility] Comment on above: Performed By: #### H FPF #### [facility] [address] [address] [address] Jean-Claude Norris Urea nitrogen/Creatinine [Mass ratio] 21.7 mg/mg Normal [facility] Comment on above: Performed By: #### H FPF #### [facility] [address] [address] [address] Jean-Claude Norris VLDL CALC 29.8 mg/dL Normal [facility] Comment on above: Performed By: #### H FPF #### [facility] [address] [place] [address] Dr. Jean-Claude Norris MG MAMM SCREEN 3D JENNA CADon 01-06-2022 MG MAMM SCREEN 3D JENNA CAD Patient: REYNA BENAVIDES Exam Date: 01/06/2022 : 1950 Gender:F Ordering : DR GISELA CASON [facility] Admission #: [id number] Family : Order #: [id number] CLICK HERE TO VIEW EXAM RADIOLOGY REPORT [...] breast cancer at age 58. LOCATION: [facility] BREAST COMPOSITION: Scattered areas fibroglandular density. [...] MD on 01/06/2022 at 14:45 Normal [facility] Vital Signs Date Time Vital Sign Value Performing Clinician Faci lity 03-20-2024 11:18-0500 Body height 165.1 cm Steffanie aMi MD Work Phone: [facility] 03-20-2024 11:18-0500 Body mass index (BMI) [Ratio] 27.62 kg/m2 Steffanie Mai MD Work Phone: [facility] 03-20-2024 11:18-0500 Body weight 75.3 kg Steffanie Mai MD Work Phone: [facility] 03-20-2024 11:18-0500 Diastolic blood pressure 75 mm[Hg] Steffanei Mai MD Work Phone: [facility] 03-20-2024 11:18-0500 Heart rate 69 /min Steffanie Mai MD Work Phone: [facility] 03-20-2024 11:18-0500 Systolic blood pressure 154 mm[Hg] Steffanie Mai MD Work Phone: [facility] 12-20-2023 12:57-0400 Body height 165.1 cm Steffanie Mai MD Work Phone: [facility] 12-20-2023 12:57-0400 Body mass index (BMI) [Ratio] 28.96 kg/m2 Steffanie Mai MD Work Phone: [facility] 12-20-2023 12:57-0400 Body weight 78.93 kg Steffanie Mai MD Work Phone: [facility] 12-20-2023 12:57-0400 Diastolic blood pressure 70 mm[Hg] Steffanie Mai MD Work Phone: [facility] 12-20-2023 12:57-0400 Systolic blood pressure 132 mm[Hg] Steffanie Mai MD Work Phone: [facility] Healthcare Encounters Encounter Date Encounter Type Care Provider Facility Start: 10-07-2024 ambulatory Radha L Mitzi Facility: [facility] [place] Start: 05-29-2024 End: 05-29-2024 ambulatory Radha L Mitzi Facility:[facility] [place] Start: 05-22-2024 End: 05-23-2024 Lab Drop off Radha L Mitzi [facility] Start: 05-22-2024 End: 05-23-2024 ambulatory Radha L Mitzi Facility:[facility] [place] Start: 03-27-2024 End: 03-27-2024 Bamboo flowsheet Sheeba Chen PT Work Phone: [facility] Start: 03-27-2024 End: 03-27-2024 Bamboo [...] ENT Start: 03-20-2024 End: 03-20-2024 Bamboo flowsheet Steffanie [...] Start: 08-15-2023 End: 08-15-2023 ambulatory [facility] Start: 06-28-2023 End: 06-28-2023 ambulatory STEFFANIE H TIMMIS Not Available Start: 06-08-2023 End: 06-08-2023 ambulatory Lopez Wilson Facility:[facility] Start: 06-08-2023 End: 06-08-2023 ambulatory MD Lopez Wilson Work Phone: [facility] Work Phone: Start: 06-08-2023 End: 06-08-2023 Departed Referred MD Lopez Wilson Work Phone: [facility] Start: 05-30-2023 End: 05-30-2023 ambulatory STEFFANIE [...] ENT [address] [place] [id number] Steffanie Mai MD [address] [place] [address] [facility] Start: 03-27-2024 End: 03-27-2024 ambulatory 03/27/2024 11:30 AM EST Treatment [facility] [address] [address] Sheeba Chen, PT [address] [place] [address] Arrived [facility] Comment on above: Arrived Start: 03-25-2024 End: 03-25-2024 ambulatory 03/25/2024 2:00 PM EST Treatment [facility] [address] [facility] [place] [address] Sheeba Chen, PT [address] [place] [address] [facility] Start: 03-21-2024 End: 03-21-2024 ambulatory 03/21/2024 12:00 PM EST Evaluation [facility] [address] [place] [address] Sheeba Chen, PT [address] [place] [address] Benign paroxysmal positional vertigo, unspecified laterality [facility] Comment on above: Benign paroxysmal po sitional vertigo, unspecified laterality Start: 03-20-2024 End: 03-20-2024 Patient encounter procedure 03/20/2024 11:20 AM EST Office Visit [facility] [address] [place] [address] Steffanie Mai MD [address] [place] [address] Arrived [facility] Comment on above: Arrived Start: 12-20-2023 End: 12-20-2023 Patient encounter procedure 12/20/2023 1:00 PM EDT Office Visit [facility] [address] [place] [address] Steffanie Mai MD [address] [place] [address] Arrived [facility] Comment on above: Arrived Start: 10-29-2023 Influenza vaccination Influenza Vacc ine (#1) [facility] Start: 12-17-2020 Pneumococcal Vaccine : 65+ Years (2 of 2 - PCV) Pneumococcal Vaccine: 65+ Years (2 of 2 - PCV) [facility] Start: 09-08-2020 Screening for malign ant neoplasm of breast Mammogram [facility] Start: 1950 Screening for malign ant neoplasm of colon [facility] Immunizations Immunization Date Immunization Notes Care Provider Fa [facility] 02-03-2023 influenza virus vacc ine, unspecified formulation Steffanie Mai MD Work Phone: [facility] 01-07-2022 influenza virus vacc ine, unspecified formulation Radha Mitzi [facility] 02-23-2021 SARS-CoV-2 (COVID-19 ) mRNA BNT-162b2 vax Radha Mitzi [facility] Comment on above: Result Comment: 2022: [id number] 01-18-2021 influenza virus vacc ine, unspecified formulation Radha Mitzi [facility] 05-01-2020 SARS-CoV-2 (COVID-19 ) mRNA BNT-162b2 vax Radha Mitzi [facility] 04-10-2020 SARS-CoV-2 (COVID-19 ) mRNA BNT-162b2 vax Radha Mitzi [facility] 12-18-2019 influenza virus vacc ine, unspecified formulation Radha Mitzi [facility] 12-18-2019 pneumococcal polysaccharide vaccine, 23 valent Radha Mitzi [facility] 12-25-2018 influenza virus vacc ine, unspecified formulation Radha Mitzi [facility] 01-09-2018 influenza virus vacc ine, unspecified formulation Radha Mitzi [facility] 12-26-2016 influenza virus vacc ine, unspecified formulation Radha Mitzi [facility] 12-22-2015 influenza virus vacc ine, unspecified formulation Radha Mitzi [facility] 12-24-2014 influenza virus vacc ine, unspecified formulation Radha Mitzi [facility] 12-27-2013 influenza virus vacc ine, unspecified formulation Radha Mitzi [facility] 12-28-2012 influenza virus vacc ine, unspecified formulation Radha Mitzi [facility] Payers Date Payer Category Payer Self-pay 2022 Private Health Insurance [facility] [id number] 2022 Unknown [id number] 2014 Medicare [id number] 1959 Medicare [id number] 1959 Self-pay [id number] 1959 Unknown 1944 1959 Unknown [id number] 1950 Unknown [id number] 2.16.840.1.172300.3.579.2 .593 1950 Unknown [id number] .[id number] .593 1949 Unknown [id number] .840.1.035660.3.579.2 .593 1949 Unknown [id number] .840.1.635993.3.579.2 .1259 1949 Unknown [id number] 2.16.840.1.774710.3.579.2 .1259 1949 Unknown [id number] 2.16.840.1.570885.3.579.2 .1259 1949 Unknown [id number] 2.16840.1.237669.3.579.2 .1259 1949 Unknown [id number] 2.16.840.1.892535.3.579.2 .1259 1949 Unknown [id number] 2.16.840.1.831053.3.579.2 .1259 1949 Unknown [id number] 2.16.840.1.554442.3.579.2 .1259 1949 Unknown [id number] 2.16.840.1.611355.3.579.2 .727 1950 Unknown [id number] 2.16.840.1.185249.3.579.2 .727 1949 Unknown [id number] 2.16.840.1.367621.3.579.2 .727 1950 Unknown [id number] 2.16.840.1.466801.3.579.2 .727 1950 Unknown [id number] 2.16.840.1.650362.3.579.2 .727 Unknown [id number] 2.16.840.1.833493.3.579.2 .593 Social History Date Type Detail Facility Tobacco smoking stat [facility] Unknown if ever smoked [facility] Work Phone: Start: 1950 Sex Assigned At Female F [facility] Start: 02-08-2023 End: 05-18-2023 Tobacco smoking status ILIS Never smoked tobacco [facility] Start: 05-18-2023 Tobacco use and exposure Smoke less tobacco non-user [facility] Start: 06-28-2023 End: 03-20-2024 Alcoholic beverage intake Current drinker of alcohol (finding) [facility] Start: 06-28-2023 End: 03-20-2024 History of Social function [facility] Start: 06-28-2023 End: 03-20-2024 Tobacco use panel [facility] Start: 1950 Sex assigned at Not on file [facility] Tobacco smoking status Never [facility] Sexual Orientation [facility] Start: 12-13-2012 Sex Female (finding) [facility] Clinical Notes 06-14-2022 to 05-22-2024 Sheeba Chen, [...] Recorded influenza virus vaccine, inactivated 12/28/2012 Recorded [facility] 03-27-2024 History of Present illness Narrative Images from the original note were not included. Physical Therapy Physical Therapy Treatment Visit Time In: 11:30 am Time Out: 12:10 pm Supervised Time: 40 Total Time: 40 Visit number: 3 Precautions: none Subjective Chief Complaint: H81.11 (ICD-10-CM) - Benign paroxysmal positional vertigo, right 2. Vassar pretty good since she was here last. [...] leaves in 2 days for cruise to [place]. I advised her I would leave her chart open for 30 days and she should call upon her return if she feels she needs to come back. No restrictions on travel except avoid water in ears with underwater swimming if possible. documented in this encounter [facility] 03-25-2024 History of Present illness Narrative Physical Therapy Physical Therapy Treatment Visit Time In: 2:10 pm Time Out: 2:50 pm Supervised Time: 40 Total Time: 40 Visit number: 2 Precautions: none Subjective Chief Complaint: H81.10 (ICD-10-CM) - Benign paroxysmal positional vertigo, unspecified laterality 2. Is noticing dizziness/spinning when lying down on R side. No meds. Intermittent sensations. Ears feel plugged. Vassar good the day of PT but started [...] for recheck. Pt leaves on cruise to [place] this Monday. documented in this encounter [facility] 03-21-2024 History of Present illness Narrative Time In: 12:10 pm Time Out: 1:05 pm Supervised Time: 55 Total Time: 55 Evaluation Time: 15 Self long term management: 10 Canalith repositionin Manual therapy: 15 [...] Walks every morning for an hour at [facility]. Both ears feel marco antonio fuzzy. Had treatment in 2020 went away completely. This episode is not as severe. Leaving for [place] [employer] Mar 31 for 1 week. Flying there. [...] Stella x 1. Functional Limitations: DHI: 22/100 Bottle Sorter Goals: 1.I HEP 2.Active cervical rotation to [...] Physician Signature: Date: documented in this encounter [facility] 03-20-2024 History of Present illness Narrative Subjective Patient ID: Reyna Benavides is a 73 y.o. female who presents for Thyroid Nodule (3 month ultrasound 03/13/24 [facility]) US shows a dominant 18mm left nodule compared to 24mm in Nov and 21mm last April. FNA path [place] 2 Family History Problem Relation Name Age [...] in 6 mo documented in this encounter [facility] 12-20-2023 History of Present illness Narrative Subjective Patient ID: Reyna Benavides is a 73 y.o. female who presents for Thyroid Nodule (5 month check Ultrasound [facility] 12/18/23) Dominant LT nodule [id number] compared to [id number] in April. Nodule was Conway 2 on FNAS Family History Problem Relation [...] in 3 mo documented in this encounter [facility] 06-14-2022 Note PROCEDURE: XR FOOT L T [...] by: LOPEZ WILSON Date: 2022-06-14 15:56 [facility] Evaluation + Plan note No data available for this section [facility] Evaluation note No assessment inform ation available [facility] Work Phone: Evaluation note Diagnosis Nontoxic multinodular goiter (CMS/HCC)- Primary Nontoxic multinodular goiter documented in this encounter [facility] Healthcare[facility] note* Diagnosis Multiple thyroid nodules (CMS/HCC)- Primary Nontoxic multinodular goiter documented in this encounter [facility] note* Diagnosis Dizziness- Primary Dizziness and giddiness Benign paroxysmal positional vertigo, unspecified laterality Imbalance Abnormality of gait documented in this encounter [facility]* Diagnosis Benign paroxysmal positional vertigo of right ear- Primary Dizziness Dizziness and giddiness Imbalance Abnormality of gait documented in this encounter [facility] Discharge instructions No data available for this section [facility] Progress note No data available for this section [facility] Reason for visit Narrative* Rehabilitation - Outpatient (Routine) - Authorized Specialty Diagnoses / Procedures Referred By Contac t Referred To Contact Physical Therapy Diagnoses Benign paroxysmal positional vertigo, unspecified laterality Procedures AL OFFICE/OUTPATIENT NEW HIGH MDM 60 MINUTES Steffanie Mai MD [address] [facility] [address] [place] [address] Phone: tel: fax: Benjy Rodriguez, PT [address] [place] [address] Phone: tel: fax: Referral ID Status Reason Start Date Expiration Date Visits Requested Visits Authorized [id number] Authorized Consult and Treat 03/20/2024 09/16/2024 30 30 [facility] Healthcare Summary Purpose Family History No Family [...] CREATED AUTHOR AUTHOR'S ORGANIZ ATION 06/15/2023 [facility] DATE CREATED AUTHOR AUTHOR'S ORGANIZ ATION 03/29/2024 [facility] EPIC DATE CREATED AUTHOR AUTHOR'S ORGANIZ ATION 05/23/2024 [facility] DATE CREATED AUTHOR AUTHOR'S ORGANIZ ATION 05/24/2024 [facility] DATE CREATED AUTHOR AUTHOR'S ORGANIZ ATION 07/03/2024 [facility] Care Teams (unrecognized sec tion and content) Team Status: Inactive Member Role Status Dates Lopez Wilson MD Attending Provider Active Start: June 08, 2023 End: June 08, 2023 Procurement Accountant Relationship Specialty Start Date End Date Jenn Germain MD [address] [place] [address] PCP - General Family Medicine 12/14/23 Procurement Accountant Relationship Specialty Start Date End Date Jenn Germain MD [address] [place] [address] PCP - General Family Medicine 12/14/23 Procurement Accountant Relationship Specialty Start Date End Date Jenn Germain MD [address] [place] [address] PCP - General Family Medicine 12/14/23 Procurement Accountant Relationship Specialty Start Date End Date Jenn Germain MD [address] [place] [address] PCP - General Family Medicine 12/14/23 Procurement Accountant Relationship Specialty Start Date End Date Jenn Germain MD [address] [place] [address] PCP - General Family Medicine 12/14/23 Procurement Accountant Relationship Specialty Start Date End Date Jenn Germain MD [address] [place] [address] PCP - General Family Medicine 12/14/23 Procurement Accountant Relationship Specialty Start Date End Date Jenn Germain MD [address] [place] [address] PCP - General Family Medicine 12/14/23 Goals (unrecognized section and content) Goals may be documented in a n alternate section No data available for this section Reason for Visit (unrecogniz ed section and content) Reason Comments Thyroid Nodule 5 month check Ultras ound [facility] 12/18/23 Reason Comments Thyroid Nodule 3 month ultrasound [facility] FOR RECORDS PERTAINING TO PATIENTS WHO ARE [...] BE BASED ON THE PRIMARY CLINICAL RECORDS. [employer] provides no warranty or guarantee of the accuracy or completeness of information in this document.
== END 2024-09-09 09:26 | disposition home or self-care (01) ==
LOC: US 09:25
PROVIDERS: PCP Family Medicine; Visit Provider Otolaryngology
DX: E04.2 Nontoxic multinodular goiter (principal)
CPT/HCPCS: 76536

== ENCOUNTER 2024-12-19 10:13 | Outpatient (OUT) | payer MEDICARE, OTHER, SELFPAY ==
--- NOTE | 2024-12-19 | US_ITS ---
The [id number] Patient Name: LOBITO MERAZ MRN: [id number] date: 1950 Sex: F Assigned Patient Location: US Current Patient Location: Accession/Order Number: [id number] Exam Date: 12/19/2024 10:00 Report Date: 12/20/2024 08:19 At the request of: KAYLEIGH HOLBROOK Procedure: US extremity nonvascular RT LIMITED ULTRASOUND - POSTERIOR RIGHT KNEE. CLINICAL DATA: Pain at popliteal fossa for the past 2 weeks. COMPARISON: None Real-time ultrasound evaluation of the popliteal fossa was performed. The popliteal vein is patent with normal compression. No cystic or solid masses are identified. No Rendon's cyst was imaged. US/US extremity nonvascular RT IMPRESSION: NO SIGNIFICANT ULTRASOUND FINDINGS AT THE SITE OF CLINICAL CONCERN. Impression dictated by: Rachele Moore M.D. 12/20/2024 8:19 AM Dictation Location: [address] [address] Electronically authenticated by: [id number] Y Date: 12/20/2024 08:19
--- NOTE | 2024-12-19 | XR_ITS ---
The [address] [address] Patient Name: LOBITO MERAZ MRN: [id number] date: 1950 Sex: F Assigned Patient Location: US Current Patient Location: US Accession/Order Number: [id number] Exam Date: 12/19/2024 10:40 Report Date: 12/19/2024 11:39 At the request of: KAYLEIGH HOLBROOK Procedure: XR knee RT 4V RIGHT KNEE - 4 views COMPARISON: None CLINICAL DATA: Right knee pain posteriorly for a couple weeks. No injury. AP, lateral and both oblique views were obtained. There is no acute fracture or dislocation. There is slight narrowing at the medial tibiofemoral joint compartment where there is minimal marginal spurring. There is no additional hypertrophy. No knee effusion or soft tissue swelling is seen. There is a 15 mm bony spicule within the soft tissues posterior to the distal femoral metaphysis, unknown significance. XR/XR knee RT 4V IMPRESSION: MINOR DEGENERATIVE CHANGE. NO ACUTE BONY FINDINGS. Impression dictated by: Rachele Moore M.D. 12/19/2024 11:39 AM Dictation Location: [address] [address] Electronically authenticated by: [id number] Y Date: 12/19/2024 11:39
--- OUTSIDE RECORDS SUMMARY | 2024-12-19 10:16 | XMS_ITS | Clinical Summary ---
Author Organization [facility] Address [address] [place] [address] Care Team Providers Care Vamp Cut Out Worker Name Role Phone Steven Yarbrough MD Primary Care Provider [phone] Radha Cartagena STEREOTYPE FINISHER Unavailable Allergies Active AllergyReactionsCriticalityNoted XethJqmizeeiZuwyvlwstdJjuzKaz83/21/2024 Other Reaction(s): Unknown Medications MedicationSigDispense QuantityRefillsLast FilledStart DateEnd DateStatus cholecalciferol (Vitamin D-3) 50 MCG (1999) tablet Take 1 tablet by mouth 1 (one) time each day at the same timeActive albuterol HFA 90 mcg/act inhaler Inhale 2 puffs every 6 (six) hours if needed for wheezingActive Melatonin 3 MG capsule Take 6 mg by mouth at bedtimeActive Multiple Vitamins-Minerals (multivitamin with minerals) tablet Take 1 tablet by mouth DailyActive Multiple Vitamins-Minerals (PRESERVISION AREDS 2 PO) Take by mouthActive phytonadione (Vitamin K) 100 MCG tablet Take 10 mg by mouth DailyActive Ferrous Sulfate (iron) 325 (65 Fe) MG tablet 1 tablet Orally Three times a WeekActive omeprazole (PriLOSEC) [address] capsule Take 40 mg by mouth Daily5Active Active Problems ProblemNoted DateDiagnosed DateSeasonal ubsldcsgy49/22/2025Wellness examination 09/17/2024enign paroxysmal positional uctkjys6403/21/20243016Rcizyhbck90/23/2025 Rijoetouw89/23/2025dult BMI 27.0-27.9 kg/sq m003/20/2024hronic cough03/20/2024 Congestion of nasal sinus03/20/20249301Jbdtlte50/22/2025Nontoxic multinodular goiter 04/02/2024GERD (gastroesophageal reflux disease)05/18/20233977Zexiokmoha85/21/2024 Fibrocystic breast ifdtzsk4905/18/2023ulmonary mmyxqb4705/18/2023Multiple thyroid uugxjth5405/18/2023Hilar bbokxqhonfxrqeb77/21/2024 Encounters DateTypeDepartmentCare YlqxGjrmfcqmryz71/23/2025 11:10 AM EDTOffice Visit [facility] [address] [place] [address] Steffanie Mai MD Nontoxic multinodular goiter (Primary Dx)09/18/2024amboo flowsheet [facility] [address] [place] [address] Stefafnie Mai MD 09/18/2024Travelfrom Last 3 Months Family History Medical HistoryRelationNameCommentsHeart failureFatherAndrewCancerMotherFrances breastRelationNameStatusCommentsFatherAndrewMotherFrances Social History Tobacco UseTypesPacks/DayYears UsedDateSmoking Tobacco: NeverSmokeless Tobacco: Never Tobacco Cessation:Counseling Given: Not Answered Alcohol UseStandard Drinks/WeekCommentsYes2 (1 standard drink = 0.6 oz pure alcohol)CommentsUnknownSex and Gender InformationValueDate RecordedSex Assigned at BirthNot on fileLegal HjaEuxpcg51/01/2023 8:33 PM EDTGender Identity Not on fileSexual OrientationNot on file Last Filed Vital Signs Vital SignReadingTime TakenCommentsBlood Mzjfhiav734/7707 11:05 AM EDT Gkecf112609/18/2024 11:05 AM EDTTemperature--Respiratory Rate--Oxygen Saturation-- Inhaled Oxygen Concentration--Pppebw26.8 kg (165 lb)09/18/2024 11:05 AM EDT Qtidrl015.1 cm (5' 5 )09/18/2024 11:05 AM EDTBody Mass Index27.46009/18/2024 11:05 AM EDT Plan of Treatment DateTypeDepartmentCare Team (Latest Contact Info)Vtlhksnmvmq46/20/2026 10:20 AM ESTOffice Visit [facility] [address] [facility] [address] [place] [id number] Steffanie Mai MD [address] [facility] [address] [place] [address] Health MaintenanceDue DateLast DoneCommentsCT Kukdcvlggghx13/03/1950Colonoscopy 1950Colorectal Cancer Jhxkbqerx77/03/1950FIT-DNA1949FIT1949 FOBT1950 1613Wucejmypojjpy87/03/1950Pneumococcal Vaccine: 65+ Years (2 of 2 - PCV)Influenza Vaccine (#1)512/09/2022, 01/07/2022, 01/18/2021, Additional history wldfrzPhnnawapeNsxiqpmjtbuy72/13/2020 Procedures Procedure NamePriorityDate/TimeAssociated DiagnosisCommentsBI MAMMOGRAM SCREENING TOMOSYNTHESIS DEHJESSIKEomhdcw78/13/2020 from Last 3 Months or Most Recently Relevant to Health Maintenance Results * Bilateral screening mammogram with tomosynthesis (09/09/2019)Anatomical Region LateralityModalityBreastBilateralMammographySpecimen (Source)Anatomical Location / LateralityCollection Method / VolumeCollection TimeReceived Time Narrative 09/09/2019 12:00 AM EDT PERFORMED AT [facility] LOCATION:[address] Patient: ? MARIYA CarranzaKurt ? Exam Date: ? 09/09/2019 : ? 1950 ?Gender:F ? Ordering : ? DR GISELA CASON NPC ? Admission #: ? [id number] Family : ?Order #: ? [id number] ? CLICK HERE TO VIEW EXAM RADIOLOGY REPORT PROCEDURE: ? MAMMOGRAM BILATERAL SCREENING DIGITAL WITH COMPUTER AIDED DETECTION COMPARISON: ? MG MAMM SCREEN JENNA W CAD 06/26/2017. ??MG MAMM LT DIAG W CAD 12/01/2016. ??MG MAMM LT DIAG W CAD 05/26/2016. ??MG MAMM SCREEN JENNA W CAD 07/05/2018. INDICATIONS: ? Screening mammography Calculator Name ? NCI Breast Cancer Risk Assessment Tool 5 Year Breast Cancer Risk ? 6.40% Lifetime Breast Cancer Risk ? 17.70% Personal Breast Cancer ?No Personal Ovarian Cancer ? No Treatments ? None Family Cancers ? Mother with breast cancer at age 40; Sister with breast cancer at age 59. LOCATION: ? [facility] BREAST COMPOSITION: ? Scattered areas fibroglandular density. FINDINGS: DIAGNOSTIC CATEGORY 2--BENIGN FINDING: RIGHT BREAST: ??No significant suspicious finding. ??No significant change has occurred. LEFT BREAST: ??No significant suspicious finding. ??Stable benign-appearing nodule and asymmetries are present. ??No significant change has occurred. RECOMMENDATIONS: ROUTINE MAMMOGRAM AND CLINICAL EVALUATION IN 12 MONTHS. PLEASE NOTE: ??A NORMAL MAMMOGRAM DOES NOT EXCLUDE THE POSSIBILITY OF BREAST CANCER. ??A CLINICALLY SUSPICIOUS PALPABLE LUMP SHOULD BE BIOPSIED. Dictated by: Lopez Wilson M.D. on 09/09/2019 at 13:16 Approved by: Lopez Wilson M.D. on 09/09/2019 at 13:19 Procedure Note CONVERSION, GENERIC - 09/02/2022 PERFORMED AT [facility] LOCATION:[place] [id number] Patient: MARIYA Adames Exam Date: 09/09/2019 : 1950 Gender:F Ordering : DR GISELA CASON [facility] Admission #: [id number] Family : Order #: [id number] CLICK HERE TO VIEW EXAM RADIOLOGY REPORT PROCEDURE: MAMMOGRAM BILATERAL SCREENING DIGITAL WITH COMPUTER AIDED DETECTION COMPARISON: MG MAMM SCREEN JENNA W CAD 06/26/2017. MG MAMM LT DIAG W CAD 12/01/2016. MG MAMM LT DIAG W CAD 05/26/2016. MG MAMM SCREEN JENNA W CAD 07/05/2018. INDICATIONS: Screening mammography Calculator Name NCI Breast Cancer Risk Assessment Tool 5 Year Breast Cancer Risk 6.40% Lifetime Breast Cancer Risk 17.70% Personal Breast Cancer No Personal Ovarian Cancer No Treatments None Family Cancers Mother with breast cancer at age 40; Sister withbreast cancer at age 59. LOCATION: [facility] BREAST COMPOSITION: Scattered areas fibroglandular density. FINDINGS: DIAGNOSTIC CATEGORY 2--BENIGN FINDING: RIGHT BREAST: No significant suspicious finding. No significant changehas occurred. LEFT BREAST: No significant suspicious finding. Stablebenign-appearing nodule and asymmetries are present. No significant change has occurred. RECOMMENDATIONS: ROUTINE MAMMOGRAM AND CLINICAL EVALUATION IN 12 MONTHS. PLEASE NOTE: A NORMAL MAMMOGRAM DOES NOT EXCLUDE THE POSSIBILITY OFBREAST CANCER. A CLINICALLY SUSPICIOUS PALPABLE LUMP SHOULD BE BIOPSIED. Dictated by: Lopez Wilson M.D. on 09/09/2019 at 13:16 Approved by: Lopez Wilson M.D. on 09/09/2019 at 13:19 Authorizing ProviderResult TypeResult StatusGeorge Ryan Guzman DOIMG BI PROCEDURES Final Result from Last 3 Months or Most Recently Relevant to Health [place] [id number] Care Teams Team MemberRelationshipSpecialtyStart DateEnd Date Steven Yarbrough MD [address] [place] [address] PCP - GeneralFamily Abjdekyv35/17/24 Radha Cartagena NP [address] [place] [id number] Referring PhysicianFamily Medicine09/18/24
--- OUTSIDE RECORDS SUMMARY | 2024-12-19 10:16 | XMS_ITS | Clinical Summary ---
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 Fermentation Scientist Name Role Phone Leonardo Mercer MD Primary Care Provider [phone] Allergies Active AllergyReactionsCriticalityNoted DybnKqimhjfcGbgaiilngo91/24/2017 Medications MedicationSigDispense QuantityRefillsLast FilledStart DateEnd DateStatus amitriptyline (ELAVIL) 10 mg tablet Take 10 mg by mouth nightly.Active famotidine (PEPCID) 20 mg tablet Take 20 mg by mouth 2 (two) times a day.Active ibuprofen (ADVIL,MOTRIN) 100 MG tablet Take 100 mg by mouth every 6 (six) hours as needed for pain.Active cholecalciferol, vitamin D3, (VITAMIN D3) 1,000 units tablet Take 1,000 Units by mouth daily.Active Active Problems No known active problems Social History Tobacco UseTypesPacks/DayYears UsedDateSmoking Tobacco: NeverAlcohol UseStandard Drinks/WeekCommentsYes0 (1 standard drink = 0.6 oz pure alcohol)1-2 GLASSES A WEEKChildcareAnswerDate LjwghcexBwobzwthzSgvgfng03/13/2019EmploymentAnswerDate QcgzervdGdbshlqqynMyjbtgn78/13/2019Purpose - LifeAnswerDate RecordedPurpose and direction in jxiwUjhrrji15/11/2021CommentsUnknownSex and Gender InformationValueDate RecordedSex Assigned at BirthNot on fileLegal SexFemale 09/13/2016 1:52 PM EDTGender IdentityNot on fileSexual OrientationNot on file Last Filed Vital Signs Vital SignReadingTime TakenCommentsBlood Vcyjzswa554/8007/ 12:58 PM EDT Pulse--Temperature--Respiratory Rate--Oxygen Saturation--Inhaled Oxygen Concentration--Supphe83.3 kg (166 lb)09/19/2016 12:58 PM VNXLrdgmb288.6 cm (5' 6 )09/19/2016 12:58 PM EDTBody Mass Index26.7909/19/2016 12:58 PM EDT Plan of Treatment Health MaintenanceDue DateLast DoneCommentsDepression Pfeibecjv26/03/1962Tobacco Iiqsiwksc25/03/1962DTaP,Tdap and Td Vaccines (1 - Tdap)1968Zoster (Shingles) Vaccine (1 of 2)08/30/1999Fall Risk Qbowqrxac41/03/2015Influenza Dpcwihz8110/28/2024 Medical Devices Not on file Insurance Care Teams Team MemberRelationshipSpecialtyStart DateEnd Leonardo Mrecer MD PCP - [facility]09/14/16
--- OUTSIDE RECORDS SUMMARY | 2024-12-19 10:18 | XMS_ITS | CCD ---
Author Organization [facility] Care Team Providers Care Section Repairer Name Role Phone WEST, DR BENJY Yun [...] Unavailable Jenn Germain MD Primary Care Provider [phone] Radha Cartagena Attending Unavailable MitziRadha Attending Unavailable MitziRadha Attending Unavailable MitziRadha Admitting Unavailable MitziRadha almonte Primary Care Physician Radha Cartagena NP Unavailable STEFFANIE QUINTERO H Attending Unavailable PLEASNICKSHEEBA A Attending Unavailab le TIMMIS, STEFFANIE H Referring Unavailable PLEASNICK, SHEEBA A Attending Unavailab le TIMMIS, STEFFANIE H Referring Unavailable PLEASNICK, SHEEBA Alas Attending Unavailab le TIMMIS, STEFFANIE H Referring Unavailable TIMMISSTEFFANIE H Attending Unavailable TIMMIS STEFFANIE H Attending Unavailable Mitzi, ENERGY RATER Radha Ochoa Attending Unavailable Mitzi, RODOLFO Garcia L Attending Unavailable Mitzi, RODOLFO Garcia L Attending Unavailable Mitzi, ENERGY RATER Radha L Attending Unavailable Mitzi, ENERGY RATER Radha L Attending Unavailable Mitzi, ENERGY RATER Radha L Admitting Unavailable Allergies Allergy ClassificationReported Allergen(s)Allergy TypeDate of OnsetReaction(s) Facility (4 sources)Meperidine; Translations: [Demerol]Drug [id number] (1 source)MeperidineDrug [id number] (17 sources)Meperidine; Translations: [meperidine]Drug [id number], Eruption of skin (disorder)[facility] Work Phone: Medications Current Medications MedicationDrug Class(es)DatesSig (Normalized)Sig (Original)[id number] 200 actuat albuterol 0.09 mg/actuat metered dose inhaler (16 sources)beta2-Adrenergic Agonisttake 2 puff(s) by inhalation every six hours for wheezingalbuterol HFA 90 mcg/act inhaler Inhale 2 puffs every 6 (six) hours if needed for wheezing Activecholecalciferol 0.05 mg oral tablet (16 sources)Vitamin Dtake 1 tablet by mouth once dailycholecalciferol (Vitamin D-3) 50 MCG (1999 UT) tablet Take 1 tablet by mouth 1 (one) time each day at the same time Activeferrous sulfate 325 mg oral tablet (2 sources)take 1 tablet by mouth three times weeklyFerrous Sulfate (iron) 325 (65 Fe) MG tablet 1 tablet Orally Three times a Week Activemelatonin 3 mg oral capsule (16 sources)take 2 capsules by mouth at bedtimeMelatonin 3 MG capsule Take 6 mg by mouth at bedtime ActiveMultiple Vitamins-Minerals (multivitamin with minerals) tablet (16 sources)take 1 tablet by mouth once dailyMultiple Vitamins-Minerals (multivitamin with minerals) tablet Take 1 tablet by mouth Daily ActiveMultiple Vitamins-Minerals (PRESERVISION AREDS 2 PO) (16 sources)Multiple Vitamins-Minerals (PRESERVISION AREDS 2 PO) Take by mouth Activeomeprazole 40 mg delayed release oral capsule (18 sources)Proton Pump InhibitorStart: 54-64-3044jmac 1 capsule by mouth once dailyomeprazole (PriLOSEC) [address] capsule Take 40 mg by mouth Daily 08/17/2024 Active End: 17-15-1400zvbiujpqax OTC (PriLOSEC OTC) 20 MG EC tablet Take 40 mg by mouth in the morning. Take before meals. 09/18/2024 Discontinued (Therapy completed) vitamin k 0.1 mg oral tablet (16 sources)take 10 mg by mouth once dailyphytonadione (Vitamin K) 100 MCG tablet Take 10 mg by mouth Daily Active Problems Active Problems Problem ClassificationProblemDateDocumented DateEpisodic/ChronicEsophageal disorders (17 sources)Gastroesophageal reflux disease; Translations: [Gastro-esophageal reflux disease without esophagitis]Onset: hronic Nonmalignant breast conditions (16 sources)Fibrocystic disease of breast; Translations: [Diffuse cystic mastopathy of unspecified breast]Onset: 104455-98-5536VzuhquuWdasy connective tissue disease (4 sources)Pain in left foot; Translations: [PAIN IN LEFT FOOT]Onset: 06-14-2022 EpisodicOther lower respiratory disease (1 source)Cqwxh50-45-2847RpvfjudaKcjcw upper respiratory disease (3 sources)Seasonal allergy; Translations: [Other seasonal allergic rhinitis] Onset: 671171-80-1861AzunejaAuany upper respiratory infections (1 source)Lcksafkgs83-20-7746PcxmlcuZngrjkq disorders (20 sources)Multinodular goiter; Translations: [Nontoxic multinodular goiter] Onset: 448556-10-4406CwgxmhdNdbkaigsnfzo (3 sources)Patient encounter [phone] Past or Other Problems Problem ClassificationProblemDateDocumented DateEpisodic/ChronicConditions associated with dizziness or vertigo (20 sources)Benign paroxysmal positional vertigo; Translations: [Benign paroxysmal vertigo, unspecified ear]Onset: 483946-92-6070Ewpgiheg Lymphadenitis (16 sources)Hilar lymphadenopathy ; Translations: [Localized enlarged lymph nodes]Onset: 306776-20-8824OqhejghbVuzeh and unspecified benign neoplasm (13 sources)Benign neoplasm of bone; 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, unspecified]Onset: 865694-03-7856GvwihipmXeqga bone disease and musculoskeletal deformities (16 sources)Osteopenia; Translations: [Other specified disorders of bone density and structure, unspecified site]Onset: 661099-50-3063GdilmkjaFzyry lower respiratory disease (16 sources)Nodule of lung; Translations: [Solitary pulmonary nodule]Onset: 193662-47-0640RyqpmqqkJzyjj lower respiratory disease (13 sources)Chronic cough; Translations: [Chronic cough]Onset: 03-20-2024 28-01-3588FdagyxuzXkdhm nervous system disorders (12 sources)Impairment of balance; Translations: [Other abnormalities of gait and mobility]Onset: 834791-48-9885QwhrgmwxRvpfk nutritional; endocrine; and metabolic disorders (13 sources)Overweight in adulthood with body mass index of 25 or more but less than 30; Translations: [Body mass index (BMI) 27.0-27.9, adult]Onset: 03-20-2024 93-13-9388JzzwdmroJxinj screening for suspected conditions (not mental disorders or infectious disease) (4 sources)Encounter for screening mammogram for malignant neoplasm of breast; Translations: [ENC SCR MAMMO MALIG NEOPLASM BREAST]Onset: 22-25-0696Ijkhgftc Other upper respiratory disease (13 sources)Congestion of nasal sinus; Translations: [Nasal congestion]Onset: 988578-33-9027BskmoddoWegvwycd codes; unclassified (1 source)Family history of malignant neoplasm of breast; Translations: [FAMILY HX MALIG NEOPLASM OF BREAST]Onset: 40-73-8877Muzdlged Results Test NameValueInterpretationReference RangeFacilityAmbulatory Visit Summaryon [id number] Visit SummaryAmbulatory Visit Summary REYNA BENAVIDES :1950 Visit Date:12/16/2024 Ambulatory Visit Instructions Your Diagnosis Right knee pain Swelling of right knee BMI 27.0-27.9,adult Non-smoker Tests Performed US Extremity Non-Vascular Limited Right -- Results Pending -- XR Knee Complete 4+ Views Right -- Results Pending -- Please visit your patient portal for your results or contact your primary care physician. Your Care Team Attending Physician - Radha Quinteros Primary Care Physician - Radha Quinteros This Is Your Medications List Non-Formulary Medication (Vitamin K2 with D3) Non-Formulary Medication (iron 325) cetirizine (Zyrtec) ibuprofen meclizine melatonin meloxicam (meloxicam 15 mg Tab) methylPREDNISolone (Medrol 4 mg Tab) multivitamin with minerals (ICaps AREDS 2) omeprazole (omeprazole 40 mg Cap-DR) Procedures Performed Appendectomy, Biopsy of breast, Carpal tunnel. Discharge Vitals Temperature (Temporal Artery) 36.2 ???C Heart Rate (Peripheral) 64 Respiratory Rate 18 Blood Pressure 126/84 Height 167.0 cm Height 66 in Weight 75.6 kg Weight 166.669 lb BMI 27.11 What to do next Scheduled Follow-Up Appointments Monday2025 11:00 AM EDT Where: [address] [address]- Medications What How Much When Why Instructions New meloxicam (meloxicam 15 mg Tab) 1 Tablets By Mouth Every day Right knee pain Swelling of right knee BMI 27.0-27.9,adult Non-smoker Pickup at [facility]/pharmacy #[id number] New methylPREDNISolone (Medrol 4 mg Tab) 1 Packets By Mouth As Directed Right knee pain Swelling ofright knee BMI 27.0-27.9,adult Non-smoker Duration: 6 Days as directed on package labeling Pickup at [facility]/pharmacy #[id number] Unchanged cetirizine (Zyrtec) Every day Unchanged ibuprofen Unchanged meclizine 25 Milligram As needed for Dizziness Unchanged melatonin Unchanged multivitamin with minerals (ICaps AREDS 2) Unchanged Non-Formulary Medication (iron 325) Unchanged Non-Formulary Medication (Vitamin K2 with D3) Unchanged omeprazole (omeprazole 40 mg Cap-DR) See instructions TAKE 1 CAPSULE BY MOUTH EVERY DAY Pharmacy Information [facility]/pharmacy #[id number]: [address], [place] [phone] Allergies Demerol (Rash) Problems Ongoing - Any problem that you are currently receiving treatment for. Acid reflux Chronic cough Congestion of nasal sinus Osteoma Right knee pain Screening for hyperlipidemia Screening for thyroid disorder Seasonal allergies Sinusitis Swelling of right knee Wellness examination Patient Survey You may receive a survey via text or e-mail asking about your office visit. Please share your experience with us by completing your survey. We appreciate your feedback and thank you for choosing us for your care. Patient Portal You may access all of your results and other medical record information on our secure patient portal. If you are not signed up for this yet, please contact [employer] at [phone] to get signed up today. Language Information Language assistance services are available as needed. [facility] Medicine Office/Clinic Noteon [id number] Medicine Office/Clinic NoteNantucket [facility] Office/Clinic Note HPI Staff Pt presents today due to Rt leg & Rt Knee pain. Pain characteristics: Pain location: Rt knee & leg Onset: off and on for several months Medication used: ibuprofen did not help at all Biofreeze helped a little bit Her knee would pop in the back of knee down to her calf hurts more at night she walks 3 miles every day has been doing this for awhile, gets pain all the way around the knee when she pushes on accelerator or the brake petal History of Present Illness pt presents today for right knee pain Review of Systems PHQ Score Initial Depression Screen Score: 0 SCORE General: alert, no acute distress ENMT: oral mucosa moist, no pharyngeal erythema or exudate Cardiovascular: regular rate and rhythm, normal peripheral perfusion Respiratory: Lungs CTA, respirations non labored Extremities: no deformity, no trauma, back of right knee swollen possible bingham's cyst Neurological: oriented x 4, LOC appropriate for age, CN II-XII intact, motor strength equal & normal bilaterally, speech normal Physical Exam Vitals & Measurements T: 36.2 ???C(Temporal Artery) HR: 64(Peripheral) RR: 18 BP: 126/84 SpO2: 98% HT: 167.0 cm HT: 66 in WT: 75.6 kg WT: 166.669 lb BMI: 27.11 Assessment/Plan 1. Right knee pain (M25.561: Pain in right knee) pt c/o right knee pain. on exam the back of right knee has some fluid collection, possibly a bingham cyst. will order u/s of the area and an x ray. meloxicam and Medrol dose pack sent to pharmacy. pt encourage to get compression brace and use heat. RTC 4 weeks if no improvement will consider referralto ortho. Ordered: meloxicam, 15 mg = 1 tab(s), Oral, Daily, # 30 tab(s), Refills(s) 0, Pharmacy: [facility]/pharmacy #[id number], 167, cm, 12/16/24 11:46:00 EDT, Height/Length Dosing, 75.6, kg, 12/16/24 11:46:00 EDT, Weight Dosing methylPREDNISolone, = 1 packet(s), Oral, As Directed, as directed on package labeling, X 6 day(s), # 21 tab(s), Refills(s) 0, Pharmacy: [facility]/pharmacy #[id number], 167, cm, 12/16/24 11:46:00 EDT, Height/Length Dosing, 75.6, kg, 12/16/24 11:46:00 EDT, Weight Dosing US Extremity Non-Vascular Limited Right XR Knee Complete 4+ Views Right 2. Swelling of right knee (M25.461: Effusion, right knee) u/s of right knee ordered Ordered: meloxicam, 15 mg = 1 tab(s), Oral, Daily, # 30 tab(s), Refills(s) 0, Pharmacy: [facility]/pharmacy #[id number], 167, cm, 12/16/24 11:46:00 EDT, Height/Length Dosing, 75.6, kg, 12/16/24 11:46:00 EDT, Weight Dosing methylPREDNISolone, = 1 packet(s), Oral, As Directed, as directed on package labeling, X 6 day(s), # 21 tab(s), Refills(s) 0, Pharmacy: [facility]/pharmacy #[id number], 167, cm, 12/16/24 11:46:00 EDT, Height/Length Dosing, 75.6, kg, 12/16/24 11:46:00 EDT, Weight Dosing US Extremity Non-Vascular Limited Right XR Knee Complete 4+ Views Right 3. BMI 27.0-27.9,adult (Z68.27: Body mass index [BMI] 27.0-27.9, adult) BMI education Ordered: meloxicam, 15 mg = 1 tab(s), Oral, Daily, # 30 tab(s), Refills(s) 0, Pharmacy: [facility]/pharmacy #[id number], 167, cm, 12/16/24 11:46:00 EDT, Height/Length Dosing, 75.6, kg, 12/16/24 11:46:00 EDT, Weight Dosing methylPREDNISolone, = 1 packet(s), Oral, As Directed, as directed on package labeling, X 6 day(s), # 21 tab(s), Refills(s) 0, [id number] 167, cm, 12/16/24 11:46:00 EDT, Height/Length Dosing, 75.6, kg, 12/16/24 11:46:00 EDT, Weight Dosing US Extremity Non-Vascular Limited Right XR Knee Complete 4+ Views Right 4. Non-smoker (Z78.9: Other specified health status) continue not smoking Ordered: meloxicam, 15 mg = 1 tab(s), Oral, Daily, # 30 tab(s), Refills(s) 0, [id number], 167, cm, 12/16/24 11:46:00 EDT, Height/Length Dosing, 75.6, kg, 12/16/24 11:46:00 EDT, Weight Dosing methylPREDNISolone, = 1 packet(s), Oral, As Directed, as directed on package labeling, X 6 day(s), # 21 tab(s), Refills(s) 0, Pharmacy: [facility]/pharmacy #[id number], 167, cm, 12/16/24 11:46:00 EDT, Height/Length Dosing, 75.6, kg, 12/16/24 11:46:00 EDT, Weight Dosing US Extremity Non-Vascular Limited Right XR Knee Complete 4+ Views Right Follow-up No qualifying data available Problem List/Past Medical History Ongoing Acid reflux Chronic cough Congestion of nasal sinus Osteoma Right knee pain Screening for hyperlipidemia Screening for thyroid disorder Seasonal allergies Sinusitis Swelling of right knee Wellness examination Historical No qualifying data Procedure/Surgical History Appendectomy, Biopsy of breast, Carpal tunnel. Medications ibuprofen ICaps AREDS 2 iron 325 meclizine, 25 mg, PRN Medrol 4 mg Tab, 1 packet(s), Oral, As Directed melatonin meloxicam 15 mg Tab, 15 mg= 1 tab(s), Oral, Daily omeprazole 40 mg Cap-DR, See Instructions Vitamin K2 with D3 Zyrtec, Daily Allergies Demerol (Rash) Social History Alcohol Current. Beer, Wine. 3-5 times per week., 12/12/2024 Substance Abuse Never, 10/07/2024 Tobacco Never (less than 100 in lifetime) (more content not included)...[facility] CenterComment on above:Result Comment: Electronically Signed By: Radha Quinteros\.br\Date and Time Signed: 12/16/24 12:31 EDTAmbulatory Visit Summaryon [id number] Visit SummaryAmbulatory Visit Summary REYNA BENAVIDES :1950 Visit Date:10/07/2024 Ambulatory Visit Instructions Your Diagnosis Medicare annual wellness visit, initial Acid reflux Encounter for hepatitis C screening test for low risk patient Overweight Your Care Team Attending Physician - Radha Quinteros Primary Care Physician - Radha Quinteros This Is Your Medications List Non-Formulary Medication (Vitamin K2 with D3) Non-Formulary Medication (iron 325) cetirizine (Zyrtec) ibuprofen meclizine melatonin multivitamin with minerals (ICaps AREDS 2) omeprazole (omeprazole 40 mg Cap-DR) Procedures Performed Appendectomy, Biopsy of breast, Carpal tunnel. Discharge Vitals Heart Rate (Peripheral) 69 Blood Pressure 120/76 Height 167 cm Height 66 in Weight 74.6 kg Weight 164.465 lb BMI 26.75 What to do next Scheduled Follow-Up Appointments Monday2025 11:00 AM EDT Where: [facility] Medicine [address] [address]- You Need to Complete the Following HCV Antibody RFX to Quant PCR, Blood, Routine collect, 10/07/24, Order for future visit, Lab Collect, Encounter for hepatitis C screening test for low risk patient, Not Required, Print Label By OrderLocation Medications What How Much When Instructions Unchanged cetirizine (Zyrtec) Every day Unchanged ibuprofen Unchanged meclizine 25 Milligram As needed for Dizziness Unchanged melatonin Unchanged multivitamin with minerals (ICaps AREDS 2) Unchanged Non-Formulary Medication (iron 325) Unchanged Non-Formulary Medication (Vitamin K2 with D3) Unchanged omeprazole (omeprazole 40 mg Cap-DR) See instructions TAKE 1 CAPSULE BY MOUTH EVERY DAY Allergies Demerol (Rash) Problems Ongoing - Any problem that you are currently receiving treatment for. Acid reflux BMI 26.0-26.9,adult Chronic cough Congestion of nasal sinus Cough Osteoma Screening for hyperlipidemia Screening for thyroid disorder Seasonal allergies Sinusitis Wellness examination Patient Survey You may receive a survey via text or e-mail asking about your office visit. Please share your experience with us by completing your survey. We appreciate your feedback and thank you for choosing us for your care. Education Materials BMI for Adults Body mass index (BMI) is a number found using a person's weight and height. BMI can help tell how much of a person's weight is made up of fat. BMI does not measure body fat directly. It is used instead of tests that directly measure body fat, which can be difficult and expensive. What are BMI measurements used for? BMI is useful to: ??? Find out if your weight puts you at higher risk for medical problems. ??? Help recommend changes, such as in diet and exercise. This can help you reach a healthy weight. BMIscreening can be done again to see if these changes are working. How is BMI calculated? Your height and weight are measured. The BMI is found from those numbers. This can be done with U.S. or metric measurements. Note that charts and online BMI calculators are available to help you findyour BMI quickly and easily without doing these calculations. To calculate your BMI in U.S. measurements: 1. Measure your weight in pounds (lb). 2. Multiply the number of pounds by 703. ??? So, for an adult who weighs 150 lb, multiply that number by 703: 150 x 703, which equals 105,450. 3. Measure your height in inches. Then multiply that number by itself to get a measurement called inches squared. ??? So, for an adult who is 70 inches tall, the inches squared measurement is 70 inches x 70 inches, which equals 4,900 inches squared. 4. Divide the total from step 2 (number of lb x 703) by the total from step 3 (inches squared): 105,450 ??? 4,900 = 21.5. This is your BMI. To calculate your BMI in metric measurements: 1. Measure your weight in kilograms (kg). ??? For this example, the weight is 70 kg. 2. Measure your height in meters (m). Then multiply that number by itself to get a measurement called meters squared. ??? So, for an adult who is 1.75 m tall, the meters squared measurement is 1.75 m x 1.75 m, which equals 3.1 meters squared. 3. Divide the number of kilograms (your weight) by the meters squared number. In this example: 70 ??? 3.1 = 22.6. This is your BMI. What do the results mean? BMI charts are used to see if you are underweight, normal weight, overweight, or obese. The following guidelines will be used: ??? Underweight: BMI less than 18.5. ??? Normal weight: BMI between 18.5 and 24.9. ??? Overweight: BMI between 25 and 29.9. ??? Obese: BMI of 30 or above. BMI is a tool and cannot diagnose a condition. Talk with your health care provider about what your BMI means for you. Keep these notes in mind: ??? Weight includes fat and mus (more content not included)...[facility] Medicine Office/Clinic Noteon [id number] Medicine Office/Clinic NoteNantucket [facility] Medicine Office/Clinic Note Chief Complaint Initial Medicare Wellness Review of Systems PHQ Score Initial Depression Screen Score: 0 SCORE Physical Exam Vitals & Measurements HR: 69(Peripheral) BP: 120/76 SpO2: 96% HT: 66 in HT: 167 cm WT: 74.6 kg WT: 164.465 lb BMI: 26.75 Assessment/Plan 1. Medicare annual wellness visit, initial (Z00.00: Encounter for general adult medical examinationwithout abnormal findings) Patient in office today for her Initial Medicare Wellness Visit. A customized and personalized print out of all the current AHRQ USPSTF???s recommendations for preventative services and all current CDC recommended immunizations, relevant risk recommendations and the following patient brochures weregiven. Reviewed What can I expect during my Medicare preventative care visit CDC-Falls Prevention and home safety screening reviewed. Patient denies any falls in last 12 months, voices no worry about falling, exhibits no problems with sitting and standing. Pt voices understanding with keeping walk way area free of clutter to prevent tripping and/or falling. [place] Advance Directives reviewed, at home. Encouraged to bring in for scanning. Patient denies any problems with ADL???s and Instrumental ADL???s. Cognitive screening completed with memory and clock face drawing. Immunization Record reviewed with the patient. Discussed Shingrix vaccine and availability, hand out provided. 2 COVID vaccines have been administered, 1 booster. Immunization record is up to date. Allergies and medications reviewed and up to date. Patient denies concerns with taking medication as prescribed, reviewed OTC medications with patient with medication list up to date. Blood tests were reviewed: Discussed what tests need to be updated. Labs were ordered per patient request, she will have completed at [facility]. Colonoscopy screenings no longer performed due to age. DEXA scan is up to date, last was 01/12/2023. Last Mammogram was 02/15/2024. Elvia Vieyra NP orders these tests. Reviewed concerns with bladder control over past 6 months with no concerns. Reviewed pain symptoms with patient: denies pain. Reviewed all outside providers that patient follows. Last visit summary notes available in chart and/or have been requested. Follow up scheduled: as needed. AWV has been scheduled: 10/13/2025. Medicare provides yearly screening for alcohol and depression concerns. This is completed during our Medicare wellness visit for those who do not have a current diagnosis of depression or concerns with alcohol use. I spent a total of (12) minutes on this date of service which included preparing to see the patient, face to face patient care, completing clinical documentation, obtaining and/or reviewing separately obtained history, counseling and educating the patient with handouts. Explanations were provided with reviewing questionnaires. AUDIT risk assessment screening completed, risk score(3) with patient denying concerns with use. Completed PHQ-2 risk assessment for depression with risk score(0), negative findings. Patient has been reminded to notify the provider if there would be a change or concerns with symptoms with fear, unable to sleep, worrying too much or feeling down and/or sad with lost of interest with daily activities. Will continue to monitor with screening yearly during Medicare wellness visits. 2. Acid reflux (K21.9: Gastro-esophageal reflux disease without esophagitis) Patient is aware of diet changes with healthier eating habits, such as not eating late at night, losing or maintaining a healthy weight. Importance of not smoking and avoiding and/or reducing alcoholintake. Avoid tight clothing around the waist line and try to avoid spicy or high acid foods. Patient taking PPI medications as directed with symptom management. Reviewed nutrition therapy with recommended foods to help control your symptoms. 3. Encounter for hepatitis C screening test for low risk patient (Z11.59: Encounter for screening for other viral diseases) Discussed with patient the risk of Hepatitis C for people born between 1945- 1965. Handout CDC-Hepatitis C given. Hep C Screening ordered. Patient to have labs drawn for Hepatitis C screening based onyear of . 4. Overweight (E66.3: Overweight) The standard range for ages 18 and older is >=18.5 and < 25 kg/m2. Your BMI (26.7) today was above this range, this falls in the overweight category and there are medical benefits to weight loss. We can offer counselling, referral, and/or medical support in addressing this problem. Your BMI and weight management will be followed at subsequent visits. Follow-up No qualifying data available Patient Education BMI for Adults Heartburn Health Maintenance After Age 65 Problem List/Past Medical History Ongoing Acid reflux BMI 26.0-26.9,adult Chronic cough Congestion of nasal sinus Cough Osteoma Screening for hyperlipidemia Screening for thyroid disorder Seasonal danyelle (more content not included)...[facility] Comment on above:Result Comment: Electronically Signed By: Radha Quinteros\.br\Date and Time Signed: 10/09/24 08:00 EDT\.br\Electronically Co-Signed By: Valentina Sloan\.br\Date and Time Co-Signed: 10/07/24 11:33 EDTUS Thyroid glandon [id number] [address] Ultrasound Report Signed Patient: REYNA BENAVIDES MR#: [id number] : 1950 Acct:[id number] Age/Sex: 74 / F ADM Date: 09/09/24 Loc: US Attending Dr: Steffanie Quintero M.D. Ordering Physician: Steffanie Quintero M.D. Date of Service: 09/09/24 Procedure(s): US thyroid Accession Number(s): [id number] cc: JENN GERMAIN ; Steffanie Quintero M.D. [address] [address] Patient Name: REYNA BENAVIDES MRN: [id number] date: 1950 Sex: F Assigned Patient Location: US Current Patient Location: US Accession/Order Number: [id number] Exam Date: 09/09/2024 10:47 Report Date: 09/09/2024 11:04 At the request of: STEFFANIE QUINTERO MD Procedure: US thyroid THYROID ULTRASOUND CLINICAL DATA: Follow-up thyroid nodules COMPARISON: 03/12/2024 and 05/25/2023 The right thyroid lobe measures 3.6 x 1.9 x 2.5 cm. The left lobe measures 5.3 x 2.0 x 2.2 cm. The isthmus measures 2 - 3 mm. The thyroid lobes are diffusely heterogeneous. At the inferior pole on the right there is a solid hyperechoic nodule with hypoechoic rim measuring 1.3 x 1.2 x 1.2 cm which is not significantly changed (TI-RADS 3). At the superior pole, there is a small colloid cyst measuring 5 mm. On the left, there is a mixed echogenicity nodule with cystic and solid components and multiple hyperechoic foci measuring 18 x 16 x 17 mm (TI-RADS 3). This is not significantly changed in size or appearance. It was measured differently on the comparison. At the mid pole, there is a hyperechoic nodule measuring 6 mm in size that is similar. At the inferior pole there is a deep hypoechoic nodule measuring 12 x 12 x 12 mm, also similar. No new nodularity is seen. US/US thyroid IMPRESSION: SIMILAR BILATERAL THYROID NODULARITY. THE DOMINANT NODULES ON EACH SIDE HAVE BEEN PREVIOUSLY BIOPSIED AND REPORTED BENIGN. FOLLOW-UP IN 2 YEARS (3 YEARS FROM THE INITIAL IMAGING) IS SUGGESTED. Impression dictated by: Rachele Moore M.D. 09/09/2024 11:04 AM Dictation Location: [place] [address] Electronically authenticated by: [id number] Y Date: 09/09/2024 11:04 Dictated By: Rachele Moore M.D. Signed By: 09/09/24 1106 DD/ 1104 TD/TT: Outreach Director:NICHELLEadiology, Radiologist, - 09/09/2024 [place] [address] Ultrasound Report Signed Patient: REYNA BENAVIDES MR#: [id number] : 1950 Acct:[id number] Age/Sex: 74 / F ADM Date: 09/09/24 Loc: US Attending Dr: Steffanie Quintero M.D. Ordering Physician: Steffanie Quintero M.D. Date of Service: 09/09/24 Procedure(s): US thyroid Accession Number(s): [id number] cc: JENN GERMAIN ; Steffanie Quintero M.D. [facility] [place] [id number] Patient Name: REYNA BENAVIDES MRN: [id number] date: 1950 Sex: F Assigned Patient Location: US Current Patient Location: US Accession/Order Number: [id number] Exam Date: 09/09/2024 10:47 Report Date: 09/09/2024 11:04 At the request of: STEFFANIE QUINTERO MD Procedure: US thyroid THYROID ULTRASOUND CLINICAL DATA: Follow-up thyroid nodules COMPARISON: 03/12/2024 and 05/25/2023 The right thyroid lobe measures 3.6 x 1.9 x 2.5 cm. The left lobe measures 5.3 x 2.0 x 2.2 cm. The isthmus measures 2 - 3 mm. The thyroid lobes are diffusely heterogeneous. At the inferior pole on the right there is a solid hyperechoic nodule with hypoechoic rim measuring 1.3 x 1.2 x 1.2 cm which is not significantly changed (TI-RADS 3). At the superior pole, there is a small colloid cyst measuring 5 mm. On the left, there is a mixed echogenicity nodule with cystic and solid components and multiple hyperechoic foci measuring 18 x 16 x 17 mm (TI-RADS 3). This is not significantly changed in size or appearance. It was measured differently on the comparison. At the mid pole, there is a hyperechoic nodule measuring 6 mm in size that is similar. At the inferior pole there is a deep hypoechoic nodule measuring 12 x 12 x 12 mm, also similar. No new nodularity is seen. US/US thyroid IMPRESSION: SIMILAR BILATERAL THYROID NODULARITY. THE DOMINANT NODULES ON EACH SIDE HAVE BEEN PREVIOUSLY BIOPSIED AND REPORTED BENIGN. FOLLOW-UP IN 2 YEARS (3 YEARS FROM THE INITIAL IMAGING) IS SUGGESTED. Impression dictated by: Rachele Moore M.D. 09/09/2024 11:04 AM Dictation Location: [place] [address] Electronically authenticated by: [id number] Y Date: 09/09/2024 11:04 Dictated By: Rachele Moore M.D. Signed By: 09/09/24 1106 DD/ 1104 TD/TT: Outreach Director: ANTHONY MastersRadiology Study observation (narrative)ANTHONY Joseph Thyroid glandOrdered By: Radiologist Radiology on [id number] Work Phone: ambulatory Visit Summaryon [id number] Visit SummaryAmbulatory Visit Summary REYNA BENAVIDES :1950 Visit Date:05/29/2024 Ambulatory Visit Instructions Your Diagnosis Seasonal allergies Acid reflux Adult BMI 27.0-27.9 kg/sq m Non-smoker Your Care Team Attending Physician - Radha Quinteros Primary Care Physician - Radha Quinteros This Is Your Medications List omeprazole (omeprazole 40 mg Cap-DR) Procedures Performed Appendectomy, Biopsy of breast, Carpal tunnel. Discharge Vitals Heart Rate (Peripheral) 68 Respiratory Rate 18 Blood Pressure 128/74 Height 167.0 cm Height 66 in Weight 75.50 kg Weight 166.449 lb BMI 27.07 Medications What How Much When Instructions Unchanged omeprazole (omeprazole 40 mg Cap-DR) See instructions TAKE 1 CAPSULE BY MOUTH [...] you for choosing us for your care. [facility] Medicine Office/Clinic Noteon [id number] Medicine Office/Clinic NoteN[facility]/Clinic Note HPI Staff Please speak [...] puff(s), Inhalation, q6hr, 8.5 gm, [facility]) [id number], cm, 02/08/23 15:30:00 EST, Height/Length Dosing, 76.5, kg, 02/08/23 15:30:00 EST, Weight Dosing 4. Non-smoker (Z78.9: Other specified health status) continue not smoking Ordered: albuterol, 2 puff(s), Inhalation, q6hr, 8.5 gm, [facility](s) [id number], 167, cm, 02/08/23 15:30:00 EST, Height/Length Dosing, 76.5, kg, 02/08/23 15:30:00 EST, Weight Dosing Orders: methylPREDNISolone, = 1 packet(s), Oral, Once, as directed on package labeling, # 21 tab(s), Refills(s) 0, [id number], 167, cm, 02/08/23 15:30:00 EST, Height/Length Dosing, 76.5, kg, 02/08/23 15:30:00 EST, Weight Dosing omeprazole, See Instructions, TAKE 1 CAPSULE BY MOUTH EVERY DAY, # 90 cap(s), Refills(s) 1, Pharmacy: [id number], 167, cm, 02/08/23 15:30:00 EST, Height/Length Dosing, [...] breast, Carpal tunnel. Medications omeprazole 40 mg Dayne-, See Instructions Allergies Demerol (Rash) Social History [...] 12/27/2013 Recorded influenza virus vaccine, inactivated 12/28/2012 RecordedFirelands Regional Medical CenterComment on above:Result Comment: Electronically Signed By: Radha Quinteros\.br\Date and Time Signed: 05/29/24 11:45 EDTReminderson 05-23-2024 RemindersReminders From: Radha Quinteros To: B - Clinical; Sent: 05/23/2024 08:59:46 EDT Show up: 05/23/2024 08:51:00 EDT Subject: Ambulatory Reminder Due Date/Time: 05/24/2024 08:50:00 EDT looks like she has anemia. I will send in iron supplement prescription to pharmacy. Unless she justwants to get them OTC. Is she having any symptoms? fatigue dizziness, or craving ice? is she havingany dark, tarry stools? Results: Date Result Name [...] 19.1 % (14.0 - 50.0) 05/22/2024 8:48 [place] Auto 12.3 % (4.0 - 14.0) 05/22/2024 8:48 Eos Auto 3.9 % (0.0 - 8.0) 05/22/2024 8:48 Basophil Auto 0.7 % (0.0 - 2.0) 05/22/2024 8:48 Neutro Absolute 2.6 E9/L (2.0 - 7.5) 05/22/2024 8:48 Lymph Absolute (L) 0.8 E9/L (1.0 - 4.0) 05/22/2024 8:48 [place] Absolute 0.5 E9/L (0.2 - 1.0) 05/22/2024 [...] 8:48 TSH 2.44 mcIU/mL (0.34 - 5.60) From: Megha Napoles M.A. (B - Clinical) To: Radha Quinteros; Sent: 05/23/2024 09:55:46 EDT Show up: 05/23/2024 09:51:00 EDT Subject: RE: Ambulatory Reminder understands, and she does already take OTC iron, but she only takes this right before she gives blood, so she will start taking this every day.... she does not have any sx that you mentionedNormalLicking Memorial HospitalCBC w/ Auto Diff on 84-32-0213Rjnjkxicamnw Ql (Bld)PRESENTInvalid Interpretation CodeLicking Memorial HospitalComment on above:Performed By: #### [id number] #### Mehrdad [facility] [address], [place] [address]Jkaelokbo/100 WBC (Bld)0.7 %Normal0.0-2.0L[facility] HospitalComment on above:Performed By: #### [id number] #### [facility] [address], [place] [address]Vjcxpxxfb/Leukocytes Auto (Bld) [Pure # fraction]0.0 E9/LNormal 0.0-0.2FMetroHealth Cleveland Heights Medical CenterComment on above:Performed By: #### [id number] #### [facility] [address] [place] [address]Rrmajnlntkh (Bld) [#/Vol]0.2 E9/LNormal0.0-0.5FMetroHealth Cleveland Heights Medical CenterComment on above:Performed By: #### [id number] #### [facility] [address] [place] [address]Wjvyeptgotc/100 WBC (Bld)3.9 %Normal0.0-8.0[facility] HospitalComment on above:Performed By: #### [id number] #### [facility] [address] [place] [address]Ftcieqknfan distribution width (RBC) [Ratio]17.4 %High10.9-14.2 [facility] HospitalComment on above:Performed By: #### [id number] #### [facility] [address] [place] [address]Zsjvypdqre (Bld) [Volume fraction]35.5 %Kvvzky57.0-46.0[facility] HospitalComment on above:Performed By: #### [id number] #### [facility] [address] [place] [address] 24[address]Hzxqanybsg (Bld) [Mass/Vol]11.4 g/dLLow12.0-16.0[facility] HospitalComment on above:Performed By: #### [id number] #### [facility] [address] [place] [address]Bbhtfvfxegi Auto Ql (Bld)PRESENTInvalid Interpretation Code [facility] HospitalComment on above:Performed By: #### [id number] #### [facility] [address] [place] [address]Wubdfabowbr (Bld) [#/Vol]0.8 E9/LLow1.0-4.0[facility] HospitalComment on above:Performed By: #### [id number] #### [facility] [address] [place] [address]Jpieyhzasoe/100 WBC (Bld)19.1 %Fvqdof14.0-50.0[facility] HospitalComment on above:Performed By: #### [id number] #### [facility] [address] [place] [address]27[address]GHX (RBC) [Entitic mass]24.2 pgLow27.0-34.0[facility] HospitalComment on above:Performed By: #### [id number] #### [facility] [address] [place] [address]RDZY (RBC) [Mass/Vol]32.3 g/qGCffdpr59.4-36.0[facility] HospitalComment on above:Performed By: #### [id number] #### [facility] [address] [place] [address] 349[address]SBW (RBC) [Entitic vol]75.0 fLLow80.0-100.0[facility] HospitalComment on above:Performed By: #### [id number] #### [facility] [address] [place] [address]26[address]Mpowpxtdxm Ql (Bld)PRESENTInvalid Interpretation CodeLicking Memorial HospitalComment on above:Performed By: #### [id number] #### [facility] [address] [place] [address]Rlyrwoxbk (Bld) [#/Vol]0.5 E9/LNormal0.2-1.0[facility] HospitalComment on above:Performed By: #### [id number] #### [facility] [address] [place] [address] 67[address]Xtjygukhffm (Bld) [#/Vol]2.6 E9/LNormal2.0-7.5FMetroHealth Cleveland Heights Medical CenterComment on above:Performed By: #### [id number] #### [facility] [address], [place] [address]Dnmsbeonsee/100 WBC (Bld)64.0 %Rgjhaq16.0-75.0[facility] HospitalComment on above:Performed By: #### [id number] #### [facility] [address], [place] [address]Wwebxqnc mean volume (Bld) [Entitic vol]9.6 fLNormal6.4-10.8 [facility] HospitalComment on above:Performed By: #### [id number] #### [facility] [address] [place] [address] 17[address]Ubenyejjh (Bld) [#/Vol]226.0 E9/PZzjhuq721.0-500.0[facility] HospitalComment on above:Performed By: #### [id number] #### [facility] [address] [place] [address] 477[address]VFW (Bld) [#/Vol]4.7 E12/LNormal4.3-5.9[facility] HospitalComment on above:Performed By: #### [id number] #### [facility] [address] [place] [address] 65[address]FFX size Nom (Bld)SEE MORPHOLOGYInvalid Interpretation Code [facility] HospitalComment on above:Performed By: #### [id number] #### [facility] [address] [place] [address]ZPK corrected for nucl RBC Auto (Bld) [#/Vol]4.1 E9/LNormal 4.0-11.0[facility] HospitalComment on above:Performed By: #### [id number] #### [facility] [address] [place] [address]05[address]SLCCIRTHONstemxs By: SYSTEM SYSTEM on 95-92-4906Wniouxa [Mass/Vol]4.1 g/dLNormal3.3 - 5.0 gm/dLRemisol ChemAlbumin/Globulin [Mass ratio] 1.9 {ratio}Normal1.1 - 2.2Remisol ChemALP [Catalytic activity/Vol]60 [iU]/d Edkfoj97 - 98 Int._Unit/LRemisol ChemALT No additional P-5'-P [Catalytic activity/Vol]11 [iU]/dNormal6 - 46 Int._Unit/LRemisol ChemAnion gap [Moles/Vol]8 mmol/LNormal6 - 16 mEq/LRemisol ChemAST [Catalytic activity/Vol]16 [iU]/dNormal 5 - 43 Int._Unit/LRemisol ChemBilirubin [Mass/Vol]0.9 mg/dLNormal0.0 - 1.1 mg/dL Remisol ChemCalcium [Mass/Vol]9.3 mg/dLNormal8.9 - 11.1 mg/dLRemisol Chem Chloride [Moles/Vol]105 mmol/TVfqdjq643 - 111 mmol/LRemisol ChemCholesterol [Mass/Vol]164 mg/nOVjlyoe555 - 200 mg/dLRemisol ChemCholesterol in HDL [Mass/Vol]44 mg/dLInvalid Interpretation CodeRemisol ChemComment on above:Result Comment: '>= 60 LOW RISK' '<= 40 HIGH RISK'Cholesterol in LDL [Mass/Vol]113 mg/dLNormal<=129mg/dLRemisol ChemCholesterol in VLDL [Mass/Vol]33 mg/dLNormal7 - 40 mg/dLRemisol ChemCO2 [Moles/Vol]29 mmol/UHzlmwt45 - 31 mmol/LRemisol ChemCreatinine [Mass/Vol]0.7 mg/dLNormal0.5 - 1.3 mg/dLRemisol QtfcfKMZ86 mL/min/1.73 p0Kentih>=59mL/min/1.73 c4Bhptwqr ChemGlobulin (S) [Mass/Vol]2.2 g/dLNormal1.4 - 4.0 gm/dLRemisol Chem Glucose [Mass/Vol]105 mg/mWDdtcyf78 - 199 mg/dLRemisol ChemPotassium [Moles/Vol] 4.4 mmol/LNormal3.5 - 5.3 mmol/LRemisol ChemProtein [Mass/Vol]6.3 g/dLNormal6.0 - 7.8 gm/dLRemisol ChemSodium [Moles/Vol]138 mmol/FRtcmfw535 - 145 mmol/LRemisol ChemTriglyceride [Mass/Vol]163 mg/dLHigh<=149mg/dLRemisol ChemTSH Qn2.44 m[IU]/LNormal0.34 - 5.60 mcIU/mLRemisol ChemUrea nitrogen [Mass/Vol]12 mg/dL Normal5 - 21 mg/dLRemisol ChemUrea nitrogen/Creatinine [Mass ratio]17 mg/mg Bgtntw56 - 20Remisol ChemCMPon 70-27-8463Wcejkpl [Mass/Vol]4.1 g/dLNormal3.3-5.0 [facility] HospitalComment on above:Performed By: #### [id number] #### [facility] [address], [place] [address]Vmcraqb/Globulin (S) [Mass conc ratio]1.7Vfeqoo9.1-2.2FMetroHealth Cleveland Heights Medical CenterComment on above:Performed By: #### [id number] #### [facility] [address], [place] [address]LLS [Catalytic activity/Vol]60 Int._Unit/PUoxzuy83-65ZohurrLicking Memorial HospitalComment on above:Performed By: #### [id number] #### [facility] [address], [place] [address]UMV No additional P-5'-P [Catalytic activity/Vol]11 Int._Unit/L Normal6-46[facility] HospitalComment on above:Performed By: #### [id number] #### [facility] [address], [place] [address]Iigyk gap [Moles/Vol]8 mmol/LNormal6-16[facility] HospitalComment on above:Performed By: #### [id number] #### [facility] [address], [place] [address]KWF [Catalytic activity/Vol]16 Int._Unit/LNormal5-43[facility] HospitalComment on above:Performed By: #### [id number] #### [facility] [address], [place] [address]Zmrtaphwg [Mass/Vol]0.9 mg/dLNormal0.0-1.1FMetroHealth Cleveland Heights Medical CenterComment on above:Performed By: #### [id number] #### [facility] [address], [place] [address]Svzlipq [Mass/Vol]9.3 mg/dLNormal8.9-11.1FMetroHealth Cleveland Heights Medical CenterComment on above:Performed By: #### [id number] #### [facility] [address], [place] [address]Kmshqcrf [Moles/Vol]105 mmol/YKqlrhl390-610KvmdwkLicking Memorial HospitalComment on above:Performed By: #### [id number] #### [facility] [address], [place] [address]SA4 [Moles/Vol]29 mmol/HOhyiay02-98YoiwztLicking Memorial Hospital Comment on above:Performed By: #### [id number] #### [facility] [address], [place] [address]Pyvtwyyocq [Mass/Vol]0.7 mg/dLNormal0.5-1.3FMetroHealth Cleveland Heights Medical CenterComment on above:Performed By: #### [id number] #### [facility] [address], [place] [address]Ayecezzc (S) [Mass/Vol]2.2 g/dLNormal1.4-4.0[facility] HospitalComment on above:Performed By: #### [id number] #### [facility] [address], [place] [address]Lvjesuh [Mass/Vol]105 mg/gCRioylm13-069EukzxuLicking Memorial HospitalComment on above:Performed By: #### [id number] #### [facility] [address], [place] [address]Yyqhawiep [Moles/Vol]4.4 mmol/LNormal3.5-5.3FMetroHealth Cleveland Heights Medical CenterComment on above:Performed By: #### [id number] #### Cronin [facility] [address], [place] [address]Whmcvyz [Mass/Vol]6.3 g/dLNormal6.0-7.8[facility] HospitalComment on above:Performed By: #### [id number] #### [facility] [address], [place] [address]Txzerw [Moles/Vol]138 mmol/MCfypns181-078IjnydbLicking Memorial HospitalComment on above:Performed By: #### [id number] #### [facility] [address], [place] [address]Gkyp nitrogen [Mass/Vol]12 mg/dLNormal5-21[facility] HospitalComment on above:Performed By: #### [id number] #### [facility] [address], [place] [address]Cjmr nitrogen/Creatinine [Mass ratio]17 No BmgwtCeoqtk04-20 [facility] HospitalComment on above:Performed By: #### [id number] #### [facility] [address], [place] [address]VOZLFITGTZKfsoxkn By: SYSTEM SYSTEM on 21-12-2636Xsqgdyfijrqt Ql (Bld)PRESENT *NA* (05/22/24 8:48 AM)Invalid Interpretation CodeRemisol HemeBasophils/100 WBC (Bld) 0.7 %Normal0.0 - 2.0 %Remisol HemeBasophils/Leukocytes Auto (Bld) [Pure # fraction]0.0 E9/LNormal0.0 - 0.2 E9/LRemisol HemeEosinophils (Bld) [#/Vol]0.2 E9/LNormal0.0 - 0.5 E9/LRemisol HemeEosinophils/100 WBC (Bld)3.9 %Normal0.0 - 8.0 %Remisol HemeErythrocyte distribution width (RBC) [Ratio]17.4 %High10.9 - 14.2 %Remisol HemeHematocrit (Bld) [Volume fraction]35.5 %Lxtqwg71.0 - 46.0 % Remisol HemeHemoglobin (Bld) [Mass/Vol]11.4 g/dLLow12.0 - 16.0 gm/dLRemisol Heme Hypochromia Auto Ql (Bld)PRESENT *NA* (05/22/24 8:48 AM)Invalid Interpretation CodeRemisol HemeLymphocytes (Bld) [#/Vol]0.8 E9/LLow1.0 - 4.0 E9/LRemisol HemeLymphocytes/100 WBC (Bld)19.1 % Josjtt38.0 - 50.0 %Remisol HemeMCH (RBC) [Entitic mass]24.2 pgLow27.0 - 34.0 pg Remisol HemeMCHC (RBC) [Mass/Vol]32.3 g/eDJtmzwi03.4 - 36.0 gm/dLRemisol HemeMCV (RBC) [Entitic vol]75.0 fLLow80.0 - 100.0 fLRemisol HemeMicrocytes Ql (Bld) PRESENT *NA* (05/22/24 8:48 AM)Invalid Interpretation CodeRemisol HemeMonocytes (Bld) [#/Vol] 0.5 E9/LNormal0.2 - 1.0 E9/LRemisol HemeMonocytes/100 WBC (Bld)12.3 %Normal4.0 - 14.0 %Remisol HemeNeutrophils (Bld) [#/Vol]2.6 E9/LNormal2.0 - 7.5 E9/LRemisol HemeNeutrophils/100 WBC (Bld)64.0 %Shpmpm77.0 - 75.0 %Remisol HemePlatelet mean volume (Bld) [Entitic vol]9.6 fLNormal6.4 - 10.8 fLRemisol HemePlatelets (Bld) [#/Vol]226.0 E9/IQewruy124.0 - 500.0 E9/LRemisol HemeRBC (Bld) [#/Vol]4.7 E12/L Normal4.3 - 5.9 E12/LRemisol HemeRBC size Nom (Bld)SEE MORPHOLOGY *NA* (05/22/24 8:48 AM)Invalid Interpretation CodeRemisol HemeWBC corrected for nucl RBC Auto (Bld) [#/Vol]4.1 E9/LNormal4.0 - 11.0 E9/LRemisol HemeLipid Panelon 66-85-7514Mtfxbinwudh [Mass/Vol]164 mg/sQOdnsgd167-876GbugoqLicking Memorial HospitalComment on above:Performed By: #### [id number] #### Cronin [facility] [address], [place] [address]Fhunczvqjzz in HDL [Mass/Vol]44 mg/dLInvalid Interpretation CodeLicking Memorial HospitalComment on above:Result Comment: '>= 60 LOW RISK' '<= 40 HIGH RISK'Performed By: #### [id number] #### [facility] [address], [place] [address]Fryawqjgwkb in LDL [Mass/Vol]113 mg/dLNormal<=129[facility] HospitalComment on above:Performed By: #### [id number] #### [facility] [address], [place] [address]Tjqlaajsesr in VLDL [Mass/Vol]33 mg/dLNormal7-40[facility] HospitalComment on above:Performed By: #### [id number] #### [facility] [address], [place] [address]Cfqepufsrjfz [Mass/Vol]163 mg/dLHigh<=149[facility] HospitalComment on above:Performed By: #### [id number] #### [facility] [address], [place] [address]VZUqy 55-62-2037SFQ Qn2.44 m[IU]/LNormal0.34-5.60[facility] HospitalComment on above:Performed By: #### [id number] #### [facility] [address], [place] [address]aEQClg 57-49-8754vFEA29 mL/min/1.73 l7Fisgux>=59[facility] HospitalComment on above:Performed By: #### [id number] #### [facility] [address] [facility] [place] [address]Jkzcrevzcyrn Noteon 43-10-0129Aadzrhvpupce Note [id number]#1.00TIFMarietta Osteopathic ClinicConsenton 51-36-6478Wqmvmjl [id number]#1.00TIFMarietta Osteopathic ClinicNurse Consultation Noteon 43-18-5348Tdozr Consultation NoteReason for Visit Here for kenalog injection Medications [...] 12/27/2013 Recorded influenza virus vaccine, inactivated 12/28/2012 RecordedFirelands Regional Medical CenterRAD - CT Reporton [id number] - CT Report [id number]#1.00TIFMarietta Osteopathic ClinicRAD - Ultrasound Reporton [id number] - Ultrasound Report [id number]#1.00TIFCarolinaSelect Medical Specialty Hospital - Columbus SouthLon 28-36-0541LUbfdygaw: [id number] Received: 06/12/23 Status: SOUJana Req Num: [id number] Spec Type: Cytology Subm Dr: Lopez Wilson MD Tissues: A FNA SLIDES NOPATH (LEFT THYROID NODULE SUPERIOR) B FNA SLIDES NOPATH (RIGHT THYROID NODULE INFERIO) Procedures: Cyto Int and Re/2, PAPSTN/12 Age/ Patient Sex Location Account Attending Physician Reyna Benavides 72/F [place] [id number] Lopez Wilson MD SPEC NUM: [id number] RECD: 06/12/23 STATUS: HÉCTOR REQ NUM: [id number] MJ: 06/08/23 [facility] DR: Lopez Wilson MD ENTERED: 06/12/[address] [facility] [address]: Latha,STEFFANIE Delvalle MD SPEC TYPE: Cytology DEPT: [facility] ENTERED BY: [id number] RECV BY: [id number] ORDERED: Cyto Int and Re/2, PAPSTN/12 ORDERED: Cyto Int and Re/2, PAPSTN/12 Pathological Diagnosis A, left thyroid nodule superior, FNA cytology: -Appropriate for assessment -The [place] system is category 2: Benign -Fibrin trapping [...] inferior, FNA cytology: -Appropriate for assessment -The [place] system is category 2: Benign -A few adequate number of small follicular groups are present in the ThinPrep smear and 2 other aspirate smears -The follicular cells are all small and bland looking Specimen: [id number] Received: 06/12/23 Status: HÉCTOR Hernandez Num: [id number] Spec Type: Cytology Subm Dr: Lopez Wilson MD Tissues: A FNA SLIDES NOPATH (LEFT THYROID NODULE SUPERIOR) B FNA SLIDES NOPATH (RIGHT THYROID NODULE INFERIO) Procedures: Cyto Int and Re/2, PAPSTN/12 Patient: Reyna Benavides [id number] (Continued) Specimen: [id number] Received: 06/12/23 (Continued) Signed (signature on file) Katya Norris MD 06/13/23 1716 Specimen: [id number] Received: 06/12/23 Status: HÉCTOR Hernandez Num: [id number] Spec Type: Cytology Subm Dr: Lopez Wilson MD Tissues: A FNA SLIDES NOPATH (LEFT THYROID NODULE SUPERIOR) B FNA SLIDES NOPATH (RIGHT THYROID NODULE INFERIO) Procedures: Cyto Int and Re/2, PAPSTN/12 Patient: Reyna Benavides [id number] (Continued) Specimen: [id number] Received: 06/12/23-1249 (Continued) Clinical Information Thyroid nodules History of [...] pap are additionally received. (CC/nh) CPT Codes 71673 x 2 Specimen: [id number] Received: 06/12/23-1249 Status: HÉCTOR Mary Num: [id number] Spec Type: Cytology Subm Dr: Lopez Wilson MD Tissues: A FNA SLIDES NOPATH (LEFT THYROID NODULE SUPERIOR) B FNA SLIDES NOPATH (RIGHT THYROID NODULE INFERIO) Procedures: Cyto Int and Re/2, PAPSTN/12 Patient: Reyna Benavides [id number] (Continued) Signed (signature on file) Katya Norris MD 06/13/[address] [place] [address] Physician GroupRAD - Ultrasound Reporton [id number] - Ultrasound [id number]#1.00[facility]RAD - [facility]trasound Report [id number]#1.00TIFMarietta Osteopathic ClinicConsultation Noteon [id number] Note [id number]#1.00TIFMarietta Osteopathic ClinicHEALTH FAIR CBC AUTO DIFFon [id number] #0.0 103/ulNormal0.0-0.1The [facility] HospitalComment on above:Performed By: #### HFPFCBC #### [facility] [address] [place] [address] Dr. Jean-Claude NorrisBasophils/100 WBC (Bld)0.7 %Normal0.2-2.0[facility] Comment on above:Performed By: #### HFPFCBC #### [facility] [address] [place] [address] Dr. Jean-Claude Alex #0.2 103/ulNormal0.0-0.7The [facility] HospitalComment on above: Performed By: #### HFPFCBC #### [facility] [address] [place] [address] Dr. Jean-Claude Youosinophils/100 WBC (Bld)3.7 %Normal0.9-7.0[facility] Comment on above:Performed By: #### HFPFCBC #### [facility] [address] [place] [address] Dr. Jean-Claude Yourythrocyte distribution width (RBC) [Ratio]14.8 %Lribdq86.0-15.0 The [facility] HospitalComment on above:Performed By: #### HFPFCBC #### [facility] [address] [place] [address] Dr. Jean-Claude NorrisHematocrit (Bld) [Volume fraction]36.5 %Ytmzur75.0-48.0The [facility] HospitalComment on above:Performed By: #### HFPFCBC #### [facility] [address] [place] [address] Dr. Jean-Claude NorrisHemoglobin (Bld) [Mass/Vol]11.6 g/dLCritically low12.0-16.0The [facility] HospitalComment on above:Performed By: #### HFPFCBC #### [facility] [address] [place] [address] Dr. Jean-Claude Mosher #0.01 10e3/ulNormal0.00-0.03The [facility] HospitalComment on above:Performed By: #### HFPFCBC #### [facility] [address] [place] [address] Dr. Jean-Claude Mosher %0.2 %Normal0.0-0.5The [facility] HospitalComment on above: Performed By: #### HFPFCBC #### [facility] [address] [place] [address] Dr. Jean-Claude Serna #0.8 103/ulCritically low1.2-3.8[facility] Comment on above:Performed By: #### NEGROBC #### [facility] [address] [place] [address] Dr. Jean-Claude Villarrealhocytes/100 WBC (Bld)18.9 %Critically low20.5-60.0The [facility] HospitalComment on above:Performed By: #### SILKEFCBC #### [facility] [address] [place] [address] Dr. Jean-Claude Wu (RBC) [Entitic mass]25.1 pgCritically low26.7-34.0The [facility] HospitalComment on above:Performed By: #### ISLKEFCBC #### [facility] [address] [place] [address] Dr. Jean-Claude Cruz (RBC) [Mass/Vol]31.8 g/mGChnygd86.9-35.2The [facility] HospitalComment on above:Performed By: #### HFPFCBC #### [facility] [address] [place] [address] Dr. Jean-Claude Cruz (RBC) [Entitic vol]78.8 fLCritically low81.0-99.0The [facility] HospitalComment on above:Performed By: #### HFPFCBC #### [facility] [address] [place] [address] Dr. Jean-Claude Espinal #0.5 103/ulNormal0.3-0.8The [facility] HospitalComment on above:Performed By: #### HFPFCBC #### [facility] [address] [place] [address] Dr. Jean-Claude Patelocytes/100 WBC (Bld)12.4 %Critically high1.7-12.0The [facility] HospitalComment on above:Performed By: #### HFPFCBC #### [facility] [address] [place] [address] Dr. Jean-Claude Enciso #2.7 103/ulNormal1.4-6.5The [facility] HospitalComment on above:Performed By: #### HFPFCBC #### [facility] [address] [place] [address] Dr. Jean-Claude Peerzutrophils/100 WBC (Bld)64.1 %Jojpcq20.0-75.0The [facility] HospitalComment on above:Performed By: #### HFPFCBC #### [facility] [address] [place] [address] Dr. Jean-Claude Lyon mean volume (Bld) [Entitic vol]11.4 fLNormal9.5-13.5The [facility] HospitalComascension providence hospital on above:Performed By: #### HFPFCBC #### [facility] [address] [place] [address] Dr. Jean-Claude NorrisPLT209 103/khCsqswd422-739Akw [facility] HospitalComment on above: Performed By: #### HFPFCBC #### [facility] [address] [place] [address] Dr. Jean-Claude NorrisRBC4.63 106/ulNormal4.20-5.40The [facility] HospitalComasc[facility] on above:Performed By: #### HFPFCBC #### [facility] [address] [place] [address] Dr. Jean-Claude NorrisWBC4.3 103/ulNormal4.0-11.0The [facility] HospitalComment on above: Performed By: #### HFPFCBC #### [facility] [address] [place] [address] Dr. Jean-Claude Pickering [facility] GLYCOHEMOGLOBIN A1Con 42-04-7463Ktxfzdr [Mass/Vol]117 mg/dLNormalThe [facility]uffton HospitalComment on above:Performed By: #### ENRIZ5S #### [facility] [address] [place] [address] Dr. Jean-Claude NorrisHbA1c (Bld) [Mass fraction]5.7 %Normal4.5-6.2The [facility] HospitalComment on above:Performed By: #### IXYEB5G #### [facility] [address] [place] [address] Dr. Jean-Claude PickeringFAIR PROFILEon 86-14-0564Zeppglh [Mass/Vol]3.9 g/dLNormal 3.4-5.0The [facility] HospitalComment on above:Performed By: #### HFPF #### [facility] [address] [place] [address] Dr. Jean-Claude NorrisAlbumin/Globulin [Mass ratio]1.3 {ratio}NormalThe [facility]uffton HospitalComment on above:Performed By: #### HFPF #### [facility] [address] [place] [address] Dr. Jean-Claude Salazar [Catalytic activity/Vol]69 U/KAuhaky00-606Xve [facility] HospitalComasc[facility] prov[facility] on above:Performed By: #### HFPF #### [facility] [address] [place] [address] Dr. Jean-Claude Deutsch [Catalytic activity/Vol]23 U/ZXlkeoj48-52Jna [facility] HospitalCom[facility] on above:Performed By: #### HFPF #### [facility] [address] [place] [address] Dr. Jean-Claude Duarte [Catalytic activity/Vol]19 U/CQlimhl46-87Gdc [facility] on above:Performed By: #### HFPF #### [facility] [address] [place] [address] Dr. Jean-Claude NorrisBilirubin [Mass/Vol]1.0 mg/dLNormal0.2-1.0[facility] Comment on above:Performed By: #### HFPF #### [facility] [address] [address] [address] Jean-Claude NorrisCalcium [Mass/Vol]9.3 mg/dLNormal8.5-10.1[facility] Comment on above:Performed By: #### HFPF #### [facility] [address] [address] [address] Jean-Claude NorrisChloride [Moles/Vol]106 mmol/NYbehiz86-029Ezb [facility] Comment on above:Performed By: #### HFPF #### [facility] [address] [place] [address] Dr. Jean-Claude NorrisCHOL-HDL RATIO NORMSChillicothe VA Medical CenterComment on above:Result Comment: 3.3 - 4.4 LOW RISK 4.4 - 7.1 AVERAGE RISK 7.1 - 11.0 MODERATE RISK >11.0 HIGH RISKPerformed By: #### HFPF #### [facility] [address] [place] [address] Dr. Jean-Claude Milleresterol [Mass/Vol]183 mg/dLNormal<=200[facility] Comment on above:Performed By: #### HFPF #### [facility] [address] [place] [address] Dr. Jean-Claude NorrisCholesterol in HDL [Mass/Vol]46 mg/bHPvkhmk08-63BncSelect Medical Specialty Hospital - TrumbullComment on above:Performed By: #### HFPF #### [facility] [address] [place] [address] Dr. Jean-Claude NorrisCholesterol in LDL [Mass/Vol]107.2 mg/dLLutheran HospitalComment on above:Performed By: #### HFPF #### [facility] [address] [place] [address] Dr. Jean-Claude Milleresterseng.total/Cholesterol in HDL [Mass ratio]4.0 {ratio} NormalSelect Medical Specialty Hospital - TrumbullComment on above:Performed By: #### HFPF #### [facility] [address] [address] [address] Jean-Claude NorrisCO2 [Moles/Vol]27.7 mmol/NJtowbc32.0-32.0[facility] Comment on above:Performed By: #### HFPF #### [facility] [address] [address] [address] Jean-Claude NorrisCreatinine [Mass/Vol]0.69 mg/dLNormal0.55-1.02The [facility] HospitalComment on above:Performed By: #### HFPF #### [facility] [address] [address] [address] Jean-Claude NorrisGlobulin (S) [Mass/Vol]3.1 g/dLNoThe Christ HospitalComment on above:Performed By: #### HFPF #### [facility] [address] [place] [address] Dr. Jean-Claude NorrisGlucose [Mass/Vol]125 mg/dLCritically rjyf46-682Vlw [facility] HospitalComment on above:Performed By: #### HFPF #### [facility] [address] [place] [address] Dr. Jean-Claude NorrisHDL NORMAL> or = 60 mg/dl - LOW CARDIOVASCULAR RISK <40 mg/dl - HIGH CARDIOVASCULAR RISKLutheran HospitalComment on above:Performed By: #### HFPF #### [facility] [address] [place] [address] Dr. Jean-Claude NorrisLDL CALC NORMALSEE BELOWLutheran HospitalComment on above:Result Comment: <100 mg/dl OPTIMAL 100 - 129 mg/dl NEAR OR ABOVE OPTIMAL 130 - 159 mg/dl BORDERLINE HIGH 160 - 189 mg/dl HIGH >190 mg/dl VERY HIGH Performed By: #### HFPF #### [facility] [address] [place] [address] Dr. Jean-Claude NorrisPotassium [Moles/Vol]4.3 mmol/LNormal3.5-5.1[facility] Comment on above:Performed By: #### HFPF #### [facility] [address] [place] [address] Dr. Jean-Claude NorrisProtein [Mass/Vol]7.0 g/dLNormal6.4-8.2[facility] Comment on above:Performed By: #### HFPF #### [facility] [address] [place] [address] Dr. Jean-Claude NorrisSodium [Moles/Vol]142 mmol/RArlind736-801WlmSelect Medical Specialty Hospital [facility] Comment on above:Performed By: #### HFPF #### [facility] [address] [address] [address] Jean-Claude NorrisTriglyceride [Mass/Vol]149 mg/dLNormal<=150[facility] Comment on above:Performed By: #### HFPF #### [facility] [address] [place] [address] Dr. Jean-Claude NorrisTSH2.552 uIU/mLNormal0.358-3.740[facility] - TrumbullComment on above:Performed By: #### HFPF #### [facility] [address] [place] [address] Dr. Jean-Claude NorrisUrea nitrogen [Mass/Vol]15.0 mg/dLNormal7.0-18.0The [facility] HospitalComment on above:Performed By: #### HFPF #### [facility] [address] [place] [address] Dr. Jean-Claude NorrisUrea nitrogen/Creatinine [Mass ratio]21.7 mg/mgNoThe Christ HospitalComment on above:Performed By: #### HFPF #### [facility] [address] [place] [address] Dr. Jean-Claude NorrisVLDL CALC29.8 mg/dLNoThe Christ HospitalComment on above: Performed By: #### HFPF #### [facility] [address] [place] [address] Dr. Jean-Claude NorrisMG MAMM SCREEN 3D JENNA CADon 70-09-0516EZ MAMM SCREEN 3D JENNA CAD Patient: REYNA BENAVIDES Exam Date: 01/06/2022 : 1950 Gender:F Ordering : DR GISELA VIEYRA [facility] Admission #: [id number] Family : Order #: [id number] CLICK HERE TO VIEW EXAM RADIOLOGY REPORT [...] breast cancer at age 58. LOCATION: [facility] BREAST COMPOSITION: Scattered areas fibroglandular density. [...] LUMP SHOULD BE BIOPSIED. Dictated by: Benjy Lay MD on 01/06/2022 at 14:43 Approved by: Benjy Lay MD on 01/06/2022 at 14:45[facility] Vital Signs Date TimeVital SignValuePerforming YnhfnoxsoOackgzhd39-02-5788 11:05-0400Body ykjlea718.1 cmSteffanie Quintero MD Work Phone: [facility] HealthcareDqjsuanbfw03-82-3930 11:05-0400Body mass index (BMI) [Ratio]27.46 kg/t7TtdtvoSteffanie Quintero MD Work Phone: [facility] HealthcareGtmmeilkjz71-35-9884 11:05-0400Body jhoahk67.84 kgSteffanie Quintero MD Work Phone: [facility] HealthcareSbxrnvbaoe21-14-0200 11:05-0400Diastolic blood servbnop45 mm[Hg]Steffanie Quintero MD Work Phone: [facility] HealthcareKjnvnetito36-65-6475 11:05-0400Heart rate78 /min Steffanie Quintero MD Work Phone: [phone] [place], [place] 1611107-23-2025 11:05-0400Systolic blood mm[Hg]Steffanie Quintero MD Work Phone: [phone] [place], [place] 1611101-22-2025 11:18-0500Body .1 cmSteffanie Quintero MD Work Phone: [phone] [place], [place] 1611101-22-2025 11:18-0500Body mass index (BMI) [Ratio]27.62 kg/r3TnbsfqSteffanie Quintero MD Work Phone: [phone] [place], [place] 1611101-22-2025 11:18-0500Body ayelpa05.3 kg Steffanie Quintero MD Work Phone: [phone] [place], [place] 1611101-22-2025 11:18-0500Diastolic blood ncrclmio46 mm[Hg]Steffanie Quintero MD Work Phone: [phone] [place], [place] 1611101-22-2025 11:18-0500Heart rate69 /min Steffanie Quintero MD Work Phone: [phone] [place], [place] 1611101-22-2025 11:18-0500Systolic blood mm[Hg]Steffanie Quintero MD Work Phone: [phone] [place], [place] 1611110-23-2024 12:57-0400Body .1 cmSteffanie Quintero MD Work Phone: [phone] [place], [place] 1611110-23-2024 12:57-0400Body mass index (BMI) [Ratio]28.96 kg/f0CpeqfeSteffanie Quintero MD Work Phone: [phone] [place], [place] 1611110-23-2024 12:57-0400Body yxbcwf98.93 kgSteffanie Quintero MD Work Phone: [phone] [place], [place] 1611110-23-2024 12:57-0400Diastolic blood mm[Hg]Steffanie Quintero MD Work Phone: [phone] [place], [place] 1611110-23-2024 12:57-0400Systolic blood ythqozvt953 mm[Hg]Steffanie Quintero MD Work Phone: [facility] Encounters Encounter DateEncounter TypeCare ProviderFacilityStart: 12-16-2024 End: 64-88-4061rhkynnsxcgEFV Radha L SchwabFacility:FT BellevueStart: 10-07-2024 End: 04-50-9953mgvgpppazxDWI Radha L SchwabFacility:FT BellevueStart: 09-18-2024 End: 65-73-8862Snhpwg flowsheetSteffanie Quintero MD Work Phone: [facility] CI ENTStart: 09-18-2024 End: 51-68-2742Vjelwt flowsJazzy Quintero MD Work Phone: [facility] CI ENTStart: 09-18-2024 End: 57-61-4917Hduakp outpatient visit 15 minutesSteffanie Quintero MD Work Phone: [facility] CI ENTComment on above:Nontoxic multinodular goiter (Primary Dx)Start: 09-18-2024 End: 67-54-4947vkomkikgxhYYHLQF H TIMMISNot AvailableStart: 58-71-6341Lqxmifa encounter statusHimatthew Quintero MD Work Phone: NOAD HealthcareStart: 09-09-2024 End: 86-82-8354Zsvrytxrl Result EncounterSteffanie Quintero MD Work Phone: n[facility] External Department UnsolicitedStart: 09-09-2024 End: 76-32-8115Nwptoztld Result EncounterHimatthew Quintero MD Work Phone: noms External Department UnsolicitedStart: 05-29-2024 End: 31-48-0501icmsqsczxlJTB Radha Ochoa SchwabFacility:FT BellevueStart: 05-22-2024 End: 64-22-4978Tbq Drop offJodi L Mitzi [facility] Start: 05-22-2024 End: 78-32-3003lvbwefnwhgIhhk L SchwabFacility:FT FM BellevueStart: 03-27-2024 End: 57-36-6505Akthvz flowsheetChristine A Pleasnick PT Work Phone: [phone] NM PTStart: 03-27-2024 End: 73-80-6539Ylfxnu flowsheetChristine A Pleasnick PT Work Phone: [phone] NM PTStart: 03-27-2024 End: 89-83-2357goasrpicymMxktsqygh A Pleasnick PT Work Phone: [phone] NM PTComment on above:Benign paroxysmal positional vertigo of right ear (Primary Dx); Dizziness; ImbalanceStart: 03-25-2024 End: 98-46-9954utxhljxoskRhwdiptom A Pleasnick PT Work Phone: [phone] NM PTComment on above:Benign paroxysmal positional vertigo of right ear (Primary Dx); Dizziness; ImbalanceStart: 03-25-2024 End: 94-78-0128Hbiljv flowsheetChristine A Pleasnick PT Work Phone: [phone] NM PTStart: 03-25-2024 End: 42-56-7039Ovmuwl flowsheetChristine A Pleasnick PT Work Phone: [phone] NM PTStart: 03-21-2024 End: 95-94-2660Eiyvul flowsheetChristine A Pleasnick PT Work Phone: [phone] NM PTStart: 03-21-2024 End: 66-47-1396Hkzeuk flowsheetChristine A Pleasnick PT Work Phone: [phone] NM PTStart: 03-21-2024 End: 66-35-4884uncztzaanfJqulwuzjs A Pleasnick PT Work Phone: [phone] NM PTComment on above:Dizziness (Primary Dx); Benign paroxysmal positional vertigo, unspecified laterality; ImbalanceStart: 03-20-2024 End: 45-48-0351Huvdsa Madisyn Quintero MD Work Phone: [facility] CI ENTStart: 03-20-2024 End: 24-22-9343Utogab flowsheetHimatthew Quintero MD Work Phone: [facility] CI ENTStart: 03-20-2024 End: 80-04-0478Oqyomj outpatient visit 15 minutesHimatthew Quintero MD Work Phone: n[facility] CI ENTComment on above:Multiple thyroid nodules (CMS/HCC) (Primary Dx)Start: 03-20-2024 End: 76-61-6308peqiiqvzrsKNYCPJ H TIMMISNot AvailableStart: 12-20-2023 End: 92-36-8577Mgxjuq Madisyn Quintero MD Work Phone: [facility] CI ENTStart: 12-20-2023 End: 21-29-9739Yliaih Madisyn Quintero MD Work Phone: [facility] CI ENTStart: 12-20-2023 End: 16-97-6053Dyqdul outpatient visit 15 minutesHimatthew Quintero MD Work Phone: [facility] CI ENTComment on above:Nontoxic multinodular goiter (CMS/HCC) (Primary Dx)Start: 12-20-2023 End: 59-27-2091nhgidjvhhyECLSFT H TIMMISNot AvailableStart: 08-15-2023 End: 89-45-3328bswexlphyfShpd L SchwabFacility:FT BellevueStart: 06-08-2023 End: 50-94-0687njsmhuehocUywnsv Roger ZieberFacility:[facility] Hospitaltart: 06-08-2023 End: 08-61-6155pmntfsskvxKY Steven Zieber Work Phone: [facility] Work Phone: Start: 06-08-2023 End: 77-66-5264Rseuisjh ReferredMD Lopez Wlison Work Phone: [facility]-LAB Path Spec Boutte HospStart: 48-46-0616qdsucndictIYLOLXXU CULLENFacility:A9Xjzqw: 06-14-2022 End: 87-36-9521folvsjkyziDTUQMQON CULLENFacility:I0Rkvcs: 05-03-2022 End: 32-09-9801qjpgpouqlpJN KATIUSKA LANDAVERDE .Facility:B6Nvzql: 01-06-2022 End: 19-75-4041kguvduvoelHB BENJY Yun WESTFacility:H1 Procedures DateProcedureProcedure DetailPerforming ClinicianStart: 33-01-7881Xh soft tissue head & neck real time imge docmHilaryaritza Quintero MD Work Phone: Start: 19-60-4803WllothxqmvxJfgocw Timmis MD Work Phone: appendectomyJodi Mitzi Biopsy of breastJodi Mitzi Comment on above:right breastCarpal tunnel syndrome (disorder)Radha Mitzi Comment on above:bilateral Plan of Treatment DateCare ActivityDetailAuthorStart: 87-39-5644dvswuwpbnrCwcyfskonaTrvfqphz:FT FM BellevueStart: 61-79-9346Zrcfdovat vaccinationInfluenza Vaccine (#1)[facility] HealthcareStart: 09-18-2024 End: 74-42-9012Membcrg encounter procedureNOMS CI ENTComment on above:Arrived Start: 03-27-2024 End: 61-28-0562cwwqmkrttm25/29/2025 11:30 AM EST Treatment [facility] [address] [place] [phone] Sheeba Chen, PT [address] [place] [address] ArrivedNOMS NM PT Comment on above:ArrivedStart: 03-25-2024 End: 14-76-6858raharkgohv84/27/2025 2:00 PM EST Treatment [facility] [address] [place] [phone] Sheeba Chen, PT [address] [place] [address] [facility] NM PTStart: 03-21-2024 End: 94-58-2233raenaugzuc80/23/2025 12:00 PM EST Evaluation [facility] [address] [place] [id number] Sheeba Chen, PT [address] [place] [address] Benign paroxysmal positional vertigo, unspecified lateralityNOMS NM PTComment on above:Benign paroxysmal positional vertigo, unspecified lateralityStart: 03-20-2024 End: 35-03-1235Gnwkmyi encounter /22/2025 11:20 AM EST Office Visit [facility] [address] [facility] [place] [address] [place] [address] Steffanie Quintero MD [address] [facility] [address] [place] [address] ArrivedNOMS CI ENTComment on above:ArrivedStart: 12-20-2023 End: 63-53-8165Oebjern encounter okhgigebx39/23/2024 1:00 PM EDT Office Visit [facility] [address] [facility] [place] [address] [place] [address] Steffanie Quintero MD [address] [facility] [address] [place] [address] ArrivedNOMS CI ENTComment on above:ArrivedStart: 53-95-6837Bixtiitpx vaccinationInfluenza Vaccine (#1)[facility] HealthcareStart: 31-75-5789Djkiyushemwm Vaccine: 65+ Years (2 of 2 - PCV)Pneumococcal Vaccine: 65+ Years (2 of 2 - PCV)[facility] HealthcareStart: 22-18-3287Jsyhxukyt for malignant neoplasm of breastMammogramNOMS HealthcareStart: 43-23-4946Ezmbrpyns for malignant neoplasm of colonNOMS Healthcare Immunizations Immunization DateImmunizationNotesCare QrfaewbxVhuervgl83-29-9131osjxfgycr virus vaccine, unspecified formulationSteffaine Quintero MD Work Phone: [facility] HealthcareRvgnftrruq83-30-5699xfyiwfpxu virus vaccine, unspecified formulationJodi Mitzi [phone]-ZruzvOhio Valley Hospital 34-78-7827CEPT-CoV-2 (COVID-19) mRNA BNT-162b2 vaxJodi Mitzi [phone]-ZesqzOhio Valley Hospital Comment on above:Result Comment: 2022-05-16: KEH1546-88-0350ydwzshlbr virus vaccine, unspecified formulationJodi Mitzi [phone]-VfhzgOhio Valley Hospital 16-39-8352AZDS-CoV-2 (COVID-19) mRNA BNT-162b2 vaxJodi Mitzi 447-6727Cmarlk-BpvnhOhio Valley Hospital 35-83-9929MGTM-CoV-2 (COVID-19) mRNA BNT-162b2 vaxJodi Mitzi 190-7356Leuqcu-ZggewOhio Valley Hospital 66-52-5167sfyjogyph virus vaccine, unspecified formulationJodi Mitzi [phone]-VbwzbOhio Valley Hospital 54-22-9705dxlroqkchdbx polysaccharide vaccine, 23 valentJodi Mitzi 625-8015Hytevl-EtkqqOhio Valley Hospital 69-29-8691zxnoikwft virus vaccine, unspecified formulationJodi Mitzi 131-9557Vsmjjc-YadbwOhio Valley Hospital 62-33-6697jpgyumrfs virus vaccine, unspecified formulationJodi Mitzi 529-4940Bsmcdu-YbwydOhio Valley Hospital 55-30-0765vcajiwmbf virus vaccine, unspecified formulationJodi Mitzi 455-4464Bpadgu-FoozhOhio Valley Hospital 93-79-3773luavrwbad virus vaccine, unspecified formulationJodi Mitzi 264-5640Kkazqu-PqbxuOhio Valley Hospital 73-17-5589lnwffhcvj virus vaccine, unspecified formulationJodi Mitzi 122-3069Iygjso-MsrjtOhio Valley Hospital 70-64-4047uthkgtxpr virus vaccine, unspecified formulationJodi Mitzi [phone]-LsbbzOhio Valley Hospital 88-60-3282lpktrjerc virus vaccine, unspecified formulationJodi Mitzi [phone]-FndfhOhio Valley Hospital Payers DatePayer CategoryPayerPolicy [id number] Health [id number] [id number] 2015Medicare [id number] [id number] 16-16-8497Hnii-lxu65409872244-37-2653Oxmtsxg4135115740-98-6402Igvyjzu05595375482 89-02-3159Jmjdkvm2805382 2.0.1.549855.3.579.2.57326-44-1297Xoqxivu4265284 .0.1.688294.3.579.2.80922-28-6175Wtbrbpz6122841 2.840.1.277837.3.579.2.14483-15-3189Wcicslf70256779 2.0.1.890712.3.579.2.78482-46-4000Ulzkscv14147663 2.16.840.1.720825.3.579.2.50486-25-4969Xjmyuna23716822 2.16.840.1.287562.3.579.2.56915-15-6794Sekvdtz31769462 2.0.1.242194.3.579.2.364261-46-0015Shycwqk9442123 2.0.1.581970.3.579.2.906800-24-7715Qemfbjm9496153 2.0.1.471771.3.579.2.864164-56-8429Bzdnqdb5643155 2..1.364621.3.579.2.158060-88-9821Jilkply7067528 2..1.309754.3.579.2.919372-77-2043Smyyzer2631239 2..1.235163.3.579.2.863079-02-3687Hfuexah69947906 2.0.1.817634.3.579.2.79210-57-2466Mpdvecm94234916 2..[id number] 2..[id number] [id number] [id number] Social History DateTypeDetailFacilityTobacco smoking status NHISUnknown if ever smokedFirelands Regional Medical Center [facility] Work Phone: Start: [id number] Assigned At BirthFeUniversity Hospitals Ahuja Medical Centertart: 02-08-2023 End: 58-05-3055Naybtgt smoking status NHISNever smoked tobaccoNOMS Healthcare Start: 52-26-4419Mplakpn use and exposureSmokeless tobacco non-userNOMS HealthcareStart: 06-28-2023 End: 77-50-3220Gxmzjcism beverage intakeCurrent drinker of alcohol (finding)[facility] HealthcareStart: 06-28-2023 End: 32-96-1558Ywmzsnd of Social functionNOMS HealthcareStart: 06-28-2023 End: 55-33-1526Raygnim use panelSouthview Medical Centertart: 1950 Sex assigned at birthNot on [facility] HealthcareTobacco smoking statusNever [facility] BellevueSexual OrientationBarberton Citizens Hospital Start: 69-43-6010BygMsbfmw (finding)[facility] Clinical Notes 06-14-2022 to 10-07-2024 Note Date & TblqThfvEdkaxcet94-55-7254 NotePatient Education Gastroenterology Heartburn Heartburn is a type of pain or discomfort that can happen in the throat or chest. It is often described as a burning pain. It may also cause a bad, acid- like taste in the mouth. Heartburn may feel worse when you lie down or bend over, and it is often worse at night. Heartburn may be caused by stomach contents that move back up into the esophagus (reflux). Follow these instructions at home: Eating and drinking ??? Avoid certain foods and drinks as told by your health care provider. This may include: ? Coffee and tea, with or without caffeine. ? Drinks that contain alcohol. ? Energy drinks and sports drinks. ? Carbonated drinks or sodas. ? Chocolate and cocoa. ? Peppermint and mint flavorings. ? Garlic and onions. ? Horseradish. ? Spicy and acidic foods, including peppers, chili powder, goodwin powder, vinegar, hot sauces, and barbecue sauce. ? [place] fruit juices and citrus fruits, such as oranges, daylin, and limes. ? Tomato-based foods, such as red sauce, chili, salsa, and pizza with red sauce. ? Fried and fatty foods, such as donuts, croatian fries, potato chips, and high- fat dressings. ? High-fat meats, such as hot dogs and fatty cuts of red and white meats, such as rib eye steak, sausage, ham, and de la garza. ? High-fat dairy items, such as whole milk, butter, and cream cheese. ??? Eat small, frequent meals instead of large meals. ??? Avoid drinking large amounts of liquid with your meals. ??? Avoid eating meals during the 2?3 hours before bedtime. ??? Avoid lying down right after you eat. ??? Do not exercise right after you eat. Lifestyle ??? If you are overweight, reduce your weight to an amount that is healthy for you. Ask your healthcare provider for guidance about a safe weight loss goal. ??? Do not use any products that contain nicotine or tobacco. These products include cigarettes, chewing tobacco, and vaping devices, such as e-cigarettes. These can make symptoms worse. If you need help quitting, ask your health care provider. ??? Wear loose-fitting clothing. Do not wear anything tight around your waist that causes pressure on your abdomen. ??? Raise (elevate) the head of your bed about 6 inches (15 cm) when you sleep. You can use a wedgeto do this. ??? Try to reduce your stress, such as with yoga or meditation. If you need help reducing stress, ask your health care provider. Medicines ??? Take yeml-ipw-ywgwixh and prescription medicines only as told by your health care provider. ??? Do not take aspirin or NSAIDs, such as ibuprofen, unless your health care provider told you to do so. ??? Stop medicines only as told by your health care provider. If you stop taking some medicines tooquickly, your symptoms may get worse. General instructions ??? Pay attention to any changes in your symptoms. ??? Keep all follow-up visits. This is important. Contact a health care provider if: ??? You have new symptoms. ??? You have unexplained weight loss. ??? You have difficulty swallowing, or it hurts to swallow. ??? You have wheezing or a persistent cough. ??? Your symptoms do not improve with treatment. ??? You have frequent heartburn for more than 2 weeks. Get help right away if: ??? You suddenly have pain in your arms, neck, jaw, teeth, or back. ??? You suddenly feel sweaty, dizzy, or light-headed. ??? You have chest pain or shortness of breath. ??? You vomit and your vomit looks like blood or coffee grounds. ??? Your stool is bloody or black. These symptoms may represent a serious problem that is an emergency. Do not wait to see if the symptoms will go away. Get medical help right away. Call your local emergency services (911 in the [place] Do not drive yourself to the hospital. Summary ??? Heartburn is a type of pain or discomfort that can happen in the throat or chest. It is often described as a burning pain. It may also cause a bad, acid- like taste in the mouth. ??? Avoid certain foods and drinks as told by your health care provider. ??? Take bigc-orc-pumwzqb and prescription medicines only as told by your health care provider. Do not take aspirin or NSAIDs, such as ibuprofen, unless your health care provider told you to do so. ??? Contact a health care provider if your symptoms do not improve or they get worse. This information is not intended to replace advice given to you by your health care provider. Make sure you discuss any questions you have with your health care provider. Document Revised: 08/19/2020 Document Reviewed: 08/19/2020 [employer] Patient Education ? 2023 hi5. Nutrition BMI for Adults Body mass index (BMI) is a number found using a person's weight and height. BMI can help tell how much of a person's weight is made up of fat. BMI does not measure body fat directly. It is used instead of tests that directly measur (more content not included)...[facility]07-23-2025 History of Present illness Narrative* Steffanie Quintero MD - 09/18/2024 11:10 AM EDT Subjective Patient ID: Reyna Benavides is a 74 y.o. female who presents for Thyroid Nodule (6 month ultrasound [facility] 09/09/24) Thyroid US shows RT 13mm, LT 18 and 12mm nodules. No sig change compared to 04/2023 Family History Problem Relation Name Age of Onset Cancer Mother Audrey breast Heart failure Father Alexandre Active Ambulatory Problems Diagnosis Date Noted GERD (gastroesophageal reflux disease) 05/18/2023 Osteopenia 05/18/2023 Fibrocystic breast disease 05/18/2023 Pulmonary nodule 05/18/2023 Multiple thyroid nodules 05/18/2023 Hilar lymphadenopathy 05/18/2023 Nontoxic multinodular goiter 05/30/2023 Adult BMI 27.0-27.9 kg/sq m 03/20/2024 Chronic cough 03/20/2024 Congestion of nasal sinus 03/20/2024 Osteoma 03/20/2024 Benign paroxysmal positional vertigo 03/21/2024 Dizziness 03/21/2024 Imbalance 03/21/2024 Seasonal allergies 09/17/2024 Wellness examination 09/17/2024 Resolved Ambulatory Problems Diagnosis Date Noted No Resolved Ambulatory Problems Past Medical History: Diagnosis Date Disease of thyroid gland Past Surgical History: Procedure Laterality Date APPENDECTOMY BREAST BIOPSY CARPAL TUNNEL RELEASE EYE SURGERY FNA W IMAGING GUIDANCE 06/08/2023 thyroid FNA TUBAL LIGATION Allergies Allergen Reactions Meperidine Rash Other Reaction(s): [...] AREDS 2 PO) Take by mouth omeprazole (PriLOSEC) [address] capsule Take 40 mg by mouth Daily phytonadione (Vitamin K) 100 MCG tablet Take 10 mg by mouth Daily [DISCONTINUED] omeprazole OTC (PriLOSEC OTC) 20 MG EC tablet Take 40 mg by mouth in the morning. Take before meals. Ferrous Sulfate (iron) 325 (65 Fe) MG tablet 1 tablet Orally Three times a Week No current facility-administered medications on file prior to visit. Objective Last Recorded Vitals Vitals: 09/18/24 1105 BP: 128/77 Pulse: 78 ENT Physical Exam Constitutional Appearance: patient appears well-developed, well-nourished and well-groomed, Communication/Voice: communication appropriate for developmental age; vocal quality normal; Assessment/Plan Diagnoses and all orders for this visit: Nontoxic multinodular goiter Stable MNG. Repeat US 6 mo documented in this encounterMissouri Southern [id number] NoteNurse Consultation Note Reason for Visit Pt presents today for [...] 12/27/2013 Recorded influenza virus vaccine, inactivated 12/28/2012 [facility]edL[facility]01[facility] History of Present illness Narrative* Sheeba Chen, PT - 03/27/2024 11:30 AM EST Images from the original note were not included. Physical Therapy Physical Therapy Treatment Visit Time In: 11:30 am Time Out: 12:10 pm Supervised Time: 40 Total Time: 40 Visit number: 3 Precautions: none Subjective Chief Complaint: H81.11 (ICD-10-CM) - Benign paroxysmal positional vertigo, right 2. [place] pretty good since she was here last. [...] leaves in 2 days for cruise to [place]. I advised her I would leave her chart open for 30 days and she should call upon her return ifshe feels she needs to come back. No restrictions on travel except avoid water in ears with underwater swimming if possible. documented in this encounterMissouri Southern [id number] History of Present illness Narrative* Sheeba Chen, PT - 03/25/2024 2:00 PM EST Physical Therapy Physical Therapy Treatment Visit Time In: 2:10 pm Time Out: 2:50 pm Supervised Time: 40 Total Time: 40 Visit number: 2 Precautions: none Subjective Chief Complaint: H81.10 (ICD-10-CM) - Benign paroxysmal positional vertigo, unspecified laterality 2. Is noticing dizziness/spinning when lying down on R side. No meds. Intermittent sensations. Earsfeel plugged. [place] good the day of PT but started [...] sensation with head down position while sitting after~1-2 minutes, resolved quickly. She voiced verbal understanding. Will see in 2 days for recheck. P[place]aves on cruise to [facility] this Monday. documented in this encounterMissouri Southern [id number] History of Present illness Narrative* Sheeba Chen, PT - 03/21/2024 12:00 PM EST Time In: 12:10 pm Time Out: 1:05 [...] am. [facility] Both ears feel marco antonio fuzzy. Had treatment in 2020 went away completely. This episode isnot as severe. [place] Flying there. Sees Dr Quintero for thyroid nodules that he's keeping an eye on. She mentioned her vertigo while she was there and he referred her here to PT. R cataract removal. No ear problems. No neck or head injuries in past. Chronic cough and s pot on lung. Objective Cervical AROM: flexion: - extension: + L side bend: - R side bend: - L rotation: + R rotation: - Special Tests: Negative L Ermine Hallpike, + R. Treated with Stella x 1. Retested and negative the second attempt. Very mild response and difficult to observe probably from recent Meclizine. Instructed in 24 hour extension precautions and how to position self until tomorrow. Employment: retired PT Assessment: Therapy Diagnosis: R posterior canal BPPV, treated with Stella x 1. Functional Limitations: DHI: 22/100 Jail Goals: 1.I HEP 2.Active cervical rotation to [...] below. Physician Signature: Date: documented in this encounterMissouri Southern [id number] History of Present illness Narrative* Steffanie Quintero MD - 03/20/2024 11:20 AM EST Subjective Patient ID: Reyna Benavides is a 73 y.o. female who presents for Thyroid Nodule (3 month ultrasound 03/13/24 [facility]) US shows a dominant 18mm left nodule compared to 24mm in Nov and 21mm last April. FNA path [place] Family History Problem Relation Name Age of [...] Repeat in 6 mo documented in this encounterMissouri Southern [id number] History of Present illness Narrative* Steffanie Quintero MD - 12/20/2023 1:00 PM EDT Subjective Patient ID: Reyna Benavides is a 73 y.o. female who presents for Thyroid Nodule (5 month check Ultrasound [facility] 12/18/23) Dominant LT nodule [id number] compared to [id number] in April. Nodule was [place] 2 on FNAS Family History Problem Relation [...] US in 3 mo documented in this encounterMissouri Southern [id number] NotePROCEDURE: XR FOOT LT MIN 3 VIEWS HISTORY: Pain in left [...] Electronically authenticated by: LOPEZ WILSON Date: 2022-06-14 15:56[facility] No data available for this section [facility] Evaluation noteNo assessment information available [facility] Work Phone: Evaluation note* Diagnosis Nontoxic multinodular goiter (CMS/HCC)- Primary Nontoxic multinodular goiter documented in this encounter [facility] HealthcareEvaluation note* Diagnosis Multiple thyroid nodules (CMS/HCC)- Primary Nontoxic multinodular goiter documented in this encounter [facility] HealthcareEvaluation note* Diagnosis Dizziness- Primary Dizziness and giddiness Benign paroxysmal positional vertigo, unspecified laterality Imbalance Abnormality of gait documented in this encounter [facility] HealthcareEvaluation note* Diagnosis Benign paroxysmal positional vertigo of right ear- Primary Dizziness Dizziness and giddiness Imbalance Abnormality of gait documented in this encounter [facility] HealthcareEvaluation note* Diagnosis Nontoxic multinodular goiter- Primary Nontoxic multinodular goiter documented in this encounter [facility] HealthcareHospital Discharge instructions No data available for this section [facility] Progress note No data available for this section [facility] Reason for visit Narrative* Rehabilitation - Outpatient (Routine) - AuthorizedSpecialtyDiagnoses / ProceduresReferred By Contact Referred To ContactPhysical Therapy Diagnoses Benign paroxysmal positional vertigo, unspecified laterality Procedures [place] OFFICE/OUTPATIENT [facility] 60 MINUTES Steffanie Quintero MD [address] [facility] [address] [place] [address] Phone: tel: fax: Benjy Rodriguez, PT [address] [place] [address] Phone: tel: fax: Referral IDStatusReasonStart DateExpiration DateVisits RequestedVisits [id number] Consult and Treat /[id number] [facility] Summary Purpose Family History No Family History Records Found Relationship Condition Age at Onset Recorded Date/T martha father Unknown Not SpecifiedDeceasedUnknownMalignant neoplasm of breastUnknownMalignant neoplasmUnknown Advance Directives No Advanced Directives Records FoundNo Advanced Directives Records FoundNo Advanced Directives Records FoundNo Advanced Directives Records FoundNo Advanced Directives Records FoundNo Advanced Directives Records FoundNo Advanced Directives Records FoundNo Advanced Directives Records FoundNo Advanced Directives Records Found Additional Source Comments INFORMATION SOURCE (unrecogn ized section and content) DATE CREATED AUTHOR 06/27/2022 [facility] DATE CREATED AUTHOR AUTHOR'S ORGANIZ ATION 06/15/2023 [facility] DATE CREATED AUTHOR AUTHOR'S ORGANIZ ATION 05/23/2024 [facility] DATE CREATED AUTHOR AUTHOR'S ORGANIZ ATION 05/24/2024 [facility] DATE CREATED AUTHOR AUTHOR'S ORGANIZ ATION 09/19/2024 [facility] DATE CREATED AUTHOR AUTHOR'S ORGANIZ ATION 12/17/2024 [facility] Care Teams (unrecognized sec tion and content) Team Status: Inactive Member Role Status Dates Lopez Wilson MD Attending Provider Active Start: June 08, 2023 End: June 08, 2023Team MemberRelationshipSpecialtyStart DateEnd Date Jenn Germain MD [address] [place] [address] PCP - Generalmily Qbndafas40/17/24Team MemberRelationshipSpecialtyStart Date End Date Jenn Germain MD [address] [place] [address] PCP - GeneralFamily Ljrqpggj07/17/24Team MemberRelationshipSpecialtyStart Date End Date Jenn Germain MD [address] [place] [address] PCP - GeneralPalo Alto County Hospitally Kthdldce58/17/24Team MemberRelationshipSpecialtyStart Date End Date Jenn Germain MD [address] [facility] [place] [address] PCP - Generalmily Qnxemqlc67/17/24Team MemberRelationshipSpecialtyStart Date End Date Jenn Germain MD [address] [place] [address] PCP - Generalmily Uxiyzmlz00/17/24Team MemberRelationshipSpecialtyStart Date End Date Jenn Germain MD [address] [facility] [place] [address] PCP - [facility] Dnhmhjsj95/17/24Team MemberRelationshipSpecialtyStart Date End Date Jenn Germain MD [address] [place] [address] PCP - Generalmily Hdttmvgh99/17/24Te MemberRelationshipSpecialtyStart Date End Date Jenn Germain MD [address] [facility] [place] [address] PCP - Generalmi Viyjnkby25/17/24 Radha Cartagena NP [address] [facility] [place] [address] Referring [facility] Centerm[facility] Medicine09/18/24Team MemberRelationshipSpecialtyStart DateEnd Date Jenn Germain MD [address] [place] [address] PCP - GeneralFaspaulding hospital cam[facility] Rtvwpgvi77/17/24 Radha Cartagena NP [address] [place] [address] Referring PhysicianMemorial Health University Medical Center09/18/24 Goals (unrecognized section and content) Goals may be documented in a n alternate section No data available for this section Reason for Visit (unrecogniz ed section and content) ReasonCommentsThyroid Nodule5 month check Ultrasound [facility] 12/18/23ReasonComments Thyroid Nodule3 month ultrasound 03/13/24 TBHReasonCommentsThyroid Nodule6 month ultrasound [facility] 09/09/24 FOR RECORDS PERTAINING TO PATIENTS WHO ARE [...] BE BASED ON THE PRIMARY CLINICAL RECORDS. [facility] [employer] [facility]. provides no warranty or guarantee of the accuracy or completeness of information in this document.
== END 2024-12-19 10:14 | disposition home or self-care (01) ==
LOC: US 10:13
PROVIDERS: PCP Family Medicine; Visit Provider Nurse Practitioner
DX: M79.661 Pain in right lower leg (principal); M25.561 Pain in right knee; Z78.9 Other specified health status; M25.461 Effusion, right knee; Z68.27 Body mass index [BMI] 27.0-27.9, adult
CPT/HCPCS: 73564; 76882

== ENCOUNTER 2024-12-27 07:25 | Outpatient (OUT) | payer MEDICARE, OTHER, SELFPAY ==
--- NOTE | 2024-12-27 07:28 | MR_ITS ---
The [place] [id number] Patient Name: LOBITO MERAZ MRN: [id number] date: 1950 Sex: F Assigned Patient Location: MRI Current Patient Location: MRI Accession/Order Number: [id number] Exam Date: 12/27/2024 07:50 Report Date: 12/27/2024 14:39 At the request of: KAYLEIGH HOLBROOK Procedure: MR knee RT wo con EXAMINATION: MRI OF THE RIGHT KNEE CLINICAL DATA: Abnormal Finding On Imaging Of Limbs, Knee Pain COMPARISON: Right knee 12/19/2024 TECHNIQUE: Multiecho, multiplanar imaging was performed with use of an extremity coil. No contrast was administered. FINDINGS: Joint:Small joint effusion. Small Rendon's cyst. Bone marrow edema in the region of the tibial spines with cysts noted. No fracture line. Additional bone marrow edema is seen involving the medial condyle of the femur with articular cartilage thinning within the region. Chondromalacia involving the patella. Soft tissues: Normal Quadriceps/Patellar tendon/retinaculum: Normal Muscles: Normal ACL:Normal PCL:Normal Medial Meniscus:Tear posterior horn Lateral Meniscus:Complex tear anterior horn. MCL:Normal LCL complex: Normal MR/MR knee RT wo con IMPRESSION: SMALL JOINT EFFUSION AND RENDON'S CYST. BONE MARROW EDEMA INVOLVING THE REGION OF THE TIBIAL SPINES WITH CYSTS NOTED. ADDITIONAL BONE MARROW EDEMA SEEN INVOLVING THE MEDIAL CONDYLE OF THE FEMOROPATELLAR CARTILAGE THINNING. THERE APPEARS BE ASSOCIATED COMPLEX TEAR INVOLVING THE ANTERIOR HORN OF THE LATERAL MENISCUS WELL A TEAR OF THE POSTERIOR HORN OF THE MEDIAL MENISCUS. Impression dictated by: Luke Joshi Jr., D.O. 12/27/2024 2:39 PM Dictation Location: [place] [address] Electronically authenticated by: [id number] Y Date: 12/27/2024 14:39
--- OUTSIDE RECORDS SUMMARY | 2024-12-27 07:28 | XMS_ITS | Encounter Summary ---
Author Organization [facility] Address [address] [place] [address] Care Team Providers Care Bone Char Kiln Operator Name Role Phone Jenn Germain MD Primary Care Provider [phone] Radha Cartagena [employer] ARCHITECT Unavailable Encounter Details DateTypeDepartmentCare Team (Latest Contact Info)Oszjupzeggh28/11/2024linisync Result Encounter [facility] Unsolicited Steffanie Mai MD [address] [place] [address] Social History Tobacco UseTypesPacks/DayYears UsedDateSmoking Tobacco: NeverSmokeless Tobacco: NeverAlcohol UseStandard Drinks/WeekCommentsYes0 (1 standard drink = 0.6 oz pure alcohol)CommentsUnknownSex and Gender InformationValueDate RecordedSex Assigned at BirthNot on fileLegal UnuXnamzy13/01/2023 8:33 PM EDTGender Identity Not on fileSexual OrientationNot on filedocumented as of this encounter Plan of Treatment DateTypeDepartmentCare Team (Latest Contact Info)Sgnrqwtijke40/20/2026 10:20 AM ESTOffice Visit [facility] [address] [place] [id number] Steffanie Mai MD [address] [place], [place] [id number] documented as of this encounter Procedures Procedure NamePriorityDate/TimeAssociated DiagnosisCommentsUS BX THYROID 06/08/2023 12:18 PM EDT documented in this encounter Results * US BX THYROID (06/08/2023 12:18 PM EDT)Anatomical RegionLateralityModality Radiographic ImagingSpecimen (Source)Anatomical Location / Laterality Collection Method / VolumeCollection TimeReceived Time06/08/2023 12:18 PM EDT Narrative 06/08/2023 12:21 PM EDT [facility] ?[address] ? [place] [address] ? Ultrasound Report ? Signed ? Patient: MARIYA,REYNA Carranza ?MR#: [id number] ?? : 1950 ?Acct:[id number] ?? Age/Sex: 72 / F ?ADM Date: 06/08/23 ?? Loc: US ? Attending Dr: Steffanie Mai M.D. ? Ordering Physician: Steffanie Mai M.D. ?? Date of Service: 06/08/23 ?? Procedure(s): US biopsy FNA add lesion ?? Accession Number(s): [id number] ? cc: JENN GERMAIN ; Steffanie Mai M.D. ? [facility] ? [address] [facility] ? [place] [address] ? Patient Name: ?? REYNA BENAVIDES ? MRN: [facility]:[id number] ? date: 1950 ?Sex: F ?? Assigned Patient Location: US ?? Current Patient Location: US ?? Accession/Order Number: [id number] ?? Exam Date: 06/08/2023 ??10:24 ?Report Date: 06/08/2023 ??12:18 ? At the request of: ?? STEFFAINE ??INGRID ? Procedure: ??US biopsy FNA add lesion ? EXAMINATION: US biopsy thyroid, US biopsy FNA add lesion ? HISTORY: thyroid nodule ? COMPARISON: Ultrasound thyroid 05/25/2023 ? TECHNIQUE: After obtaining informed consent, ultrasound-guided fine needle ?? aspiration was performed in the usual sterile manner. ? FINDINGS: ?? IMAGING: Ultrasound. ?? BIOPSY NEEDLE: 25-gauge; 3 separate passes within each nodule. ?? LOCATION: Right lobe 1.5 cm heterogeneous nodule. ?? Left lobe 2.0 cm heterogeneous nodule. ?? SPECIMEN TYPE: Cellular tissue. ?? LOCAL ANESTHETIC: Buffered Xylocaine. ?? COMPLICATIONS: None. ?? LABORATORY: Prepared slide smears and washings for cell block evaluation. ?? OTHER: Negative. ?? PATHOLOGY: Pending. An addendum will be added when results are available. ? US/US biopsy FNA add lesion ?? IMPRESSION: ? 1. Uneventful ultrasound guided fine needle aspiration (FNA). ?? 2. Pathology results are pending. ? Electronically authenticated by: LOPEZ ??SUSAN ?? Date: 06/08/2023 ??12:18 ? Dictated By: ?Lopez Wilson M.D. ? Signed By: ?04/01/20 1221 ? DD/ 1218 ? TD/TT: ? Suspender Maker: Procedure Note Radiology, Radiologist, MD - 06/08/2023 [place] [address] Ultrasound Report Signed Patient: REYNA BENAVIDES KMR#: [id number] : 1950Acct:[id number] Age/Sex: 72 / FADM Date: 06/08/23 Loc: US Attending Dr: Steffanie Mai M.D. Ordering Physician: Steffanie Mai M.D. Date of Service: 06/08/23 Procedure(s): US biopsy FNA add lesion Accession Number(s): [id number] cc: JENN GERMAIN ; Steffanie Mai M.D. The [place] [id number] Patient Name: REYNA BENAVIDES MRN: [id number] date: 1950 Sex: F Assigned Patient Location: US Current Patient Location: US Accession/Order Number: [id number] Exam Date: 06/08/2023 10:24 Report Date: 06/08/2023 12:18 At the request of: STEFFANIE MAI Procedure: US biopsy FNA add lesion EXAMINATION: US biopsy thyroid, US biopsy FNA add lesion HISTORY: thyroid nodule COMPARISON: Ultrasound thyroid 05/25/2023 TECHNIQUE: After obtaining informed consent, ultrasound-guided fine needle aspiration was performed in the usual sterile manner. FINDINGS: IMAGING: Ultrasound. BIOPSY NEEDLE: 25-gauge; 3 separate passes within each nodule. LOCATION: Right lobe 1.5 cm heterogeneous nodule. Left lobe 2.0 cm heterogeneous nodule. SPECIMEN TYPE: Cellular tissue. LOCAL ANESTHETIC: Buffered Xylocaine. COMPLICATIONS: None. LABORATORY: Prepared slide smears and washings for cell block evaluation. OTHER: Negative. PATHOLOGY: Pending. An addendum will be added when results are available. US/US biopsy FNA add lesion IMPRESSION: 1. Uneventful ultrasound guided fine needle aspiration (FNA). 2. Pathology results are pending. Electronically authenticated by: LOPEZ WILSON Date: 06/08/2023 12:18 Dictated By: Lopez Wilson M.D. Signed By:06/08/23 1221 DD/ 1218 TD/TT: Suspender Maker: Authorizing ProviderResult TypeResult StatusHilajeremiah Mai MDIMG XR PROCEDURES Final Result documented in this encounter Visit Diagnoses Not on filedocumented in this encounter Care Teams Team MemberRelationshipSpecialtyStart DateEnd Date Jenn Germain MD [address] [place] [address] PCP - GeneralFamily Cwgsjnef72/17/24 Radha Cartagena NP [address] [place] [address] Referring PhysicianFamily Medicine09/18/24documented as of this encounter
--- OUTSIDE RECORDS SUMMARY | 2024-12-27 07:28 | XMS_ITS | Clinical Summary ---
Author Organization [facility] tem Address [id number] [address] [place] [address] Care Team Providers Care Scraper Tender Name Role Phone Leonardo Mercer MD Primary Care Provider [phone] Allergies Active AllergyReactionsCriticalityNoted NlcwCwgcsknvUkgelcuuos80/24/2017 Medications MedicationSigDispense QuantityRefillsLast FilledStart DateEnd DateStatus amitriptyline [...] 0.6 oz pure alcohol)1-2 GLASSES A WEEKChildcareAnswerDate LtujiiovOndszuestXgurspd76/13/2019EmploymentAnswerDate DatkamleZxeexaphbiJsdhywi25/13/2019Purpose - LifeAnswerDate RecordedPurpose and direction in haxiAojtmkf72/11/2021CommentsUnknownSex and Gender InformationValueDate RecordedSex Assigned at BirthNot on fileLegal SexFemale 09/13/2016 1:52 PM EDTGender IdentityNot on fileSexual OrientationNot on file Last Filed Vital Signs Vital SignReadingTime TakenCommentsBlood Pxivxqha331/8007/ 12:58 PM EDT Pulse--Temperature--Respiratory Rate--Oxygen Saturation--Inhaled Oxygen Concentration--Zsfitg85.3 kg (166 lb)09/19/2016 12:58 PM AYJWdioeu731.6 cm (5' 6 )09/19/2016 12:58 PM EDTBody Mass Index26.7909/19/2016 12:58 PM EDT Plan of Treatment Health MaintenanceDue DateLast DoneCommentsDepression Ixduomqlo51/03/1962Tobacco Sstnhltqv65/03/1962DTaP,Tdap and Td Vaccines (1 - Tdap)1968Zoster (Shingles) Vaccine (1 of 2)08/30/1999Fall Risk Fxhkvqxye42/03/2015Influenza Rmqppjs0610/28/2024 Medical Devices Not on file Insurance Care Teams Team MemberRelationshipSpecialtyStart DateEnd Leonardo Mercer MD PCP - [facility]09/14/16
--- OUTSIDE RECORDS SUMMARY | 2024-12-27 07:28 | XMS_ITS | CCD ---
Author Organization [facility] CliniSyid Care Team Providers Care Chemical Waste Management Technician Name Role Phone WEST, DR BENJY Yun Consulting Unavailable YOAV, DR HIGGINS Admitting Unavailable YOAV, DR HIGGINS Attending Unavailable LANDAVERDE ., DR KATIUSKA Da Silva Primary Care Unavailable YOAV, DR HIGGINS Consulting Unavailable LANDAVERDE ., DR KATIUSKA Da Silva Attending Unavailable LANDAVERDE ., DR KATIUSKA DaS ilva Admitting Unavailable LANDAVERDE ., DR KATIUSKA Da [...] Unavailable Jenn Germain MD Primary Care Provider [phone] Mitzi, Radha Ochoa Attending Unavailable Mitzi, Radha Ochoa Attending Unavailable MitziRadha Attending Unavailable MitziRadha Admitting Unavailable MitziRadha almonte Primary Care Physician [phone] Radha Cartagena NP Unavailable TIMMIS STEFFANIE H Attending Unavailable PLEASNICK, SHEEBA A Attending Unavailab le TIMMIS, STEFFANIE H Referring Unavailable PLEASNICK, SHEEBA A Attending Unavailab le TIMMIS, STEFFANIE H Referring Unavailable PLEASNICK, SHEEBA A Attending Unavailab le TIMMIS, STEFFANIE H Referring Unavailable TIMMIS, STEFFANIE H Attending Unavailable TIMMIS, STEFFANIE H Attending Unavailable Mitzi, HOSPITAL RECEPTIONIST Radha Ochoa Attending Unavailable Mitzi, HOSPITAL RECEPTIONIST Radha Ochoa Attending Unavailable Mitzi, HOSPITAL RECEPTIONIST Radha L Attending Unavailable Mitzi, HOSPITAL RECEPTIONIST Radha L Attending Unavailable Mitzi, HOSPITAL RECEPTIONIST Radha L Attending Unavailable Mitzi, HOSPITAL RECEPTIONIST Radha L Admitting Unavailable Mitzi OBSTETRICS GYNECOLOGY MD, Radha Unavailable Allergies Allergy ClassificationReported Allergen(s)Allergy TypeDate of OnsetReaction(s) Facility (4 sources)Meperidine; Translations: [Demerol]Drug Rgcuwoj51-64-4261[facility] (1 source)MeperidineDrug Tgnktoi32-10-0422Bzripzjks[facility] Repository (20 sources)Meperidine; Translations: [meperidine]Drug Muxjyme66-20-9012Robe, Eruption of skin (disorder)[facility] Work Phone: Medications Current Medications MedicationDrug Class(es)DatesSig (Normalized)Sig (Original)[id number] 200 actuat albuterol 0.09 mg/actuat metered dose inhaler (20 sources)beta2-Adrenergic Agonisttake 2 puff(s) by inhalation every six hours for wheezingalbuterol HFA 90 mcg/act inhaler Inhale 2 puffs every 6 (six) hours if needed for wheezing Activecholecalciferol 0.05 mg oral tablet (20 sources)Vitamin Dtake 1 tablet by mouth once dailycholecalciferol (Vitamin D-3) 50 MCG (2000 UT) tablet Take 1 tablet by mouth 1 (one) time each day at the same time Activeferrous sulfate 325 mg oral tablet (2 sources)take 1 tablet by mouth three times weeklyFerrous Sulfate (iron) 325 (65 Fe) MG tablet 1 tablet Orally Three times a Week Activemelatonin 3 mg oral capsule (20 sources)take 2 capsules by mouth at bedtimeMelatonin 3 MG capsule Take 6 mg by mouth at bedtime ActiveMultiple Vitamins-Minerals (multivitamin with minerals) tablet (20 sources)take 1 tablet by mouth once dailyMultiple Vitamins-Minerals (multivitamin with minerals) tablet Take 1 tablet by mouth Daily ActiveMultiple Vitamins-Minerals (PRESERVISION AREDS 2 PO) (20 sources)Multiple Vitamins-Minerals (PRESERVISION AREDS 2 PO) Take by mouth Activeomeprazole 40 mg delayed release oral capsule (18 sources)Proton Pump InhibitorStart: 07-60-2374shdy 1 capsule by mouth once dailyomeprazole (PriLOSEC) [address] capsule Take 40 mg by mouth Daily 08/17/2024 Active End: 62-11-3087acizbpwcbc OTC (PriLOSEC OTC) 20 MG EC tablet Take 40 mg by mouth in the morning. Take before meals. 09/18/2024 Discontinued (Therapy completed) vitamin k 0.1 mg oral tablet (20 sources)take 10 mg by mouth once dailyphytonadione (Vitamin K) 100 MCG tablet Take 10 mg by mouth Daily Active Problems Active Problems Problem ClassificationProblemDateDocumented DateEpisodic/ChronicEsophageal disorders (20 sources)Gastroesophageal reflux disease; Translations: [Gastro-esophageal reflux disease without esophagitis]Onset: hronic Nonmalignant breast conditions (20 sources)Fibrocystic disease of breast; Translations: [Diffuse cystic mastopathy of unspecified breast]Onset: 099825-94-4099FqdvrlgCatvb connective tissue disease (4 sources)Pain in left foot; Translations: [PAIN IN LEFT FOOT]Onset: 06-14-2022 EpisodicOther lower respiratory disease (1 source)Bjvim66-99-0303SxitvxjmXrtaz upper respiratory disease (7 sources)Seasonal allergy; Translations: [Other seasonal allergic rhinitis] Onset: 792705-35-7190CedvhlfAzjnc upper respiratory infections (1 source)Elchfukbj73-34-6661PfizgpfVfvtblw disorders (20 sources)Multinodular goiter; Translations: [Nontoxic multinodular goiter] Onset: 940436-55-6654FxiyoeeWqwvagstvapt (3 sources)Patient encounter -49-1937 Past or Other Problems Problem ClassificationProblemDateDocumented DateEpisodic/ChronicConditions associated with dizziness or vertigo (20 sources)Benign paroxysmal positional vertigo; Translations: [Benign paroxysmal vertigo, unspecified ear]Onset: 901716-76-6116Ehjmwcsi Lymphadenitis (20 sources)Hilar lymphadenopathy ; Translations: [Localized enlarged lymph nodes]Onset: 158365-89-4310CkppgahwZmrwg and unspecified benign neoplasm (13 sources)Benign neoplasm of bone; 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, unspecified]Onset: 053835-57-4526IuqjbggrDgzif and unspecified benign neoplasm (4 sources)Osteoma; 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, unspecified]Onset: 725873-31-7716XjtwerwmPlxqx bone disease and musculoskeletal deformities (20 sources)Osteopenia; Translations: [Other specified disorders of bone density and structure, unspecified site]Onset: 916562-80-5854TebgzpfvFsbgd lower respiratory disease (20 sources)Nodule of lung; Translations: [Solitary pulmonary nodule]Onset: 488090-12-6283MymubxjgDmryu lower respiratory disease (17 sources)Chronic cough; Translations: [Chronic cough]Onset: 03-20-2024 91-80-2890UdttqbhqJagdp nervous system disorders (16 sources)Impairment of balance; Translations: [Other abnormalities of gait and mobility]Onset: 546481-43-8083PpgwbzitForyy nutritional; endocrine; and metabolic disorders (17 sources)Overweight in adulthood with body mass index of 25 or more but less than 30; Translations: [Body mass index (BMI) 27.0-27.9, adult]Onset: 03-20-2024 07-22-1542JgmmuinyLbmum screening for suspected conditions (not mental disorders or infectious disease) (4 sources)Encounter for screening mammogram for malignant neoplasm of breast; Translations: [ENC SCR MAMMO MALIG NEOPLASM BREAST]Onset: 16-25-3415Zlbjvwct Other upper respiratory disease (17 sources)Congestion of nasal sinus; Translations: [Nasal congestion]Onset: 280666-51-6839PcjwoqswCfpefsrc codes; unclassified (1 source)Family history of malignant neoplasm of breast; Translations: [FAMILY HX MALIG NEOPLASM OF BREAST]Onset: 81-40-0676Jmsaxrqw Results Test NameValueInterpretationReference RangeFacilityAmbulatory Visit Summaryon 95-56-0596Bwvxicqjpe Visit SummaryAmbulatory Visit Summary REYNA BENAVIDES :1950 [...] Follow-Up Appointments Monday2025 11:00 AM EDT Where: [place] [address]- Medications What How Much When Why Instructions New meloxicam (meloxicam 15 mg Tab) 1 Tablets By Mouth Every day Right knee pain Swelling of right knee BMI 27.0-27.9,adult Non-smoker Pickup at [facility]/pharmacy #[id number] New methylPREDNISolone (Medrol 4 mg Tab) 1 Packets By Mouth As Directed Right knee pain Swelling ofright knee BMI 27.0-27.9,adult Non-smoker Duration: 6 Days as directed on package labeling Pickup at [facility]/pharmacy #[id number] Unchanged cetirizine (Zyrtec) Every day Unchanged ibuprofen Unchanged meclizine 25 Milligram As needed for Dizziness Unchanged melatonin Unchanged multivitamin with minerals (ICaps AREDS 2) Unchanged Non-Formulary Medication (iron 325) Unchanged Non-Formulary Medication (Vitamin K2 with D3) Unchanged omeprazole (omeprazole 40 mg Cap-DR) See instructions TAKE 1 CAPSULE BY MOUTH EVERY DAY Pharmacy Information [facility]/pharmacy #[id number]: [address], [place] [phone] Allergies Demerol (Rash) Problems Ongoing - Any [...] signed up for this yet, please contact [employer] at [phone] to get signed up today. Language Information Language assistance services are available as needed. [facility] Medicine Office/Clinic Noteon 46-70-9611Vdxpgo Medicine Office/Clinic NoteB[facility] Office/Clinic Note HPI Staff Pt presents [...] Daily, # 30 tab(s), Refills(s) 0, Pharmacy: [facility]/pharmacy #[id number], 167, cm, 12/16/24 11:46:00 EDT, Height/Length Dosing, 75.6, kg, 12/16/24 11:46:00 EDT, Weight Dosing methylPREDNISolone, = 1 packet(s), Oral, As Directed, as directed on package labeling, X 6 day(s), # 21 tab(s), Refills(s) 0, Pharmacy: [facility]/pharmacy #[id number], 167, cm, 12/16/24 11:46:00 EDT, Height/Length Dosing, 75.6, kg, 12/16/24 11:46:00 EDT, Weight Dosing US Extremity Non-Vascular Limited Right XR Knee Complete 4+ Views Right 2. Swelling of right knee (M25.461: Effusion, right knee) u/s of right knee ordered Ordered: meloxicam, 15 mg = 1 tab(s), Oral, Daily, # 30 tab(s), Refills(s) 0, Pharmacy: [facility]/pharmacy #[id number], 167, cm, 12/16/24 11:46:00 EDT, Height/Length Dosing, 75.6, kg, 12/16/24 11:46:00 EDT, Weight Dosing methylPREDNISolone, = 1 packet(s), Oral, As Directed, as directed on package labeling, X 6 day(s), # 21 tab(s), Refills(s) 0, Pharmacy: [facility]/pharmacy #[id number], 167, cm, 12/16/24 11:46:00 EDT, Height/Length Dosing, 75.6, kg, 12/16/24 11:46:00 EDT, Weight Dosing US Extremity Non-Vascular Limited Right XR Knee Complete 4+ Views Right 3. BMI 27.0-27.9,adult (Z68.27: Body mass index [BMI] 27.0-27.9, adult) BMI education Ordered: meloxicam, 15 mg = 1 tab(s), Oral, Daily, # 30 tab(s), Refills(s) 0, Pharmacy: [facility]/pharmacy #[id number], 167, cm, 12/16/24 11:46:00 EDT, Height/Length Dosing, 75.6, kg, 12/16/24 11:46:00 EDT, Weight Dosing methylPREDNISolone, = 1 packet(s), Oral, As Directed, as directed on package labeling, X 6 day(s), # 21 tab(s), Refills(s) 0, Pharmacy: [facility]/pharmacy #[id number], 167, cm, 12/16/24 11:46:00 EDT, Height/Length Dosing, 75.6, kg, 12/16/24 11:46:00 EDT, Weight Dosing US Extremity Non-Vascular Limited Right XR Knee Complete 4+ Views Right 4. Non-smoker (Z78.9: Other specified health status) continue not smoking Ordered: meloxicam, 15 mg = 1 tab(s), Oral, Daily, # 30 tab(s), Refills(s) 0, Pharmacy: [facility]/pharmacy #[id number], 167, cm, 12/16/24 11:46:00 EDT, Height/Length Dosing, 75.6, kg, 12/16/24 11:46:00 EDT, Weight Dosing methylPREDNISolone, = 1 packet(s), Oral, As Directed, as directed on package labeling, X 6 day(s), # 21 tab(s), Refills(s) 0, Pharmacy: [facility]/pharmacy #[id number], 167, cm, 12/16/24 11:46:00 EDT, Height/Length [...] than 100 in lifetime) (more content not included)...[facility] CenterComment on above:Result Comment: Electronically Signed By: Radha Quinteros\.br\Date and Time Signed: 12/16/24 12:31 EDTAmbulatory Visit Summaryon 45-32-9582Xjwgoskrur Visit SummaryAmbulatory Visit Summary REYNA BENAVIDES :1950 [...] Follow-Up Appointments Monday2025 11:00 AM EDT Where: [facility] Medicine [address] [address]- You Need to Complete the Following HCV [...] includes fat and mus (more content not included)...[facility] Office/Clinic Noteon 15-56-2890Lsetyy Medicine Office/Clinic NoteB[facility] Medicine Office/Clinic Note Chief Complaint Initial Medicare [...] of clutter to prevent tripping and/or falling. [place] Advance Directives reviewed, at home. Encouraged to [...] patient request, she will have completed at [facility]. Colonoscopy screenings no longer performed due to [...] for people born between 1945- 1965. Handout [facility]-Hepatitis C given. Hep C Screening ordered. Patient [...] thyroid disorder Seasonal danyelle (more content not included)...[facility] Comment on above:Result Comment: Electronically Signed By: Radha Quinteros\.br\Date and Time Signed: 10/09/24 08:00 EDT\.br\Electronically Co-Signed By: Valentina Sloan\.br\Date and Time Co-Signed: 10/07/24 11:33 EDTUS Thyroid glandon 20-41-6911[address] [address] Ultrasound Report Signed Patient: REYNA BENAVIDES MR#: [id number] : 1950 Acct:[id number] Age/Sex: 74 / F ADM Date: 09/09/24 Loc: US Attending Dr: Steffanie Quintero M.D. Ordering Physician: Steffanie Quintero M.D. Date of Service: 09/09/24 Procedure(s): US thyroid Accession Number(s): [id number] cc: JENN GERMAIN ; Steffanie Quintero M.D. [place] [id number] Patient Name: REYNA BENAVIDES MRN: [id number] date: 1950 Sex: F Assigned Patient Location: US Current Patient Location: US Accession/Order Number: [id number] Exam Date: 09/09/2024 10:47 Report Date: 09/09/2024 [...] Moore M.D. 09/09/2024 11:04 AM Dictation Location: [place] [address] Electronically authenticated by: [id number] Date: 09/09/2024 11:04 Dictated By: Rachele Moore M.D. Signed By: 09/09/24 1106 DD/ 1104 TD/TT: Car Shifter:TBHRadiology, Radiologist, MD - 09/09/2024 [place] [address] Ultrasound Report Signed Patient: REYNA BENAVIDES MR#: [id number] : 1950 Acct:[id number] Age/Sex: 74 / F ADM Date: 09/09/24 Loc: US Attending Dr: Steffanie Quintero M.D. Ordering Physician: Steffanie Quintero M.D. Date of Service: 09/09/24 Procedure(s): US thyroid Accession Number(s): [id number] cc: JENN GERMAIN ; Steffanie Quintero M.D. The [place] [id number] Patient Name: REYNA BENAVIDES MRN: [id number] date: 1950 Sex: F Assigned Patient Location: Current Patient Location: US Accession/Order Number: [id number] Exam Date: 09/09/2024 10:47 Report Date: 09/09/2024 [...] Moore M.D. 09/09/2024 11:04 AM Dictation Location: [place] [address] Electronically authenticated by: [id number] Y Date: 09/09/2024 11:04 Dictated By: Rachele Moore M.D. Signed By: 09/09/24 1106 DD/ 1104 TD/TT: Car Shifter: ANTHONY MastersRadiology Study observation (narrative)ANTHONY Joseph Thyroid glandOrdered By: Radiologist Radiology on 67-93-8546[facility] Work Phone: ambulatory Visit Summaryon 50-98-3037Gakzslfwix Visit SummaryAmbulatory Visit Summary REYNA BENAVIDES :1950 [...] When Instructions Unchanged omeprazole (omeprazole 40 mg Cap-) See instructions TAKE 1 CAPSULE BY MOUTH [...] you for choosing us for your care. [facility] Medicine Office/Clinic Noteon 36-68-7504Jsmfck Medicine Office/Clinic NoteB[facility] Medicine Office/Clinic Note HPI Staff Please speak [...] puff(s), Inhalation, q6hr, 8.5 gm, Refill(s) 0, [facility]/pharmacy #[id number], 167, cm, 02/08/23 15:30:00 EST, Height/Length Dosing, 76.5, kg, 02/08/23 15:30:00 EST, Weight Dosing 4. Non-smoker (Z78.9: Other specified health status) continue not smoking Ordered: albuterol, 2 puff(s), Inhalation, q6hr, 8.5 gm, Refill(s) 0, [id number], 167, cm, 02/08/23 15:30:00 EST, Height/Length Dosing, 76.5, kg, 02/08/23 15:30:00 EST, Weight Dosing Orders: methylPREDNISolone, = 1 packet(s), Oral, Once, as directed on package labeling, # 21 tab(s), Refills(s) 0, Pharmacy: [facility]/pharmacy #[id number], 167, cm, 02/08/23 15:30:00 EST, Height/Length Dosing, 76.5, kg, 02/08/23 15:30:00 EST, Weight Dosing omeprazole, See Instructions, TAKE 1 CAPSULE BY MOUTH EVERY DAY, # 90 cap(s), Refills(s) 1, Pharmacy: [facility], 167, cm, 02/08/23 15:30:00 EST, Height/Length Dosing, [...] 12/27/2013 Recorded influenza virus vaccine, inactivated 12/28/2012 RecordedLakeHealth Beachwood Medical CenterComment on above:Result Comment: Electronically Signed By: Radha Quinteros.br\Date and Time Signed: 05/29/24 11:45 EDTReminderson 05-23-2024 [...] 19.1 % (14.0 - 50.0) 05/22/2024 8:48 Yoakum Auto 12.3 % (4.0 - 14.0) 05/22/2024 8:48 Eos Auto 3.9 % (0.0 - 8.0) 05/22/2024 8:48 Basophil Auto 0.7 % (0.0 - 2.0) 05/22/2024 8:48 Neutro Absolute 2.6 E9/L (2.0 - 7.5) 05/22/2024 8:48 Lymph Absolute (L) 0.8 E9/L (1.0 - 4.0) 05/22/2024 8:48 Yoakum Absolute 0.5 E9/L (0.2 - 1.0) 05/22/2024 [...] does not have any sx that you mentionedNormalOhiohealth Mansfield HospitalCBC w/ Auto Diff on 71-86-6564Rncdaecxfumu Ql (Bld)PRESENTInvalid Interpretation [facility] HospitalComment on above:Performed By: #### [id number] #### Mehrdad [facility] [address], [place] [address]Fylenushg/100 WBC (Bld)0.7 %Normal0.0-2.0Ohio[facility] Mansfield HospitalComment on above:Performed By: #### [id number] #### [facility] [address] [place] [address] 13457Slbafgdmf/Leukocytes Auto (Bld) [Pure # fraction]0.0 E9/LNormal 0.0-0.2FBlanchard Valley Health SystemComment on above:Performed By: #### [id number] #### [facility] [address] [place] [address]14[address]Kamysnrdwik (Bld) [#/Vol]0.2 E9/LNormal0.0-0.5FBlanchard Valley Health SystemComment on above:Performed By: #### [id number] #### [facility] [address] [place] [address] 990[address]Bqcnjuqlucc/100 WBC (Bld)3.9 %Normal0.0-8.0[facility] Mansfield HospitalComment on above:Performed By: #### [id number] #### [facility] [address] [place] [address] 65898Drdtttfwhju distribution width (RBC) [Ratio]17.4 %High10.9-14.2 [facility] Mansfield HospitalComment on above:Performed By: #### [id number] #### [facility] [address] [place] [address] 72[address]Rwngyfslnz (Bld) [Volume fraction]35.5 %Fzvfzi14.0-46.0Ohio[facility] Mansfield HospitalComment on above:Performed By: #### [id number] #### [facility] [address] [place] [address] 265[address]Iqyspbtdyh (Bld) [Mass/Vol]11.4 g/dLLow12.0-16.0Ohio[facility] Mansfield HospitalComment on above:Performed By: #### [id number] #### [facility] [address] [place] [address] 746[address]Rzxzleufbic Auto Ql (Bld)PRESENTInvalid Interpretation Code [facility]field HospitalComment on above:Performed By: #### [id number] #### Cronin [facility] [address] [place] [address] 110[address]Rubpfyiyhjk (Bld) [#/Vol]0.8 E9/LLow1.0-4.0Ohio[facility] Mansfield HospitalComment on above:Performed By: #### [id number] #### [facility] [address] [place] [address] 767[address]Fpljkwabiby/100 WBC (Bld)19.1 %Scwfxd73.0-50.0Ohio[facility] Mansfield HospitalComment on above:Performed By: #### [id number] #### [facility] [address] [place] [address] 63724MAL (RBC) [Entitic mass]24.2 pgLow27.0-34.0Ohio[facility] Mansfield HospitalComment on above:Performed By: #### [id number] #### [facility] [address] [place] [address] 837[address]LDGJ (RBC) [Mass/Vol]32.3 g/lBYaehql10.4-36.0Ohio[facility] Mansfield HospitalComment on above:Performed By: #### [id number] #### [facility] [address] [place] [address] 98126VSV (RBC) [Entitic vol]75.0 fLLow80.0-100.0Ohio[facility] Mansfield HospitalComment on above:Performed By: #### [id number] #### [facility] [address] [place] [address] 790[address]Lqxvhdcufz Ql (Bld)PRESENTInvalid Interpretation CodeOhiohealth Mansfield HospitalComment on above:Performed By: #### [id number] #### [facility] [address] [place] [address] 940[address]Bwrppyffw (Bld) [#/Vol]0.5 E9/LNormal0.2-1.0[facility] Mansfield HospitalComment on above:Performed By: #### [id number] #### [facility] [address] [place] [address] 25046Ihffzafnzcg (Bld) [#/Vol]2.6 E9/LNormal2.0-7.5FBlanchard Valley Health SystemComment on above:Performed By: #### [id number] #### [facility] [address] [place] [address] 18751Xhabkmbjfci/100 WBC (Bld)64.0 %Dllhiq10.0-75.0Ohio[facility] Mansfield HospitalComment on above:Performed By: #### [id number] #### [facility] [address] [place] [address] 01848Ugazqucp mean volume (Bld) [Entitic vol]9.6 fLNormal6.4-10.8 [facility] HospitalComment on above:Performed By: #### [id number] #### [facility] [address] [place] [address] 344[address]Gzeyhsyob (Bld) [#/Vol]226.0 E9/BTqiwhu494.0-500.0[facility] Mansfield HospitalComment on above:Performed By: #### [id number] #### [facility] [address] [place] [address] 01389BSB (Bld) [#/Vol]4.7 E12/LNormal4.3-5.9Ohio[facility] Mansfield HospitalComment on above:Performed By: #### [id number] #### [facility] [address] [place] [address] 01020RBI size Nom (Bld)SEE MORPHOLOGYInvalid Interpretation Code [facility] HospitalComment on above:Performed By: #### [id number] #### [facility] [address] [place] [address] 447[address]LWZ corrected for nucl RBC Auto (Bld) [#/Vol]4.1 E9/LNormal 4.0-11.0[facility] Mansfield HospitalComment on above:Performed By: #### [id number] #### [facility] [address] [place] [address] 03022DSNUKXGKDSvxirqb By: SYSTEM SYSTEM on 87-19-6694Dykzzld [Mass/Vol]4.1 g/dLNormal3.3 - 5.0 gm/dLRemisol ChemAlbumin/Globulin [Mass ratio] 1.9 {ratio}Normal1.1 - 2.2Remisol ChemALP [Catalytic activity/Vol]60 [iU]/d Dikqxp03 - 98 Int._Unit/LRemisol ChemALT No additional P-5'-P [Catalytic activity/Vol]11 [iU]/dNormal6 - 46 Int._Unit/LRemisol ChemAnion gap [Moles/Vol]8 mmol/LNormal6 - 16 mEq/LRemisol ChemAST [Catalytic activity/Vol]16 [iU]/dNormal 5 - 43 Int._Unit/LRemisol ChemBilirubin [Mass/Vol]0.9 mg/dLNormal0.0 - 1.1 mg/dL Remisol ChemCalcium [Mass/Vol]9.3 mg/dLNormal8.9 - 11.1 mg/dLRemisol Chem Chloride [Moles/Vol]105 mmol/IHmbcwt758 - 111 mmol/LRemisol ChemCholesterol [Mass/Vol]164 mg/aGRxrbbv941 - 200 mg/dLRemisol ChemCholesterol in HDL [Mass/Vol]44 mg/dLInvalid Interpretation CodeRemisol ChemComment on above:Result Comment: '>= 60 LOW RISK' '<= 40 HIGH RISK'Cholesterol in LDL [Mass/Vol]113 mg/dLNormal<=129mg/dLRemisol ChemCholesterol in VLDL [Mass/Vol]33 mg/dLNormal7 - 40 mg/dLRemisol ChemCO2 [Moles/Vol]29 mmol/SNseygv92 - 31 mmol/LRemisol ChemCreatinine [Mass/Vol]0.7 mg/dLNormal0.5 - 1.3 mg/dLRemisol DsuecSHX87 mL/min/1.73 i0Vczqvq>=59mL/min/1.73 v0Fgznzbw ChemGlobulin (S) [Mass/Vol]2.2 g/dLNormal1.4 - 4.0 gm/dLRemisol Chem Glucose [Mass/Vol]105 mg/aGSjeiao64 - 199 mg/dLRemisol ChemPotassium [Moles/Vol] 4.4 mmol/LNormal3.5 - 5.3 mmol/LRemisol ChemProtein [Mass/Vol]6.3 g/dLNormal6.0 - 7.8 gm/dLRemisol ChemSodium [Moles/Vol]138 mmol/HFifsbp520 - 145 mmol/LRemisol ChemTriglyceride [Mass/Vol]163 mg/dLHigh<=149mg/dLRemisol ChemTSH Qn2.44 m[IU]/LNormal0.34 - 5.60 mcIU/mLRemisol ChemUrea nitrogen [Mass/Vol]12 mg/dL Normal5 - 21 mg/dLRemisol ChemUrea nitrogen/Creatinine [Mass ratio]17 mg/mg Uwwczx56 - 20Remisol ChemCMPon 34-99-9421Gsupabv [Mass/Vol]4.1 g/dLNormal3.3-5.0 [facility] HospitalComment on above:Performed By: #### [id number] #### [facility] [address] [place] [address] 37[address]Ikweyik/Globulin (S) [Mass conc ratio]1.4Dwxfpx7.1-2.2FBlanchard Valley Health SystemComment on above:Performed By: #### [id number] #### [facility] [address] [place] [address] 793[address]GPE [Catalytic activity/Vol]60 Int._Unit/VZytplu53-39ExdmcyOhiohealth Mansfield HospitalComment on above:Performed By: #### [id number] #### [facility] [address], [place] [address]BDH No additional P-5'-P [Catalytic activity/Vol]11 Int._Unit/L Normal6-46Ohiohealth Mansfield HospitalComment on above:Performed By: #### [id number] #### [facility] [address], [place] [address]Cndik gap [Moles/Vol]8 mmol/LNormal6-16Ohiohealth Mansfield HospitalComment on above:Performed By: #### [id number] #### [facility] [address], [place] [address]FJT [Catalytic activity/Vol]16 Int._Unit/LNormal5-43Ohiohealth Mansfield HospitalComment on above:Performed By: #### [id number] #### [facility] [address], [place] [address]Sfgawgdia [Mass/Vol]0.9 mg/dLNormal0.0-1.1FBlanchard Valley Health SystemComment on above:Performed By: #### [id number] #### [facility] [address], [place] [address]Vzeninz [Mass/Vol]9.3 mg/dLNormal8.9-11.1FBlanchard Valley Health SystemComment on above:Performed By: #### [id number] #### [facility] [address], [place] [address]Ryqpahar [Moles/Vol]105 mmol/KSwauxx686-245IiqbnhOhiohealth Mansfield HospitalComment on above:Performed By: #### [id number] #### [facility] [address], [place] [address]RZ4 [Moles/Vol]29 mmol/CLjdblm17-20ZdfdcbOhiohealth Mansfield Hospital Comment on above:Performed By: #### [id number] #### [facility] [address], [place] [address]Ejtgcjqsmz [Mass/Vol]0.7 mg/dLNormal0.5-1.3FBlanchard Valley Health SystemComment on above:Performed By: #### [id number] #### [facility] [address], [place] [address]Kjidveoj (S) [Mass/Vol]2.2 g/dLNormal1.4-4.0Ohio[facility] Mansfield HospitalComment on above:Performed By: #### [id number] #### [facility] [address], [place] [address]Rqhbgfo [Mass/Vol]105 mg/mIOaypxw29-923LqidyuOhiohealth Mansfield HospitalComment on above:Performed By: #### [id number] #### [facility] [address], [place] [address]Bclrpaalm [Moles/Vol]4.4 mmol/LNormal3.5-5.3FBlanchard Valley Health SystemComment on above:Performed By: #### [id number] #### [facility] [address], [place] [address]Melzgxs [Mass/Vol]6.3 g/dLNormal6.0-7.8Ohio[facility] Mansfield HospitalComment on above:Performed By: #### [id number] #### [facility] [address], [place] [address]Njnomw [Moles/Vol]138 mmol/OGglenf558-913ZcpsxmOhiohealth Mansfield HospitalComment on above:Performed By: #### [id number] #### [facility] [address] [place] [address]Bshu nitrogen [Mass/Vol]12 mg/dLNormal5-21Ohio[facility] Mansfield HospitalComment on above:Performed By: #### [id number] #### [facility] [address], [place] [address]Hpic nitrogen/Creatinine [Mass ratio]17 No GooxaUklcra38-75 [facility] HospitalComment on above:Performed By: #### [id number] #### [facility] [address], [place] [address]PJBFIGUFLFBcushgm By: SYSTEM SYSTEM on 39-76-2575Bwkhvepfymch Ql (Bld)PRESENT *NA* (05/22/24 8:48 AM)Invalid Interpretation CodeRemisol HemeBasophils/100 WBC (Bld) 0.7 %Normal0.0 - 2.0 %Remisol HemeBasophils/Leukocytes Auto (Bld) [Pure # fraction]0.0 E9/LNormal0.0 - 0.2 E9/LRemisol HemeEosinophils (Bld) [#/Vol]0.2 E9/LNormal0.0 - 0.5 E9/LRemisol HemeEosinophils/100 WBC (Bld)3.9 %Normal0.0 - 8.0 %Remisol HemeErythrocyte distribution width (RBC) [Ratio]17.4 %High10.9 - 14.2 %Remisol HemeHematocrit (Bld) [Volume fraction]35.5 %Sgghnv20.0 - 46.0 % Remisol HemeHemoglobin (Bld) [Mass/Vol]11.4 g/dLLow12.0 - 16.0 gm/dLRemisol Heme Hypochromia Auto Ql (Bld)PRESENT *NA* (05/22/24 8:48 AM)Invalid Interpretation CodeRemisol HemeLymphocytes (Bld) [#/Vol]0.8 E9/LLow1.0 - 4.0 E9/LRemisol HemeLymphocytes/100 WBC (Bld)19.1 % Gwwubw31.0 - 50.0 %Remisol HemeMCH (RBC) [Entitic mass]24.2 pgLow27.0 - 34.0 pg Remisol HemeMCHC (RBC) [Mass/Vol]32.3 g/iJFgfdso54.4 - 36.0 gm/dLRemisol HemeMCV (RBC) [Entitic vol]75.0 fLLow80.0 - 100.0 fLRemisol HemeMicrocytes Ql (Bld) PRESENT *NA* (05/22/24 8:48 AM)Invalid Interpretation CodeRemisol HemeMonocytes (Bld) [#/Vol] 0.5 E9/LNormal0.2 - 1.0 E9/LRemisol HemeMonocytes/100 WBC (Bld)12.3 %Normal4.0 - 14.0 %Remisol HemeNeutrophils (Bld) [#/Vol]2.6 E9/LNormal2.0 - 7.5 E9/LRemisol HemeNeutrophils/100 WBC (Bld)64.0 %Bwcisz68.0 - 75.0 %Remisol HemePlatelet mean volume (Bld) [Entitic vol]9.6 fLNormal6.4 - 10.8 fLRemisol HemePlatelets (Bld) [#/Vol]226.0 E9/YYpsxdg232.0 - 500.0 E9/LRemisol HemeRBC (Bld) [#/Vol]4.7 E12/L Normal4.3 - 5.9 E12/LRemisol HemeRBC size Nom (Bld)SEE MORPHOLOGY *NA* (05/22/24 8:48 AM)Invalid Interpretation CodeRemisol HemeWBC corrected for nucl RBC Auto (Bld) [#/Vol]4.1 E9/LNormal4.0 - 11.0 E9/LRemisol HemeLipid Panelon 57-57-9498Oaueedvxgyi [Mass/Vol]164 mg/dJZycequ742-685UtjuntOhiohealth Mansfield HospitalComment on above:Performed By: #### [id number] #### [facility] [address], [place] [address]Fryqyrzrbbk in HDL [Mass/Vol]44 mg/dLInvalid Interpretation CodeOhiohealth Mansfield HospitalComment on above:Result Comment: '>= 60 LOW RISK' '<= 40 HIGH RISK'Performed By: #### [id number] #### [facility] [address], [place] [address]Ugsnmfypmhx in LDL [Mass/Vol]113 mg/dLNormal<=129Ohio[facility] Mansfield HospitalComment on above:Performed By: #### [id number] #### [facility] [address], [place] [address]Avilmgpidqp in VLDL [Mass/Vol]33 mg/dLNormal7-40Ohio[facility] Mansfield HospitalComment on above:Performed By: #### [id number] #### [facility] [address], [place] [address]Lofnzdqlaudp [Mass/Vol]163 mg/dLHigh<=149Ohio[facility] Mansfield HospitalComment on above:Performed By: #### [id number] #### [facility] [address], [place] [address]HNYdz 71-37-7333IKB Qn2.44 m[IU]/LNormal0.34-5.60Ohio[facility]field HospitalComment on above:Performed By: #### [id number] #### [facility] [address], [place] [address]vBLHtw 95-85-8534fEAR99 mL/min/1.73 t5Mdjbuv>=59[facility] Hospital Of BaltimoreComment on above:Performed By: #### [id number] #### [facility] [address] [place], [place] [address]YW Thyroid glandon 23-21-8267[address] [address] Ultrasound Report Signed Patient: REYNA BENAVIDES MR#: [id number] : 1950 Acct:[id number] Age/Sex: 73 / F ADM Date: 03/12/24 Loc: US Attending Dr: Steffanie Quintero M.D. Ordering Physician: Steffanie Quintero M.D. Date of Service: 03/12/24 Procedure(s): US thyroid Accession Number(s): [id number] cc: JENN GERMAIN ; Steffanie Quintero M.D. [address] [address] Patient Name: REYNA BENAVIDES MRN: [id number] date: 1950 Sex: F Assigned Patient Location: US Current Patient Location: Accession/Order Number: [id number] Exam Date: 03/12/2024 10:30 Report Date: 03/13/2024 04:49 At the request of: STEFFANIE QUINTERO Procedure: US thyroid EXAMINATION: US thyroid HISTORY: Nontoxic Multinodular Goiter COMPARISON: Ultrasound thyroid 12/18/2023 FINDINGS: RIGHT LOBE: Heterogeneous echotexture. Contains a 12 mm TR 3 nodule within inferior pole. Lobe size: 3.9 x 2.0 x 2.4 cm LEFT LOBE: Heterogeneous echotexture. Contains an 18 mm TR 3 nodule within superior pole, and 8mm TR 3 nodule within mid body, and a 12 mm TR nodule within the inferior pole. Lobe size: 4.7 x 2.3 x 2.1 cm ISTHMUS: Normal size and echotexture. Thickness: 2 mm US/US thyroid IMPRESSION: 1. Heterogeneous thyroid gland containing TR 3 nodules bilaterally, largest is 18 mm. Grossly stable allowing for differences in technique. Consider follow-up ultrasound evaluation in one-3 years. TR3 (mildly suspicious): > 1.5 cm, follow-up ultrasound in 1, 3, and 5 years. > 2.5 cm, fine needle aspiration. Electronically authenticated by: LOPEZ WILSON Date: 03/13/2024 04:49 Dictated By: Lopez Wilson M.D. Signed By: 03/13/24 0452 DD/ 0449 TD/TT: Car Shifter:TBHRadiology, Radiologist, MD - 03/13/2024 [place] [address] Ultrasound Report Signed Patient: REYNA BENAVIDES MR#: [id number] : 1950 Acct:[id number] Age/Sex: 73 / F ADM Date: 03/12/24 Loc: US Attending Dr: Steffanie Quintero M.D. Ordering Physician: Steffanie Quintero M.D. Date of Service: 03/12/24 Procedure(s): US thyroid Accession Number(s): [id number] cc: JENN GERMAIN ; Steffanie Quintero M.D. The [place] [address] Patient Name: REYNA BENAVIDES MRN: [id number] date: 1950 Sex: F Assigned Patient Location: US Current Patient Location: Accession/Order Number: [id number] Exam Date: 03/12/2024 10:30 Report Date: 03/13/2024 04:49 At the request of: STEFFANIE QUINTERO Procedure: US thyroid EXAMINATION: US thyroid HISTORY: Nontoxic Multinodular Goiter COMPARISON: Ultrasound thyroid 12/18/2023 FINDINGS: RIGHT LOBE: Heterogeneous echotexture. Contains a 12 mm TR 3 nodule within inferior pole. Lobe size: 3.9 x 2.0 x 2.4 cm LEFT LOBE: Heterogeneous echotexture. Contains an 18 mm TR 3 nodule within superior pole, and 8mm TR 3 nodule within mid body, and a 12 mm TR nodule within the inferior pole. Lobe size: 4.7 x 2.3 x 2.1 cm ISTHMUS: Normal size and echotexture. Thickness: 2 mm US/US thyroid IMPRESSION: 1. Heterogeneous thyroid gland containing TR 3 nodules bilaterally, largest is 18 mm. Grossly stable allowing for differences in technique. Consider follow-up ultrasound evaluation in one-3 years. TR3 (mildly suspicious): > 1.5 cm, follow-up ultrasound in 1, 3, and 5 years. > 2.5 cm, fine needle aspiration. Electronically authenticated by: LOPEZ WILSON Date: 03/13/2024 04:49 Dictated By: Lopez Wilson M.D. Signed By: 03/13/24 0452 DD/ TD/TT: Car Shifter: ANTHONY HealthcareRadiology Study observation (narrative)ANTHONY MastersUS Thyroid glandOrdered By: Radiologist Radiology on 32-69-8031XSNL CYPHER Work Phone: [place] Thyroid glandon 84-34-2600[place] [address] Ultrasound Report Signed Patient: REYNA BENAVIDES MR#: [id number] : 1950 Acct:[id number] Age/Sex: 73 / F ADM Date: 12/18/23 Loc: US Attending Dr: Steffanie Quintero M.D. Ordering Physician: Steffanie Quintero M.D. Date of Service: 12/18/23 Procedure(s): US thyroid Accession Number(s): [id number] cc: JENN GERMAIN ; Steffanie Quintero M.D. [place] [id number] Patient Name: REYNA BENAVIDES MRN: [id number] date: 1950 Sex: F Assigned Patient Location: US Current Patient Location: Accession/Order Number: [id number] Exam Date: 12/18/2023 10:00 Report Date: 12/19/2023 10:40 At the request of: STEFFANIE QUINTERO Procedure: US thyroid EXAMINATION: US thyroid HISTORY: Multiple thyroid nodules COMPARISON: No relevant comparison available. TECHNIQUE: Sonographic images of the thyroid gland were obtained. FINDINGS: The right thyroid lobe is normal in size and contour, heterogeneous in echotexture measuring 3.6 x 1.8 x 2.3 cm. 2 focal nodules The thyroid isthmus measures 2.3 mm, heterogeneous. No focal nodule. Left thyroid lobe measures 4.4 x 2.5 x 2.0 cm. Heterogeneous echotexture with 4 focal nodules The 2 most suspicious nodules: Nodule 1. Right thyroid lobe. 1.3 x 0.9 x 1.3 cm. Solid, hyperechoic, tall, smooth margins, no calcifications. TR 4 Nodule 2: Left thyroid lobe. 2.4 x 1.8 x 1.4 cm. Mixed solid and cystic, hypoechoic, wide, smooth margins, punctate calcifications. TR 4 US/US thyroid IMPRESSION: Bilateral thyroid nodules. The left thyroid 2.4 cm nodule is slightly increased compared to the prior exam TI-RADS: The [employer] TI-RADS committee's white paper recommendations for thyroid lesions classified as TR4 (moderately suspicious) are listed below: > 1.0 cm. Follow-up ultrasound in 1, 2, 3, and 5 years. > 1.5 cm. FNA. J. Am Mj Radiol 2017;14:587-595. Electronically authenticated by: BENJY SOLIS Date: 12/19/2023 10:40 Dictated By: Benjy Solis M.D. Signed By: 12/19/23 1043 DD/ 1040 TD/TT: Car Shifter:RANJITHRadiology, Radiologist, - 12/19/2023 [place] [address] Ultrasound Report Signed Patient: REYNA BENAVIDES MR#: [id number] : 1950 Acct:[id number] Age/Sex: 73 / F ADM Date: 12/18/23 Loc: US Attending Dr: Steffanie Quintero M.D. Ordering Physician: Steffanie Quintero M.D. Date of Service: 12/18/23 Procedure(s): US thyroid Accession Number(s): [id number] cc: JENN GERMAIN ; Steffanie Quintero M.D. The [address] [address] Patient Name: REYNA BENAVIDES MRN: [id number] date: 1950 Sex: F Assigned Patient Location: US Current Patient Location: Accession/Order Number: [id number] Exam Date: 12/18/2023 10:00 Report Date: 12/19/2023 10:40 At the request of: STEFFANIEYOBANY VIVASBOWEN Procedure: US thyroid EXAMINATION: US thyroid HISTORY: Multiple thyroid nodules COMPARISON: No relevant comparison available. TECHNIQUE: Sonographic images of the thyroid gland were obtained. FINDINGS: The right thyroid lobe is normal in size and contour, heterogeneous in echotexture measuring 3.6 x 1.8 x 2.3 cm. 2 focal nodules The thyroid isthmus measures 2.3 mm, heterogeneous. No focal nodule. Left thyroid lobe measures 4.4 x 2.5 x 2.0 cm. Heterogeneous echotexture with 4 focal nodules The 2 most suspicious nodules: Nodule 1. Right thyroid lobe. 1.3 x 0.9 x 1.3 cm. Solid, hyperechoic, tall, smooth margins, no calcifications. TR 4 Nodule 2: Left thyroid lobe. 2.4 x 1.8 x 1.4 cm. Mixed solid and cystic, hypoechoic, wide, smooth margins, punctate calcifications. TR 4 US/US thyroid IMPRESSION: Bilateral thyroid nodules. The left thyroid 2.4 cm nodule is slightly increased compared to the prior exam TI-RADS: The [employer] TI-RADS committee's white paper recommendations for thyroid lesions classified as TR4 (moderately suspicious) are listed below: > 1.0 cm. Follow-up ultrasound in 1, 2, 3, and 5 years. > 1.5 cm. FNA. J. Am Mj Radiol 2017;14:587-595. Electronically authenticated by: BENJY SOLIS Date: 12/19/2023 10:40 Dictated By: Benjy Solis M.D. Signed By: 12/19/23 1043 DD/ 1040 TD/TT: Car Shifter: ANTHONY HealthcareRadiology Study observation (narrative)ANTHONY Joseph Thyroid glandOrdered By: Radiologist Radiology on 38-42-0962IPOH [facility] Work Phone: consultation Noteon 23-12-4804Qxbmpjflhqgb Note [id number]#1.00TIFSt. Anthony's HospitalConsenton 76-57-7213Amefxbp [id number]#1.00TIFSt. Anthony's HospitalNurse Consultation Noteon 23-49-7332Caexs Consultation NoteReason for Visit Here for kenalog [...] 12/27/2013 Recorded influenza virus vaccine, inactivated 12/28/[address] RecordedNoSumma HealthRAD - CT Reporton 57-69-4721EQB - CT Report [id number]#1.00TIFSt. Anthony's HospitalRAD - Ultrasound Reporton 88-71-4123PHX - Ultrasound Report [id number]#1.00TIFFNormalFisher Sinai Hospital Of BaltimoreLon 23-68-5438SOufzxqgz: [id number] Received: 06/12/23 Status: HÉCTOR Hernandez Num: [id number] Spec Type: Cytology Subm Dr: Lopez Wilson MD Tissues: A FNA SLIDES NOPATH (LEFT THYROID NODULE SUPERIOR) B FNA SLIDES NOPATH (RIGHT THYROID NODULE INFERIO) Procedures: Cyto Int and Re/2, PAPSTN/12 Age/ Patient Sex Location Account Attending Physician MakaylaReyna Tere 72/F LABELL [id number] Lopez Wilson MD SPEC NUM: [id number] RECD: 06/12/23 STATUS: HÉCTOR HERNANDEZ NUM: [id number] MJ: 06/08/23-[address]: Lopez Wilson MD ENTERED: 06/12/23-1251 [facility] DR: Latha,STEFFANIE Delvalle MD SPEC TYPE: Cytology DEPT: [facility] ENTERED BY: [id number] RECV BY: [id number] ORDERED: Cyto Int and Re/2, PAPSTN/12 ORDERED: Cyto Int and Re/2, PAPSTN/12 Pathological Diagnosis A, left thyroid nodule superior, FNA cytology: -Appropriate for assessment -The Biggs system is category 2: Benign -Fibrin trapping [...] inferior, FNA cytology: -Appropriate for assessment -The Biggs system is category 2: Benign -A few adequate number of small follicular groups are present in the ThinPrep smear and 2 other aspirate smears -The follicular cells are all small and bland looking Specimen: [id number] Received: 06/12/23 Status: HÉCTOR Hernandez Num: [id number] Spec Type: Cytology Subm Dr: Lopez Wilson MD Tissues: A FNA SLIDES NOPATH (LEFT THYROID NODULE SUPERIOR) B FNA SLIDES NOPATH (RIGHT THYROID NODULE INFERIO) Procedures: Cyto Int and Re/2, PAPSTN/12 Patient: Reyna Benavides [id number] (Continued) Specimen: [id number] Received: 06/12/23 (Continued) Signed (signature on file) Katya Norris MD 06/13/23 1716 Specimen: [id number] Received: 06/12/23 Status: HÉCTOR Hernandez Num: [id number] Spec Type: Cytology Subm Dr: Lopez Wilson MD Tissues: A FNA SLIDES NOPATH (LEFT THYROID NODULE SUPERIOR) B FNA SLIDES NOPATH (RIGHT THYROID NODULE INFERIO) Procedures: Cyto Int and Re/2, PAPSTN/12 Patient: Reyna Benavides [id number] (Continued) Specimen: [id number] Received: 06/12/23-1249 (Continued) Clinical [...] pap are additionally received. (CC/nh) CPT Codes 15457 x 2 Specimen: [id number] Received: 06/12/23-1249 Status: HÉCTOR Hernandez Num: [id number] Spec Type: Cytology Subm Dr: Lopez Wilson MD Tissues: A FNA SLIDES NOPATH (LEFT THYROID NODULE SUPERIOR) B FNA SLIDES NOPATH (RIGHT THYROID NODULE INFERIO) Procedures: Cyto Int and Re/2, PAPSTN/12 Patient: Reyna Benavides [id number] (Continued) Signed (signature on file) Katya Norris MD 06/13/[address] [place] [address] Physician GroupNo Panel InformationOrdered By: Radiologist Radiology on 35-94-8972XHWI CYPHER Work Phone: No Panel Informationon 56-30-8916Vythkimzt Study observation (narrative)[facility] CenterRAD - Ultrasound Reporton 52-99-0186LCJ - Ultrasound [id number]#1.00TIFaCrolinaSumma HealthRAD - Ultrasound Report [id number]#1.00TIFFNormalOhiohealth Mansfield HospitalUS BIOPSY THYROIDon 61-70-8839[place]sm[place] [address] Ultrasound Report Signed Patient: REYNA BENAVIDES MR#: [id number] : 1950 Acct:[id number] Age/Sex: 72 / F ADM Date: 06/08/23 Loc: US Attending Dr: Steffanie Quintero M.D. Ordering Physician: Steffanie Quintero M.D. Date of Service: 06/08/23 Procedure(s): US biopsy thyroid Accession Number(s): [id number] cc: JENN GERMAIN ; Steffanie Quintero M.D. [place] [address] Patient Name: REYNA BENAVIDES MRN: [id number] date: 1950 Sex: F Assigned Patient Location: US Current Patient Location: US Accession/Order Number: [id number] Exam Date: 06/08/2023 10:24 Report Date: 06/08/2023 12:18 At the request of: STEFFANIE QUINTERO Procedure: US biopsy thyroid EXAMINATION: US biopsy thyroid, US biopsy FNA [...] added when results are available. US/US biopsy thyroid IMPRESSION: 1. Uneventful ultrasound guided fine needle aspiration (FNA). 2. Pathology results are pending. Electronically authenticated by: LOPEZ WILSON Date: 06/08/2023 12:18 Dictated By: Lopez Wilson M.D. Signed By: 06/08/23 1221 DD/ 1218 TD/TT: Car Shifter:TBHRadiology, Radiologist, - 06/08/2023 [place] [address] Ultrasound Report Signed Patient: REYNA BENAVIDES MR#: [id number] : 1950 Acct:[id number] Age/Sex: 72 / F ADM Date: 06/08/23 Loc: US Attending Dr: Steffanie Quintero M.D. Ordering Physician: Steffanie Quintero M.D. Date of Service: 06/08/23 Procedure(s): US biopsy thyroid Accession Number(s): [id number] cc: JENN GERMAIN ; Steffanie Quintero M.D. The [place] [address] Patient Name: REYNA BENAVIDES MRN: [id number] date: 1950 Sex: F Assigned Patient Location: US Current Patient Location: US Accession/Order Number: [id number] Exam Date: 06/08/2023 10:24 Report Date: 06/08/2023 12:18 At the request of: STEFFANIE QUINTERO Procedure: US biopsy thyroid EXAMINATION: US biopsy thyroid, US biopsy FNA [...] added when results are available. US/US biopsy thyroid IMPRESSION: 1. Uneventful ultrasound guided fine needle aspiration (FNA). 2. Pathology results are pending. Electronically authenticated by: LOPEZ WILSON Date: 06/08/2023 12:18 Dictated By: Lopez Wilson M.D. Signed By: 06/08/23 1221 DD/ 1218 TD/TT: Car Shifter: ANTHONY PATEL THYROIDon 95-95-4714[place]gnR[place] [address] Ultrasound Report Signed Patient: REYNA BENAVIDES MR#: [id number] : 1950 Acct:[id number] Age/Sex: 72 / F ADM Date: 06/08/23 Loc: US Attending Dr: Steffanie Quintero M.D. Ordering Physician: Steffanie Quintero M.D. Date of Service: 06/08/23 Procedure(s): US biopsy FNA add lesion Accession Number(s): [id number] cc: JENN GERMAIN ; Steffanie Quintero M.D. [place] [address] Patient Name: REYNA BENAVIDES MRN: [id number] date: 1950 Sex: F Assigned Patient Location: US Current Patient Location: US Accession/Order Number: [id number] Exam Date: 06/08/2023 10:24 Report Date: 06/08/2023 12:18 At the request of: STEFFANIE QUINTERO Procedure: US biopsy FNA add lesion EXAMINATION: [...] 12:18 Dictated By: Lopez Wilson M.D. Signed By: 06/08/23 1221 DD/ 1218 TD/TT: Car Shifter:TBHRadiology, Radiologist, - 06/08/2023 [place] [address] Ultrasound Report Signed Patient: REYNA BENAVIDES MR#: [id number] : 1950 Acct:[id number] Age/Sex: 72 / F ADM Date: 06/08/23 Loc: US Attending Dr: Steffanie Quintero M.D. Ordering Physician: Steffanie Quintero M.D. Date of Service: 06/08/23 Procedure(s): US biopsy FNA add lesion Accession Number(s): [id number] cc: JENN GERMAIN ; Steffanie Quintero M.D. The [place] [address] Patient Name: REYNA BENAVIDES MRN: [id number] date: 1950 Sex: F Assigned Patient Location: US Current Patient Location: US Accession/Order Number: [id number] Exam Date: 06/08/2023 10:24 Report Date: 06/08/2023 12:18 At the request of: STEFFANIE QUINTERO Procedure: US biopsy FNA add lesion EXAMINATION: [...] 12:18 Dictated By: Lopez Wilson M.D. Signed By: 06/08/23 1221 DD/ 1218 TD/TT: Car Shifter: ANTHONY HealthcareConsultation Noteon 23-17-8029Mkluctalcipb Note [id number]#1.00TIFFNormalOhiohealth Mansfield HospitalHEALTH FAIR CBC AUTO DIFFon 40-97-3258PLTJ #0.0 103/ulNormal0.0-0.1The [facility] HospitalComment on above:Performed By: #### HFPFCBC #### [facility] [address] [place] [address] Dr. Jean-Claude NorrisBasophils/100 WBC (Bld)0.7 %Normal0.2-2.0[facility] Comment on above:Performed By: #### HFPFCBC #### [facility] [address] [place] [address] Dr. Jean-Claude Alex #0.2 103/ulNormal0.0-0.7The [facility]igh HospitalComment on above: Performed By: #### HFPFCBC #### [facility] [address] [place] [address] Dr. Jean-Claude Youosinophils/100 WBC (Bld)3.7 %Normal0.9-7.0[facility] Comment on above:Performed By: #### HFPFCBC #### [facility] [address] [place] [address] Dr. Jean-Claude Yourythrocyte distribution width (RBC) [Ratio]14.8 %Jcllxw91.0-15.0 [facility] CenterComment on above:Performed By: #### HFPFCBC #### [facility] [address] [place] [address] Dr. Jean-Claude NorrisHematocrit (Bld) [Volume fraction]36.5 %Acqqrv31.0-48.0The [facility] HospitalComment on above:Performed By: #### HFPFCBC #### [facility] [address] [place] [address] Dr. Jean-Claude NorrisHemoglobin (Bld) [Mass/Vol]11.6 g/dLCritically low12.0-16.0The [facility] HospitalComment on above:Performed By: #### HFPFCBC #### [facility] [address] [place] [address] Dr. Jean-Claude Mosher #0.01 10e3/ulNormal0.00-0.03The [facility] HospitalComment on above:Performed By: #### HFPFCBC #### [facility] [address] [place] [address] Dr. Jean-Claude Mosher %0.2 %Normal0.0-0.5The [facility] HospitalComment on above: Performed By: #### HFPFCBC #### [facility] [address] [place] [address] Dr. Jean-Claude Serna #0.8 103/ulCritically low1.2-3.8The [facility] Comment on above:Performed By: #### HFPFCBC #### [facility] [address] [place] [address] Dr. Jean-Claude Villarrealhocytes/100 WBC (Bld)18.9 %Critically low20.5-60.0The [facility] HospitalComment on above:Performed By: #### HFPFCBC #### [facility] [address] [place] [address] Dr. Jean-Claude Wu (RBC) [Entitic mass]25.1 pgCritically low26.7-34.0The [facility] HospitalComment on above:Performed By: #### HFPFCBC #### [facility] [address] [place] [address] Dr. Jean-Claude Cruz (RBC) [Mass/Vol]31.8 g/fLMjblrx96.9-35.2The [facility] HospitalComment on above:Performed By: #### HFPFCBC #### [facility] [address] [place] [address] Dr. Jean-Claude Mcclain (RBC) [Entitic vol]78.8 fLCritically low81.0-99.0The [facility] Hospitalment on above:Performed By: #### HFPFCBC #### [facility] [address] [place] [address] Dr. Jean-Claude Espinal #0.5 103/ulNormal0.3-0.8The Glenbeigh HospitalComment on above:Performed By: #### HFPFCBC #### [facility] [address] [place] [address] Dr. Jean-Claude Patelocytes/100 WBC (Bld)12.4 %Critically high1.7-12.0The [facility]igh HospitalComment on above:Performed By: #### HFPFCBC #### [facility] [address] [place] [address] Dr. Jean-Claude Enciso #2.7 103/ulNormal1.4-6.5The [facility]igh HospitalComment on above:Performed By: #### HFPFCBC #### [facility] [address] [place] [address] Dr. Jean-Claude Perezutrophils/100 WBC (Bld)64.1 %Aswmsd29.0-75.0The [facility]igh HospitalComment on above:Performed By: #### HFPFCBC #### [facility] [address] [place] [address] Dr. Jean-Claude Lyon mean volume (Bld) [Entitic vol]11.4 fLNormal9.5-13.5The [facility]igh HospitalComment on above:Performed By: #### HFPFCBC #### [facility] [address] [place] [address] Dr. Jean-Claude NorrisPLT209 103/afUuiggq820-161Sog [facility] HospitalComment on above: Performed By: #### HFPFCBC #### [facility] [address] [place] [address] Dr. Jean-Claude NorrisRBC4.63 106/ulNormal4.20-5.40The [facility]igh HospitalComment on above:Performed By: #### HFPFCBC #### [facility] [address] [place] [address] Dr. Jean-Claude NorrisWBC4.3 103/ulNormal4.0-11.0The [facility]igh HospitalComment on above: Performed By: #### HFPFCBC #### [facility] [address] [place] [address] Dr. Jean-Claude Pickering [facility] GLYCOHEMOGLOBIN A1Con 08-55-0026Zkicrwq [Mass/Vol]117 mg/dLNormalThe [facility]igh HospitalComment on above:Performed By: #### MIFVQ8B #### [facility] [address] [place] [address] Dr. Jean-Claude NorrisHbA1c (Bld) [Mass fraction]5.7 %Normal4.5-6.2The [facility] HospitalComhurley [facility] on above:Performed By: #### LAJUC5X #### [facility] [address] [place] [address] Dr. Jean-Claude PickeringFAIR PROFILEon 26-90-6811Vpjpayu [Mass/Vol]3.9 g/dLNormal 3.4-5.0The [facility]igh HospitalComment on above:Performed By: #### HFPF #### [facility] [address] [place] [address] Dr. Jean-Claude NorrisAlbumin/Globulin [Mass ratio]1.3 {ratio}NormalThe [facility] HospitalComhurley medical center on above:Performed By: #### HFPF #### [facility] [address] [place] [address] Dr. Jean-Claude Salazar [Catalytic activity/Vol]69 U/CEnogaw06-352Llw [facility] HospitalComhur[facility] on above:Performed By: #### HFPF #### [facility] [address] [place] [address] Dr. Jean-Claude Deutsch [Catalytic activity/Vol]23 U/HEdwxdn58-66Hon [facility]Comhur[facility] on above:Performed By: #### HFPF #### [facility] [address] [place] [address] Dr. Jean-Claude Duarte [Catalytic activity/Vol]19 U/HKocwsh77-36Nja Latha HospitalComment on above:Performed By: #### HFPF #### [facility] [address] [address] [address] Jean-Claude NorrisBilirubin [Mass/Vol]1.0 mg/dLNormal0.2-1.0[facility] Comment on above:Performed By: #### HFPF #### [facility] [address] [address] [address] Jean-Claude NorrisCalcium [Mass/Vol]9.3 mg/dLNormal8.5-10.1[facility] Comment on above:Performed By: #### HFPF #### [facility] [address] [place] [address] Dr. Jean-Claude NorrisChloride [Moles/Vol]106 mmol/PLhucaz21-871KcqLakehealth Tripoint Medical Center Comment on above:Performed By: #### HFPF #### [facility] [address] [place] [address] Dr. Jean-Claude NorrisCHOL-HDL RATIO NORMSClinton Memorial HospitalComment on above:Result Comment: 3.3 - 4.4 LOW RISK 4.4 - 7.1 AVERAGE RISK 7.1 - 11.0 MODERATE RISK >11.0 HIGH RISKPerformed By: #### HFPF #### [facility] [address] [place] [address] Dr. Jean-Claude NorrisCholesterol [Mass/Vol]183 mg/dLNormal<=200[facility] Comment on above:Performed By: #### HFPF #### [facility] [address] [place] [address] Dr. Jean-Claude NorrisCholesterol in HDL [Mass/Vol]46 mg/gXIdjwyh77-36DbbLakehealth Tripoint Medical CenterComment on above:Performed By: #### HFPF #### [facility] [address] [place] [address] Dr. Jean-Claude NorrisCholesterol in LDL [Mass/Vol]107.2 mg/dLSumma Health Akron CampusComment on above:Performed By: #### HFPF #### [facility] [address] [place] [address] Dr. Jean-Claude NorrisCholesterol.total/Cholesterol in HDL [Mass ratio]4.0 {ratio} NormalThe [facility]beigh HospitalComment on above:Performed By: #### HFPF #### [facility] [address] [address] [address] Jean-Claude NorrisCO2 [Moles/Vol]27.7 mmol/SHterwd82.0-32.0[facility] Comment on above:Performed By: #### HFPF #### [facility] [address] [address] [address] Jean-Claude NorrisCreatinine [Mass/Vol]0.69 mg/dLNormal0.55-1.02The [facility] HospitalComment on above:Performed By: #### HFPF #### [facility] [address] [address] [address] Jean-Claude NorrisGlobulin (S) [Mass/Vol]3.1 g/dLNoSheltering Arms HospitalComment on above:Performed By: #### HFPF #### [facility] [address] [address] [address] Jean-Claude NorrisGlucose [Mass/Vol]125 mg/dLCritically ispw50-752Htk [facility] HospitalComment on above:Performed By: #### HFPF #### [facility] [address] [address] [address] Jean-Claude NorrisHDL NORMAL> or = 60 mg/dl - LOW CARDIOVASCULAR RISK <40 mg/dl - HIGH CARDIOVASCULAR RISKSumma Health Akron CampusComment on above:Performed By: #### HFPF #### [facility] [address] [address] [address] Jean-Claude NorrisLDL CALC NORMALSEE BELOWSumma Health Akron CampusComment on above:Result Comment: <100 mg/dl OPTIMAL 100 - 129 mg/dl NEAR OR ABOVE OPTIMAL 130 - 159 mg/dl BORDERLINE HIGH 160 - 189 mg/dl HIGH >190 mg/dl VERY HIGH Performed By: #### HFPF #### [facility] [address] [place] [address] Dr. Jean-Claude NorrisPotassium [Moles/Vol]4.3 mmol/LNormal3.5-5.1[facility] Comment on above:Performed By: #### HFPF #### [facility] [address] [address] [address] Jean-Claude NorrisProtein [Mass/Vol]7.0 g/dLNormal6.4-8.2[facility] Comment on above:Performed By: #### HFPF #### [facility] [address] [address] [address] Jean-Claude NorrisSodium [Moles/Vol]142 mmol/QQxexmx866-380Cae [facility] Comment on above:Performed By: #### HFPF #### [facility] [address] [place] [address] Dr. Jaen-Claude NorrisTriglyceride [Mass/Vol]149 mg/dLNormal<=150[facility] Comment on above:Performed By: #### HFPF #### [facility] [address] [place] [address] Dr. Jean-Claude NorrisTSH2.552 uIU/mLNormal0.358-3.740The [facility] HospitalComment on above:Performed By: #### HFPF #### [facility] [address] [place] [address] Dr. Jean-Claude NorrisUrea nitrogen [Mass/Vol]15.0 mg/dLNormal7.0-18.0The [facility] HospitalComment on above:Performed By: #### HFPF #### [facility] [address] [place] [address] Dr. Jean-Claude NorrisUrea nitrogen/Creatinine [Mass ratio]21.7 mg/mgNormAkron Children's HospitalComment on above:Performed By: #### HFPF #### [facility] [address] [place] [address] Dr. Jean-Claude NorrisVLDL CALC29.8 mg/dLNoSheltering Arms HospitalComment on above: Performed By: #### HFPF #### [facility] [address] [place] [address] Dr. Jean-Claude NorrisMG MAMM SCREEN 3D JENNA CADon 95-26-3291DD MAMM SCREEN 3D JENNA CAD Patient: REYNA BENAVIDES Exam Date: 01/06/2022 : 1950 Gender:F Ordering : DR GISELA [facility]IE[facility]RA [facility] Admission #: [id number] Family : Order #: [id number] CLICK HERE TO VIEW EXAM RADIOLOGY REPORT [...] breast cancer at age 58. LOCATION: [facility] BREAST COMPOSITION: Scattered areas fibroglandular density. [...] by: Benjy Solis MD on 01/06/2022 at 14:45[facility] Vital Signs Date TimeVital SignValuePerforming JndjolkbbJiwkwzfc06-09-7949 11:05-0400Body abcyno561.1 cmSteffanie Quintero MD Work Phone: [facility] CenterNfywwmzcjd57-61-6534 11:05-0400Body mass index (BMI) [Ratio]27.46 kg/h3PmvookSteffanie Quintero MD Work Phone: [facility] CenterBgxxasfeho67-15-7456 11:05-0400Body vfkdyf19.84 kgSteffanie Quintero MD Work Phone: [facility] CenterGexrtqjjbw84-83-1041 11:05-0400Diastolic blood qliquobi37 mm[Hg]Steffanie Quintero MD Work Phone: [phone] [place], [place] 4639207-23-2025 11:05-0400Heart rate78 /min Steffanie Quintero MD Work Phone: [phone] [place], [place] 4639207-23-2025 11:05-0400Systolic blood wymphhed901 mm[Hg]Steffanie Quintero MD Work Phone: [phone] [place], [place] 4639201-22-2025 11:18-0500Body erktsk101.1 cmSteffanie Quintero MD Work Phone: [phone] [place], [place] 4639201-22-2025 11:18-0500Body mass index (BMI) [Ratio]27.62 kg/m8SloohrSteffanie Quintero MD Work Phone: [phone] [place], [place] 4639201-22-2025 11:18-0500Body .3 kg Steffanie Quintero MD Work Phone: [phone] [place], [place] 4639201-22-2025 11:18-0500Diastolic blood drtwenvx85 mm[Hg]Steffanie Quintero MD Work Phone: [phone] [place], [place] 4639201-22-2025 11:18-0500Heart rate69 /min Steffanie Quintero MD Work Phone: [phone] [place], [place] 4639201-22-2025 11:18-0500Systolic blood yyzjaxna160 mm[Hg]Steffanie Quintero MD Work Phone: [phone] [place], [place] 4639210-23-2024 12:57-0400Body ygvvvy991.1 cmSteffanie Quintero MD Work Phone: [phone] [place], [place] 4639210-23-2024 12:57-0400Body mass index (BMI) [Ratio]28.96 kg/b1IfloztSteffanie Quintero MD Work Phone: [phone] [place], [place] 4639210-23-2024 12:57-0400Body xuqljc65.93 kgSteffanie Quintero MD Work Phone: [phone] [place], [place] 4639210-23-2024 12:57-0400Diastolic blood nxcvrruw82 mm[Hg]Steffanie Quintero MD Work Phone: [facility] Vyttarylgc80-37-3743 12:57-0400Systolic blood mm[Hg]Steffanie Quintero MD Work Phone: [facility] Encounters Encounter DateEncounter TypeCare ProviderFacilityStart: 12-16-2024 End: 83-85-3813knwufbnpwbUPK Radha L SchwabFacility:[facility] BellevueStart: 10-07-2024 End: 11-99-3230pckxgsezxzXEH Radha L SchwabFacility:[facility] BellevueStart: 09-18-2024 End: 16-74-3480Irdkhp flowsheetSteffanie Quintero MD Work Phone: [facility] CI ENTStart: 09-18-2024 End: 14-98-9125Fclumt Madisyn Quintero MD Work Phone: n[facility] CI ENTStart: 09-18-2024 End: 61-43-1778Fskljo outpatient visit 15 minutesSteffanie Quintero MD Work Phone: n[facility] CI ENTComment on above:Nontoxic multinodular goiter (Primary Dx)Start: 09-18-2024 End: 88-68-5818dnhhuwyxneNTLCJM H TIMMISNot AvailableStart: 01-10-3282Svtiwmf encounter statusSteffanie Quintero MD Work Phone: noms HealthcareStart: 09-09-2024 End: 47-65-4823Motqqlvey Result EncounterSteffanie Quintero MD Work Phone: [facility] External Department UnsolicitedStart: 09-09-2024 End: 72-51-7944Sbzaljvdt Result EncounterSteffanie Quintero MD Work Phone: [facility] External Department UnsolicitedStart: 05-29-2024 End: 28-21-3113hvbxbwirlxXQW Radha Ochoa SchwabFacility:[facility] BellevueStart: 05-22-2024 End: 99-56-4782Zmg Drop offJodi L Mitzi [facility] Start: 05-22-2024 End: 89-73-0631xtslogpzuhVzbr L SchwabFacility:[facility]vueStart: 03-27-2024 End: 77-93-7012Muxbza flowsheetChristine A Pleasnick PT Work Phone: [facility] NM PTStart: 03-27-2024 End: 53-47-2336Iwktrh flowsheetChristine A Pleasnick PT Work Phone: [facility] NM PTStart: 03-27-2024 End: 03-02-0303lkrkgaanmqXrgstkrlb A Pleasnick PT Work Phone: [facility] NM PTComment on above:Benign paroxysmal positional vertigo of right ear (Primary Dx); Dizziness; ImbalanceStart: 03-25-2024 End: 34-38-9708zqczxsbzotQkntqtrat A Pleasnick PT Work Phone: [facility] NM PTComment on above:Benign paroxysmal positional vertigo of right ear (Primary Dx); Dizziness; ImbalanceStart: 03-25-2024 End: 91-72-9704Epmzrg flowsheetChristine A Pleasnick PT Work Phone: [facility] NM PTStart: 03-25-2024 End: 55-85-2010Nqroop flowsheetChristine A Pleasnick PT Work Phone: [phone] NM PTStart: 03-21-2024 End: 91-12-4986Zkhizm flowsheetChristine A Pleasnick PT Work Phone: [phone] NM PTStart: 03-21-2024 End: 96-11-4696Egheqm flowsheetChristine A Pleasnick PT Work Phone: [phone] NM PTStart: 03-21-2024 End: 84-29-6035vxfrhwdicaJtnlrxomd A Pleasnick PT Work Phone: [phone] NM PTComment on above:Dizziness (Primary Dx); Benign paroxysmal positional vertigo, unspecified laterality; ImbalanceStart: 03-20-2024 End: 81-46-7671Nnqvta flowsheetSteffanie Quintero MD Work Phone: NOYA CI ENTStart: 03-20-2024 End: 32-52-0348Mtwtha Madisyn Quintero MD Work Phone: NOZK CI ENTStart: 03-20-2024 End: 99-34-4912Ndqhvk outpatient visit 15 minutesHimatthew Quintero MD Work Phone: [facility] CI ENTComment on above:Multiple thyroid nodules (CMS/HCC) (Primary Dx)Start: 03-20-2024 End: 49-36-3311xdtnczkwpyRUTIJV Serafin QUINTERONot AvailableStart: 03-13-2024 End: 90-58-9010Emauucsiq Result EncounterHimatthew Quintero MD Work Phone: NORL External Department UnsolicitedStart: 03-13-2024 End: 90-54-2462Hjxbuvgrh Result EncounterHimatthew Quintero MD Work Phone: n[facility] External Department UnsolicitedStart: 12-20-2023 End: 70-29-5652Gkpfew Madisyn Quintero MD Work Phone: NOSS CI ENTStart: 12-20-2023 End: 99-94-4386Knhowe Madisyn Quintero MD Work Phone: [facility] CI ENTStart: 12-20-2023 End: 03-62-6748Orhtou outpatient visit 15 minutesSteffanie Quintero MD Work Phone: [facility] CI ENTComment on above:Nontoxic multinodular goiter (CMS/HCC) (Primary Dx)Start: 12-20-2023 End: 95-19-0533exhbpsugcpVNASVP Serafin TIMMISNot AvailableStart: 12-19-2023 End: 88-52-6153Hlrdvvwsu Result EncounterSteffanie Quintero MD Work Phone: noms External Department UnsolicitedStart: 12-19-2023 End: 36-73-5337Xqcchdfnt Result EncounterSteffanie Quintero MD Work Phone: noms External Department UnsolicitedStart: 08-15-2023 End: 90-67-9985remjvclmjzRryb L SchwabFacility:[facility] BellevueStart: 06-08-2023 End: 25-19-5885Cfgxittcs Result EncounterSteffanie Quintero MD Work Phone: noms External Department UnsolicitedStart: 06-08-2023 End: 86-87-1163Fjzwwgihd Result EncounterSteffanie Quintero MD Work Phone: noms External Department UnsolicitedStart: 06-08-2023 End: 20-79-1842njnadflvkoHekgip Roger ZieberFacility:[facility] Centertart: 06-08-2023 End: 62-37-5633opowyhzwhvGZ Lopez Shawomega Work Phone: [facility] Work Phone: Start: 06-08-2023 End: 66-87-6634Brzqcdyz ReferredMD Lopez Bryantrikki Work Phone: [facility]-LAB Path Spec Latha HospStart: 59-38-7699ntzpfhzrziBFFLTMOP CULLENFacility:V2Kznue: 06-14-2022 End: 78-38-9869nyojuyraxjWTDOTENZ CULLENFacility:P3Krmaz: 05-03-2022 End: 26-69-4711qwlcdsemnlSL KATIUSKA LANDAVERDE .Facility:A7Weuif: 01-06-2022 End: 10-21-5659ryppzcwnihZD BENJY Yun WESTFacility:H1 Procedures DateProcedureProcedure DetailPerforming ClinicianStart: 58-07-1187Nk soft tissue head & neck real time imge docmHflex Quintero MD Work Phone: Start: 73-21-9051Hl soft tissue head & neck real time imge Tyler Quintero MD Work Phone: Start: 25-57-5994Il soft tissue head & neck real time imsteven Quintero MD Work Phone: Start: 61-62-6863RL BIOPSY THYROIDHilary Serafin Quintero MD Work Phone: Start: 42-93-3945LL BX THYROIDHilary Serafin Quintero MD Work Phone: Start: 40-98-8898PjwgnetrtjiBesguo Timmis MD Work Phone: appendectomyJodi Mitzi Biopsy of breastJodi Mitzi Comment on above:right breastCarpal tunnel syndrome (disorder)Radha Mitzi Comment on above:bilateral Plan of Treatment DateCare ActivityDetailAuthorStart: 49-54-9302aqrjaznafjNriipyfxewDbbezmnx:[facility] BellevueStart: 03-18-2025 End: 91-81-9254Qwwkhjf encounter yzhxveacp11/20/2026 10:20 AM EST Office Visit [facility] [address] [facility] [address] [place] [id number] Steffanie Quintero MD [address] [facility] [address] [place] [address] [facility] OtolaryngologyStart: 10-28-2024 Influenza vaccinationInfluenza Vaccine (#1)[facility] HealthcareStart: 09-18-2024 End: 19-50-9371Tyyldhn encounter procedureNOMS CI ENTComment on above:Arrived Start: 03-27-2024 End: 11-70-6076ugmnijvgyd60/29/2025 11:30 AM EST Treatment [facility] [address] [place] [address] Sheeba Chen, PT [address] [place] [address] ArrivedNOMS NM PT Comment on above:ArrivedStart: 03-25-2024 End: 58-03-0485zjepfdhadq70/27/2025 2:00 PM EST Treatment [facility] [address] [place] [address] Sheeba Chen, PT [address] [place] [address] [facility] NM PTStart: 03-21-2024 End: 03-95-7776rllibqfawa20/23/2025 12:00 PM EST Evaluation [facility] [address] [place] [address] Sheeba Chen, PT [address] [place] [address] Benign paroxysmal positional vertigo, unspecified lateralityNOMS NM PTComment on above:Benign paroxysmal positional vertigo, unspecified lateralityStart: 03-20-2024 End: 35-59-9041Fxjfixy encounter qlodvstml36/22/2025 11:20 AM EST Office Visit [facility] [address] [facility] [address] [place] [address] Steffanie Quintero MD [address] [facility] [address] [place] [address] ArrivedNOMS CI ENTComment on above:ArrivedStart: 12-20-2023 End: 10-34-8302Yuuiubl encounter grwchazaa60/23/2024 1:00 PM EDT Office Visit [facility] [address] [place] [address] [place] [address] Steffanie Quintero MD [address] [place] [address] [place] [address] ArrivedNOMS CI ENTComment on above:ArrivedStart: 88-26-1850Zgtnfhrsa vaccinationInfluenza Vaccine (#1)[facility] HealthcareStart: 85-97-3430Unypwiobysks Vaccine: 65+ Years (2 of 2 - PCV)Pneumococcal Vaccine: 65+ Years (2 of 2 - PCV)[facility] HealthcareStart: 07-76-6380Nuzniaiov for malignant neoplasm of breastMammogramNOMS HealthcareStart: 21-67-9647Xrgvgsoqx for malignant neoplasm of colonNOMS Healthcare Immunizations Immunization DateImmunizationNotesCare UvmnzadkOqcwyrzw63-17-1519dqucclxzm virus vaccine, unspecified formulationSteffanie Quintero MD Work Phone: [facility] CenterKqcfrydptl90-76-3483muyjcnjws virus vaccine, unspecified formulationJodi Mitzi [phone]-EespiCleveland Clinic Mercy Hospital 27-05-6340CCGE-CoV-2 (COVID-19) mRNA BNT-162r4 vaxJodi Mitzi 599-7168Scwwwu-TikujCleveland Clinic Mercy Hospital Comment on above:Result Comment: 2022-05-16: QAO3383-59-9970dwrmckcwk virus vaccine, unspecified formulationJodi Mitzi [phone]-WrppjCleveland Clinic Mercy Hospital 09-54-9938VRQR-CoV-2 (COVID-19) mRNA BNT-162b2 vaxJodi Mitzi [phone]-KgpwcCleveland Clinic Mercy Hospital 33-87-5685NDFI-CoV-2 (COVID-19) mRNA BNT-162b2 vaxJodi Mitzi [phone]-HosqpC[facility] Clinic [facility] 21-51-8750ubrgvtkrr virus vaccine, unspecified formulationJodi Mitzi 476-4766Lwupdx-KipysCleveland Clinic [facility] Hospital 20-29-0964qlvtgmqsnwwa polysaccharide vaccine, 23 valentJodi Mitzi 272-1414Eparal-QpkebCleveland Clinic [facility]cy Hospital 23-69-0817qbobfqknm virus vaccine, unspecified formulationJodi Mitzi 537-1829Rokhjy-JajdlCleveland Clinic Mercy Hospital 13-65-1901zhmtiyusr virus vaccine, unspecified formulationJodi Mitzi 485-9140Qrvbyl-IowqsCleveland Clinic [facility] 21-46-3949hothktquz virus vaccine, unspecified formulationJodi Mitzi 909-0417Phzzjd-CbmzeCleveland Clinic [facility]cy Hospital 71-63-8073fxxzcljaa virus vaccine, unspecified formulationJodi Mitzi 499-2244Fmbfbn-HlknvCleveland Clinic [facility] Hospital 58-16-2143yknukqntz virus vaccine, unspecified formulationJodi Mitzi [phone]-AhwqkCleveland Clinic [facility]cy Hospital 81-79-4653qclbkosnk virus vaccine, unspecified formulationJodi Mitzi 369-7722Sdnujk-DnxahCleveland Clinic [facility]cy Hospital 24-72-9943socffwrar virus vaccine, unspecified formulationJodi Mitzi [phone]-RyripCleveland Clinic [facility] Hospital Payers DatePayer CategoryPayerPolicy [id number] Health [id number] [id number] 2015Medicare [id number] [id number] 44-87-5812Iwvm-[id number] [id number] 2.16.840.1.566695.3.57[id number] 2.16.840.1.287607.3.57[id number] 2.16.840.1.784670.3.57[id number] 2.16.840.1.379819.3.57[id number] 2.16.840.1.936854.3.57[id number] 2.16840.1.891941.3.57[id number] 2.0.1.901823.3.57[id number] 2.16840.1.958609.3.57[id number] 2.16840.1.219891.3.57[id number] 2.0.1.700730.3.57[id number] 2.160.1.490962.3.57[id number] 2.16840.1.384820.3.57[id number] 2.16840.1.899361.3.579.[id number] 2.16840.1.789681.3.57[id number] 2.16840.1.505165.3.57[id number] 2.16840.1.2[id number] 2.16.840.1.546915.3.579.2.593 Social History DateTypeDetailFacilityTobacco smoking status NHISUnknown if ever smokedMckitrick Hospital Work Phone: Start: 83-89-4778Wxk Assigned At BirthFeMercer County Community Hospitaltart: 02-08-2023 End: 30-97-0481Faotrhe smoking status NHISNever smoked tobaccoNOMS Healthcare Start: 38-02-5344Qyejktf use and exposureSmokeless tobacco non-userNOMS HealthcareStart: 06-28-2023 End: 00-38-4660Mrukybrka beverage intakeCurrent drinker of alcohol (finding)[facility] HealthcareStart: 06-28-2023 End: 82-64-0391Cujafqf of Social functionNOMS HealthcareStart: 06-28-2023 End: 61-87-8729Bymnthr use [facility]: 1950 Sex assigned at birthNot on fileMCKAY-DEE H[facility]ITAL [facility]ENTER HealthcareStart: 59-85-2901Uejndpg smoking statusNeACMC Healthcare System [facility] BellevueSexual OrientationOhiohealth Southeastern Medical Center Start: 04-18-2925ClnJwgdts (finding)[facility] Clinical Notes 06-14-2022 to 10-07-2024 Note Date & YfohHrssUmzbzuqz26-76-5379 NotePatient Education Gastroenterology Heartburn Heartburn is a [...] vinegar, hot sauces, and barbecue sauce. ? [place] fruit juices and citrus fruits, such as oranges, daylin, and limes. ? Tomato-based foods, such as red sauce, chili, salsa, and pizza with red sauce. ? Fried and fatty foods, such as donuts, stateless fries, potato chips, and high- fat dressings. [...] your health care provider. Medicines ??? Take rohu-oew-teceacc and prescription medicines only as told by [...] by your health care provider. ??? Take vuny-ckc-bwxnixo and prescription medicines only as told by [...] provider. Document Revised: 08/19/2020 Document Reviewed: 08/19/2020 [employer] Patient Education ? 2023 [employer] Nutrition BMI for Adults Body mass index (BMI) is a number found using a person's weight and height. BMI can help tell how much of a person's weight is made up of fat. BMI does not measure body fat directly. It is used instead of tests that directly measur (more content not included)...[facility]07-23-2025 History of Present illness Narrative* Steffanie Quintero MD - 09/18/2024 11:10 AM EDT Subjective Patient ID: Reyna Benavides is a 74 y.o. female who presents for Thyroid Nodule (6 month ultrasound [facility] 09/09/24) Thyroid US shows RT 13mm, LT [...] Repeat US 6 mo documented in this encounterMid [facility] [id number] NoteNurse Consultation Note Reason for Visit Pt [...] 12/27/2013 Recorded influenza virus vaccine, inactivated 12/28/2012 [facility] History of Present illness Narrative* Sheeba Chen, PT - 03/27/2024 11:30 AM EST Images from the original note were not included. Physical Therapy Physical Therapy Treatment Visit Time In: 11:30 am Time Out: 12:10 pm Supervised Time: 40 Total Time: 40 Visit number: 3 Precautions: none Subjective Chief Complaint: H81.11 (ICD-10-CM) - Benign paroxysmal positional vertigo, right 2. [place] pretty good since she was here last. [...] leaves in 2 days for [facility] to [facility]. I advised her I would leave her chart open for 30 days and she should call upon her return ifshe feels she needs to come back. No restrictions on travel except avoid water in ears with underwater swimming if possible. documented in this encounterMid Missouri Mental Health CenterYdmqmmmrcf28-03-7127 History of Present illness Narrative* Sheeba Chen, [...] side. No meds. Intermittent sensations. Earsfeel plugged. [place] good the day of PT but started next day. INTERVENTIONS: X30 minutes of manual therapy X10 minutes of canalith repositioning Assessment/Plan [place] + R with latent effect ~10 [...] days for recheck. Ptleaves on cruise to [facility] this Monday. documented in this encounterMid Missouri Mental Health [id number] History of Present illness Narrative* Sheeba Chen, PT - 03/21/2024 12:00 PM EST Time In: 12:10 pm Time Out: 1:05 pm Supervised Time: 55 Total Time: 55 Evaluation Time: 15 Self long-term management: 10 Canalith repositionin Manual therapy: 15 [...] am. Walks every morning for an hour [facility]. Both ears feel marco antonio fuzzy. Had treatment in 2020 went away completely. This episode isnot as severe. Le[place] [facility] [place] Mar [facility] for 1 week. Flying there. [...] Stella x 1. Functional Limitations: DHI: 22/100 Filling Carrier Goals: 1.I HEP 2.Active cervical rotation to [...] below. Physician Signature: Date: documented in this encounterMid Missouri Mental Health CenterWkqmnkzbxg25-16-7525 History of Present illness Narrative* Steffanie Quintero MD - 03/20/2024 11:20 AM EST Subjective Patient ID: Reyna Benavides is a 73 y.o. female who presents for Thyroid Nodule (3 month ultrasound 03/13/24 [facility]) US shows a dominant 18mm left nodule [...] Repeat in 6 mo [place] [id number] History of Present illness Narrative* Steffanie Quintero MD - 12/20/2023 1:00 PM EDT Subjective Patient ID: Reyna Benavides is a 73 y.o. female who presents for Thyroid Nodule (5 month check Ultrasound TB 12/18/23) Dominant LT nodule 95j60x51kr compared to 08p69o84uv in April. Nodule was Biggs 2 on FNAS Family History Problem Relation [...] for wheezing cholecalciferol (Vitamin D-3) 50 MCG (2000 UT) tablet Take 1 tablet by mouth [...] US in 3 mo documented in this encounterMid Missouri Mental Health [id number] NotePROCEDURE: XR FOOT LT MIN 3 VIEWS [...] Electronically authenticated by: LOPEZ WILSON Date: 2022-06-14 15:56[facility] No data available for this section [facility] Evaluation noteNo assessment information available [facility] Work Phone: Evaluation note* Diagnosis Nontoxic multinodular goiter (CMS/HCC)- Primary Nontoxic multinodular goiter documented in this encounter [facility] HealthcareEvaluation note* Diagnosis Multiple thyroid nodules (CMS/HCC)- Primary Nontoxic multinodular goiter documented in this encounter [facility] HealthcareEvaluation note* Diagnosis Dizziness- Primary Dizziness and giddiness Benign paroxysmal positional vertigo, unspecified laterality Imbalance Abnormality of gait documented in this encounter [facility] HealthcareEvaluation note* Diagnosis Benign paroxysmal positional vertigo of right ear- Primary Dizziness Dizziness and giddiness Imbalance Abnormality of gait documented in this encounter [facility] HealthcareEvaluation note* Diagnosis Nontoxic multinodular goiter- Primary Nontoxic multinodular goiter documented in this encounter [facility] HealthcareHospital Discharge instructions No data available for this section [facility] Progress note No data available for this section [facility] Reason for visit Narrative* Rehabilitation - Outpatient (Routine) - AuthorizedSpecialtyDiagnoses / ProceduresReferred By Contact Referred To ContactPhysical Therapy Diagnoses Benign paroxysmal positional vertigo, unspecified laterality Procedures CA OFFICE/OUTPATIENT NEW HIGH MDM 60 MINUTES Steffanie Quintero MD [address] [place] [address] Phone: tel: fax: Benjy Rodriguez, PT [address] [place] [address] Phone: tel: fax: Referral IDStatusReasonStart DateExpiration DateVisits RequestedVisits [id number] Consult and Treat 30 [facility] Summary Purpose Family History Relationship Condition Age at Onset Recorded Date/T [...] section and content) DATE CREATED AUTHOR 06/27/2022 [facility] DATE CREATED AUTHOR AUTHOR'S ORGANIZ ATION 06/15/2023 [facility] DATE CREATED AUTHOR AUTHOR'S ORGANIZ ATION 05/23/2024 [facility] DATE CREATED AUTHOR AUTHOR'S ORGANIZ ATION 05/24/2024 [facility] DATE CREATED AUTHOR AUTHOR'S ORGANIZ ATION 09/19/2024 [facility] DATE CREATED AUTHOR AUTHOR'S ORGANIZ ATION 12/17/2024 [facility] Care Teams (unrecognized sec tion and content) Team Status: Inactive Member Role Status Dates Lopez Wilson MD Attending Provider Active Start: June 08, 2023 End: June 08, 2023Team MemberRelationshipSpecialtyStart DateEnd Date Jenn Germain MD [address] [place] [address] PCP - GeneralFamily Pjfajgad45/17/24Team MemberRelationshipSpecialtyStart Date End Date Jenn Germain MD [address] [place] [address] PCP - GeneralFamily Pbnwmztd22/17/24Team MemberRelationshipSpecialtyStart Date End Date Jenn Germain MD [address] [place] [address] PCP - GeneralFamily Kyzkrcnb99/17/24Team MemberRelationshipSpecialtyStart Date End Date Jenn Germain MD [address] [place] [address] PCP - GeneralFamily Xsyrqxrv74/17/24Team MemberRelationshipSpecialtyStart Date End Date Jenn Germain MD [address] [place] [address] PCP - GeneralFamily Eroskgxo40/17/24Team MemberRelationshipSpecialtyStart Date End Date Jenn Germain MD [address] [place] [address] PCP - GeneralFamily Mtbuyypj61/17/24Team MemberRelationshipSpecialtyStart Date End Date Jenn Germain MD [address] [place] [address] PCP - GeneralFamily Qibrvhfy04/17/24Team MemberRelationshipSpecialtyStart Date End Date Jenn Germain MD [address] [place] [address] PCP - Generalmi Rpvuayuy66/17/24 Radha Cartagena NP [address] [place] [address] Referring PhysicianNorth[facility] Hospital [facility]09/18/24Team MemberRelationshipSpecialtyStart DateEnd Date Jenn Germain MD [address] [place] [address] PCP - GeneralNorth[facility]12/14/23 Radha Cartagena NP [address] [place] [address] Referring PhysicianNorthside Hospital Cherokee09/18/24Team MemberRelationshipSpecialtyStart DateEnd Date Jenn Germain MD [address] [place] [address] PCP - [facility]12/14/23 Radha Cartagena NP [address] [place] [address] [phone] Referring PhysicianNorthside Hospital Cherokee09/18/24 Goals (unrecognized section and content) Goals may be documented in a n alternate section No data available for this section Reason for Visit (unrecogniz ed section and content) ReasonCommentsThyroid Nodule5 month check Ultrasound TB 12/18/23ReasonComments Thyroid Nodule3 month ultrasound 03/13/24 TBHReasonCommentsThyroid Nodule6 month ultrasound TB 09/09/24 FOR RECORDS PERTAINING TO PATIENTS WHO [...] BE BASED ON THE PRIMARY CLINICAL RECORDS. [facility] [employer] [facility]. provides no warranty or guarantee of the accuracy or completeness of information in this document.
--- OUTSIDE RECORDS SUMMARY | 2024-12-27 07:28 | XMS_ITS | Encounter Summary ---
Author Organization [facility] Address [address] [facility] [place] [address] Care Team Providers Care Lead Pharmacy Technician Name Role Phone Jenn Germain MD Primary Care Provider [phone] Radha Cartagena LUMP INSPECTOR Unavailable Encounter Details DateTypeDepartmentCare Team (Latest Contact Info)Jtiqryidiha03/11/2024linisync Result Encounter [facility] External Department Unsolicited Steffanie Mai MD [address] [place] [address] Social History Tobacco UseTypesPacks/DayYears UsedDateSmoking Tobacco: NeverSmokeless Tobacco: NeverAlcohol UseStandard Drinks/WeekCommentsYes0 (1 standard drink = 0.6 oz pure alcohol)CommentsUnknownSex and Gender InformationValueDate RecordedSex Assigned at BirthNot on fileLegal QwvAggyor85/01/2023 8:33 PM EDTGender Identity Not on fileSexual OrientationNot on filedocumented as of this encounter Plan of Treatment DateTypeDepartmentCare Team (Latest Contact Info)Mhcndupnhjn00/20/2026 10:20 AM ESTOffice Visit [facility] [address] [place] [id number] Steffanie Mai MD [address] [place], [place] [phone] documented as of this encounter Procedures Procedure NamePriorityDate/TimeAssociated DiagnosisCommentsUS BIOPSY THYROID 06/08/2023 12:18 PM EDT documented in this encounter Results * US BIOPSY THYROID (06/08/2023 12:18 PM EDT)Anatomical RegionLateralityModality OtherSpecimen (Source)Anatomical Location / LateralityCollection Method / VolumeCollection TimeReceived Time06/08/2023 12:18 PM EDT Narrative 06/08/2023 12:21 PM EDT [facility] ?[address] ? [place] [address] ? Ultrasound Report ? Signed ? Patient: MARIYA,REYNA K ?MR#: [id number] ?? : 1950 ?Acct:[id number] ?? Age/Sex: 72 / F ?ADM Date: 06/08/23 ?? Loc: US ? Attending Dr: Steffanie Mai M.D. ? Ordering Physician: Steffanie Mai M.D. ?? Date of Service: 06/08/23 ?? Procedure(s): US biopsy thyroid ?? Accession Number(s): [id number] ? cc: JENN GERMAIN ; Steffanie Mai M.D. ? [facility] ? [address] ? [place] [address] ? Patient Name: ?? REYNA BENAVIDES ? MRN: [facility]:[id number] ? date: 1950 ?Sex: F ?? Assigned Patient Location: US ?? Current Patient Location: US ?? Accession/Order Number: [id number] ?? Exam Date: 06/08/2023 ??10:24 ?Report Date: 06/08/2023 ??12:18 ? At the request of: ?? STEFFANIE ??INGRID ? Procedure: ??US biopsy thyroid ? EXAMINATION: US biopsy thyroid, US biopsy [...] when results are available. ? US/US biopsy thyroid ?? IMPRESSION: ? 1. Uneventful ultrasound guided fine needle aspiration (FNA). ?? 2. Pathology results are pending. ? Electronically authenticated by: LOPEZ ??SUSAN ?? Date: 06/08/2023 ??12:18 ? Dictated By: ?Lopez Wilson M.D. ? Signed By: ?06/08/23 1221 ? DD/ 1218 ? TD/TT: ? Charge Poster: Procedure Note Radiology, Radiologist, MD - 06/08/2023 [place] [address] Ultrasound Report Signed Patient: REYNA BENAVIDES KMR#: [id number] : 1950Acct:[id number] Age/Sex: 72 / FADM Date: 06/08/23 Loc: US Attending Dr: Steffanie Mai M.D. Ordering Physician: Steffanie Mai M.D. Date of Service: 06/08/23 Procedure(s): US biopsy thyroid Accession Number(s): [id number] cc: JENN GERMAIN ; Steffanie Mai M.D. The [place] [address] Patient Name: REYNA BENAVIDES MRN: [id number] date: 1950 Sex: F Assigned Patient Location: US Current Patient Location: US Accession/Order Number: [id number] Exam Date: 06/08/2023 10:24 Report Date: 06/08/2023 12:18 At the request of: STEFFANIE MAI Procedure: US biopsy thyroid EXAMINATION: US biopsy [...] M.D. Signed By:06/08/23 1221 DD/ 1218 TD/TT: Charge Poster: Authorizing ProviderResult TypeResult StatusHilary H Timmis MDCLINISYNC IMAGING Final Result documented in this encounter Visit Diagnoses Not on filedocumented in this encounter Care Teams Team MemberRelationshipSpecialtyStart DateEnd Date Jenn Germain MD [address] [place] [address] PCP - GeneralFamily Gxzjhoji47/17/24 Radha Cartagena NP [address] [place] [phone] Referring PhysicianFamily Medicine09/18/24documented as of this encounter
--- OUTSIDE RECORDS SUMMARY | 2024-12-27 07:28 | XMS_ITS | Clinical Summary ---
Author Organization [facility] Address [address] [place] [address] Care Team Providers Care Live In Caregiver Name Role Phone Steven Yarbrough MD Primary Care Provider [phone] Radha Cartagena MANAGER HVAC Unavailable Allergies Active AllergyReactionsCriticalityNoted XgpoIggmjxeaVjzxhhvagqHlnsOjm69/21/2024 Other Reaction(s): Unknown Medications MedicationSigDispense QuantityRefillsLast FilledStart [...] mouth Daily5Active Active Problems ProblemNoted DateDiagnosed DateSeasonal wsmbdionb75/22/2025Wellness examination 09/17/2024enign paroxysmal positional btiekrq0103/21/20240635Gswpbxahl16/23/2025 Qpczyxheg72/23/2025dult BMI 27.0-27.9 kg/sq m003/20/2024hronic cough03/20/2024 Congestion of nasal sinus03/20/20245706Qverjmy48/22/2025Nontoxic multinodular goiter 04/02/2024GERD (gastroesophageal reflux disease)05/18/20232550Rvalribxgu96/21/2024 Fibrocystic breast jkelhfk5005/18/2023ulmonary nbqupf3705/18/2023Multiple thyroid vtdivos4305/18/2023Hilar ygtouvmugzvgfhq35/21/2024 Family History Medical HistoryRelationNameCommentsHeart failureFatherAndrewCancerMotherFrances breastRelationNameStatusCommentsFatherAndrewMotherFrances Social History Tobacco UseTypesPacks/DayYears UsedDateSmoking Tobacco: NeverSmokeless Tobacco: Never Tobacco Cessation:Counseling Given: Not Answered Alcohol UseStandard Drinks/WeekCommentsYes2 (1 standard drink = 0.6 oz pure alcohol)CommentsUnknownSex and Gender InformationValueDate RecordedSex Assigned at BirthNot on fileLegal XqaJjcesd50/01/2023 8:33 PM EDTGender Identity Not on fileSexual OrientationNot on file Last Filed Vital Signs Vital SignReadingTime TakenCommentsBlood Avwpjiff598/7707 11:05 AM EDT Ierdb554709/18/2024 11:05 AM EDTTemperature--Respiratory Rate--Oxygen Saturation-- Inhaled Oxygen Concentration--Avdhcf87.8 kg (165 lb)09/18/2024 11:05 AM EDT Xktcig141.1 cm (5' 5 )09/18/2024 11:05 AM EDTBody Mass Index27.4607 11:05 AM EDT Plan of Treatment DateTypeDepartmentCare Team (Latest Contact Info)Vppmmlrwknh39/20/2026 10:20 AM ESTOffice Visit [facility] [address] [facility] [address] [place] [address] Steffnaie Mai MD [address] [facility] [address] [place] [address] Health MaintenanceDue DateLast DoneCommentsCT Czipjajotbgx24/03/1951Colonoscopy 1950Colorectal Cancer Ovcajzxgw13/03/1951FIT-DNA1950FIT1950 FOBT1950 6643Rtasuzjrddans06/03/1950Pneumococcal Vaccine: 65+ Years (2 of 2 - PCV)Influenza Vaccine (#1)512/09/2022, 01/07/2022, 01/18/2021, Additional history tjgsrqXgdgxqbmgNfcqolggxelb09/13/2020 Procedures Procedure NamePriorityDate/TimeAssociated DiagnosisCommentsBI MAMMOGRAM SCREENING TOMOSYNTHESIS ISAZTUYTNTsrjdah09/13/2020 from Last 3 Months or Most Recently Relevant to Health Maintenance Results * Bilateral screening mammogram with tomosynthesis (09/09/2019)Anatomical Region LateralityModalityBreastBilateralMammographySpecimen (Source)Anatomical Location / LateralityCollection Method / VolumeCollection TimeReceived Time Narrative 09/09/2019 12:00 AM EDT PERFORMED AT [facility] LOCATION:[address] Patient: ? MARIYA REYNA CarranzaKurt ? Exam Date: ? 09/09/2019 : ? 1950 ?Gender:F ? Ordering : ? DR GISELA CASON NPC ? Admission #: ? [id number] Family : ?Order #: ? [id number] ? CLICK HERE TO VIEW EXAM RADIOLOGY [...] cancer at age 58. LOCATION: ? [facility] BREAST COMPOSITION: ? Scattered areas fibroglandular density. [...] Note CONVERSION, GENERIC - 09/02/2022 PERFORMED AT [facility] LOCATION:[place] [address] Patient: MARIYA Adames Exam Date: 09/09/2019 : 1950 Gender:F Ordering : DR GISELA CASON [facility] Admission #: [id number] Family : Order #: [id number] CLICK HERE TO VIEW EXAM RADIOLOGY REPORT [...] withbreast cancer at age 58. LOCATION: [facility] BREAST COMPOSITION: Scattered areas fibroglandular density. [...] 09/09/2019 at 13:19 Authorizing ProviderResult TypeResult StatusGeorge R Thomas DOIMG BI PROCEDURES Final Result from Last 3 Months or Most Recently Relevant to Health Maintenance Insurance Care Teams Team MemberRelationshipSpecialtyStart DateEnd Date Steven Yarbrough MD [address] [place] [address] PCP - GeneralFamily Nwzshhkp69/17/24 Radha Cartagena NP [address] [place] [address] Referring PhysicianFamily Medicine09/18/24
--- OUTSIDE RECORDS SUMMARY | 2024-12-27 07:28 | XMS_ITS | Patient Health Record ---
Author Organization The [facility] in [place] Address [address] [place] [address] Care Team Providers Care Foreign Trade Teacher Name Role Phone Radha Tomlinson Primary Care Provider Unavail able María Elena Fitzpatrick Unavailable [phone] Allergies Allergen (clinical drug ingredient) Drug/Non Drug Allergy documented on EMR Reaction Allergy Type Onset Date Status meperidine Demerol rash Drug Allergy Active Results Component Value Reference Range Notes CT Chest w/o contrast Reviewed date:08/12/2024 12:03:19 PM Interpretation: Performing Lab: Notes/Report: CT chest wo con Reviewed date:08/12/2024 11:59:12 AM Interpretation: Performing Lab: Notes/Report: Source Facility: [place] [address] CT Scan Report Signed Patient: REYNA BENAVIDES MR#: [id number] : 1950 Acct:[id number] Age/Sex: 73 / F ADM Date: 08/12/24 Loc: CT Attending Dr: María Elena Fitzpatrick D.O. Ordering Physician: María Elena Fitzpatrick D.O. Date of Service: 08/12/24 Procedure(s): CT chest wo con Accession Number(s): [id number] cc: JENN GERMAIN [place] [address] Patient Name: REYNA BENAVIDES MRN: [facility]:[id number] date: 1950 Sex: F Assigned Patient Location: CT Current Patient Location: CT Accession/Order Number: [id number] Exam Date: 08/12/2024 10:33 Report Date: 08/12/2024 10:54 At the request of: MARÍA ELENA MARCELLO Procedure: CT chest wo con CT CHEST WITHOUT CONTRAST COMPARISON: 08/08/2023 CLINICAL DATA: Follow-up left upper lobe nodule. Spiral images were obtained through the chest without contrast. Images were reviewed using both narrow and wide window settings. This CT exam was performed using one or more following dose reduction techniques: Automated exposure control, adjustment of the mA and/or kV according to patient size, or use of iterative reconstruction technique. The heart is normal size. No pericardial effusion is present. There is minimal coronary artery calcification. There is no aortic aneurysm. Mild plaque is present at the aortic arch, descending aorta and proximal great vessels. Small nonpathologic lymph nodes are seen. There is a tiny hiatal hernia. Bilateral hyper and hypodense thyroid nodularity is seen. Endplate spurring is present at the spine. Scarring is visualized at the lung apices. There is no developing consolidation, pleural effusion or pneumothorax. Small stable subcentimeter nodules are seen bilaterally. There is also redemonstration of an irregular groundglass opacity at the left upper lobe measuring approximately 2 cm in size. This has not significantly changed. Limited imaging through the upper abdomen shows additional atherosclerotic disease. A similar fluid attenuation nodular density is seen in the left periaortic region superior to the renal artery. This is present back to 2017 suggesting a benign etiology. CT/CT chest wo con IMPRESSION: STABLE IRREGULAR LEFT UPPER LOBE GROUNDGLASS OPACITY. STABLE SUBCENTIMETER PULMONARY NODULES. BILATERAL THYROID NODULARITY. NO ACUTE FINDINGS. Impression dictated by: Rachele Moore M.D. 08/12/2024 10:54 AM Dictation Location: [place] [address] Electronically authenticated by: [id number] Y Date: 08/12/2024 10:54 Dictated By: Rachele Moore M.D. Signed By: 08/12/24 1056 DD/ 1054 TD/TT: Roll Over Press Operator: Reason For Referral No Information Medications Medication SIG (Take, Route, Frequency, Duration) Notes Start Date End Date Status Multi Complete - as directed Orally ActiveMelatonin 5 MG1 tablet in the evening Orally Once a dayActiveIron 325 (65 Fe) MG1 tablet Orally Three times a WeekActiveZyrTEC Allergy 10 MG1 tablet Orally Once a nybLxw-IvgefcgqbqOSBblgy-Kbdthqe 100-10 MG/5MLTAKE 5ML BY MOUTH ONCE EVERYDAY AT BEDTIME NEEDED FOR COUGH Oral; Duration: 12 DaysNot-Taking Claritin 10 MG1 tablet Orally Once a zslCmn-VatmakJppgkvrcyz-Dpsdrfsuam Fumarate 80-4.5 MCG/ACT 2 puffs Inhalation BID; Duration: 30 days Rinse after use 08/15/2023Not-TakingAlbuterol Sulfate HFA 108 (90 Base) MCG/ACTINHALE 2 PUFFS EVERY 6 HOURS Inhalation; Duration: 25 DaysNot-TakingVitamin K 100 MCG1 tablet Orally Once a dayActiveVitamin D 50 MCG (2000 UT)1 tablet Orally Once a day ActivePreserVision AREDS 2 -as directed OrallyActiveOmeprazole 40 MGOral; Duration: 30 DaysActive Immunizations Vaccine Route Administration Date Status Comme nts Flu, Fluad (57889) 65 yrs+, single-dose syringe (9385-9605) Unknown 02/03/2023 Administered Pneumococcal (Pneumovax 23)Ogkvvde6012/18/20196049ZbylicuknfwzOZLD-RIV-2 (COVID 19 Pfizer 30mcg/0.3mL)Yfnuvju5902/23/2021dministered Social History Tobacco Use: Social History Observation Description Date Details (start date - stop date) Never Smoker NA - NA Tobacco Control (Standard) Question Answer Notes Tobacco use: Nonsmoker Problems Problem Type SNOMED Code ICD Code Onset Dates Problem Status W/U Status Risk Notes Problem Solitary pulmonary nodule (271752670) Andreia itary pulmonary nodule (R91.1) ActiveconfirmedProblemGastroesophageal reflux disease (259095361)GERD (gastroesophageal reflux disease) (K21.9)ActiveconfirmedProblemMultiple thyroid nodules (711436324)Multiple thyroid nodules (E04.2)ActiveconfirmedProblem Abnormal diffusion capacity determined by pulmonary function test (R94.2)Active confirmedProblemClosed fracture of phalanx of foot (46878111)Closed fracture of phalanx of left second toe, initial encounter (S92.502A)Activeconfirmed Vital Signs Heart Rate 67 /min 08/20/2024 Impnphvlpmv03.0 degrees Plaubltwfh26/24/2025Respiratory Rate18 /min08/20/2024 Cbeaypfm92 %08/20/2024lood pressure ccdlifwew44 mm Hg08/20/20244764Aogbrk24 in 08/20/2024lood pressure seylaysd236 mm Hg08/20/20249808Vnvqfz022.8 lbs08/20/2024MI 26.6 kg/m208/20/2024 Encounters Encounter Location Date Provider Diagnosis [facility] [place] [address] [place] [address] 08/20/2024 María Elena Fitzpatrick Solitary pulmonary nodule R91.1 and Chronic cough R05.3 Assessments Encounter Date Diagnosis (ICD Code) Assessment Notes Treatment Notes Treatment Clinical Notes Section Notes 08/20/2024 Solitary pulmonary nodule (ICD-1 0 - R91.1) Incidentally identified 1.8cm spiculated semisolid GGO in LUCIAN on HRCT 04/27/2023. SPN risk calculatdat 53.6%. PET 05/08/2023: No FDG uptake. F/U CT chest 08/08/2023: No change. Most recent CT chest 08/12/2024 no change. Several other punctate nodules were unchanged in size and number. The patient denies any decreased appetite or unexplained weight loss, excessive night sweats, fevers, or hemoptysis. Hilar lymphadenopathy, originally present, has resolved. Suspect nodule was infectious, or inflammatory. Neoplasm lower on differential. Given GGO semisolid nature, recommend continued monitoring as we cannot completely R/O adenocarcinoma/lirkoljynynagf-hy-wsym. Patient voiced understanding. Ordering 1 year F/U CT chest due July 2025. She was counseled on monitoring for B symptoms. 08/20/2024hronic cough (ICD-10 - R05.3) Doing better with omeprazole compared to inhalers. Plan Of Treatment No Information Insurance Providers Payer Name Payer Address Payer Phone Subscriber Number Group Number Insured Name Patient Relationship to Insured Coverage Start Date Coverage End Date [place]IC[place] [address] [place] [address] [id number] Horn, SusanSelf - patient is the [id number] [id number] [facility] [id number] MEDICARE SUPP [facility] DEPT ALEXANDR DAVIS [id number] Per Camejo - patient is the insured Medical (General) History Medical History History ICD Code GERD (gastroesophageal reflux disease) K 21.9 Osteopenia M85.80 Fibrocystic breast disease (FCBD), right N60.11 Abnormal diffusion capacity determined b y pulmonary function test R94.2 Solitary pulmonary nodule R91.1 Hiatal hernia K44.9 Multiple thyroid nodules E04.2 Surgical History Surgery Date(Month/Year) CARPAL TUNNEL APPENDECTOMYBREAST BIOPSY INCISIONALThyroid Miabfb2206/08/2023
--- OUTSIDE RECORDS SUMMARY | 2024-12-27 07:28 | XMS_ITS | Encounter Summary ---
Author Organization [facility] Address [address] [facility] [place] [address] Care Team Providers Care Rabies Inspector Name Role Phone Jenn Germain MD Primary Care Provider [phone] Radha Cartagena IRRADIATED FUEL HANDLER Unavailable Encounter Details DateTypeDepartmentCare Team (Latest Contact Info)Rasqtepyiup80/15/2025linisync Result Encounter [facility] External Department Unsolicited Steffanie Mai MD [address] [place] [address] Social History Tobacco UseTypesPacks/DayYears UsedDateSmoking Tobacco: NeverSmokeless Tobacco: NeverAlcohol UseStandard Drinks/WeekCommentsYes2 (1 standard drink = 0.6 oz pure alcohol)CommentsUnknownSex and Gender InformationValueDate RecordedSex Assigned at BirthNot on fileLegal GiqDycozh91/01/2023 8:33 PM EDTGender Identity Not on fileSexual OrientationNot on filedocumented as of this encounter Plan of Treatment DateTypeDepartmentCare Team (Latest Contact Info)Glynwaexznm30/20/2026 10:20 AM ESTOffice Visit [facility] [address] [place] [id number] Steffanie Mai MD [address] [place], [place] [id number] documented as of this encounter Procedures Procedure NamePriorityDate/TimeAssociated DiagnosisCommentsUS TOKGMLG1803/13/2024 4:49 AM EST documented in this encounter Results * US thyroid (03/13/2024 4:49 AM EST)Anatomical RegionLateralityModalityHead, NeckUltrasoundSpecimen (Source)Anatomical Location / LateralityCollection Method / VolumeCollection TimeReceived Time03/13/2024 4:49 AM EST Narrative 03/13/2024 4:52 AM EST The [facility] ?[address] ? [place] [address] ? Ultrasound Report ? Signed ? Patient: REYNA BENAVIDES ?MR#: [id number] ?? : 1950 ?Acct:[id number] ?? Age/Sex: 73 / F ?ADM Date: 03/12/24 ?? Loc: US ? Attending Dr: Steffanie Mai M.D. ? Ordering Physician: Steffanie Mai M.D. ?? Date of Service: 03/12/24 ?? Procedure(s): US thyroid ?? Accession Number(s): [id number] ? cc: JENN GERMAIN ; Steffanie Mai M.D. ? The [facility] ? [address] [facility] [place] ? [place] [address] ? Patient Name: ?? REYNA BENAVIDES ? MRN: [facility]:[id number] ? date: 1950 ?Sex: F ?? Assigned Patient Location: US ?? Current Patient Location: ? Accession/Order Number: [id number] ?? Exam Date: 03/12/2024 ??10:30 ?Report Date: 03/13/2024 ??04:49 ? At the request of: ?? STEFFANIE ??INGRID ? Procedure: ??US thyroid ? EXAMINATION: US thyroid ? HISTORY: Nontoxic Multinodular Goiter ? COMPARISON: Ultrasound thyroid 12/18/2023 ? FINDINGS: ?? RIGHT LOBE: Heterogeneous echotexture. Contains a 12 mm TR 3 nodule within ?? inferior pole. ?? Lobe size: 3.9 x 2.0 x 2.4 cm ? LEFT LOBE: Heterogeneous echotexture. Contains an 18 mm TR 3 nodule within ?? superior pole, and 8mm TR 3 nodule within mid body, and a 12 mm TR nodule ?? within the inferior pole. ?? Lobe size: 4.7 x 2.3 x 2.1 cm ? ISTHMUS: Normal size and echotexture. ?? Thickness: 2 mm ? US/US thyroid ?? IMPRESSION: ? 1. Heterogeneous thyroid gland containing TR 3 nodules bilaterally, largest is ? 18 mm. Grossly stable allowing for differences in technique. Consider ?? follow-up ?? ultrasound evaluation in one-3 years. ? TR3 (mildly suspicious): > 1.5 cm, follow-up ultrasound in 1, 3, and 5 years. > 2.5 cm, fine needle aspiration. ? Electronically authenticated by: LOPEZ ??SUSAN ?? Date: 03/13/2024 ??04:49 ? Dictated By: ?Lopez Wilson M.D. ? Signed By: ?03/13/24 0452 ? DD/ 0449 ? TD/TT: ? Power Generating Plant Operator: Procedure Note Radiology, Radiologist, MD - 03/13/2024 [place] [address] Ultrasound Report Signed Patient: REYNA BENAVIDES KMR#: [id number] : 1950Acct:[id number] Age/Sex: 73 / FADM Date: 03/12/24 Loc: US Attending Dr: Steffanie Mai M.D. Ordering Physician: Steffanie Mai M.D. Date of Service: 03/12/24 Procedure(s): US thyroid Accession Number(s): [id number] cc: JENN GERMAIN ; Steffanie Mai M.D. The [place] [id number] Patient Name: REYNA BENAVIDES MRN: [facility]:[id number] date: 1950 Sex: F Assigned Patient Location: US Current Patient Location: Accession/Order Number: [id number] Exam Date: 03/12/2024 10:30 Report Date: 03/13/2024 04:49 At the request of: STEFFANIE MAI Procedure: US thyroid EXAMINATION: US thyroid HISTORY: [...] Heterogeneous thyroid gland containing TR 3 nodules bilaterally,largest is 18 mm. Grossly stable allowing for differences in technique. Consider follow-up ultrasound evaluation in one-3 years. TR3 (mildly suspicious): > 1.5 cm, follow-up ultrasound in 1, 3, and 5years. > 2.5 cm, fine needle aspiration. Electronically authenticated by: LOPEZ WILSON Date: 03/13/2024 04:49 Dictated By: Lopez Wilson M.D. Signed By:03/13/24 0452 DD/ TD/TT: Power Generating Plant Operator: Authorizing ProviderResult TypeResult StatusHilary Serafin Mai MDIMTrinity US PROCEDURES Final Result documented in this encounter Visit Diagnoses Not on filedocumented in this encounter Care Teams Team MemberRelationshipSpecialtyStart DateEnd Date Jenn Germain MD [address] [place] [address] PCP - GeneralFamily Bxbkxhms71/17/24 Radha Cartagena NP [address] [place] [address] Referring PhysicianFamily Medicine09/18/24documented as of this encounter
--- OUTSIDE RECORDS SUMMARY | 2024-12-27 07:28 | XMS_ITS | Encounter Summary ---
Author Organization [facility] Address [address] [facility] [place] [address] Care Team Providers Care Station Mechanic Helper Name Role Phone Jenn Germain MD Primary Care Provider [phone] Radha Cartagena SUPERVISOR SHUTTLE VENEERING Unavailable Encounter Details DateTypeDepartmentCare Team (Latest Contact Info)Nrimztglhyj20/22/2024linisync Result Encounter [facility] External Department Unsolicited Steffanie Mai MD [address] [place] [address] Social History Tobacco UseTypesPacks/DayYears UsedDateSmoking Tobacco: NeverSmokeless Tobacco: NeverAlcohol UseStandard Drinks/WeekCommentsYes0 (1 standard drink = 0.6 oz pure alcohol)CommentsUnknownSex and Gender InformationValueDate RecordedSex Assigned at BirthNot on fileLegal XcyUbmker73/01/2023 8:33 PM EDTGender Identity Not on fileSexual OrientationNot on filedocumented as of this encounter Plan of Treatment DateTypeDepartmentCare Team (Latest Contact Info)Azwfrrwxcpv33/20/2026 10:20 AM ESTOffice Visit [facility] [address] [place] [address] Steffanie Mai MD [address] [place], [place] [address] documented as of this encounter Procedures Procedure NamePriorityDate/TimeAssociated DiagnosisCommentsUS NICQRZD0712/19/2023 10:40 AM EDT documented in this encounter Results * US thyroid (12/19/2023 10:40 AM EDT)Anatomical RegionLateralityModalityHead, NeckUltrasoundSpecimen (Source)Anatomical Location / LateralityCollection Method / VolumeCollection TimeReceived Time12/19/2023 10:40 AM EDT Narrative 12/19/2023 10:43 AM EDT The [facility] ?[address] ? [place] [address] ? Ultrasound Report ? Signed ? Patient: REYNA BENAVIDES ?MR#: [id number] ?? : 1950 ?Acct:[id number] ?? Age/Sex: 73 / F ?ADM Date: 12/18/23 ?? Loc: US ? Attending Dr: Steffanie Mai M.D. ? Ordering Physician: Steffanie Mai M.D. ?? Date of Service: 12/18/23 ?? Procedure(s): US thyroid ?? Accession Number(s): [id number] ? cc: JENN GERMAIN ; Steffanie Mai M.D. ? [facility] ? [address] [facility] ? [place] [address] ? Patient Name: ?? REYNA BENAVIDES ? MRN: [facility]:[id number] ? date: 1950 ?Sex: F ?? Assigned Patient Location: US ?? Current Patient Location: ? Accession/Order Number: [id number] ?? Exam Date: 12/18/2023 ??10:00 ?Report Date: 12/19/2023 ??10:40 ? At the request of: ?? STEFFANIE ??INGRID ? Procedure: ??US thyroid ? EXAMINATION: US thyroid ? HISTORY: Multiple thyroid nodules ? COMPARISON: No relevant comparison available. ? TECHNIQUE: Sonographic images of the thyroid gland were obtained. ? FINDINGS: ? The right thyroid lobe is normal in size and contour, heterogeneous in ?? echotexture measuring 3.6 x 1.8 x 2.3 cm. 2 focal nodules ? The thyroid isthmus measures 2.3 mm, heterogeneous. No focal nodule. ? Left thyroid lobe measures 4.4 x 2.5 x 2.0 cm. Heterogeneous echotexture with ?? 4 ?? focal nodules ? The 2 most suspicious nodules: ?? Nodule 1. Right thyroid lobe. 1.3 x 0.9 x 1.3 cm. Solid, hyperechoic, tall, ?? smooth margins, no calcifications. TR 4 ?? Nodule 2: Left thyroid lobe. 2.4 x 1.8 x 1.4 cm. Mixed solid and cystic, ?? hypoechoic, wide, smooth margins, punctate calcifications. TR 4 ? US/US thyroid ?? IMPRESSION: ? Bilateral thyroid nodules. The left thyroid 2.4 cm nodule is slightly ?? increased ?? compared to the prior exam ? TI-RADS: The [employer] TI-RADS committee's white paper ?? recommendations for thyroid lesions classified as TR4 (moderately suspicious) ?? are listed below: ?? > 1.0 cm. Follow-up ultrasound in 1, 2, 3, and 5 years. > 1.5 cm. FNA. J. Am Scar Radiol 2017;14:587-595. ? Electronically authenticated by: BENJY ??WILL ?? Date: 12/19/2023 ??10:40 ? Dictated By: ?Benjy Solis M.D. ? Signed By: ?12/19/233 ? DD/ 1040 ? TD/TT: ? Transaction Manager: Procedure Note Radiology, Radiologist, MD - 12/19/2023 [place] [address] Ultrasound Report Signed Patient: REYNA BENAVIDES KMR#: [id number] : 1950Acct:[id number] Age/Sex: 73 / FADM Date: 12/18/23 Loc: US Attending Dr: Steffanie Mai M.D. Ordering Physician: Steffanie Mai M.D. Date of Service: 12/18/23 Procedure(s): US thyroid Accession Number(s): [id number] cc: JENN GERMAIN ; Steffanie Mai M.D. The [address] [address] Patient Name: REYNA BENAVIDES MRN: [id number] date: 1950 Sex: F Assigned Patient Location: US Current Patient Location: Accession/Order Number: [id number] Exam Date: 12/18/2023 10:00 Report Date: 12/19/2023 10:40 At the request of: STEFFANIE MAI Procedure: [...] 4.4 x 2.5 x 2.0 cm. Heterogeneous echotexturewith 4 focal nodules The 2 most suspicious nodules: Nodule 1. Right thyroid lobe. 1.3 x 0.9 x 1.3 cm. Solid, hyperechoic,tall, smooth margins, no calcifications. TR 4 Nodule 2: Left thyroid lobe. 2.4 x 1.8 x 1.4 cm. Mixed solid and cystic, hypoechoic, wide, smooth margins, punctate calcifications. TR 4 US/US thyroid IMPRESSION: Bilateral thyroid nodules. The left thyroid 2.4 cm nodule is slightly increased compared to the prior exam TI-RADS: The [employer] TI-RADS committee's white paper recommendations for thyroid lesions classified as TR4 (moderatelysuspicious) are listed below: > 1.0 cm. Follow-up ultrasound in 1, 2, 3, and 5 years. > 1.5 cm. FNA. J. Am Scar Radiol 2017;14:587-595. Electronically authenticated by: BENJY SOLIS Date: 12/19/2023 10:40 Dictated By: Benjy Solis M.D. Signed By:12/19/23 1043 DD/ 1040 TD/TT: Transaction Manager: Authorizing ProviderResult TypeResult StatusHilajeremiah Mai MDIMG US PROCEDURES Final Result documented in this encounter Visit Diagnoses Not on filedocumented in this encounter Care Teams Team MemberRelationshipSpecialtyStart DateEnd Date Jenn Germain MD [address] [place] [phone] PCP - GeneralFamily Xuoczmik41/17/24 Radha Cartagena NP [address] [place] [address] Referring PhysicianFamily Medicine09/18/24documented as of this encounter
== END 2024-12-27 07:26 | disposition home or self-care (01) ==
LOC: MRI 07:26
PROVIDERS: PCP Family Medicine; Visit Provider Nurse Practitioner
DX: R93.6 Abnormal findings on diagnostic imaging of limbs (principal); M25.561 Pain in right knee; S83.271A Complex tear of lateral meniscus, current injury, right knee, initial encounter; S83.241A Other tear of medial meniscus, current injury, right knee, initial encounter
CPT/HCPCS: 73721

== ENCOUNTER 2025-01-10 07:28 | Outpatient (OUT) | payer MEDICARE, OTHER, SELFPAY ==
--- NOTE | 2025-01-10 | XR_ITS ---
The [address] [address] Patient Name: LOBITO MERAZ MRN: [facility]:[id number] date: 1950 Sex: F Assigned Patient Location: [facility] Current Patient Location: [facility] Accession/Order Number: [id number] Exam Date: 01/10/2025 09:00 Report Date: 01/10/2025 10:16 At the request of: BREANNE HAMPTON MD Procedure: XR knee RT 4V RIGHT KNEE - 4 views COMPARISON: 12/19/2024 and MRI 12/27/2024 CLINICAL DATA: Right knee pain for the past couple weeks, greater posteriorly. No injury. Weightbearing AP, lateral, tunnel and patellar views were obtained. There is no acute fracture or dislocation. Mild narrowing is visualized at the medial tibiofemoral joint compartment. No patellar subluxation is seen. There is minimal squaring off the articular margins. There is no significant knee effusion or soft tissue swelling. XR/XR knee RT 4V IMPRESSION: MILD DEGENERATIVE CHANGE. NO ACUTE BONY FINDINGS. Impression dictated by: Rachele Moore M.D. 01/10/2025 10:16 AM Dictation Location: [place] [address] Electronically authenticated by: [id number] Y Date: 01/10/2025 10:16
--- NOTE | 2025-01-10 | XR_ITS ---
The [place] [id number] Patient Name: LOBITO MERAZ MRN: [id number] date: 1950 Sex: F Assigned Patient Location: [facility] Current Patient Location: [facility] Accession/Order Number: [id number] Exam Date: 01/10/2025 09:00 Report Date: 01/10/2025 10:19 At the request of: BREANNE HAMPTON MD Procedure: XR pelvis 1-2V WEIGHTBEARING AP PELVIS: CLINICAL HISTORY: M25.561 pain in right knee. No injury. COMPARISON: None No fracture, dislocation or bony destruction is seen. The hip joint spaces are symmetric. There is no significant hypertrophy. The SI joints are intact. There is a rounded pelvic calcification approximately 3 cm in size suggesting a uterine fibroid. There are no other soft tissue abnormalities. XR/XR pelvis 1-2V IMPRESSION: NO ACUTE BONY FINDINGS. Impression dictated by: Rachele Moore M.D. 01/10/2025 10:19 AM Dictation Location: [place] [address] Electronically authenticated by: [id number] Y Date: 01/10/2025 10:19
--- OUTSIDE RECORDS SUMMARY | 2025-01-10 07:31 | XMS_ITS | Patient Health Record ---
Author Organization [facility] Address [address] [place] [address] Care Team Providers Care Tender Labor Name Role Phone Radha Tomlinson Primary Care Provider Unavail able María Elena Armendariz Unavailable [phone] Allergies Allergen (clinical drug ingredient) Drug/Non Drug Allergy documented on EMR Reaction Allergy Type Onset Date Status meperidine Demerol rash Drug Allergy Active Results Component Value Reference Range Notes CT chest wo con Reviewed date:08/12/2024 11:59:12 AM Interpretation: Performing Lab: Notes/Report: Source Facility: [place] [address] CT Scan Report Signed Patient: REYNA BENAVIDES MR#: [id number] : 1950 Acct:[id number] Age/Sex: 73 / F ADM Date: 08/12/24 Loc: CT Attending Dr: María Elena Armendariz D.O. Ordering Physician: María Elena Armendariz D.O. Date of Service: 08/12/24 Procedure(s): CT chest wo con Accession Number(s): [id number] cc: JENN GERMAIN [place] [address] Patient Name: REYNA BENAVIDES MRN: [id number] date: 1950 Sex: F Assigned Patient Location: CT Current Patient Location: CT Accession/Order Number: [id number] Exam Date: 08/12/2024 10:33 Report Date: 08/12/2024 10:54 At the request of: MARÍA ELENA ARMENDARIZ Procedure: CT chest wo con CT CHEST [...] Moore M.D. 08/12/2024 10:54 AM Dictation Location: [place] [address] Electronically authenticated by: [id number] Y Date: 08/12/2024 10:54 Dictated By: Rcahele Moore M.D. Signed By: 08/12/24 1056 DD/ 1054 TD/TT: Model Engine Mechanic: CT Chest w/o contrast Reviewed date:08/12/2024 12:03:19 PM Interpretation: Performing Lab: Notes/Report: Reason For Referral No Information Medications Medication SIG (Take, Route, Frequency, Duration) Notes Start Date End Date Status Multi Complete - as directed Orally ActiveMelatonin 5 MG1 tablet in the evening Orally Once a dayActiveIron 325 (65 Fe) MG1 tablet Orally Three times a WeekActiveZyrTEC Allergy 10 MG1 tablet Orally Once a synBpf-NrmmmbnytuXEMyfwl-Pwbugvw 100-10 MG/5MLTAKE 5ML BY MOUTH ONCE EVERYDAY AT BEDTIME NEEDED FOR COUGH Oral; Duration: 12 DaysNot-Taking Claritin 10 MG1 tablet Orally Once a figYcw-TafydtKhfbunugmw-Gwwtoynolp Fumarate 80-4.5 MCG/ACT 2 puffs Inhalation BID; [...] Administration Date Status Comme nts Flu, Fluad (32280) 65 yrs+, single-dose syringe (2792-7924) Unknown 02/03/2023 Administered Pneumococcal (Pneumovax 23)Rloveed3812/18/20197575XsnunnvwblkiOJOD-LDU-4 (COVID 19 Pfizer 30mcg/0.3mL)Liwohah5702/23/2021dministered Social History Tobacco Use: Social History Observation Description Date Details (start date - stop date) Never Smoker NA - NA Tobacco Control (Standard) Question Answer Notes Tobacco use: Nonsmoker Problems Problem Type SNOMED Code ICD Code Onset Dates Problem Status W/U Status Risk Notes Problem Solitary pulmonary nodule (243899200) Andreia itary pulmonary nodule (R91.1) ActiveconfirmedProblemGastroesophageal reflux disease (018673000)GERD (gastroesophageal reflux disease) (K21.9)ActiveconfirmedProblemMultiple thyroid nodules (304252539)Multiple thyroid nodules (E04.2)ActiveconfirmedProblem Abnormal diffusion capacity determined by pulmonary function test (R94.2)Active confirmedProblemClosed fracture of phalanx of foot (53256157)Closed fracture of phalanx of left second toe, initial encounter (S92.502A)Activeconfirmed Vital Signs Heart Rate 67 /min 08/20/2024 Oxxxrsefwpv83.0 degrees Adtfyuuhjw20/24/2025Respiratory Rate18 /min08/20/2024 Yghaxlkb49 %08/20/2024lood pressure stlvbuhvt22 mm Hg08/20/20244367Bopxuj20 in 08/20/2024lood pressure fonjtbif349 mm Hg08/20/20243727Mftpjj936.8 lbs08/20/2024MI 26.6 kg/m208/20/2024 Encounters Encounter Location Date Provider Diagnosis [facility] [place] [address] [place] [address] 08/20/2024 María Elena Armendariz Solitary pulmonary nodule R91.1 and Chronic cough [...] continued monitoring as we cannot completely R/O adenocarcinoma/euezvnyrewjkgr-jy-ekim. Patient voiced understanding. Ordering 1 year F/U [...] End Date [place] [address] [place] [address] [id number] Horn, SusanSelf - patient is the [id number] 2014MUTUAL OF [id number] [facility] [address] MEDICARE SUPP [facility] DEPT ALEXANDR DAVIS [phone] Per Camejo - patient is the insured Medical (General) History Medical History History ICD Code GERD (gastroesophageal reflux disease) K 21.9 Osteopenia M85.80 Fibrocystic breast disease (FCBD), right N60.11 Abnormal diffusion capacity determined b y pulmonary function test R94.2 Solitary pulmonary nodule R91.1 Hiatal hernia K44.9 Multiple thyroid nodules E04.2 Surgical History Surgery Date(Month/Year) APPENDECTOMY CARPAL TUNNELBREAST BIOPSY INCISIONALThyroid Ohswnb0206/08/2023
--- OUTSIDE RECORDS SUMMARY | 2025-01-10 07:31 | XMS_ITS | Clinical Summary ---
Author Organization [facility] Address [address] [place] [address] Care Team Providers Care Bi Analyst Name Role Phone Steven Yarbrough MD Primary Care Provider [phone] Radha Cartagena OTM CONSULTANT Unavailable Allergies Active AllergyReactionsCriticalityNoted NwllXrplgploJvjhubctfiFsncBst92/21/2024 Other Reaction(s): Unknown Medications MedicationSigDispense QuantityRefillsLast FilledStart [...] mouth Daily5Active Active Problems ProblemNoted DateDiagnosed DateSeasonal yobexeabf32/22/2025Wellness examination 09/17/2024enign paroxysmal positional cejvidx2903/21/20241732Eqnhkkbxw07/23/2025 Xgeoejrqo47/23/2025dult BMI 27.0-27.9 kg/sq m003/20/2024hronic cough03/20/2024 Congestion of nasal sinus03/20/20241053Yebilqu31/22/2025Nontoxic multinodular goiter 04/02/2024GERD (gastroesophageal reflux disease)05/18/20233193Moiruyixqs42/21/2024 Fibrocystic breast picwbih7305/18/2023ulmonary qbodxl0405/18/2023Multiple thyroid rltjxhd9005/18/2023Hilar zcnygusnjklfzno15/21/2024 Family History Medical HistoryRelationNameCommentsHeart failureFatherAndrewCancerMotherFrances breastRelationNameStatusCommentsFatherAndrewMotherFrances Social History Tobacco UseTypesPacks/DayYears UsedDateSmoking Tobacco: NeverSmokeless Tobacco: Never Tobacco Cessation:Counseling Given: Not Answered Alcohol UseStandard Drinks/WeekCommentsYes2 (1 standard drink = 0.6 oz pure alcohol)CommentsUnknownSex and Gender InformationValueDate RecordedSex Assigned at BirthNot on fileLegal FsnQtublh52/01/2023 8:33 PM EDTGender Identity Not on fileSexual OrientationNot on file Last Filed Vital Signs Vital SignReadingTime TakenCommentsBlood Mezjtyvu120/7707 11:05 AM EDT Epxjp858909/18/2024 11:05 AM EDTTemperature--Respiratory Rate--Oxygen Saturation-- Inhaled Oxygen Concentration--Ixkmkk02.8 kg (165 lb)09/18/2024 11:05 AM EDT Kjchng166.1 cm (5' 5 )09/18/2024 11:05 AM EDTBody Mass Index27.4607 11:05 AM EDT Plan of Treatment DateTypeDepartmentCare Team (Latest Contact Info)Wrqgqncfbgt04/20/2026 10:20 AM ESTOffice Visit [facility] [address] [facility] [address] [place] [address] Steffanie Mai MD [address] [facility] [address] [place] [address] Health MaintenanceDue DateLast DoneCommentsCT Ueyldudkexyb17/03/1950Colonoscopy 1950Colorectal Cancer Ajfubfjuc69/03/1951FIT-DNA1950FIT1950 FOBT1950 7587Kvkwrnfhdtgdb30/03/1951Pneumococcal Vaccine: 65+ Years (2 of 2 - PCV)COVID-19 Vaccine ( season)2024 02/23/2021, 05/01/2020, 04/10/2020Influenza Vaccine (#1)/09/2022, 01/07/2022, 01/18/2021, Additional history bkagnoLbelmeiemNykzyggpjggs63/13/2020 Procedures Procedure NamePriorityDate/TimeAssociated DiagnosisCommentsBI MAMMOGRAM SCREENING TOMOSYNTHESIS HRWUKQLMNBreavhs96/13/2020 from Last 3 Months or Most Recently Relevant to Health Maintenance Results * Bilateral screening mammogram with tomosynthesis (09/09/2019)Anatomical Region LateralityModalityBreastBilateralMammographySpecimen (Source)Anatomical Location / LateralityCollection Method / VolumeCollection TimeReceived Time Narrative 09/09/2019 12:00 AM EDT PERFORMED AT [facility] LOCATION:[address] Patient: ? MARIYA Adames ? Exam Date: ? 09/09/2019 : ? 1950 ?Gender:F ? Ordering : ? DR GISELA CASON NPC ? Admission #: ? [id number] Family : ?Order #: ? [id number] ? CLICK HERE TO VIEW EXAM RADIOLOGY [...] cancer at age 58. LOCATION: ? [facility] BREAST COMPOSITION: ? Scattered areas fibroglandular density. [...] Note CONVERSION, GENERIC - 09/02/2022 PERFORMED AT [facility] LOCATION:[address] Patient: MARIYA Adames Exam Date: 09/09/2019 : 1950 Gender:F Ordering : DR GISELA CASON [facility] Admission #: [id number] Family : Order #: [id number] CLICK HERE TO VIEW EXAM RADIOLOGY REPORT [...] withbreast cancer at age 58. LOCATION: [facility] BREAST COMPOSITION: Scattered areas fibroglandular [...] Most Recently Relevant to Health Maintenance [facility] [place] [phone] Care Teams Team MemberRelationshipSpecialtyStart DateEnd Date Steven Yarbrough MD [address] [place] [address] PCP - GeneralFamily Lpfgptih30/17/24 Radha Cartagena NP [address] [place] [address] Referring PhysicianFamily Medicine09/18/24
--- OUTSIDE RECORDS SUMMARY | 2025-01-10 07:31 | XMS_ITS | Clinical Summary ---
Author Organization [facility] tem Address [id number] [address] [place] [address] Care Team Providers Care Technical Operations Specialist Name Role Phone Leonardo Mercer MD Primary Care Provider [phone] Allergies Active AllergyReactionsCriticalityNoted GosgWflpcqtnEwtfcixnfx25/24/2017 Medications MedicationSigDispense QuantityRefillsLast FilledStart DateEnd DateStatus amitriptyline [...] 0.6 oz pure alcohol)1-2 GLASSES A WEEKChildcareAnswerDate FwdrymdeCausxbvkoVhudkqx37/13/2019EmploymentAnswerDate WfhikofoDlppslqbkeVgxijol17/13/2019Purpose - LifeAnswerDate RecordedPurpose and direction in kqroEvpkuji95/11/2021CommentsUnknownSex and Gender InformationValueDate RecordedSex Assigned at BirthNot on fileLegal SexFemale 09/13/2016 1:52 PM EDTGender IdentityNot on fileSexual OrientationNot on file Last Filed Vital Signs Vital SignReadingTime TakenCommentsBlood Segnfuef144/8007/ 12:58 PM EDT Pulse--Temperature--Respiratory Rate--Oxygen Saturation--Inhaled Oxygen Concentration--Uqaprw41.3 kg (166 lb)09/19/2016 12:58 PM HKVXadcfb576.6 cm (5' 6 )09/19/2016 12:58 PM EDTBody Mass Index26.7909/19/2016 12:58 PM EDT Plan of Treatment Health MaintenanceDue DateLast DoneCommentsDepression Wjaewtepg60/03/1962Tobacco Cjsrcdtcr30/03/1962DTaP,Tdap and Td Vaccines (1 - Tdap)1968Zoster (Shingles) Vaccine (1 of 2)08/30/1999Fall Risk Tnwyvrenm40/03/2015RSV ( or age 60+ yrs) (1 - 1-dose 75+ series)2024Influenza Hjnqtty1010/28/2024 Medical Devices Not on file Insurance Care Teams Team MemberRelationshipSpecialtyStart DateEnd Leonardo Mercer MD [facility]09/14/16
== END 2025-01-10 07:29 | disposition home or self-care (01) ==
LOC: RAD 07:28
PROVIDERS: PCP Family Medicine; Visit Provider Orthopaedic Surgery
DX: M25.561 Pain in right knee (principal); M25.562 Pain in left knee
CPT/HCPCS: 72170; 73564